=== PATIENT | male | born 1950 | race Caucasian/White ===

== ENCOUNTER → 2018-09-04 09:22 | Outpatient (CLI) | payer BC, SELFPAY ==
[2018-09-04 10:56] LABS: Cholesterol 207 mg/dL (200); High Density Lipoprotein 41 mg/dL; LDH 169 U/L (87-241); Triglycerides 214 mg/dL; Very Low Density Lipoprotein 43 mg/dL (5-40)
[2018-09-05 08:40] LABS: LDL, Direct 120295 119 mg/dL (0-99)
== END ==
PROVIDERS: Family Provider Family Medicine; PCP Family Medicine; Referring Provider Family Medicine; Visit Provider Family Medicine
DX: E78.2 Mixed hyperlipidemia (principal)
CPT/HCPCS: 36415; 80061; 83615; 83721

== ENCOUNTER → 2019-05-15 | Outpatient (CLI) | payer BC, SELFPAY ==
[2017-07-04 07:17] VITALS: BMI 28.6
--- NOTE | 2019-05-15 09:52 | RAD_ITS ---
STUDY: X-RAY - RIGHT KNEE REASON FOR EXAM: Male, 69 years old. Knee pain swelling TECHNIQUE: 4 view(s) of the knee. COMPARISON: None. FINDINGS: There is demineralization of the visualized distal femur. There is demineralization of the tibia and fibula. Normal proximal tibiofibular articulation. There is mild degenerative arthrosis of the medial femorotibial compartment. There is mild degenerative arthrosis of the lateral femorotibial compartment. Normal patellofemoral articulation. There is a moderate volume joint effusion. There is soft tissue edema overlying the knee. There is atherosclerotic disease. RAD/Knee 4 or More Views IMPRESSION: Moderate joint effusion. Arthrosis. No visualized acute fracture. Electronically Signed: Nereida Berger MD at 17:03 EDT Tel , Service support ,
== END | disposition home or self-care (01) ==
LOC: MTRAD 09:50
PROVIDERS: Family Provider Family Medicine; PCP Family Medicine; Referring Provider Family Medicine; Visit Provider Family Medicine
DX: M25.461 Effusion, right knee (principal)
CPT/HCPCS: 73564

== ENCOUNTER → 2019-08-01 09:50 | Outpatient (CLI) | payer MEDICARE, SELFPAY ==
[2017-07-04 07:17] VITALS: BMI 28.6
[2019-08-01 13:02] LABS: Hemoglobin A1c 5.1 % (4.2-6.3)
== END ==
PROVIDERS: Family Provider Family Medicine; PCP Family Medicine; Visit Provider Family Medicine
DX: E78.2 Mixed hyperlipidemia (principal); R73.01 Impaired fasting glucose
CPT/HCPCS: 36415; 83036; 84439; 84443

== ENCOUNTER → 2019-08-14 13:29 | Outpatient (CLI) | payer MEDICARE, OTHER, SELFPAY ==
[2019-08-14 13:07] VITALS: BMI 29.2
--- NOTE | 2019-08-14 13:30 | CT_ITS ---
STUDY: LOW DOSE CT LUNG CANCER SCREENING REASON FOR EXAM: Male, 69 years old. 40 pack-year history of smoking. RADIATION DOSAGE (If Supplied By Facility): CTDIvol = ( 4.02 ) mGy, DLP = ( 134.41 ) mGycm TECHNIQUE: No contrast was administered. Low dose technique was utilized (average mAS-38 and kVp 120). 1.25 mm axial source images with a slice interval of 1.25-mm were reconstructed in lung windows. 2.5 mm axial source images with a slice interval of 2.5-mm were reconstructed in lung windows. 5.0 mm axial source images with a slice interval of 5.0-mm were reconstructed in soft tissue windows. Nodule measured using lung windows on PACS and/or independent workstation with automated measurement of minimum and maximum diameter. Nodule measurement reported as average diameter rounded to the nearest whole number. Growth is defined as an increase ins size of greater than 1.5 mm. COMPARISON: None. NODULES: There is a 4.7 mm noncalcified nodule in the posterior apical segment of the right upper lobe as seen on axial image #41. A similar appearing nodule measuring 5 mm is seen in the posterior aspect of the left upper lobe abutting the major fissure. Emphysema: Mild degree of emphysematous changes. Findings suggestive of a mild degree of apical scarring and right basilar scarring. Aorta: Atherosclerotic calcification of the aortic arch. Coronary arteries: Coronary artery calcification. Mediastinal nodes: Benign-appearing mediastinal lymph nodes. Other chest and abdominal findings: Multilevel disc space narrowing and spondylosis of the thoracic spine. CT/Low Dose CT Lung Screening IMPRESSION: Lung-RADS category 2 - Continue annual screening with LDCT in 12 months. IMPORTANT NOTES FOR USE: ACR Lung-RADS Version 1.0 Assessment Categories Release Date: March 25, 2014 Category: Coded 0-4 bases on nodule(s) with highest degree of suspicion. Negative screen is defined as categories 1 and 2; a positive screen is defined as categories 3 and 4. Category 3 and 4A nodules that are unchanged on interval CT should be coded as category 2, and individuals returned to screening in 12 months. Category 4X: Category 3 or 4 nodules with additional imaging findings that increase the suspicion of lung cancer, such as spiculation, GGN that doubles in size in 1 year, enlarged lymph notes, etc. Category Modifiers: S (significant finding unrelated to lung cancer) and C (prior history of treated lung cancer) may be added to the 0-4 Lung-RADS Electronically Signed: William Washington, at 14:11 EDT , Service support ,
== END ==
PROVIDERS: Family Provider Family Medicine; PCP Family Medicine; Referring Provider Nurse Practitioner Family; Visit Provider Nurse Practitioner Family
DX: Z12.2 Encounter for screening for malignant neoplasm of respiratory organs (principal); Z87.891 Personal history of nicotine dependence
CPT/HCPCS: G0297

== ENCOUNTER → 2019-09-11 13:40 | Outpatient (CLI) | payer MEDICARE, OTHER, SELFPAY ==
[2019-08-14 13:07] VITALS: BMI 29.2
[2019-09-11 16:05] LABS: T4 Free Direct 0.87 ng/dL (0.76-1.46); Thyroid Stim Hormone (TSH) 6.28 uIU/mL (0.358-3.74)
== END ==
PROVIDERS: Family Provider Family Medicine; PCP Family Medicine; Visit Provider Family Medicine
DX: E03.9 Hypothyroidism, unspecified (principal)
CPT/HCPCS: 36415; 84439; 84443

== ENCOUNTER 2019-12-14 07:55 | Day surgery (SDC) | payer MEDICARE, OTHER, SELFPAY ==
[2019-08-14 13:07] VITALS: BMI 29.2
[2019-12-14] VITALS (7 sets, daily range): BP systolic 86–134; BP diastolic 59–80; PULSE 64–74; RESP 16; TEMP 36.4–36.6; O2SAT 95–97; BMI 29.3
[2019-12-14] MEDS: Lactated Ringers 1,000 ML 100 ML IV (08:41)
[2019-12-14] MEDS: Bupivacaine Mpf 0.5% 30 ML VIAL (10:12)
--- NOTE | 2019-12-14 11:13 | PCM.OPRPT ---
Report of Operation Date of Procedure: 12/14/19 Pre-Operative Diagnosis: bunionette right Post-Operative Diagnosis: same Surgery/Procedure Performed:: bunionectomy/ostectomy right Type of Anesthesia:: Local MAC Specimen's removed: none Drains: none Estimated Blood Loss (mL): 1ml Description of Procedure: pt brought to OR and placed in supine position. [address] injected under sedation. ankle tourniquet at 250mmHg. small dorsal linear incision made over 5th met. periosteum capsule divided to MPJ. prominent lateral and plantar condyle removed with saw and smoothed with Ronquer. flushed with saline. tejal ptissue repaired with vicryl and skin with nylon. DSD. tourniquet deflated. normal vascular flow. - Complications none
== END 2019-12-14 11:30 | disposition home or self-care (01) ==
LOC: SDC 07:56 → AC 07:58
PROVIDERS: Family Provider Family Medicine; PCP Family Medicine; Referring Provider Podiatrist Foot & Ankle Surgery; Visit Provider Podiatrist Foot & Ankle Surgery
PROC: (CPT 28292; principal; 2019-12-14 09:45)
DX: M21.621 Bunionette of right foot (principal); I49.9 Cardiac arrhythmia, unspecified; E03.9 Hypothyroidism, unspecified; K21.9 Gastro-esophageal reflux disease without esophagitis; F17.200 Nicotine dependence, unspecified, uncomplicated
CPT/HCPCS: 01480; 28292; J7120

== ENCOUNTER → 2020-01-30 09:11 | Outpatient (CLI) | payer MEDICARE, OTHER, SELFPAY ==
[2019-08-14 13:07] VITALS: BMI 29.2
[2019-12-14 08:27] VITALS: BMI 29.3
[2020-01-30 12:35] LABS: Anion Gap 7 (5-15); BUN 11 mg/dL (7-18); Calcium,Total 8.6 mg/dL (8.5-10.1); Chloride 107 mmol/L (98-107); EST Glomerular Filtration Rate 79 mL/min (>60); Est Glom Filt Rate - Afr Amer 96 mL/min (>60); Glucose 105 mg/dL (74-106); Magnesium 2.4 mg/dL (1.6-2.6); Sodium Level 138 mmol/L (136-145); T4 Free Direct 0.81 ng/dL (0.76-1.46)
== END ==
PROVIDERS: Family Provider Family Medicine; PCP Family Medicine; Visit Provider Family Medicine
DX: E03.9 Hypothyroidism, unspecified (principal); I49.9 Cardiac arrhythmia, unspecified
CPT/HCPCS: 36415; 80048; 83735; 84439; 84443

== ENCOUNTER → 2020-08-13 09:08 | Outpatient (CLI) | payer MEDICARE, OTHER, SELFPAY ==
[2019-12-14 08:27] VITALS: BMI 29.3
[2020-08-13 12:51] LABS: Anion Gap 4 (5-15); BUN 14 mg/dL (7-18); Calcium,Total 9.3 mg/dL (8.5-10.1); Chloride 104 mmol/L (98-107); EST Glomerular Filtration Rate 79 mL/min (>60); Est Glom Filt Rate - Afr Amer 95 mL/min (>60); Glucose 107 mg/dL (74-106); Potassium 3.9 mmol/L (3.5-5.1); Sodium Level 136 mmol/L (136-145); T4 Free Direct 0.85 ng/dL (0.76-1.46); Thyroid Stim Hormone (TSH) 8.71 uIU/mL (0.358-3.74)
== END ==
PROVIDERS: PCP Family Medicine; Visit Provider Family Medicine
DX: E03.9 Hypothyroidism, unspecified (principal); E78.2 Mixed hyperlipidemia; R73.01 Impaired fasting glucose
CPT/HCPCS: 36415; 80048; 84439; 84443

== ENCOUNTER → 2020-08-19 13:36 | Outpatient (CLI) | payer MEDICARE, OTHER, SELFPAY ==
[2019-12-14 08:27] VITALS: BMI 29.3
--- NOTE | 2020-08-19 13:55 | CT_ITS ---
STUDY: LOW DOSE CT LUNG CANCER SCREENING REASON FOR EXAM: Male, 70 years old. EX SMOKER 6 MONTHS. 1 PACK DAY X 45 YEARS RADIATION DOSAGE (If Supplied By Facility): CTDIvol = ( 4.02 ) mGy, DLP = ( 127.37 ) mGycm TECHNIQUE: No contrast was administered. Low dose technique was utilized (average mAS-38 and kVp 120). 1.25 mm axial source images with a slice interval of 1.25-mm were reconstructed in lung windows. 2.5 mm axial source images with a slice interval of 2.5-mm were reconstructed in lung windows. 5.0 mm axial source images with a slice interval of 5.0-mm were reconstructed in soft tissue windows. Nodule measured using lung windows on PACS and/or independent workstation with automated measurement of minimum and maximum diameter. Nodule measurement reported as average diameter rounded to the nearest whole number. Growth is defined as an increase ins size of greater than 1.5 mm. COMPARISON: Comparison is made with prior study dated 08/14/2019. NODULES: Stable 4.7 mm noncalcified nodule in the posterior aspect of the right upper lobe as seen on axial image #50. A similar-appearing nodular density measuring 5 mm is seen in the posterior aspect of the left upper lobe. This abuts the left major fissure. No new nodule is seen. Emphysema: Mild degree of emphysematous changes. Biapical scarring bilaterally slightly more prominent on the right side. Endobronchial lesion: None Aorta: Mild atherosclerotic changes of the aortic arch. Coronary arteries: Coronary artery calcifications. Heart: Not enlarged. Pulmonary artery: Unremarkable. Mediastinal nodes: Small benign appearing mediastinal lymph nodes. Other chest and abdominal findings: Degenerative changes of the visualized spine. CT/Low Dose CT Lung Screening IMPRESSION: Lung-RADS category 2 - Continue annual screening with LDCT in 12 months. IMPORTANT NOTES FOR USE: ACR Lung-RADS Version 1.0 Assessment Categories Release Date: March 25, 2014 Category: Coded 0-4 bases on nodule(s) with highest degree of suspicion. Negative screen is defined as categories 1 and 2; a positive screen is defined as categories 3 and 4. Category 3 and 4A nodules that are unchanged on interval CT should be coded as category 2, and individuals returned to screening in 12 months. Category 4X: Category 3 or 4 nodules with additional imaging findings that increase the suspicion of lung cancer, such as spiculation, GGN that doubles in size in 1 year, enlarged lymph notes, etc. Category Modifiers: S (significant finding unrelated to lung cancer) and C (prior history of treated lung cancer) may be added to the 0-4 Lung-RADS Electronically Signed: William Washington, at 14:20 EDT , Service support ,
== END ==
PROVIDERS: PCP Family Medicine; Referring Provider Nurse Practitioner Family; Visit Provider Nurse Practitioner Family
DX: Z12.2 Encounter for screening for malignant neoplasm of respiratory organs (principal); Z87.891 Personal history of nicotine dependence; D14.1 Benign neoplasm of larynx
CPT/HCPCS: G0297

== ENCOUNTER → 2020-08-28 08:35 | Outpatient (CLI) | payer MEDICARE, OTHER, SELFPAY ==
[2020-08-27 15:01] VITALS: BMI 29.4
--- NOTE | 2020-08-28 08:36 | ECHOCS_ITS ---
Reason For Study: PRE-OP CLEARANCE, CAD/ASHD Procedure This was a 2D Doppler, Color Flow transthoracic echocardiogram. Exam performed in department. Left Ventricle Normal LV size. Left ventricular systolic function is normal. The estimated ejection fraction is 55 %. Stage 1 diastolic dysfunction. No regional wall motion abnormalities noted. Right Ventricle Normal RV size. Normal systolic function. Atria Normal left atrium. Normal right atrium. Mitral Valve Normal mitral valve. Tricuspid Valve Normal tricuspid valve. Mild tricuspid valve insufficiency. Pulmonary artery systolic pressure is 30 mmHg. Aortic Valve The aortic valve is not well visualized. Mild focal aortic valve calcification. Trisinus/trileaflet aortic valve. Pulmonic Valve Normal pulmonic valve. Great Vessels Normal aortic root. The pulmonary artery is normal size. Normal inferior vena cava. Pericardium/Pleural No pericardial effusion. Medication 22 gauge I.V. with prn adaptor inserted into right arm. Diluted definity 3ml given slow IV push to enhance endocardial definition. MMode/2D Measurements & Calculations LVIDd: 4.7 cm IVSd: 0.92 cm Ao root diam: 3.5 cm LVIDs: 3.3 cm LVPWd: 1.00 cm RVDd: 3.2 cm FS: 28.8 % LAV(MOD-bp): 65.4 ml LVAd ap4: 35.3 cm2 SV(MOD-sp4): 58.0 ml LAV(MOD-bp) Indexed: 30.3 ml/m2 EDV(MOD-sp4): 115.2 ml LAV(MOD-sp2): 58.3 ml EDV(sp4-el): 120.5 ml LAV(MOD-sp4): 59.7 ml LVAs ap4: 22.1 cm2 ESV(MOD-sp4): 57.2 ml ESV(sp4-el): 58.3 ml EF(MOD-sp4): 50.3 % EF(sp4-el): 51.6 % SV(sp4-el): 62.2 ml LA A4 area: 20.8 cm2 LA dimension(2D): 3.7 cm RA A4 area: 16.7 cm2 Time Measurements MV dec time: 0.27 sec Doppler Measurements & Calculations MV E max javan: 102.7 cm/sec Lat Peak E' Javan: 11.2 cm/sec Med Peak E' Javan: 7.4 cm/sec MV A max javan: 120.2 cm/sec E/E' lat: 9.2 E/E' med: 13.8 MV E/A: 0.85 Ao V2 max: 133.9 cm/sec LV V1 max: 113.8 cm/sec PA V2 max: 108.9 cm/sec Ao max P.2 mmHg LV V1 max P.2 mmHg TR max javan: 259.1 cm/sec TR max P.9 mmHg Interpretation Summary Normal LV size. Left ventricular systolic function is normal. The estimated ejection fraction is 55 %. Stage 1 diastolic dysfunction. Contrast injection was performed. Ordering Physician: Marc Babin Referring Physician: KELLEY DINH Performed By: Melanie Ramírez RDCS
== END ==
PROVIDERS: PCP Family Medicine; Referring Provider Internal Medicine Cardiovascular Disease; Visit Provider Internal Medicine Cardiovascular Disease
DX: Z01.810 Encounter for preprocedural cardiovascular examination (principal)
CPT/HCPCS: 93306; Q9957; A4216; C8929

== ENCOUNTER 2020-08-29 08:39 | Day surgery (SDC) | payer MEDICARE, OTHER, SELFPAY ==
[2019-12-14 08:27] VITALS: BMI 29.3
--- NOTE | 2020-08-22 08:42 | EKG12_ITS ---
Test Reason : PRE OP Blood Pressure : / mmHG Vent. Rate : 068 BPM Atrial Rate : 068 BPM P-R Int : 136 ms QRS Dur : 078 ms QT Int : 382 ms P-R-T Axes : 047 051 -09 degrees QTc Int : 406 ms Normal sinus rhythm Nonspecific ST abnormality Abnormal ECG Confirmed by TITO TRAMMELL, HUNG ([id number]), image editor OLAYINKA BEGUM ([id number]) on 08/26/2020 11:28:18 AM Referred By: David Luis Confirmed By:HUNG FRANCIS MD
[2020-08-22 09:06] LABS: Hematocrit 42.3 % (40-54); Hemoglobin 14.2 g/dL (13.0-16.5); Mean Corp Hgb Conc 33.6 g/dL (32-36); Mean Corpuscular Hgb 31.7 pg (27.0-32.0); Mean Corpuscular Volume 94.4 fL (80-94); Mean Platelet Vol. 10.4 fl (6.2-12.0); Platelet Count 144 K/mm3 (150-450); RBC Distribution Width CV 12.3 % (11.6-14.6); RBC Distribution Width SD 43.1 fl (35.1-43.9); Red Blood Count 4.48 M/mm3 (4.6-6.2); White Blood Count 4.6 K/mm3 (4.4-11.0)
[2020-08-27 15:01] VITALS: BMI 29.4
--- NOTE | 2020-08-29 | LES_PTH ---
PATIENT: KE ARORA LOC: [facility] [place] U#:[id number] AGE/SX: 70/M ROOM: RE08/29/[address]: Dr. David Luis MD : 1950 BED: DIS: 08/29/2020 SPEC #: [id number] RECD: 08/29/20 10:25 STATUS: RAMON REFUGIO #: [id number] DOMINIQUE: 08/29/20 00:[address]: David Luis DEPT: SURGICAL PATHOLOGY RECD BY: Noemi Nicholson ENTERED: 08/29/20 10:57 SP TYPE: Lesion OTHR DR: Dr. Nik Anderson MD Tissues: A - Vocal cord, NOS B - Nasal septum, NOS Procedures: Decalcification bone/plaque Frozen Section (charge) Surgery Specimen Level III Surgery Specimen Level IV HEADER OPERATION: Septoplasty, direct microlaryngoscopy with biopsy PRE-OP DIAGNOSIS: Bilateral columellar deflection septal granuloma deviated to the left with severe obstruction, suspicious lesion of left focal cord and hoarseness TISSUE SUBMITTED: A - Lesion of left vocal cord, frozen section, B - Nasal septum contents FROZEN SECTION DIAGNOSIS A. 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 AM:daniella 08/29/20 Case has been reviewed in consultation with Dr. Gentile who concurs with the above diagnosis. IDC:SJ MICROSCOPIC DIAGNOSIS A. Left vocal cord lesion, biopsy: Fragments of squamous cell carcinoma. See comment. B. Nasal septum, septoplasty: Fragments of hyaline cartilage and bone with reparative and reactive change (clinically deviated septum). AM:daniella 09/03/20 COMMENT A. Focal invasive squamous cell carcinoma is suspected. MICROSCOPIC DESCRIPTION Slides are reviewed. GROSS DESCRIPTION A - Received fresh for frozen section consultation/diagnosis labeled with the patient's name is a specimen designated lesion of left vocal cord. The specimen consists of multiple (five pieces) irregular fragments of light rowley-pink soft tissue that in aggregate measure 0.6 x 0.5 x 0.1 cm. The entire specimen is submitted for frozen section diagnosis in one cassette. / AM:daniella 08/29/20 B - Received in fixative is one container labeled with the patient's name and designated nasal septum contents. The specimen consists of multiple fragments of cartilage and bone that in aggregate measure 5 x 3 x 0.3 cm. The specimen is totally submitted in two cassettes after decalcification. / SJ:daniella 08/29/20 TC:0 CPT: 45528, 22391, 98196, 42919
[2020-08-29 09:13] VITALS: BP 141/80; PULSE 66; RESP 16; TEMP 36.8; O2SAT 97; BMI 30.3
[2020-08-29] MEDS: Lactated Ringers 1,000 ML 100 ML IV (09:29)
[2020-08-29] MEDS: Oxymetazoline 0.05% 1 SPRAY SPRAY.BTL 15 SPRAY (10:40)
[2020-08-29] MEDS: Bacitracin 500 UNITS/GM PACKET (10:41)
[2020-08-29] MEDS: Lidocaine 4% 50 ML Bottle (10:41)
--- NOTE | 2020-08-29 11:12 | PCM.OPRPT ---
Problem List (1) Deviated nasal septum Status: Chronic (2) Vocal cord mass Status: Acute (3) Hoarseness of voice Status: Chronic Report of Operation Date of Procedure: 08/29/20 Pre-Operative Diagnosis: Left vocal fold lesion, hoarseness, deviated nasal septum Post-Operative Diagnosis: Same, squamous cell carcinoma of the larynx Surgery/Procedure Performed:: Direct microlaryngoscopy with biopsy of left vocal fold, septoplasty Description of Surgical Findings:: Shay is a 70-year-old male presented for evaluation of hoarseness was found to have a suspicious lesion of the left vocal cord. He is also to have market deviation nasal septum with chronic nasal obstruction and correction all this along with biopsy of the vocal cord lesion was offered. The risks of coronavirus exposure in this time with surgical procedures was discussed and he was agreeable accept this risk in exchange for treatment of his underlying conditions. The risks, alternatives, potential complications, and benefits were discussed at length and any questions answered to the patient and/or caregiver's satisfaction. Witnessed informed consent was obtained in the office, and the patient and/or caregiver was agreeable to proceed. Procedure went as follows: The patient was identified in the preoperative holding and brought to the operating room, placed under general anesthesia, and intubated. When appropriate anesthesia was obtained, the head of bed was rotated and the patient prepped and draped in usual sterile fashion. A dental guard or moistened gauze was then placed to protect the upper gums and the Dedo laryngoscope then introduced. Direct laryngoscopy was then carried out. The lateral posterior pharyngeal wall mucosa, tonsillar fossa, vallecula, piriforms, and epiglottis were noted to be normal in appearance. The true and false vocal folds were then brought into view. The patient was then placed in suspension and the operative microscope brought into the field. Using pledgets soaked in a 50-50 mixture of oxymetazoline and 4% topical lidocaine the true vocal folds were then topicalized. There is noted to be a friable exophytic lesion arising from the left vocal fold. This extended deeply into the muscular layer as well as extension anteriorly to the anterior commissure but did not appear to cross the midline. Several biopsies were then taken and sent for pathologic evaluation which revealed squamous cell carcinoma. This were then again placed for hemostasis which was then removed and appropriate stasis was achieved. Procedure went as follows: The patient was identified in the preoperative holding and brought to the operating room, was placed under general anesthesia and intubated. When appropriate anesthesia was obtained, pledgets soaked in a 50-50 mixture of oxymetazoline and 4% topical lidocaine were placed to decongest the nasal mucosa. The nasal septum was then injected beginning on the left side with 1% lidocaine with 100,000 epinephrine for a total of 6 mL. The pledgets were then removed and the left nasal cavity examined. There was noted to be significant nasal septal deviation to the left with widening of the anterior portion and a large bony spur extending the length of the floor. Using a 15 blade scalpel, a hemitransfixion incision was then made on the left side and using the Sha elevator a subperichondrial/periosteal flap was elevated. The septum was then transected at the bony cartilaginous junction and a similar flap raised on the contralateral side. Using a Senthil-Bhakta forceps, the septum was then sharply transected superiorly and the deviated portions removed with a Rc forceps. Any inferior bony spur was then removed with a chisel allowing for midline placement of the nasal septum. The hemitransfixion incision was then closed with interrupted 4-0 chromic gut suture followed by a 4-0 plain quilting suture to reapproximate the mucosal flaps. Bowles splints coated with Bacitracin ointment were then applied to each nasal cavity and secured at the columella with a single 3-0 Prolene suture. An NG tube was then placed to decompress the stomach and the patient returned to anesthesia, revived and extubated having tolerated the procedure well. Type of Anesthesia:: General Anesthesiologist: Soham Lund Special Medications: none Specimen's removed: left vocal fold lesion, nasal septal contents Drains: none Estimated Blood Loss (mL): 50 mL Fluids Replaced: 400 mL Grafts/Implants Used: Doyls splints - Complications none - Admit VTE Documentation VTE Present on Admission: No VTE Mechan Device Prophylaxis: SCD's VTE Pharm Prophylaxis ordered?: No
--- NOTE | 2020-08-29 11:18 | DCINST_ITS ---
- Discharge Diagnoses Current Active Problems: Current Active and Chronic Problems (Last Reviewed 08/27/20 @ 15:[address] Marc Babin MD) Deviated nasal septum (Chronic) You will use the following diet at home:: Regular Discharge Activity: Return to Normal Activity, May not drive while taking narcotic pain medications. Call your doctor if your incision/area has: Sudden Increased Bleeding Call your doctor if you observe: Fever of 101 or Higher, Uncontrolled pain Allergies/Adverse Reactions: Allergies No Known Allergies Allergy (Verified 08/27/20 15:10) Medications to take at Discharge levothyroxine 25 mcg tablet 125 mcg PO DAILY 08/14/19 Meloxicam [Mobic] 15 mg PO DAILY 08/21/20 Pantoprazole Sodium [Protonix] 40 mg PO DAILY 08/21/20 amlodipine 5 mg tablet 5 mg PO DAILY #60 tab 08/27/20 simvastatin 20 mg tablet 20 mg PO DAILY #90 tab 08/27/20 Primary Care Physician: Nik Anderson MD [Primary Care Provider] - Test Results: Test results from this visit will be discussed in further detail at your follow- up appointment, if applicable. Please Follow Up With: David Luis MD When: 5 days
[2020-08-29 11:19] VITALS: BP 141/80; BP 148/83; PULSE 62; RESP 16; TEMP 36.6; O2SAT 99
[2020-08-29 11:30] VITALS: BP 137/74; BP 141/80; PULSE 58; RESP 16; O2SAT 98
[2020-08-29 11:45] VITALS: BP 134/75; BP 141/80; PULSE 66; RESP 16; O2SAT 96
[2020-08-29 12:00] VITALS: BP 127/83; BP 141/80; PULSE 65; RESP 16; TEMP 36.6; O2SAT 95
[2020-08-29] MEDS: HYDROcodone Bitartrate/Apap 5/325 Tablet PO (12:54)
[2020-08-29 13:27] VITALS: BP 108/61; BP 141/80; PULSE 71; RESP 16; TEMP 36.7; O2SAT 96
== END 2020-08-29 13:30 | disposition home or self-care (01) ==
LOC: SDC 08:41 → AC 08:41
PROVIDERS: Anesthesiology; PCP Family Medicine; Referring Provider Otolaryngology; Visit Provider Otolaryngology
PROC: (CPT 30520; principal; 2020-08-29 10:10)
PROC: 0CJS8ZZ Inspection of Larynx, Via Natural or Artificial Opening Endoscopic (ICD-10-PCS; CPT 31575; 2020-08-29 10:10)
DX: D02.0 Carcinoma in situ of larynx (principal); J34.2 Deviated nasal septum; R49.0 Dysphonia; F17.201 Nicotine dependence, unspecified, in remission; Z79.899 Other long term (current) drug therapy; K21.9 Gastro-esophageal reflux disease without esophagitis; Z20.828 Contact with and (suspected) exposure to other viral communicable diseases; Z11.59 Encounter for screening for other viral diseases
CPT/HCPCS: 30520; 31536; 36415; 85027; 87635; 88304; 88305; 88311; 88331; 93005; C9803; J7120; J2405; U0003

== ENCOUNTER → 2020-09-12 16:39 | Outpatient (CLI) | payer MEDICARE, OTHER, SELFPAY ==
[2020-09-08 08:58] VITALS: BMI 30.9
[2020-09-08 09:00] VITALS: BMI 30.9
--- NOTE | 2020-09-12 16:45 | CT_ITS ---
STUDY: CT SOFT TISSUE NECK WITH CONTRAST REASON FOR EXAM: Male, 70 years old. TUMOR ON LARYNX. RADIATION DOSAGE (If Supplied By Facility): CTDIvol = ( 16.50 ) mGy, DLP = ( 502.92 ) mGycm TECHNIQUE: The patient was scanned in a multi-detector CT scanner. High resolution transaxial imaging was performed following intravenous administration of IV 75mL Isovue-300. Sagittal and coronal images were reconstructed. Individualized dose optimization techniques were used for this CT. COMPARISON: None. FINDINGS: Normal bilateral parotid glands. Normal bilateral supervisor capacitor processing spaces. Normal bilateral parapharyngeal spaces. Carotid calcifications. Normal bilateral sublingual and submandibular glands and spaces. Normal visualized nasopharynx. Normal retropharyngeal space. Normal perivertebral space. Normal visualized bilateral faucial tonsils. The visualized tongue, tongue base and oropharynx are normal. The visualized cervical lymph nodes (levels I-) are within normal size limits, and maintain normal morphology. There is no demonstrated solid or cystic mass lesion. There is no abnormal contrast enhancement. Normal epiglottis, bilateral vallecula and hypopharynx. The pre-epiglottic and paraglottic adipose spaces are normal. Normal visualized bilateral piriform sinuses, aryepiglottic folds, vocal cords, and arytenoid-cricoid articulations. Normal subglottic trachea. Normal bilateral lobes of the thyroid gland. Normal visualized pulmonary apices. Bilateral maxillary sinus cysts. Normal visualized cervical spine. CT/Soft Tissue Neck WITH Contrast IMPRESSION: No neck masses or adenopathy. No focal lesions are visible involving the pharynx or larynx. Electronically Signed: Ernesto Marino MD at 21:45 EDT Tel , Service support ,
== END ==
PROVIDERS: PCP Family Medicine; Referring Provider Student in an Organized Health Care Education/Training Program; Visit Provider Student in an Organized Health Care Education/Training Program
DX: C32.9 Malignant neoplasm of larynx, unspecified (principal)
CPT/HCPCS: 70491; Q9967

== ENCOUNTER → 2020-09-22 06:16 | Outpatient (CLI) | payer MEDICARE, OTHER, SELFPAY ==
[2020-08-29 09:13] VITALS: BMI 30.3
[2020-09-08 08:58] VITALS: BMI 30.9
[2020-09-08 09:00] VITALS: BMI 30.9
--- NOTE | 2020-09-22 16:37 | STRESSREP ---
Stress Test Report Exercise myocardial perfusion stress test. 70-year-old man with an abnormal EKG. For preoperative cardiac evaluation. Significant coronary artery calcification. Stress protocol: Resting EKG demonstrates normal sinus rhythm with a rate of 73 bpm T wave inversions noted in lead III with downsloping ST depression present. Resting blood pressure is 130/82 mmHg. The patient exercised according to regular Shahid protocol for a total duration of 3 minutes and 45 seconds. The maximum heart rate attained was 126 bpm which was 82% of maximum predicted heart rate the maximum workload was 5.5 metabolic equivalents. At peak exercise there was approximately 1.5 to [address] depression noted in leads II, III and aVF and 1.[address] depression noted in lead V5 and I 0.9 mm in V6. The above is suggestive of ischemia. No clinical angina was noted the test was terminated due to dyspnea. The resting blood pressure was 130/82 with a peak blood pressure 164/82 mmHg. Myocardial perfusion protocol. 15.0 mCi of technetium 99m sestamibi was injected at rest. Patient exercised according to regular Shahid protocol for 3 minutes and 45 seconds at peak exercise 45.0 mCi of technetium 99m sestamibi was injected stress images were obtained stress and rest images were reconstructed and compared in the short axis vertical long horizontal long axis. Gated images were also obtained Perfusion SPECT analysis: Review of the stress images demonstrate normal perfusion noted in the septum anterior wall and lateral wall. There is a large perfusion defect noted involving the inferior wall with near complete reversibility noted on the resting images suggestive of inferior ischemia. No previous infarct is noted. Gated SPECT analysis: The gated ejection fraction is noted to be 54%. Conclusion: Abnormal exercise myocardial perfusion stress test at a low to moderate workload with a large area of inferior ischemia. Preserved ejection fraction.
== END ==
PROVIDERS: PCP Family Medicine; Referring Provider Internal Medicine Cardiovascular Disease; Visit Provider Internal Medicine Cardiovascular Disease
DX: I25.10 Atherosclerotic heart disease of native coronary artery without angina pectoris (principal)
CPT/HCPCS: 78452; 93017; A9500; A4216

== ENCOUNTER 2020-09-29 06:39 | Day surgery (SDC) | payer MEDICARE, OTHER, SELFPAY ==
[2020-09-08 08:58] VITALS: BMI 30.9
[2020-09-08 09:00] VITALS: BMI 30.9
[2020-09-25 10:50] LABS: Basophil# 0.05 X10^3/uL; Eosinophil# 0.21 X10^3/uL; Eosinophils% 4.1 % (0-5); Hematocrit 45.5 % (40-54); Hemoglobin 15.1 g/dL (13.0-16.5); Lymphocyte % 25.5 % (19-41); Mean Corp Hgb Conc 33.2 g/dL (32-36); Mean Corpuscular Hgb 31.6 pg (27.0-32.0); Mean Corpuscular Volume 95.2 fL (80-94); Mean Platelet Vol. 10.2 fl (6.2-12.0); Monocyte# 0.56 X10^3/uL; NRBC Flagged by Analyzer 0 % (0-5); Neutrophil # 2.97 X10^3/uL (2.7-7.7); Neutrophil % 58.2 % (47-70); Platelet Count 165 K/mm3 (150-450); RBC Distribution Width CV 12.1 % (11.6-14.6); RBC Distribution Width SD 42.8 fl (35.1-43.9); Red Blood Count 4.78 M/mm3 (4.6-6.2); White Blood Count 5.1 K/mm3 (4.4-11.0)
[2020-09-25 11:19] LABS: Anion Gap 6 (5-15); BUN 12 mg/dL (7-18); BUN/Creat Ratio 10.8 RATIO (10-20); Calcium,Total 8.8 mg/dL (8.5-10.1); Chloride 103 mmol/L (98-107); Creatinine, Serum 1.11 mg/dL (0.70-1.30); EST Glomerular Filtration Rate 70 mL/min (>60); Est Glom Filt Rate - Afr Amer 85 mL/min (>60); Glucose 103 mg/dL (74-106); Potassium 3.9 mmol/L (3.5-5.1); Sodium Level 139 mmol/L (136-145)
[2020-09-26 08:55] VITALS: BMI 29.4
--- NOTE | 2020-09-29 08:00 | HP_ITS ---
HPI HPI History of Present Illness Details: Pleasant 70-year-old man with no previous cardiac history who is a recent tobacco user who reports hoarseness but no sore throat. He has been seen by the ENT physician and he is scheduled for biopsy of a possible neoplasm of the larynx. He has had no chest pain or shortness of breath no paroxysmal nocturnal dyspnea no pedal edema. An EKG was done and some abnormalities were noted and he was sent here for evaluation. His EKG was reviewed and is noted to be normal sinus rhythm with a rate of 68 bpm and no acute changes. His blood pressure was noted to be mildly elevated. Intake Vital Signs 08/27/20 Height 5 ft 11 in 08/27/20 Weight: 211 lb 08/27/20 BMI 29.4 08/27/20 BP 156/91 H 08/27/20 Respiration 18 08/27/20 Pulse 84 08/27/20 Pulse Oximetry (%) 95 Intake Visit Reasons: ENT ref'd for abn EKG (pre-op) Allergies No Known Allergies Allergy (Verified 08/27/20 15:10) Medications levothyroxine 25 mcg tablet 125 mcg PO DAILY 08/14/19 [History Confirmed 08/27/20] Meloxicam [Mobic] 15 mg PO DAILY 08/21/20 [History Confirmed 08/27/20] Pantoprazole Sodium [Protonix] 40 mg PO DAILY 08/21/20 [History Confirmed 08/27/20] amlodipine 5 mg tablet 5 mg PO DAILY #60 tab 08/27/20 [Rx Confirmed 08/27/20] simvastatin 20 mg tablet 20 mg PO DAILY #90 tab 08/27/20 [Rx Confirmed 08/27/20] [facility] Medical History Coronary artery calcification seen on computed tomography (Chronic) Hyperlipidemia (Chronic) Emphysema of lung (Chronic) Hypothyroidism (Chronic) Lung nodule (Chronic) Cervical disc disease (Chronic) GERD (gastroesophageal reflux disease) (Chronic) Osteoarthritis (Chronic) Tobacco abuse disorder (Resolved) Surgical History History of bunionectomy (Resolved) History of tonsillectomy (Resolved) Family History Father Stomach cancer Mother Breast cancer Sister Heart disease Social History (Updated 08/27/20 @ 15:[address] Marc Babin MD) Smoking Status: Former smoker quit date: 01/26/19 pack-years: 45 Tobacco: How many years used: 45 second hand exposure: No quit status: has quit before counseling given: provider counseling alcohol intake: current alcohol intake frequency: 0-2 drinks per day Alcohol type: beer ROS Const Const: Negative for fatigue, weakness, headache(s), frequent falls, difficulty sleeping or excessive sweating Eyes Eyes: Negative for loss of peripheral vision, transient loss of vision, blurry vision, double vision or tunnel vision ENT ENT: Negative for headache(s), dizziness, Nosebleed/epistaxis or balance problems Cardio Chest Pain: No Palpitations: No Edema: None Muscle aches with walking: None Resp Respiratory: Positive for SOB with activity; negative for SOB at rest, SOB orthopnea\SOB lying down, Cough or paroxysmal nocturnal dyspnea GI GI: Negative nausea, vomiting, heartburn or black,tarry stools : Negative for hematuria Musc Musc: Negative for muscle aches/ myalgia, muscle weakness, joint pain or balance problems Skin Skin: Negative non-healing lesions, rash or unusual bruising Neuro Neuro: Negative for dizziness, lightheadedness, near syncope, syncope, orthostatic symptoms, frequent falls, headache(s), weakness, blurry vision, double vision or lack of coordination Alon Hematologic/Lymphatic: Negative for easy bleeding or easy bruising Endo Endo: Negative for fatigue, excessive sweating or increased thirst/drinking Psych Psych: Negative for anxiety or depression Allergy Allergy/Immunology: Negative for hives, Negative for rash Cardiology Exam Const Appearance: cooperative, healthy appearing, no acute distress, well developed and well groomed Nutritional Appearance: average body habitus and well nourished Orientation: alert, awake and oriented x3 Head Head: normal to inspection, normocephalic and atraumatic Ears: hearing grossly normal bilaterally and external ears normal Nose: external nose normal, nares normal, nasal mucous membranes and turbinates normal, septum normal, no nasal discharge Face and Sinus: face symmetric Mouth: oral mucosae normal, tongue normal, oropharynx normal and moist mucous membranes Teeth and gingiva: dentition normal Throat: posterior oropharynx normal, tonsils normal and uvula midline Eyes General: appearance normal, both eyes and all related structures Eyelids: eyelids normal Conjunctivae: conjunctivae normal Pupils: PERRL, normal by confrontation and accommodation normal EOM: EOM intact bilaterally Neck Neck: normal visual inspection, trachea midline and no JVD JVD: +5 Carotids: normal carotid upstroke and bounding pulses Chest Chest inspection: normal inspection of the chest, symmetric chest movement and normal respiratory effort Auscultation: Bilateral: Clear to Auscultation Cardio Palpation: normal PMI Rate: regular rate Rhythm: regular rhythm Heart sounds: S1 normal, S2 normal and normal, physiologic split S2; negative rub, gallop or murmur GI GI: normal to inspection, soft, no hepatosplenomegaly and bowel sounds present Neuro General: alert, awake, oriented x3, gait normal, moves all extremities and no focal sensory deficit Skin Skin: no rashes or lesions noted Extremities Pulses: Normal: Right Femoral Pulse, Left Femoral Pulse, Right Dorsalis Pedis Pulse, Left Dorsalis Pedis Pulse, Right Posterior Tibial Pulse, Left Posterior Tibial Pulse, Right Radial Pulse, Left Radial Pulse Lower Extremity Edema: None: Bilateral Musculoskel Musculoskeletal: No joint tenderness Psych Psychological: normal affect Assessment & Plan 1. Preop cardiovascular exam Z01.810 Plan In terms of his preoperative cardiovascular exam he appears to be stable. His EKG was reviewed and it demonstrates normal sinus rhythm with a rate of [address] changes. He has not previously had a diagnosis of hypertension and I would recommend at this time that he be placed on a low-dose of amlodipine 5 mg a day. He should continue this up to and including the day of surgery. I would recommend that we obtain an echocardiogram to assess his left ventricular function. This should however not hold back on his surgery. Depending on the findings further recommendations will be made. Orders Orders: Echo Complete Today 2. Coronary artery calcification seen on computed tomography I25.10 Plan He does have evidence of coronary atherosclerosis noted on his CAT scan. I would recommend at some point that he undergo a stress test to exclude any occult significant coronary disease. With intended surgery I do not think this needs to be performed prior to this anyway. Orders Orders: Nuclear Stress Test - Treadmil Today 3. Hyperlipidemia E78.5 Plan He does have evidence of hyperlipidemia. His last lipid profile was in 2018. However with his coronary atherosclerosis I would recommend that we place him on a statin. He can follow-up with the above with his primary physician. Plan Detail Other Medications New: amlodipine 5 mg PO DAILY 60 tabs 3RF simvastatin 20 mg PO DAILY 90 tabs 3RF Follow Up 4 Months (jhr) Coding Level of Care Code Off vis,new,level 4 Diagnoses Preop cardiovascular exam Z01.810 Coronary artery calcification seen on computed tomography I25.10 Hyperlipidemia E78.5 Coding Level of Care Code Off vis,new,level 4 Diagnoses Preop cardiovascular exam Z01.810 Coronary artery calcification seen on computed tomography I25.10 Hyperlipidemia E78.5 Supplemental Info Supplemental Information Labs LDL Cholesterol 123 mg/dL (0-130) 09/04/18 HDL Cholesterol 41 mg/dL (40-) 09/04/18 Triglycerides 214 mg/dL (-199) H 09/04/18 VLDL Cholesterol 43 mg/dL (5-40) H 09/04/18 Diagnostics Electrocardiogram 08/22/20
--- NOTE | 2020-09-29 09:07 | CL.D_ITS ---
Patient Name: KE ARORA Study Date: 09/29/2020 Performing: Marc Babin MD Ht: 70.86 inches 180 cm : 1950 Wt: 211.64 lbs 96 kg Age: 70 Gender: male BSA: 2.16 PROCEDURE(S) PERFORMED [id number]/LV CLINICAL PROFILE AND INDICATIONS Indications: Suspected CAD Heart Failure: None Stress/Imaging Date: 09/22/2020Stress Test with SPECT MPI: Positive High Risk CAD Presentations: Symptom unlikely to be ischemic. CONCLUSIONS Significant two-vessel coronary artery disease involving the proximal, mid LAD with aneurysmal dilata tion as well as a totally occluded right coronary artery with [id number] collaterals and mildly de pressed left ventricular systolic function. RECOMMENDATIONS Surgery consult for coronary revascularization DESCRIPTION OF PROCEDURE The patient arrived to the procedure lab. The risks and benefits of the procedure as well as a full d escription of our services here and current unavailability of surgical backup were fully explained to the patient and/or their significant other prior to the catheterization. The Timeout was completed, verifying the correct patient and procedure. The patient's procedural site was prepped and draped in the usual fashion. Local anesthetic was given subcutaneously to right radial region with Lidocaine 2% . Using a modified Seldinger technique, arterial access was obtained via the right radial artery, a 6 Fr sheath was inserted. Left Coronary Artery selective angiography was performed in multiple views u sing a 5 Fr. 4.0 Alva catheter. Right Coronary Artery selective angiography was then performed in mu ltiple views using a 5 Fr. 4.0 Alva catheter. Left Ventriculography was performed in GABRIEL projection using a 5 Fr. Pigtail catheter. LV to AO pullback pressures were then recorded.The arterial sheath was pulled and a TR Band was applied for hemostasis CORONARY ANGIOGRAPHY DOMINANCE: Right Dominant LEFT HEART ASSESSMENT Left Ventricular Ejection Fraction: by LV Gram 50 % Inferior Mid Hypokinesis - Mild Normal Left Ventricular systolic function LEFT MAIN: Mild calcification, Mild luminal irregularities LEFT ANTERIOR DESCENDING ARTERY: Moderate calcification PROX LAD: 90 % Stenosis, mildly aneursymal dilatation MID LAD: 90 % Stenosis CIRCUMFLEX ARTERY: PROX CIRC: 50 % Stenosis RIGHT CORONARY ARTERY: PROX RCA: is occluded COLLATERAL FLOW: Collateral flow from Left to Right COMPLICATIONS No Complications PROCEDURE MEDICATIONS Versed 1 mg IV Fentanyl 50 mcg IV Versed 1 mg IV Oxygen: 2 L/min via nasal cannula Heparin diluted in 23cc Heparinized saline. Patient given 10cc IA of this solution. 09/29/2020 08:41: 22 Verapamil 2.5mg, Ntg 100mcgs, 2000 units of Heparin diluted in 23cc Heparinized saline. Patient give n 10cc IA of this solution. 09/29/2020 08:41:22 IV Bolus: .9 NaCl 200 ml total 09/29/2020 09:04:35 SUMMARY OF HEMODYNAMIC DATA Time AIR REST ECG 07:14:10 AO 80/54 (64) SA 08:44:25 AO 91/68 (79) 08:45:03 LV 117/-1, 0 08:51:15 LV 125/1, 3 08:51:22 LV 108/3, 5 08:52:06 LV 121/4, 8 08:52:12 LVp 122/4, 7 08:52:15 AOp 112/67 (86) 08:52:20 Signed By Marc Babin MD On 09/29/2020 09:06:24 Marc Babin MD
== END 2020-09-29 10:50 | disposition home or self-care (01) ==
LOC: CLSP 06:40
PROVIDERS: PCP Family Medicine; Referring Provider Internal Medicine Cardiovascular Disease; Visit Provider Internal Medicine Cardiovascular Disease
DX: Z01.810 Encounter for preprocedural cardiovascular examination (principal); I25.10 Atherosclerotic heart disease of native coronary artery without angina pectoris; I25.82 Chronic total occlusion of coronary artery; E78.5 Hyperlipidemia, unspecified; E03.9 Hypothyroidism, unspecified; J43.9 Emphysema, unspecified; M19.90 Unspecified osteoarthritis, unspecified site; K21.9 Gastro-esophageal reflux disease without esophagitis; Z79.82 Long term (current) use of aspirin; Z79.1 Long term (current) use of non-steroidal anti-inflammatories (NSAID); Z87.891 Personal history of nicotine dependence
CPT/HCPCS: 36415; 80048; 85025; 93458; 99152; 99153; J7040; C1769; C1894; Q9967

== ENCOUNTER 2020-11-26 07:53 | Day surgery (SDC) | payer MEDICARE, OTHER, SELFPAY ==
[2020-09-08 09:00] VITALS: BMI 30.9
[2020-10-31 11:15] VITALS: BMI 29.1
[2020-11-25 08:53] VITALS: BMI 29.1
[2020-11-26] VITALS (16 sets, daily range): BP systolic 117–167; BP diastolic 64–99; PULSE 60–71; RESP 12–19; TEMP 36.6; O2SAT 95–100
--- NOTE | 2020-11-26 06:11 | HP_ITS ---
HPI HPI History of Present Illness Details: Pleasant 70-year-old man with no previous cardiac history who is a recent tobacco user who reports hoarseness but no sore throat. 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 He is undergoing radiation treatments and is at this visit he has about 6 treatments left. You do remember that he underwent a pharmacologic stress test which demonstrated a large area of inferior ischemia he underwent cardiac catheterization which demonstrated significant two-vessel disease involving the mid LAD with aneurysmal dilatation as well as a totally occluded right coronary artery with [id number] collaterals. His ejection fraction was mildly depressed. He was initially considered for coronary bypass surgery. He has remained completely asymptomatic and has tolerated his radiation treatments quite well. He has been on his standard medications with his amlodipine and metoprolol and aspirin and statin. His physical exam today is unremarkable. Intake Vital Signs 10/31/20 Height 5 ft 11 in 10/31/20 Weight: 209 lb 10/31/20 BMI 29.1 10/31/20 BP 146/83 H 10/31/20 Respiration 18 10/31/20 Pulse 82 10/31/20 Pulse Oximetry (%) 96 Intake Visit Reasons: post cath 09/29 Allergies No Known Allergies Allergy (Verified 10/31/20 11:15) Medications Meloxicam [Mobic] 15 mg PO DAILY 08/21/20 [History Confirmed 10/31/20] Pantoprazole Sodium [Protonix] 40 mg PO DAILY 08/21/20 [History Confirmed 10/31/20] amlodipine 5 mg tablet 5 mg PO DAILY #60 tab 08/27/20 [Rx Confirmed 10/31/20] simvastatin 20 mg tablet 20 mg PO DAILY #90 tab 08/27/20 [Rx Confirmed 10/31/20] Ibuprofen [Motrin] 400 mg PO Q6H PRN PRN tab 08/29/20 [Rx Confirmed 10/31/20] Aspirin [Aspirin, Baby] 81 mg PO DAILY 09/29/20 [History Confirmed 10/31/20] metoprolol succinate 25 mg tablet,extended release 24 hr 25 mg PO DAILY #90 tab 09/29/20 [Rx Confirmed 10/31/20] Magic Mouth Wash 15 ml PO Q6H PRN PRN #300 ml 10/15/20 [Rx Confirmed 10/31/20] levothyroxine 125 mcg tablet 125 mcg PO DAILY tab 10/31/20 [History Confirmed 10/31/20] Ejection fraction %: 55 to 59 [facility] Medical History Atherosclerotic heart disease of [place] coronary artery without angina pectoris (Chronic) Hyperlipidemia (Chronic) Hoarseness of voice (Chronic) Vocal cord mass (Chronic) Squamous cell carcinoma of left vocal cord (Chronic 08/29/20) Odynophagia (Acute) Abnormal electrocardiogram (Chronic) Cervical disc disease (Chronic) Deviated nasal septum (Chronic) Emphysema of lung (Chronic) GERD (gastroesophageal reflux disease) (Chronic) Hypothyroidism (Chronic) Lung nodule (Chronic) Osteoarthritis (Chronic) Tobacco abuse disorder (Resolved) Coronary artery calcification seen on computed tomography (Inactive) Squamous cell carcinoma (Inactive) Surgical History History of bunionectomy (Resolved) History of left heart catheterization (Resolved 09/29/20) History of nasal septoplasty (Resolved 08/29/20) History of tonsillectomy (Resolved) vocal cord biopsy (Resolved 08/29/20) Family History Father Stomach cancer Mother Breast cancer Sister Heart disease Social History (Updated 10/31/20 @ 11:[address] Marc Babin MD) Smoking Status: Former smoker ROS Const Const: Negative for fatigue, weakness, headache(s), frequent falls, difficulty sleeping or excessive sweating Eyes Eyes: Negative for loss of peripheral vision, transient loss of vision, blurry vision, double vision or tunnel vision ENT ENT: Positive for other (difficulty swallowing); negative for headache(s), dizziness, Nosebleed/epistaxis or balance problems Cardio Chest Pain: No Palpitations: No Edema: None Muscle aches with walking: None Resp Respiratory: Negative for SOB with activity, SOB at rest, SOB orthopnea\SOB lying down, Cough or paroxysmal nocturnal dyspnea GI GI: Negative nausea, vomiting, heartburn or black,tarry stools : Negative for hematuria Musc Musc: Negative for muscle aches/ myalgia, muscle weakness, joint pain or balance problems Skin Skin: Negative non-healing lesions, rash or unusual bruising Neuro Neuro: Negative for dizziness, lightheadedness, near syncope, syncope, orthostatic symptoms, frequent falls, headache(s), weakness, blurry vision, double vision or lack of coordination Alon Hematologic/Lymphatic: Negative for easy bleeding or easy bruising Endo Endo: Negative for fatigue, excessive sweating or increased thirst/drinking Psych Psych: Negative for anxiety or depression Allergy Allergy/Immunology: Negative for hives, Negative for rash Cardiology Exam Const Appearance: cooperative, healthy appearing, no acute distress, well developed and well groomed Nutritional Appearance: average body habitus and well nourished Orientation: alert, awake and oriented x3 Head Head: normal to inspection, normocephalic and atraumatic Ears: hearing grossly normal bilaterally and external ears normal Nose: external nose normal, nares normal, nasal mucous membranes and turbinates normal, septum normal, no nasal discharge Face and Sinus: face symmetric Mouth: oral mucosae normal, tongue normal, oropharynx normal and moist mucous membranes Teeth and gingiva: dentition normal Throat: posterior oropharynx normal, tonsils normal and uvula midline Eyes General: appearance normal, both eyes and all related structures Eyelids: eyelids normal Conjunctivae: conjunctivae normal Pupils: PERRL, normal by confrontation and accommodation normal EOM: EOM intact bilaterally Neck Neck: normal visual inspection, trachea midline and no JVD JVD: +5 Carotids: normal carotid upstroke and bounding pulses Chest Chest inspection: normal inspection of the chest, symmetric chest movement and normal respiratory effort Auscultation: Bilateral: Clear to Auscultation Cardio Palpation: normal PMI Rate: regular rate Rhythm: regular rhythm Heart sounds: S1 normal, S2 normal and normal, physiologic split S2; negative rub, gallop or murmur GI GI: normal to inspection, soft, no hepatosplenomegaly and bowel sounds present Neuro General: alert, awake, oriented x3, gait normal, moves all extremities and no focal sensory deficit Skin Skin: no rashes or lesions noted Extremities Pulses: Normal: Right Femoral Pulse, Left Femoral Pulse, Right Dorsalis Pedis Pulse, Left Dorsalis Pedis Pulse, Right Posterior Tibial Pulse, Left Posterior Tibial Pulse, Right Radial Pulse, Left Radial Pulse Lower Extremity Edema: None: Bilateral Musculoskel Musculoskeletal: No joint tenderness Psych Psychological: normal affect Assessment & Plan 1. Atherosclerotic heart disease of [place] coronary artery without angina pectoris I25.10 Plan He does have recently diagnosed atherosclerotic cardiovascular disease with two- vessel disease more than the LAD and a totally occluded right coronary artery. We had initially scheduled him to undergo coronary artery bypass surgery but on relooking at the [facility] and with his recent laryngeal radiation we may want to reconsider and suggest PCI of the LAD. I will discuss this further with welfare eligibility worker and if feasible we would arrange for him to have this done locally and defer surgery. This is due to possible complication with intubation. He is agreeable to the above. 2. Hyperlipidemia E78.5 Plan He does have a history of hyperlipidemia and will remain on statin at this particular time with no changes. Plan Detail Follow Up 3 Months (rayon tester) Coding Level of Care Code Off vis,est,level 4 Diagnoses Atherosclerotic heart disease of [place] coronary artery without angina pectoris I25.10 Hyperlipidemia E78.5 Coding Level of Care Code Off vis,est,level 4 Diagnoses Atherosclerotic heart disease of [place] coronary artery without angina pectoris I25.10 Hyperlipidemia E78.5 Supplemental Info Supplemental Information Diagnostics Cardiac Catheterization 09/29/20
--- NOTE | 2020-11-26 12:12 | EKG12_ITS ---
Test Reason : POST PCI Blood Pressure : / mmHG Vent. Rate : 060 BPM Atrial Rate : 060 BPM P-R Int : 160 ms QRS Dur : 084 ms QT Int : 418 ms P-R-T Axes : 046 036 008 degrees QTc Int : 418 ms Normal sinus rhythm Normal ECG When compared with ECG of 26-NOV-2020 08:13, MANUAL COMPARISON REQUIRED, DATA IS UNCONFIRMED Confirmed by SUE TRAMMELL, THADDEUS ([id number]), book editor OLAYINKA BEGUM ([id number]) on 12/01/2020 9:44:20 AM Referred By: John Osorio Confirmed By:ELIZ OSORIO MD
[2020-11-26] MEDS: 0.9% Normal Saline 1,000 ML 100 ML IV (12:41)
--- NOTE | 2020-11-26 13:15 | CRPHASE1 ---
Patient Communication Former Patient:: Phase I PHII Cardiac Rehab Discussed with Patient:: Yes Guide to Cardiac Rehab Given to Patient:: Yes Cardiac Rehab Facility Choice List Given to Patient:: Yes Choice Program [facility] CR PHII:: Communication Given to CR Choice Program Other:: Communication Given to CR Community Music Therapist:: John Osorio Phase II Cardiac Rehab:: Yes Sessions:: 36 sessions - 3 days/wk, 12 weeks Risk Factors/Lifestyle Smoking Status: Former smoker Second-Hand Smoke:: No Hx Hypertension: Yes Hx Diabetes Mellitus Type 1: No Hx Diabetes Mellitus Type 2: No Hx Metabolic Disorders: No Hx Dyslipidemia: Yes Hx Obesity: No Post-Menopausal: No ETOH: No Caffeine: No Substance Abuse: No Risk Factor for Sedentary Lifestyle: Moderate Risk Family History: Family History (Last Reviewed 10/31/20 @ 11:[address] Marc Babin MD) Father Stomach cancer Mother Breast cancer Sister Heart disease Family History: Cancer, High Cholesterol, Heart Disease, Hypertension Past Cardiac Illness: Coronary Artery Disease Phase I Education Given On:: [place], Nutrition, Antiplatelet medication Issues Affecting Care:: None Knowledge of Condition:: Yes Learning Preferences: Verbal Cardiac Rehabilitation Info Cardiac Rehabilitation Program Information: Cardiac Rehabilitation is important for patients like you who are recovering from a heart problem. Cardiac rehabilitation programs are recognized as integral to the continued care of the patient with coronary heart disease. The cardiac rehabilitation program is designed to optimize a patient's physical, psychological, and social functioning. Health lpn care manager work in cardiac rehabilitation programs and assist you with getting the treatments you need to get stronger and healthier - like exercise, healthy eating habits, and medications. Cardiac rehabilitation has been show to help people with heart problems live longer and have better life enjoyment than people who do not go to cardiac rehabilitation. Please contact the Cardiac Rehabilitation Program at [facility] at in two weeks if you have not heard from them.
--- NOTE | 2020-11-26 13:16 | CRPH1.INSTRU ---
General Education CAD and cardiac anatomy and function:: Patient communicates acknowledgment, Needs reinforcement Explanation of diagnoses and procedures:: Patient communicates acknowledgment, Needs reinforcement Sign/Symptoms of WI:: Patient communicates acknowledgment, Needs reinforcement Antiplatelet therapy: Patient communicates acknowledgment, Needs reinforcement Proper use of NTG-SL: Patient communicates acknowledgment, Needs reinforcement Emergency procedures and activation of EMS: Patient communicates acknowledgment, Needs reinforcement Compliance of all prescribed medications: Patient communicates acknowledgment, Needs reinforcement Smoking Recommendations Include:: Previous smoker; encourage continued cessation Nicotine/Smoking Response Code:: Patient communicates acknowledgment Dyslipidemia Patient Dyslipidemia Risk Factors Are:: Total Cholesterol, Triglycerides Recommendations Include:: Lipid profile provided, Reviewed NCEP/ATP guidelines, Therapeutic Lifestyle Change dietary guidelines Dyslipidemia Response Code:: Patient communicates acknowledgment Overweight/Obesity Patient Overweight/Obesity Risk Factors Are:: BMI Normal [24-29 & > 65 years old] Recommendations Include:: Weight loss of 5-10%, Reduced calorie diet, Exercise 5-7 times/week Overweight/Obesity:: Patient communicates acknowledgment Hypertension Recommendations Include:: Maintain BP <130/85, DASH dietary guidelines, Decrease/maintain normal body weight, Moderation of ETOH Hypertension:: Patient communicates acknowledgment Diabetes Patient Diabetes Risk Factors Are:: No documented hx of diabetes Sedentary Patient Sedentary Risk Factors Are:: Lack of regular exercise Recommendations Include:: Aerobic exercise 5-7 times/week for 20-30 minutes continuously, Benefits of regular exercise, Discussed home walking program, Monitored Outpatient Cardiac Rehab Sedentary Response Code:: Patient communicates acknowledgment Stress Recommendations Include:: Identification of stressors, and assessment of coping skills, Stress management techniques Stress Response Code:: Patient communicates acknowledgment, Needs reinforcement
[2020-11-26 13:25] LABS: ACT Activated Clotting Time 241 sec (74-137)
[2020-11-26] MEDS: TICAGRELOR 90 MG TABLET PO (21:12)
[2020-11-26] MEDS: Atorvastatin Calcium 10 MG Tablet PO (21:20)
[2020-11-27] VITALS: PULSE 67
[2020-11-27 03:00] VITALS: BP 130/77; PULSE 74; RESP 18; TEMP 36.6; O2SAT 96
[2020-11-27 05:41] LABS: Hematocrit 40.6 % (40-54); Hemoglobin 13.8 g/dL (13.0-16.5); Mean Corpuscular Volume 91.2 fL (80-94); Mean Platelet Vol. 10.4 fl (6.2-12.0); Platelet Count 151 K/mm3 (150-450); RBC Distribution Width CV 12.1 % (11.6-14.6); RBC Distribution Width SD 40.2 fl (35.1-43.9); Red Blood Count 4.45 M/mm3 (4.6-6.2); White Blood Count 4.6 K/mm3 (4.4-11.0)
[2020-11-27] MEDS: Levothyroxine 125 MCG Tablet PO (05:45)
[2020-11-27 05:59] LABS: ALB/GLOB Ratio 1.2 RATIO (0.9-2.4); AST(SGOT) 37 U/L (15-37); Alanine Aminotransfer ALT/SGPT 69 U/L (16-61); Albumin, Serum 3.5 g/dL (3.2-5.0); Alkaline Phosphatase 58 U/L (45-117); Anion Gap 7 (5-15); BUN 12 mg/dL (7-18); BUN/Creat Ratio 16.5 RATIO (10-20); Calcium,Total 8.8 mg/dL (8.5-10.1); Chloride 109 mmol/L (98-107); Creatinine, Serum 0.73 mg/dL (0.70-1.30); EST Glomerular Filtration Rate 114 mL/min (>60); Est Glom Filt Rate - Afr Amer 138 mL/min (>60); Glucose 97 mg/dL (74-106); Potassium 3.5 mmol/L (3.5-5.1); Protein, Total 6.5 g/dL (6.4-8.2); Sodium Level 140 mmol/L (136-145)
[2020-11-27 06:00] VITALS: PULSE 75
[2020-11-27 07:00] VITALS: PULSE 81; O2SAT 97
[2020-11-27 09:00] VITALS: BP 116/73; PULSE 79; RESP 18; TEMP 36.3; O2SAT 95
[2020-11-27 09:05] VITALS: BP 116/73; PULSE 67
[2020-11-27] MEDS: Metoprolol(XL)Succ 25 MG Tablet PO (09:05)
[2020-11-27] MEDS: Pantoprazole Sodium 40 MG Tablet PO (09:05)
[2020-11-27] MEDS: Meloxicam 15 MG Tablet PO (09:05)
[2020-11-27] MEDS: Aspirin 81 MG TAB.CHEW PO (09:05)
[2020-11-27] MEDS: amLODIPine 5 MG Tablet PO (09:05)
[2020-11-27] MEDS: TICAGRELOR 90 MG TABLET PO (09:05)
--- NOTE | 2020-11-27 10:00 | EKG12_ITS ---
Test Reason : AM EKG Blood Pressure : / mmHG Vent. Rate : 066 BPM Atrial Rate : 066 BPM P-R Int : 150 ms QRS Dur : 084 ms QT Int : 412 ms P-R-T Axes : 063 048 016 degrees QTc Int : 431 ms Normal sinus rhythm with sinus arrhythmia Low voltage QRS Borderline ECG When compared with ECG of 26-NOV-2020 12:23, MANUAL COMPARISON REQUIRED, DATA IS UNCONFIRMED Confirmed by SUE TRAMMELL, THADDEUS ([id number]), graphics editor OLAYINKA BEGUM ([id number]) on 12/01/2020 9:35:50 AM Referred By: John Osorio Confirmed By:ELIZ OSORIO MD
--- NOTE | 2020-11-27 12:02 | PCM.DC.CCA ---
Discharge Diet: Low fat/ Low Cholesterol Discharge Activity: Return to Normal Activity May resume sexual activity in: No Restrictions Lifting Restrictions: 10 pounds and also avoid any pushing or pulling for 3 days after your test. Call your doctor if your incision/area has: Continuous Slow Oozing, Sudden Increased Bleeding, Increased Pain/ Swelling, Increased Redness, Foul Smelling Discharge, Swelling at the incision site Remove Dressing in (days):: 1 - after you shower next Allergies/Adverse Reactions: Allergies No Known Allergies Allergy (Verified 11/10/20 09:45) Medications to take at Discharge Pantoprazole Sodium [Protonix] 40 mg PO DAILY 08/21/20 amlodipine 5 mg tablet 5 mg PO DAILY #60 tab 08/27/20 simvastatin 20 mg tablet 20 mg PO DAILY #90 tab 08/27/20 Aspirin [Aspirin, Baby] 81 mg PO DAILY 09/29/20 metoprolol succinate 25 mg tablet,extended release 24 hr 25 mg PO DAILY #90 tab 09/29/20 levothyroxine 125 mcg tablet 125 mcg PO DAILY tab 10/31/20 Oxycodone HCl 5 mg PO Q4H PRN PRN #60 tab 11/10/20 Ibuprofen [Motrin] 400 mg PO Q6H PRN PRN #0 tab 11/27/20 Meloxicam [Mobic] 15 mg PO DAILY #0 11/27/20 Ticagrelor [Brilinta] 90 mg PO BID 30 Days tab 11/27/20 The following prescriptions were given: Ticagrelor [Brilinta] 90 mg PO BID 30 Days tab Prescription Printed Primary Care Physician: Nik Anderson MD [Primary Care Provider] - Test Results: Test results from this visit will be discussed in further detail at your follow-up appointment, if applicable. Please Follow Up With: Marc Babin MD - 2-3 weeks Proposed Discharge Date: 11/27/20 Cardiac Rehabilitation Info Cardiac Rehabilitation Program Information: Cardiac Rehabilitation is important for patients like you who are recovering from a heart problem. Cardiac rehabilitation programs are recognized as integral to the continued care of the patient with coronary heart disease. The cardiac rehabilitation program is designed to optimize a patient's physical, psychological, and social functioning. Health child care center assistant director work in cardiac rehabilitation programs and assist you with getting the treatments you need to get stronger and healthier - like exercise, healthy eating habits, and medications. Cardiac rehabilitation has been show to help people with heart problems live longer and have better life enjoyment than people who do not go to cardiac rehabilitation. Please contact the Cardiac Rehabilitation Program at [facility] at in two weeks if you have not heard from them.
--- NOTE | 2020-11-27 12:04 | PCM.PN.BLA ---
Progress Note Discharge summary Date of admission 11/26/2020 Date of discharge 11/27/2020 Reason for the hospital visit: For PCI of LAD Procedures performed: PCI of proximal LAD into diagonal 1, PTCA of mid LAD Hospital course: Procedure was uneventful. Patient tolerated the procedure well without any complications. He was monitored overnight without any incident. He is being discharged home in a stable condition. He will follow up with Dr. Babin as an outpatient. Patient was on Plavix and this was switched to Brilinta. STROKE Vital Signs/Narrative: Vital Signs Temp Pulse Resp BP Pulse Ox 11/27/20 09:05 67 116/73 11/27/20 09:00 97.4 F L 79 18 116/73 95
--- NOTE | 2020-11-27 12:37 | CASEMGMT ---
Pt discharged to home with Pedro Luis. Pt taking prescription to the [facility] retail pharmacy. This RN CM called [facility] and spoke with Claire regarding prescription. They have filled the script and are applying the one month free card. Zonia Donovan RN CM
--- NOTE | 2020-11-27 17:46 | CL.I_ITS ---
Patient Name: KE ARORA Study Date: 11/26/2020 Performing: Miguel Osorio MD Ht: 71 inches 180 cm : 1950 Wt: 209.7 lbs 95 kg Age: 70 Gender: male BSA: 2.15 PROCEDURE(S) PERFORMED [id number] W OR WO PTCA, SINGLE CORONARY ARTERY [id number], EACH ADD'L CORONARY ART, SAME MAJOR CLINICAL PROFILE AND CO-MORBIDITIES Indications: Unstable angina. Known CAD, felt not to be candidate for CABG due to ongoing/recent radiation therapy for laryngeal CA Heart Failure: None CONCLUSIONS Successful PCI of pLAD/D1 bifurcation with ESSIE from LAD into D1. Successful PTCA alone of mLAD RECOMMENDATIONS ASA Indefinitley Brilinta for at least 1 month and ideally for a longer duration. DESCRIPTION OF PROCEDURE The patient arrived to the procedure lab. The risks and benefits of the procedure as well as a full d escription of our services here and current unavailability of surgical backup were fully explained to the patient and/or their significant other prior to the catheterization. The Timeout was completed, verifying the correct patient and procedure. The patient's procedural site was prepped and draped in the usual fashion. Local anesthetic was given subcutaneously to right radial region with Lidocaine 2% . Using a modified Seldinger technique, arterial access was obtained via the right radial artery, a 6 Fr sheath was inserted.. XB 3 Guide catheter was inserted and engaged into the LCA. BMW Guide wire was advanced to the 1st Diagonal. Runthrough Guide wire was advanced to the LAD. 2x12 Emerge Balloon catheter was inserted. Balloon catheter was advanced across lesion in the 1st Diagonal, ostial. PTCA balloon inflated at 10 atms for 16 secs. PTCA balloon inflated at 12 atms for 8 secs. 1.5x12 Euphora Balloon catheter was in serted. Balloon catheter was advanced across lesion in the LAD, mid. PTCA balloon inflated at 12 atms for 25 secs. PTCA balloon inflated at 14 atms for 18 secs. Angiogram performed post balloon dilatati on. 2.5x12 Emerge Balloon catheter was inserted. Balloon catheter was advanced across lesion in the P roximal LAD. PTCA balloon inflated at 10 atms for 30 secs. 3.5x16 Rebel Bare Metal stent was inserted Bare Metal stent was advanced across the lesion in the LAD, proximal. Angiogram performed post stent deployment. 3.5x12 NC Emerge Balloon catheter was inserted. Balloon catheter was inserted post stent. Angiogram performed post stent deployment. The arterial sheath was pulled and a TR Band was applied for hemostasis. 17cc of air applied INTERVENTION INFORMATION LESION SITE: 1st Diagonal (Ostial) Lesion Complexity: High/C, chronic total occlusion: No, lesion at bifurcation: Yes, thrombus present: No, lesion length: 6 mm, culprit lesion: Yes, Previously treated lesion: No Pre Stenosis: 80 % Pre intervention GLORIA flow: 3 PROCEDURE: Drug Eluting Stent with pre and post dilatation Post Stenosis: 0 % Post intervention GLORIA flow: 3 Lesion Devices: Rollins .014 BMW [place] Straight 190cm Cardinal 6 Fr XB3.0 100cm Guide Catheter Franki Sci EMERGE MR 2.00x12 BALLOON Franki Sci EMERGE MR 2.50x12 BALLOON LESION SITE: LAD (Mid) Lesion Complexity: High/C, chronic total occlusion: No, lesion at bifurcation: No, thrombus present: No, lesion length: 6 mm, culprit lesion: Yes, Previously treated lesion: No Pre Stenosis: 80 % Pre intervention GLORIA flow: 3 PROCEDURE: Balloon Angioplasty Post Stenosis: 40 % Post intervention GLORIA flow: 3 Lesion Devices: Cardinal 6 Fr XB3.0 100cm Guide Catheter Terumo .014 Runthrough Extra Floppy 180cm straight Appetisetronic SC EUPHORA RX 1.5x12 BALLOON LESION SITE: LAD (Proximal) Lesion Complexity: High/C, chronic total occlusion: No, lesion at bifurcation: Yes, thrombus present: No, lesion length: 8 mm, culprit lesion: Yes, Previously treated lesion: No Pre Stenosis: 95 % Pre intervention GLORIA flow: 3 PROCEDURE: Drug Eluting Stent with pre and post dilatation After Angiography, CABG was considered. It was felt that the patietn was not a candidate for CABG at this time due to throat problems secondary to radiation from laryngeal Ca that would interfere with i ntubation for surgery. Pt. was not sure of he would need surgery for the Ca. For these reasons we dec ided to proceed with complex PCI with BMS. 0 % Post intervention GLORIA flow: 3 Lesion Devices: Franki Sci Rebel MR BMS 3.50x16 Franki Sci NC EMERGE MR 3.50x12 BALLOON COMPLICATIONS No Complications PROCEDURE MEDICATIONS Fentanyl 50 mcg IV Versed 1 mg IV Oxygen: 2 L/min via nasal cannula Brilinta 180 mg PO @ 11/26/2020 11:46:46 Heparin given IA 11/26/2020 10:35:08 Heparin 5000 unit(s) IV 11/26/2020 10:35:15 Heparin 1000 unit(s) IV 11/26/2020 11:19:18 Verapamil 2.5mg, Ntg 100mcgs, 3000 units of Heparin given IA 11/26/2020 10:35:08 SUMMARY OF HEMODYNAMIC DATA Time AIR REST ECG 08:17:57 AO 94/66 (77) SA 10:36:23 AO 111/62 (82) 10:47:08 Signed By Miguel Osorio MD On 11/27/2020 17:45:08 Miguel Osorio MD
== END 2020-11-27 12:03 | disposition home or self-care (01) ==
LOC: CLSP 07:54 → PCU 12-01 10:22
PROVIDERS: PCP Family Medicine; Referring Provider Specialist; Visit Provider Specialist
DX: I25.10 Atherosclerotic heart disease of native coronary artery without angina pectoris (principal); E78.5 Hyperlipidemia, unspecified; C32.0 Malignant neoplasm of glottis; J43.9 Emphysema, unspecified; K21.9 Gastro-esophageal reflux disease without esophagitis; E03.9 Hypothyroidism, unspecified; M19.90 Unspecified osteoarthritis, unspecified site; Z79.02 Long term (current) use of antithrombotics/antiplatelets; Z79.1 Long term (current) use of non-steroidal anti-inflammatories (NSAID); Z79.82 Long term (current) use of aspirin; Z79.899 Other long term (current) drug therapy; Z87.891 Personal history of nicotine dependence
CPT/HCPCS: 80053; 85027; 85347; 92921; 92928; 93005; 99152; 99153; J7030; J7040; Q9967; C1725; C1769; C1876; C1887; C1894

== ENCOUNTER → 2020-12-05 08:48 | Outpatient (CLI) | payer MEDICARE, OTHER, SELFPAY ==
[2020-09-08 09:00] VITALS: BMI 30.9
[2020-11-25 08:53] VITALS: BMI 29.1
--- NOTE | 2020-12-05 08:57 | CR.HP_ITS ---
CR - History & Physical - General Arrival date:: 12/05/20 Arrival time:: 09:00 Date of Referral:: 11/29/20 Date of CR Evaluation:: 12/05/20 Referring Physician: Dr. Osorio; patient is following up with his sample supervisor Dr. Babin. Primary Diagnosis: PCI w/coronary stenting - History of Present Cardiac Event Onset Date: Enter Onset Date of cardiac illnesses in Comment field below Current stable Angina Pectoris:: No Acute Myocardial Infarction within 12 months:: No Coronary Artery Bypass Graft:: No Heart valve replacement or repair:: No PTCA or coronary stenting:: Yes - 11/26/2020 Type of Symptoms:: Due to radiation treatments had pre-test done. Was experiencing no symtptoms Interventions with present event:: EKG, stress test, echocardiogram and heart cath. Were there any complications?: none - Medications Home Medications: Ambulatory Orders Medication Instructions Recorded Pantoprazole Sodium [Protonix] 40 mg PO DAILY 08/21/20 amlodipine 5 mg tablet 5 mg PO DAILY #60 tab 08/27/20 simvastatin 20 mg tablet 20 mg PO DAILY #90 tab 08/27/20 Aspirin [Aspirin, Baby] 81 mg PO DAILY 09/29/20 metoprolol succinate 25 mg 25 mg PO DAILY #90 tab 09/29/20 tablet,extended release 24 hr levothyroxine 125 mcg tablet 125 mcg PO DAILY tab 10/31/20 Oxycodone HCl 5 mg PO Q4H PRN PRN #60 tab 11/10/20 Ibuprofen [Motrin] 400 mg PO Q6H PRN PRN #0 tab 11/27/20 Meloxicam [Mobic] 15 mg PO DAILY #0 11/27/20 Ticagrelor [Brilinta] 90 mg PO BID 30 Days tab 11/27/20 - Allergies Allergies/Adverse Reactions: Allergies No Known Allergies Allergy (Verified 11/10/20 09:45) - Sleep Disorder Evaluation Hx of Sleep Apnea: No Do you snore loudly (louder than talking or can be heard through closed doors)?: Yes Do you often feel tired/ fatigued/ sleepy during daytime?: No Has anyone observed you stop breathing during sleep?: No History of Hypertension (for STOP score): Yes STOP Results: Positive Advanced Directives - Advanced Directives Power of Grain Blender: Yes - is POA for Healthcare Living Will: Yes Advance Directives Information Provided: No Advance Directives on File: Yes DNR Order?:: No - MOLST See MOLST form: No Past Medical History - Covid-19 Screening Fever: No Unexplained muscle aches: No Current respiratory symptoms: No Upper respiratory infections symptoms: No Gastro-intestinal symptoms: No Epj-Cyxc-Eyculp symptoms: No Has tested positive for COVID-19 in last 30 days: No Had contact w/person w/symptoms or Covid-19 (+) last 14 days: No Has High Risk Exposures ID'd by Health dept/Inf Control team: No 65 years or older:: No Lives in Assisted Living facility:: No Has a chronic lung disease or moderate to severe asthma:: No Has a serious heart condition:: Yes Immunocompromised:: Yes Severely obese (Body Mass Index of 40 or higher):: No Diabetic:: No Has chronic kidney disease undergoing dialysis:: No Has liver disease:: No - Past Medical Illness Medical History: Past Medical History (Last Updated 10/31/20 @ 17:54 by Alina Graf) Atherosclerotic heart disease of [place] coronary artery without angina pectoris (Chronic) I25.10 Essential (primary) hypertension (Chronic) I10 Hyperlipidemia (Chronic) E78.5 Hoarseness of voice (Chronic) R49.0 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 Marc Babin MD) History of bunionectomy Z98.890 History of left heart catheterization Onset Date: 09/29/20 Z98.890 Significant two-vessel coronary artery disease involving the proximal, mid LAD with aneurysmal dilatation as well as a totally occluded right coronary artery with [id number] collaterals and mildly depressed left ventricular systolic function. History of nasal septoplasty Onset Date: 08/29/20 Z98.890 History of tonsillectomy Z90.89 vocal cord biopsy Onset Date: 08/29/20 Direct microlaryngoscopy with biopsy of left vocal fold Surgical History: - - Tonsillectomy as a child - Family History Summary Family History: Family History (Last Reviewed 10/31/20 @ 11:[address] Marc Babin MD) Father Stomach cancer Mother Breast cancer Sister Heart disease Social History - Smoking History Smoking Status: Former smoker Hx Tobacco Use: No Hx Smoking Exposure: No - Alcohol Use Alcohol Usage: Yes - beer - Substance Abuse Hx Substance Use: No - Occupation Occupation (List type of work in comments):: Retired - Hobbies, Recreation, Social Activities Hobbies: Other - golfing, fishing Recreational Activities: I am able to engage in most, but not all activities Social Environment - Status Marital Status: - Current Living Arrangements Living Environment:: Spouse - Children How many children do you have?: 5 Do any of your children live nearby?: Yes - Safety Do you feel safe in your surroundings?: Yes Review of Systems - Review of Systems Hints: Right click = Denies ([place]). Left click = Reports ([place]) Review of Present Symptoms: Reports: Heart Arrhythmia/Irregularities - h/o sinus arrythmia, Appetite - Normal, Sleep - Normal. Denies: Shortness of Breath at Rest, Shortness of Breath with Exertion, Angina, Dizziness/Lightheadedness, Fatigue, Appetite - Special Diet, Sexual Changes - Pain Is Patient Pain Free?: Yes Pain Location: none Pain Level: 0/10 Risk Factor Assessment - Chief Complaint Chief Complaint: PCI w/coronary stenting - Vital Signs Temperature: 97.3 F Respiratory Rate: 18 Pulse Ox: 96 Blood Pressure: 116/72 - Pulse Pulse Rate: 82 - Hypertension How long have you been treated?: 6 months now On medication(s)?: yes Blood Pressure Sitting - Left Arm: 116/72 - Blood Cholesterol/Lipids Total Cholesterol (mg/dL) Goal = less than 200 mg/dL: 207 - 09/04/2018 HDL Cholesterol (mg/dL) Goal = less than 40 mg/dL: 41 LDL Cholesterol (mg/dL) Goal = less than 70 mg/dL: 123 Triglycerides (mg/dL) Goal = less than 150 mg/dL: 214 - Diabetes Nutrition Referral for Diabetes: No - Obesity Height: 5 ft 11 in Weight:: 209 lb Weight in Pounds: 209.0 lbs Weight Source: Standing Scale Body Mass Index (BMI): 29.1 Nutritional Referral for Obesity: Yes - Physical Inactivity Physical Inactivity: Recreational activity - Risk Stratification Risk Guidelines: Lowest Risk: Risk Factor for Smoking, Risk Factor for Diabetes, Risk Factor for Hypertension, Risk Factor for Sedentary Lifestyle, Risk Factor for Depression, Moderate Risk: Risk Factor for Dyslipidemia, Risk Factor for Obesity - For Smoking Smoking Risk Guidelines: Smoking Low Risk: None or quit greater than 6 months ago. Smoking Moderate Risk: Smoker or quit 6 months or less ago. Smoking High Risk: Smoker - For Dyslipidemia Dyslipidemia Risk Guidelines: Low Risk: Moderate Risk: High Risk: 15-25% fat 25.1-29% fat >/= 30% fat. <7% sat fat 7-9% sat fat >9% sat fat. <150 mg chol 150-299 mg chol >/= 300 mg chol. LDL <100 LDL 100-129 LDL >/= 130. Chol/HDL ratio <5.0 Chol/HDL ratio 5.0-6.0 Chol/HDL ratio >6.0. Triglycerides <100 Triglycerides 100- 149 Triglycerides >/= 150 - For Diabetes Mellitus Diabetes Risk Guidelines: Diabetes Low Risk: HgA1c <6.5% and/or FBG <120. Diabetes Moderate Risk: HgA1c 6.6-7.9% and/or FBG 120-180. Diabetes High Risk: HgA1c >/= 8% and/or FBG >180 - For Obesity/Overweight Obesity/Overweight Risk Guidelines: Obesity Low Risk: BMI <25.0. Obesity Moderate Risk: BMI 25-29.9. Obesity High Risk: BMI >/= 30.0 - For Hypertension Hypertension Risk Guidelines: Hypertension Low Risk: Systolic <120 and Diastolic <80. Hypertension Moderate Risk: Systolic 120-139 and Diastolic 80-89. Hypertension High Risk: Systolic >/= 140 and Diastolic >/= 90 - For Sedentary Lifestyle Sedentary Lifestyle Risk Guidelines: Sedentary Lifestyle Low Risk: >/= 1,500 kcal/week. Sedentary Lifestyle Moderate Risk: 700-1,499 kcal/week. Sedentary Lifestyle High Risk: < 700 kcal/week - For Depression Depression Risk Guidelines: Depression Low Risk: Not clinically depressed. Depression Moderate Risk: Mildly depressed. Depression High Risk: Clinically depressed - Family History Family History: Family History (Last Reviewed 10/31/20 @ 11:[address] Marc Babin MD) Father Stomach cancer Mother Breast cancer Sister Heart disease Motivation - Motivation to Participate On a scale of 1 to 10, how prepared are you to commit to attending program?: 10 What do you see as barriers to successfully being able to complete the program?: none What do you see as the benefits of succesfully completing the program? In other words, what do you hope to get out of participating in the program?: better health, better shape, strengthen my heart Are there issues you are dealing with that will interfere with completing the program?: just finished radiation therapy 3 weeks ago. Do you have a spouse or signficant other, family or friends who will help support you to complete the program?: Yes
--- NOTE | 2020-12-05 08:57 | PCM.CR.ITP ---
Diagnosis - General Information Admitting Diagnosis: PCI w/coronary stenting Secondary Diagnosis: ASHD without angina, hypertension, hyperlipidemia, malignant neoplasm of [place] Personal Learning Style:: Audio/Visual, Written Barriers to Learning: Cognitive/Learning Impairment, Cultural/Spiritual, Decreased Motivation, Emotional/Anxiety, Hearing Impairment, Language, Low Literacy, Mental Status, No Barriers, Physical Condition/Sensory Deficit, Vision Impairment Stage of change r/t lifestyle modifications:: Action Gave educational material for:: Treating Heart Disease, Emotions & Heart Disease, Stress Management & Relaxation, Sleep Disorders & Heart Disease, How The Heart Works, What it means to have Heart Disease, How Coronary Artery Disease is Diagnosed, Heart Procedures, What Heart Medications Do, Risk Factors & Modifications, Living an Active Life, Nutrition - Education/Goals Individual Counseling: Initial Assessment: Abnormal Cholesterol Levels, High Blood Pressure, Overweight/Obesity Cardiac Rehabilitation Goals: 1. Maintain the individual as the primary focus of care. 2. To improve the patient's quality of life. 3. Identification of cardiac risk factors and provide cardiac risk factor management. 4. Enhance the psychosocial status of the patient. 5. Reconditioning enough to allow the patient to resume customary activities. 6. Control symptoms of cardiac disease Personal Goals: Initial Assessment: Improve energy level, Participate in home exercise program, Improve knowledge of cardiac disease, Improve muscle strength and endurance, Control risk factors (learn risk factor modification) Scale for measuring improvement of personal goals: Enter appropriate number in Comments. 2 = Unchanged. 3 = Slightly Better. 4 = Moderate Improvement. 5 = Met my Goal - Diagnosis & Disease Process Outcomes/Goals: Pt IDs own risk factors & lifestyle modifications by Session 10, Verbalizes symptoms of angina & response by session 3., Pt independently manages Plan/Interventions: Assist Pt to ID & engage in lifestyle modification to reduce CVD risk, Instruct on individual risk factors, Review symptoms of angina & emergency actions, Review secondary diagnosis & identify educational needs. - Safety Referral to Physical Therapy: No Referral to [facility] Case Management: No Fall Risk Assessed:: Yes Assistive Devices:: None Exercise - Initial Assessment - Visit Date of Eval: 12/05/20 Session #:: 0 - pre-cardiac rehab evaluation Mets: Pre-: >7 METS for 30 minutes by discharge - Physician Prescribed Exercise Modalities: Treadmill, Rower, Airdyne, NuStep Frequency: 3x/week for 12 weeks [36 sessions] Intensity: 60-80% of age predicted maximum heart rate reserve Current METSs:: 3.5 Target Heart Rate:: 99-129 Resting Blood Pressure: 116/72 EKG Type: NSR with sinus arrythmia - Outcomes & Goals Goals:: Verbalizes understanding of THR, RPE & goal METS by session 6, Documents in home exercise log/reports 30 min aerobic 5 day/wk by DC, Demonstrates accurate pulse taking by DC - Intervention & Plan Exercise Program Goals: Instruct on personal THR & RPE, Instruct on MET level & personal MET goal, Show patient to take own pulse /validate performance until accurate, Instruct on home exercise - Physical Activity Home Exercise Physical Activity - Home Exercise: Safe Exercise, Warm-up, Self-monitoring, Cool-Down, Home Exercise > 30 min Daily, Sitting Time <3 hours/daily - Outcomes & Goals Outcomes/Goals: Demonstrates correct Warm-up/exercise Cool-Down (S3) if = 2.5 METs, Verbalizes symptoms of exercise intolerance by Session 3 (S3), Demonstrate safe equipment use (S3) & follows exercise prescrition (6) - Intervention & Plan Plan/Intervention: Instruct warm-up & cool-down if exercising at > 2 METs, Instruct on symptoms of exercise intolerance & actions to take, Instruct & monitor on saf, Assess intial functional capacity & safety risk Nutrition - Initial Assessment - Program Goals Nutrition Program Goals: LDL <100 optimal. 100 - 129 Near optimal. 130 - 159 Borderline High. 160 - 189 High. Total Cholesterol <200 desirable. 200 - 239 Borderline High. >/= 240 High. HDL < 40 Low >/=60 High. Triglycerides <150 desirable. <199 optimal. VlDL 5 - 40. HgbA1C <7%. BMI <25 Patient has diagnosis of Hyperlipidemia (ICD E78)?: Yes - Visit Date of Assessment:: 12/05/20 Session #:: 0 - pre-cardiac rehab - Cholesterol/Lipids Triglycerides (mg/dL): 214 - 09/04/2018 Total Cholesterol (mg/dL): 207 LDL Cholesterol (mg/dL): 123 HDL Cholesterol (mg/dL): 41 Determine presence & major risk factors that modify LDL goal: Hypertension or hypertensive medication, Age men > 45 years; women >/= 55 years Outcomes/Goals: Pt IDs own risk factors & lifestyle modifications by Session 10, Verbalizes symptoms of angina & response by session 3., Pt independently manages Intervention/Plan: Instruct on personal lipid levels & lipid goals/NCEP guidelines, Instruct on cholesterol Referral to dietitian:: Yes - Medical Nutrition Therapy - Diabetes (Other Core Measures) Diabetes Type: Not Applicable - Weight Mgt (Other Care) Not Applicable: Yes Height: 5 ft 11 in Weight:: 209 lb BMI: 29.1 Diagnosis Overweight/Obesity BMI> 30% ICD-10 E66: No Diagnosis High BMI/Morbid Obesity BMI> 35% ICD-10 Z68: No Outcomes/Goals: Pt sets, maintains & shows weight loss goal & trend during rehab Intervention/Plan: Instruct on ideal BMI & set weight loss goal w/patient, Assist pt to ID & incorporate diet changes for weight loss by S9, Refer to Structured Weight Loss program as appropriate, Encourage goal of using 250-300dcal per session for weight loss - Healthy Eating Habits Will attend diet classes:: Yes Outcomes/Goals:: Consume diet rich in vegs,fruits,whole grain/high fiber,fish,lean meat, Limit sat/trans fats,cholesterol & added salts & sugars Intervention/Plan:: Assess current eating habits Medical - Initial Assessment - Visit Date of Eval: 12/05/20 Session #:: 0 - pre-cardiac rehab - Medication Compliance Preventative Medication(s):: Aspirin, Ticagrelor/P2Y12 inhibitor, Statin/lipid, Beta susi H/O mental health issues: depression, anxiety, or addiction?: No Doesn?t believe in the benefits of treatment?: No Believes medications are unnecessary or harmful?: No Has a concern about medication side effects?: No Expresses concern over the cost of medications?: No Outcomes/Goals: Verbalizes medications,desired effect & common side effects @ DC, Pt self-reports following medication regimen, Keeps card in wallet w/medications listed by DC Interventions/plans: Instruct on medication effects & side effects, Review medication list w/patient every two weeks, Instruct importance of taking meds as ordered & assist problem solving - Tobacco Use Tobacco Use: Non-smoker How long ago did you quit using tobacco products?: Greater than or equal to 6 months ago Do you use smokeless tobacco?: No - Hypertension Hypertension Diagnosis:: Hypertension ICD-10 I10 Resting Blood Pressure:: 116/72 [place] [employer] Hypertension Guidelines: [place] [employer] Hypertension Guidelines. Normal BP Less than 120/80. Elevated BP 120/80. Hypertension Stage 1: BP 130-139/80-89. Hypertesnion Stage 2: BP 140 or higher/90 or higher. Hypertension Crisis: BP higher than 180/120 Outcomes/Goals: Able to verbalize/achieve optimal blood pressure <130/80, Incorporates diet changes & exercise for blood pressure control by DC Interventions/plan: Instruct on optimal blood pressure, hypertension & medications, Instruct on effects of sodium, alcohol, stress, exercise &hypertension - Tobacco Cessation Referral Smoking Cessation Referral:: No Individual Education/Counseling:: No Education Schedule Given:: Yes Psychosocial - Initial Assess - VIsit Date of Eval: 12/05/20 Session #:: 0 - pre-cardiac rehab evaluation Not Applicable: Yes History of previous Mental disease:: No - Target Goals Target Goals: Assess presence or absence of depression. Using a valid screening tool, maximizes coping skills. Positive support system - Psychosocial Test Tool Used:: Mk Rayo QOL Cardiac, PHQ-9 Questionnaire phq-9 Severity: Severity. 1-4 Minimal Depression. 5-9 Mild Depression. 10-14 Moderate Depression. 15-19 Moderately Sever Depression. 20-27 Severe Depression. Rule: - Referral to Behavioral Health PS - Interventions: Yes Attend Stress Management Classes, No Referral to Behavioral Health if PHQ-9 score >9:, No Referral to [facility], No Referral to Physician if PHQ-9 if score is 5-9: - Outcomes/Goals: See list Psychosocial Outcomes/Goals:: ID's personal stressors & 2 strategies to manage stress by discharge - Intervention/Plan: See List Interventions/Plan:: Assess stressors,coping strategies & signs of derpression on admission, Instruct/assist pt to develop coping & personal stress Mgt strategies, Instruct patient to recognize signs & symptoms of depression, Instruct patient to recog Patient Health Questionnaire Initial Assessment 1. Little interest or pleasure in doing things: Nearly every day 2. Feeling down, depressed, or hopeless: Nearly every day 3. Trouble falling or staying asleep, or sleeping too much: Nearly every day 4. Feeling tired or having little energy: Nearly every day 5. Poor appetite or overeating: Nearly every day 6. Feeling bad about yourself -- or that you are a failure or have let yourself or your family down: Not at all 7. Trouble concentrating on things, such as reading the newspaper or watching television: Not at all 8. Moving or speaking so slowly that other people could have noticed. Or the opposite - being so fidgety or restless that you have been moving around a lot more than usual: Not at all 9. Thoughts that you would be better off , or of hurting yourself in some way: Not at all How difficult have these problems made it for you to do your work, take care of things at home, or get along with other people?: Somewhat difficult - Just finished radiation therapy 3 weeks ago which has contributed to these scores. Total Score: 15 ASHWIN-Q SV Test - Statements CAD is a disease of the arteries in the heart: False Examples of risk factors for heart disease: True Angina is chest pain or discomfort: True The benefits of resistance training include: True Eating more meat and dairy products: False Anti-platelet medications such as aspirin are important: True The only effective way to manage stress: False An exercise warm-up slowly increases heart rate: True Prepared, processed foods usually have high sodium: True Depression is common after a heart attack: True The statin medications lower cholesterol: True To control blood pressure, lower the amount of sodium: True If someone gets chest discomfort during walking: False Transfats are partially hydrogenated vegetable oils: True Sleep apnea that is not treated increases the risk: I Don't Know To control cholesterol, one should become a vegetarian: False Someone knows if he/she is exercising at the right level: I Don't Know Diabetes cannot be prevented with exercise & health eating: True Stress is a large risk for heart attack: True A diet that can help lower blood pressure is rich in: True - Total Score Total Correct Responses: 17 Self-Efficacy Initial Assessment We would like to know how confident you are in doing certain activities. Please select your confidence level for:: Select your confidence level for the following using the scale 1-10 where 1 is not at all confident and 10 is totally confident. Your score is the average of all 6 responses. Fatigue: How confident are you that you can keep the fatigue caused by your disease from interfering with the things you want to do? Select Number: 7 Physical Discomfort or Pain: How confident are you that you can keep the physical discomfort or pain of your disease from interfering with the things you want to do? Select Number: 7 Emotional Distress: How confident are you that you can keep the emotional distress caused by your disease from interfering with the things you want to do? Select Number: 7 Other Symptoms or Health Problems: How confident are you that you can keep other symptoms or health problems from interfering with the things you want to do? Select Number: 7 Different Tasks and Activities: How confident are you that you can do the different tasks and activities needed to manage your health condition so as to reduce your need to see a doctor? Select Number: 7 Medication: How confident are you that you can do things other than just taking medication to reduce how much your illness affects your everyday life? Select Number: 7 Total Score:: 7 Nutrition Survey - Nutrition Survey Instructions Scoring Instructions: Scoring is as follows: Yes = 1 points. No = 0 point. Patient score that is >/=12 is considered to be at potential nutritional risk and could benefit from a referral to a registered dietitian. - Nutrition Survey Initial Have you lost >10 lbs over the past 2 months without trying?: Yes Are you following a special diet at home for diabetes, low fat, or low salt?: No Are you interested in meeting with a dietitian for help understanding your diet?: No Do you eat less than 3 meals a day?: No Do you eat fatty meats (barnes, sausage, ribs, etc), fried foods, desserts, large amounts of salad dressings, margarine, butter, or cheese most days?: No Do you have food allergies? [Enter types in comment field]: No Do you eat in restaurants more than 3 times a week?: No Do you season food with salt, seasoning salt, or garlic salt?: Yes Do you used canned, boxed, frozen meals, or soups, seasoning packets?: Yes Total Score:: 3
[2020-12-05 09:20] VITALS: BP 116/72; PULSE 82; RESP 18; TEMP 36.3; O2SAT 96; BMI 29.1
[2020-12-05 09:50] VITALS: BP 116/72; BMI 29.1
== END ==
PROVIDERS: PCP Family Medicine; Referring Provider Specialist; Visit Provider Specialist
DX: Z95.5 Presence of coronary angioplasty implant and graft (principal)

== ENCOUNTER 2020-12-26 10:15 | Outpatient (RCR) | payer MEDICARE, OTHER, SELFPAY ==
[2020-12-05 09:20] VITALS: BMI 29.1
[2020-12-05 09:50] VITALS: BMI 29.1
== END 2020-12-28 23:59 ==
LOC: CR 10:15
PROVIDERS: PCP Family Medicine; Referring Provider Internal Medicine Cardiovascular Disease; Visit Provider Internal Medicine Cardiovascular Disease
DX: I25.10 Atherosclerotic heart disease of native coronary artery without angina pectoris (principal); I10 Essential (primary) hypertension; E78.5 Hyperlipidemia, unspecified; C32.0 Malignant neoplasm of glottis; Z95.5 Presence of coronary angioplasty implant and graft
CPT/HCPCS: 93798

== ENCOUNTER 2020-12-31 11:00 | Outpatient (RCR) | payer MEDICARE, OTHER, SELFPAY ==
[2020-09-08 09:00] VITALS: BMI 30.9
[2020-09-26 08:55] VITALS: BMI 29.4
--- NOTE | 2020-10-15 09:55 | SOAP_ITS ---
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 He additionally reports mild xerostomia (dry mouth) that he is able to manage with oral rinse / biotin. Currently, he denies any overt signs and symptoms of aspiration, to include post prandial coughing and/or throat clearing, sensations of bolus stasis, or sensation of nasopharyngeal reflux. He denies any significant weight loss (stable - 218.6 on 10/15/2020; 216 on 09/08/2020) ? AAA lbs.), and denies any issues with his appetite, early satiety (feeling full after few bites), inanition, nausea, or emesis. He denies issues with hypogeusia (reduced taste), dysgeusia (abnormal / unpleasant taste), ageusia (absence of taste), or hyposmia (reduced smell). He denies issues with diurnal sialorrhea (drooling during the daytime). He denies any symptoms associate with trismus and denies odynophagia (pain during swallow). He denies issues with reflux / heartburn, globus sensation, post prandial substernal discomfort, or feelings of bolus stasis. He denies any suboptimal intake behaviors (tachyphagia, bolus bolting, or aerophagia). He denies any current or previous issues with aspiration related pulmonary complications, to include pneumonia, bronchitis, or unexplained asthma symptoms; He appears cognitively intact, and his affect appears appropriate; pleasant and conversant. He is fully ambulatory and has no difficulties with posture maintenance. He appears well nourished and well kept. 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 He is retired, though has considered returning to some form of vocational work. 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 currently undergoing definitive radiation (6300 cGy; 28 fractions to the larynx), status post direct microlaryngoscopy with biopsy (08/29/2020), emphysema of lung, lung nodule, tobacco abuse disorder (recently quit), cervical disc disease, gastroesophageal reflux disease, status post tonsillectomy, coronary artery calcification seen on computed tomography, hyperlipidemia, hypothyroidism, osteoarthritis, status post bunionectomy PREVIOUS MODIFIED BARIUM SWALLOW STUDY: None RESULTS OF THE EVALUATION: The patient presents with current mastication and deglutition abilities found to be grossly within functional limits (SPS:2), though is at an elevated risk for post irradiation dysphagia, and would benefit from additional sessions. FUNCTIONAL STATUS ASSESSMENT RESULTS: TURCIOS INDEX OF INDEPENDENCE IN ACTIVITIES OF DAILY LIVING: BATHIN DRESSIN TOILETIN TRANSFERRIN CONTINENCE: 1 FEEDIN TOTAL SCORE: 6/6 SCORE INTERPRETATION: higher scores indicates higher level of independence SHEMAR-YAEL INSTRUMENTAL ACTIVITIES OF DAILY LIVING SCALE (IADL): ABILITY TO USE THE TELEPHONE: 1 SHOPPIN FOOD PREPARATION: 1 HOUSEKEEPIN LAUNDRY: 1 MODE OF TRANSPORTATION: 1 RESPONSIBILITY FOR OWN MEDICATION: 1 ABILITY TO HANDLE FINANCES: 1 TOTAL SCORE: 8/8 SCORE INTERPRETATION: higher scores indicate higher level of independence KARNOFSKY PERFORMANCE SCALE INDEX: KARNOFSKY SCORE: 90 SCORE DESCRIPTION: able to carry on normal activity; minor signs or symptoms of disease; able to carry on normal activity and to work; no special care needed. ECOG PERFORMANCE STATUS SCORE: ECOG SCORE: 0 SCORE CRITERIA: asymptomatic SCORE DESCRIPTION: fully active, able to carry on all pre-disease activities without restriction. FUNCTIONAL AMBULATION CATEGORY (FAC): FAC SCORE: 5 (ambulator- independent) FAC DESCRIPTION: subject can ambulate independently on nonlevel and level surfaces, stairs, and inclines. SUPPLEMENTARY DYSPHAGIA ASSESSMENT RESULTS (SCALES / PROM): PERFORMANCE STATUS SCALE FOR HEAD & NECK CANCER PATIENTS (PSS-HN): NORMALCY OF DIET: 100 ? full diet (no restrictions) PUBLIC EATIN ? no restriction of place, food, or company UNDERSTANDABILITY OF SPEECH: 100 ? always understandable PSS-HN TOTAL SCORE: 300/300 TOTAL DYSPHAGIA RISK SCORE (TDRS): T-CLASSIFICATION: 0 (T1 or T2) WEIGHT LOSS BASELINE: 0 (no weight loss) CONCOMITANT CHEMORADIATION: 0 (no) ACCELERATED RADIOTHERAPY: 0 (no) BILATERAL NECK IRRADIATION: 9 (yes) PRIMARY TUMOR SITE: 7 (oropharynx) TDRS RISK SCORE: 16 TDRS RISK CATEGORY: intermediate risk (TDRS = 10 ? 18) MD SHELDON DYSPHAGIA INVENTORY (MDADI): GLOBAL: 4/5 PHYSICAL: 32/40 EMOTIONAL: 24/30 FUNCTIONAL: 18/25 MDADI COMPOSITE SCORE: 74 MDADI MEAN POINT SCORE: 3.89 MDADI FINAL SCORE: 77.89 (adequate) ORAL MOTOR / MODIFIED CRANIAL NERVE ASSESSMENT: TRIGEMINAL NERVE (CNV): no clinically significant abnormalities observed FACIAL NERVE (CNVII): no clinically significant abnormalities observed GLOSSOPHARYNGEAL NERVE (CNIX): no clinically significant abnormalities observed VAGUS NERVE (CNX): no clinically significant abnormalities observed HYPOGLOSSAL NERVE (CNXII): no clinically significant abnormalities observed ORAL SENSITIVITY AND PALATAL STRUCTURES:no clinically significant abnormalities observed MANDIBULAR FUNCTIONING: no clinically significant abnormalities observed DENTITION: upper / lower dentures in place, adequate fit ORAL MUCOSA / GINGIVA: no clinically significant abnormalities observed SALIVATION: mild xerostomia (dry mouth) COUGH SUFFICIENCY: appropriate volitional cough intensity VOCAL QUALITY: hoarse vocal quality with reported intermittent aphonic breaks WORLD HEALTH ORGANIZATION (WHO) ORAL MUCOSITIS SCALE: WHO ORAL MUCOSITIS SCALE GRADE: grade 0 WHO ORAL MUCOSITIS SCALE GRADE DESCRIPTION: no objective findings, function irrelevant RTOG RADIATION MORBIDITY SCORING CRITERIA FOR XEROSTOMIA: ACUTE REACTIONS: grade I GRADE DESCRIPTION: mild mouth dryness; slightly thickened saliva; changes are not reflected by alteration in baseline feeding SIALORRHEA SCORING SCALE (SSS): SSS SCORE: 1 (of 9) SSS DESCRIPTION: dry, never drools SCALE OF SUBJECTIVE TOTAL TASTE ACUITY (STTA): STTA GRADE: grade 0 STTA GRADE DESCRIPTION: same taste acuity as before treatment INTER-INCISOR DISTANCE (IID) AVERAGE IID: 4.0+ cm IID GRADE: grade 0 IID GRADE DESCRIPTION: unremarkable CLINICAL ASSESSMENT OF SWALLOW FUNCTION (QUANTITATIVE): REPETITIVE SALIVA SWALLOWING TEST (RSST): RSST RESULT: pass RSST DESCRIPTION: able to elicit 2 dry swallows within 30 seconds. 1OZ WATER SWALLOWING TEST (1OZ WST): 1OZ WST RESULTS: normal ? 1 (of 5) 1OZ WST DESCRIPTION: single swallow without coughing during ingestion DRINKING EPISODES: none 3OZ WATER SWALLOWING TEST (3OZ WST): 3OZ WST RESULTS: normal DRINKING EPISODES: none COLON ASSESSMENT OF SWALLOWING ABILITY ? CANCER (MASA-C): MASA ASPIRATION SEVERITY SCORE: 192 MASA SEVERITY SCORE DESCRIPTION: unremarkable MASA-C DYSPHAGIA RISK RATING: possible; lowered probability of disorder CLINICAL ASSESSMENT OF SWALLOW FUNCTION (QUALITATIVE): ORAL PREPARATORY PHASE: oral preparatory phase appears unremarkable; competent bolus manipulation without fragmented swallowing (piecemeal deglutition); sufficient anterior oral containment during manipulation; preserved management of breathing / bolus formation without disrupted E ? S ? E pattern ORAL TRANSITIONAL PHASE: oral transitional phase appears unremarkable; no signs of transitional incompetence; no signs of bolus consolidation impairments; no signs or symptoms of premature posterior bolus loss PHARYNGEAL PHASE: appropriate hyolaryngeal excursion upon digital palpation; intermittent audible swallow possibly suggestive of pharyngeal swallow delay / dyssynchrony, though this may lack clinical significance in isolation; no signs or symptoms of pharyngeal dysmotility; no subjective signs of velopharyngeal impairments; dry post prandial cough (x1) approximately 25-30 seconds following thin liquid intake, though he reports intermittent dry coughing throughout the past 2 days not associated with intake, unclear clinical significance ESOPHAGEAL PHASE: esophageal phase appears unremarkable CLINICAL ASSESSMENT OF SWALLOW FUNCTION (SEVERITY GRADING): SWALLOWING PERFORMANCE SCALE (SPS): SPS SCORE: 2 (of 7) SPS SEVERITY: within functional limits SPS SCORE DESCRIPTION: abnormal oral or pharyngeal stage; able to eat regular diet without modifications or swallowing precautions INTERVENTION CONSIDERATIONS AND RECOMMENDATIONS: I cannot definitively rule out silent aspiration at bedside; I would consider objective assessment of the oropharyngeal swallow function if silent aspiration is suspected (no current clinical suspicions). I would recommend follow up sessions focusing on re-assessment of functions and need for further intervention development within the initial 1-2 weeks post chemoradiation cycle to further assess his oropharyngeal swallow function and identify any post radiation changes in the oropharyngeal physiology, as the patient is at an elevated risk for continual changes and possible decline in swallow functioning / dysphagia severity throughout / following the chemoradiation intervention cycle, and would benefit from continued monitoring and treatment plan adjustments as necessary. RECOMMENDATIONS FOR INTERVENTION: The patient would benefit from 2-3 follow up skilled speech-language intervention sessions targeting diet texture management and training / implementation of recommended compensatory strategies; with advancement with the following as deemed medically necessary: training and implementation of a Trismus based exercise program to promote improved (jamari-irradiation) and sustained (post-irradiation) mandibular functioning; development, training and implementation of a home based prophylactic swallowing exercise program to promote the highest level of preserved post-irradiation swallow functioning; training and implementation of a home oral care protocol to reduce the effects of xerostomia and improve / maintain the integrity of the oral mucosa reducing the risk of aspiration related pulmonary complications; Patient / caregiver education regarding jamari and post-irradiation dysphagia and associated symptomology; with considerations for further diagnostic assessment of the swallow function under fluoroscopy via Modified Barium Swallow (MBS) study; with goal adjustment as clinically indicated. POST ASSESSMENT EDUCATION: The results and recommendations were discussed with the patient immediately following completion of the assessment, with the patient verbalizing understanding and agreement with all recommendations and education provided. We discussed the patients elevated risk for continual changes and possible decline in swallow functioning / dysphagia severity throughout the irradiation cycle; he would benefit from continued monitoring across all domains throughout irradiation therapy including post irradiation. We discussed the possibility of implementing prophylactic oropharyngeal strengthening / range of motion exercises and implementation of oral cryotherapy to reduce the effects of jamari and post radiation induced oropharyngeal dysphagia and oral mucositis associated with head and neck cancer; further / continual training would be highly indicated to ensure proper execution and maintenance to the program. I provided reinforcement of prior patient and family education regarding the importance of oral care throughout the irradiation process and post-irradiation, with recommendations for an aggressive oral care / denture care program that includes pre-rinse use prior to water intake; routine oral care in the a.m., after oral intake, and prior to bed. I provided brief overview of signs and symptoms of aspiration, with recommendations for the patient to further discuss symptoms with the patients care team. DIET TEXTURE RECOMMENDATIONS: Will recommend a regular textured (IDDSI: 7), thin liquid diet (IDDSI: 0) diet RECOMMENDED COMPENSATORY STRATEGIES: Seated upright at 90 degrees during PO intake, remain upright for 30-60 minutes post meal (GERD precaution) FUNCTIONAL OUTCOMES: OUTCOME 1: the patient will tolerate the least restrictive means of nutrition to facilitate adequate hydration / nutrition with optimum safety and efficiency of swallowing function during P.O. intake without overt signs and symptoms of aspiration. OUTCOME 2: goal adjustment as needed Jermain Lee M.A., [employer], CBIS MBSImP Certified, LSVT Certified [facility] Speech-Language Pathology Department Email: [email or web address]
--- NOTE | 2020-12-31 11:34 | HP.SP.DC_ITS ---
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 The patient participated in intervention sessions targeting diet texture management and training / implementation of recommended compensatory strategies, with additional training and implementation of a home based prophylactic swallowing exercise program to promote the highest level of preserved post-irradiation swallow functioning, with patient education provided regarding jamari and post-irradiation dysphagia and associated symptomology. All intervention goals have been met at this time, with the patient electing to hold further intervention regarding his vocal abnormalities given the gradual recovery he has been experiencing. We will proceed with discharge from the skilled speech-language pathology caseload at this time, though would gladly re-initiate intervention as needed moving forward. I would additionally consider the patient to be at an elevated risk for continual changes and possible decline in swallow functioning / dysphagia severity post irradiation (late effects of radiation fibrosis can occur upwards of 40 years post treatment); he would benefit from continual monitoring and yearly follow up regarding his swallowing function for at least 5 years post irradiation.
== END 2020-12-31 12:46 | disposition home or self-care (01) ==
LOC: SP 11:00
PROVIDERS: PCP Family Medicine; Referring Provider Student in an Organized Health Care Education/Training Program; Visit Provider Student in an Organized Health Care Education/Training Program
DX: C32.9 Malignant neoplasm of larynx, unspecified (principal)
CPT/HCPCS: 92526; 92610

== ENCOUNTER 2021-01-05 10:15 | Outpatient (RCR) | payer MEDICARE, OTHER, SELFPAY ==
[2020-12-05 09:50] VITALS: BMI 29.1
[2020-12-16 08:27] VITALS: BMI 28.3
--- NOTE | 2021-01-05 06:38 | CR.ITP_ITS ---
Exercise - 30-day Assessment - Visit Date of Eval: 01/05/21 Session #:: 12 - 100% compliance to date - Physician Prescribed Exercise Modalities: Treadmill, Airdyne, NuStep Frequency: 3x/week for 12 weeks [36 sessions] Intensity: 60-80% of age predicted maximum heart rate reserve Current METSs:: 4.5 increase from 3.0 Target Heart Rate:: 98-129 Current RPE:: 12-13 Maximum Excercise HR:: 133 Resting Blood Pressure: 130/70 - Patient continues to have elevated BPs on medication. 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 Maximum Exercise Blood Pressure: 152/82 EKG Type: NSR to sinus tach rare PVC, ST depression noted Physician aware and monitor - Outcomes & Goals Goals:: Verbalizes understanding of THR, RPE & goal METS by session 6, Documents in home exercise log/reports 30 min aerobic 5 day/wk by DC, Demonstrates accurate pulse taking by DC - Intervention & Plan Exercise Program Goals: Instruct on personal THR & RPE, Instruct on MET level & personal MET goal, Show patient to take own pulse /validate performance until accurate, Instruct on home exercise - 30-day Reassessments 30 day Reassessments:: Progressing - Physical Activity Home Exercise Physical Activity - Home Exercise: Safe Exercise, Warm-up, Self-monitoring, Cool-Down, Home Exercise > 30 min Daily, Sitting Time <3 hours/daily - Outcomes & Goals Outcomes/Goals: Demonstrates correct Warm-up/exercise Cool-Down (S3) if = 2.5 METs, Verbalizes symptoms of exercise intolerance by Session 3 (S3), Demonstrate safe equipment use (S3) & follows exercise prescrition (6) - Intervention & Plan Plan/Intervention: Instruct warm-up & cool-down if exercising at > 2 METs, Instruct on symptoms of exercise intolerance & actions to take, Instruct & monitor on saf, Assess intial functional capacity & safety risk - 30-day Reassessments 30 day Reassessments:: Progressing Nutrition - 30-Day Assessment - Program Goals Nutrition Program Goals: LDL <100 optimal. 100 - 129 Near optimal. 130 - 159 Borderline High. 160 - 189 High. Total Cholesterol <200 desirable. 200 - 239 Borderline High. >/= 240 High. HDL < 40 Low >/=60 High. Triglycerides <150 desirable. <199 optimal. VlDL 5 - 40. HgbA1C <7%. BMI <25 Patient has diagnosis of Hyperlipidemia (ICD E78)?: Yes - Visit Date of Assessment:: 01/05/21 Session #:: 12 - no recent labs - Cholesterol/Lipids Determine presence & major risk factors that modify LDL goal: Hypertension or hypertensive medication, Family history of premature CHD in Male < 55 years: female <65 yearsFa, Age men > 45 years; women >/= 55 years Outcomes/Goals: Pt IDs own risk factors & lifestyle modifications by Session 10, Verbalizes symptoms of angina & response by session 3., Pt independently manages Intervention/Plan: Instruct on personal lipid levels & lipid goals/NCEP guidelines, Instruct on cholesterol Referral to dietitian:: Yes - Medical Nutrition Therapy 30-day Reassessments:: Progressing - Diabetes (Other Core Measures) Diabetes Type: Not Applicable - Weight Mgt (Other Care) Height: 5 ft 11 in Weight:: 208 lb BMI: 29.0 Diagnosis Overweight/Obesity BMI> 30% ICD-10 E66: No Diagnosis High BMI/Morbid Obesity BMI> 35% ICD-10 Z68: No Outcomes/Goals: Pt sets, maintains & shows weight loss goal & trend during rehab Intervention/Plan: Instruct on ideal BMI & set weight loss goal w/patient, Assist pt to ID & incorporate diet changes for weight loss by S9, Refer to Structured Weight Loss program as appropriate, Encourage goal of using 250- 300dcal per session for weight loss 30 day Reassessments:: Not Met - no weight loss - Healthy Eating Habits Will attend diet classes:: Yes Outcomes/Goals:: Consume diet rich in vegs,fruits,whole grain/high fiber,fish,lean meat, Limit sat/trans fats,cholesterol & added salts & sugars Intervention/Plan:: Assess current eating habits 30-day Reassessments:: Progressing - Education Gave educational materials for:: Healthy eating Medical- 30-Day Assessment - Visit Date of Eval: 01/05/21 Session #:: 12 - Medication Compliance Preventative Medication(s):: Aspirin, Ticagrelor/P2Y12 inhibitor, Statin/lipid, Beta susi H/O mental health issues: depression, anxiety, or addiction?: No Doesn?t believe in the benefits of treatment?: No Believes medications are unnecessary or harmful?: No Has a concern about medication side effects?: No Expresses concern over the cost of medications?: No Outcomes/Goals: Verbalizes medications,desired effect & common side effects @ DC, Pt self-reports following medication regimen, Keeps card in wallet w/medications listed by DC Interventions/plans: Instruct on medication effects & side effects, Review medication list w/patient every two weeks, Instruct importance of taking meds as ordered & assist problem solving 30-day Reassessments:: Progressing - Tobacco Use Tobacco Use: Non-smoker - Hypertension Hypertension Diagnosis:: Hypertension ICD-10 I10 Resting Blood Pressure:: 130/70 - Stage 1 Hypertension on medication [employer] Hypertension Guidelines: [place] [employer] Hypertension Guidelines. Normal BP Less than 120/80. Elevated BP 120/80. Hypertension Stage 1: BP 130-139/80-89. Hypertesnion Stage 2: BP 140 or higher/90 or higher. Hypertension Crisis: BP higher than 180/120 Peak Exercise Blood Pressure:: 152/82 Outcomes/Goals: Able to verbalize/achieve optimal blood pressure <130/80, Incorporates diet changes & exercise for blood pressure control by DC Interventions/plan: Instruct on optimal blood pressure, hypertension & medications, Instruct on effects of sodium, alcohol, stress, exercise &hypertension 30 day Reassessments:: Not Met - Tobacco Cessation Referral Smoking Cessation Referral:: No Individual Education/Counseling:: No Education Schedule Given:: Yes Psychosocial - 30-Day Assess - VIsit Date of Eval: 01/05/21 Session #:: 12 Not Applicable: No History of previous Mental disease:: No History of Emotional Disorders: Depression Self-reported stressors: Medical/Health, Recent Illness Self-reported stressors Other/Comments:: Dealing with current medical diagnoses - Target Goals Target Goals: Assess presence or absence of depression. Using a valid screening tool, maximizes coping skills. Positive support system - Psychosocial Test Tool Used:: PHQ-9 Questionnaire phq-9 Severity: Severity. 1-4 Minimal Depression. 5-9 Mild Depression. 10-14 Moderate Depression. 15-19 Moderately Sever Depression. 20-27 Severe Depression. Rule: See PHQ-9 Score: 15 - Patient could beenfit from professional support. - Referral to Behavioral Health PS - Interventions: Yes Referral to Physician if PHQ-9 if score is 5-9: - Moderate to Severe Depression, Yes Attend Stress Management Classes, No Referral to Behavioral Health if PHQ-9 score >9:, No Referral to [facility] - Outcomes/Goals: See list Psychosocial Outcomes/Goals:: ID's personal stressors & 2 strategies to manage stress by discharge - Intervention/Plan: See List Interventions/Plan:: Assess stressors,coping strategies & signs of derpression on admission, Instruct/assist pt to develop coping & personal stress Mgt strategies, Refer to Physician if appropriate, Instruct patient to recognize signs & symptoms of depression, Instruct patient to recog - 30-day Reassessments: 30 day Reassessments:: Progressing Patient Health Questionnaire 30-Day Re-eval Assessment 1. Little interest or pleasure in doing things: Nearly every day 2. Feeling down, depressed, or hopeless: Nearly every day 3. Trouble falling or staying asleep, or sleeping too much: Nearly every day 4. Feeling tired or having little energy: Nearly every day 5. Poor appetite or overeating: Nearly every day 6. Feeling bad about yourself -- or that you are a failure or have let yourself or your family down: Not at all 7. Trouble concentrating on things, such as reading the newspaper or watching television: Not at all 8. Moving or speaking so slowly that other people could have noticed. Or the opposite - being so fidgety or restless that you have been moving around a lot more than usual: Not at all 9. Thoughts that you would be better off , or of hurting yourself in some way: Not at all How difficult have these problems made it for you to do your work, take care of things at home, or get along with other people?: Somewhat difficult - Dealing wi th finishing chemo and radiation and now heart disease. Total Score: 15 Self-Efficacy 30-Day Re-eval Assessment We would like to know how confident you are in doing certain activities. Please select your confidence level for:: Select your confidence level for the following using the scale 1-10 where 1 is not at all confident and 10 is totally confident. Your score is the average of all 6 responses. Fatigue: How confident are you that you can keep the fatigue caused by your disease from interfering with the things you want to do? Select Number: 7 Physical Discomfort or Pain: How confident are you that you can keep the physical discomfort or pain of your disease from interfering with the things you want to do? Select Number: 8 Emotional Distress: How confident are you that you can keep the emotional distress caused by your disease from interfering with the things you want to do? Select Number: 8 Other Symptoms or Health Problems: How confident are you that you can keep other symptoms or health problems from interfering with the things you want to do? Select Number: 8 Different Tasks and Activities: How confident are you that you can do the different tasks and activities needed to manage your health condition so as to reduce your need to see a doctor? Select Number: 7 Medication: How confident are you that you can do things other than just taking medication to reduce how much your illness affects your everyday life? Select Number: 8 Total Score:: 7
[2021-01-05 06:48] VITALS: BP 130/70; BP 152/82; BMI 29.0
== END 2021-01-25 23:59 ==
LOC: CR 10:15
PROVIDERS: PCP Family Medicine; Referring Provider Internal Medicine Cardiovascular Disease; Visit Provider Internal Medicine Cardiovascular Disease
DX: I25.10 Atherosclerotic heart disease of native coronary artery without angina pectoris (principal); I10 Essential (primary) hypertension; E78.5 Hyperlipidemia, unspecified; C32.0 Malignant neoplasm of glottis; Z95.5 Presence of coronary angioplasty implant and graft
CPT/HCPCS: 93798

== ENCOUNTER → 2021-01-06 | Outpatient (CLI) | payer MEDICARE, OTHER, SELFPAY ==
[2020-12-16 08:27] VITALS: BMI 28.3
[2021-01-05 06:48] VITALS: BMI 29.0
== END | disposition home or self-care (01) ==
LOC: LABSPEC 14:10
PROVIDERS: PCP Family Medicine; Referring Provider Family Medicine; Visit Provider Family Medicine
DX: U07.1 COVID-19 (principal); R50.9 Fever, unspecified; R52 Pain, unspecified
CPT/HCPCS: 87635; C9803; U0005; U0003

== ENCOUNTER 2021-01-13 09:45 | Emergency (ER) | payer MEDICARE, OTHER, SELFPAY ==
[2020-12-16 08:27] VITALS: BMI 28.3
[2021-01-13] VITALS (8 sets, daily range): BP systolic 112–158; BP diastolic 66–85; PULSE 77–94; RESP 16–30; TEMP 36.6–37.2; O2SAT 88–98; BMI 28.7
--- NOTE | 2021-01-13 10:33 | EKG12_ITS ---
Test Reason : SOB Blood Pressure : / mmHG Vent. Rate : 084 BPM Atrial Rate : 084 BPM P-R Int : 140 ms QRS Dur : 086 ms QT Int : 374 ms P-R-T Axes : 044 023 -18 degrees QTc Int : 441 ms Normal sinus rhythm Cannot rule out Inferior infarct , age undetermined Abnormal ECG Confirmed by TORY TRAMMELL, GIA ([id number]), newspaper photo editor SARA VELASCO ([id number]) on 01/15/2021 1:48:11 PM Referred By: GIOVANI Confirmed By:GIA SPEARS MD
--- NOTE | 2021-01-13 10:33 | RAD_ITS ---
STUDY: X-RAY CHEST REASON FOR EXAM: Male, 70 years old. PT HAVING COVID SYMPTOMS X1 WEEK. POSITIVE TEST ON TUESDAY TECHNIQUE: Single AP portable view of the chest. COMPARISON: Comparison is made with prior study dated 05/20/2014. FINDINGS: EKG electrodes are seen. Early infiltrates are seen in the peripheral aspect of the right upper and right lower lobes as well as in the left lower lobe. Follow-up is recommended. There is no demonstrated pleural abnormality. Normal size heart. Normal mediastinum and logan. Normal visualized pulmonary arteries. There is atherosclerotic calcification of the aortic arch with tortuosity. There are degenerative changes of the visualized thoracic spine. Normal visualized ribs, clavicles, and shoulders. There is no demonstrated abnormality of the visualized soft tissue structures of the upper abdomen. RAD/Chest 1 View (Portable) IMPRESSION: Bilateral pulmonary infiltrates worse on the right side. Electronically Signed: William Washington MD at 11:49 EST , Service support ,
--- NOTE | 2021-01-13 10:35 | ED.DCSUM_ITS ---
History of Present Illness Chief Complaint: General Illness Informant: Patient Onset: Weeks - 1 Activity at onset: Rest Timing: Intermittent Quality: - - dyspnea mostly w/ coughing spells Current Severity: Gone Maximum Severity: Moderate Worsened by: Coughing. 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 He denies any history of lung disease, he denies any dyspnea with exertion and is still able to walk around the house without any difficulty. Dyspnea is mostly with coughing fits. He recently was diagnosed with laryngeal cancer, it was excised and he had definitive radiation treatment, and now is awaiting follow-up evaluations. He is on no chemotherapy. In the process, he was worked up for cardiac disease and found to have triple-vessel disease. He did have 1 stent placed and is on aspirin/clopidogrel. He denies any chest pain recently, including pleuritic discomfort. He has had no focal leg swelling/pain, just diffuse myalgias, also loss of taste and smell. He does not know who he contracted Covid from, he denies any known contacts. He has not yet received any of the vaccine injections although he was scheduled for the first 1 this coming week. 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 Past Medical History - Allergies and Home Meds Allergies/Adverse Reactions: Allergies No Known Allergies Allergy (Verified 12/16/20 08:25) Primary Care Physician: Nik Anderson MD [Primary Care Provider] - Surgical History: tonsillectomy, - - coronary stent Lives: Spouse/ Significant Other Smoking Status: Former smoker - Family History Maternal Family History: Family History (Last Reviewed 12/16/20 @ 08:50 by Dalila GORMAN, PA) Father Stomach cancer Mother Breast cancer Sister Heart disease Family History: Reports: No pertinent history Review of Systems General: Reports: Chills, Fever, Malaise. Denies: Sweats Eyes: Denies: Visual changes - bilaterally, Diplopia ENT: Reports: Sore throat - x months due to laryngeal cancer/treatment; mildly worse x 1 wk, - - loss of taste and smell. Denies: Bilateral ear pain, Rhinorrhea Cardiovascular: Denies: Chest pain, Palpitations Respiratory: Reports: Dyspnea, Cough. Denies: Sputum, Dyspnea on exertion, Orthopnea Gastrointestinal: Reports: Nausea - and poor appetite/po intake. Denies: Abdominal pain, Vomiting, Diarrhea, Melena, Hematochezia Genitourinary: Denies: Dysuria, Hematuria, Frequency Musculoskeletal: Reports: Myalgias. Denies: Back pain, Swelling, Extremity Pain Skin: Denies: Rash, Wounds Neurological: Reports: Headache. Denies: Weakness, Numbness Physical Exam Vital Signs/Narrative: Vital Signs Temp Pulse Resp BP Pulse Ox 01/13/21 09:56 99.0 F 01/13/21 09:45 97.8 F 94 22 H 123/70 H 88 Inital Vital Signs reviewed: Yes General: Well nourished, Well developed, No Acute Distress - Conversive in full sentences Head: Normocephalic, Atraumatic Eyes: Perrl, EOMI ENT: Moist mucous membranes, No rhinorrhea, - - Posterior oropharynx clear, symmetric. No trismus. Neck: Supple, Nontender, No lymphadenopathy Cardiovascular: Regular rate, Regular rhythm, No murmurs. Negative for: Tachycardia Respiratory: No distress, CTA bilaterally, Chest nontender Abdomen: Soft, Nontender, Nondistended, Normal bowel sounds Back: Nontender, Normal Inspection Extremities: Nontender, No edema. Negative for: Calf Tenderness Skin: Normal color, No rash, No Trauma Neurological: Alert, Oriented x3, Cranial nerves II-XII grossly intact, Normal Strength, Normal Sensation, Normal Gait Psychological: Normal affect, Normal Mood Diagnostic/Tx/Re-eval Impressions Chest X-Ray 01/13/21 10:33 IMPRESSION: Bilateral pulmonary infiltrates worse on the right side. Electronically Signed: William Washington MD at 11:49 EST , Service support , Chest CTA 01/13/21 13:05 IMPRESSION: Bilateral preferentially peripheral based infiltrates in both lungs suggestive of possible Covid related pneumonitis. No evidence of pulmonary embolism. Electronically Signed: William Washington MD at 13:37 EST , Service support , 01/13/21 10:33 Chest 1 View (Portable) [RAD] Stat 01/13/21 13:05 CTA Chest W/WO Contrast [CT] Stat Laboratory Results 01/13/21 01/13/21 01/13/21 10:55 10:55 10:55 WBC 3.4 L RBC 4.48 L Hgb 13.9 Hct 41.7 MCV 93.1 MCH 31.0 MCHC 33.3 RDW Std Deviation 43.7 RDW Coeff of Angela 12.8 Plt Count 113 L MPV 10.7 Immature Gran % (Auto) 0.300 Neut % (Auto) 81.8 H Lymph % (Auto) 10.7 L [place] % (Auto) 6.6 Eos % (Auto) 0.3 Baso % (Auto) 0.3 Absolute Neuts (auto) 2.7 Absolute Lymphs (auto) 0.36 L Nucleated RBC % 0 D-Dimer Quant (PE/DVT) 0.88 H* Sodium 136 Potassium 4.0 Chloride 103 Carbon Dioxide 25.0 Anion Gap 8 BUN 18 Creatinine 0.93 Estim Creat Clear Calc 78.49 Est GFR (MDRD) Af Amer 104 Est GFR (MDRD) Non-Af 86 BUN/Creatinine Ratio 19.4 Glucose 95 Lactic Acid Calcium 8.4 L Total Bilirubin 0.70 AST 56 H ALT 42 Alkaline Phosphatase 66 Troponin I < 0.015 Total Protein 7.5 Albumin 3.5 Globulin 4.0 Albumin/Globulin Ratio 0.9 01/13/21 10:55 WBC RBC Hgb Hct MCV MCH MCHC RDW Std Deviation RDW Coeff of Angela Plt Count MPV Immature Gran % (Auto) Neut % (Auto) Lymph % (Auto) [place] % (Auto) Eos % (Auto) Baso % (Auto) Absolute Neuts (auto) Absolute Lymphs (auto) Nucleated RBC % D-Dimer Quant (PE/DVT) Sodium Potassium Chloride Carbon Dioxide Anion Gap BUN Creatinine Estim Creat Clear Calc Est GFR (MDRD) Af Amer Est GFR (MDRD) Non-Af BUN/Creatinine Ratio Glucose Lactic Acid 1.9 Calcium Total Bilirubin AST ALT Alkaline Phosphatase Troponin I Total Protein Albumin Globulin Albumin/Globulin Ratio - Rhythm Strip Rhythm Strip: Sinus Rhythm Rate: 84 Ectopy: None - EKG Initial EKG Interpretation: Sinus Rhythm, No Acute Injury Pattern - normal EKG Treatment - Dyspnea: Steroid - Medical Decision Making As above, patient had an abnormal D-dimer which is likely related to COVID-19, so CT angiography was performed and showed no pulmonary embolus. It was consistent with the findings on the chest x-ray which shows signs of bilateral Covid pneumonitis. Patient's vital signs have remained stable, he was just barely hypoxemic at 88% and has been doing well on a 2 L nasal cannula without issues exerting himself or ambulating at home. He is otherwise doing well. He prefers to go home. Given this he qualifies for getting set up for home oxygen which the local medical supply company is able to assist with given his positive Covid test, patient was given appropriate discharge instructions regarding attempting to watch his pulse ox at home if possible, otherwise returning to the ER if worse or following up with his doctor if he improves for a recheck of his oxygen levels and condition. In the meantime we will prescribe him azithromycin to cover empirically the possibility of bacterial superinfection as well as a 6-day additional course of Decadron 6 mg daily. All questions answered at the bedside from patient and his and they are comfortable with this overall plan. ED Disposition - Plan for ED Patient: Disposition: Home or Assisted Living Diagnosis: Pneumonia due to COVID-19 virus, Hypoxemia Instructions: Coronavirus Disease 2019 (COVID-19): Overview Prescriptions: Dexamethasone [Decadron] 6 mg PO DAILY 6 Days #6 tab Transmission Status: Pending to [facility]/pharmacy #[id number] Azithromycin [Zithromax Z-Mathew] 250 mg PO UD #1 box Transmission Status: Pending to [id number] Ondansetron [Zofran Odt] 8 mg PO Q8H PRN PRN #20 tab PRN Reason: Nausea Transmission Status: Pending to [id number] Referrals: Nik Anderson MD [Primary Care Provider] - As Needed (if recover; if worse, return to ER)
[2021-01-13 11:03] LABS: Absolute Lymphocyte Count 0.36 X10^3/uL (0.83-4.51); Absolute Neutrophil Count 2.7 X10^3/uL (2.0-7.7); Basophil# 0.01 X10^3/uL; Basophil% 0.3 % (0-1); Eosinophil# 0.01 X10^3/uL; Eosinophils% 0.3 % (0-5); Hematocrit 41.7 % (40-54); Hemoglobin 13.9 g/dL (13.0-16.5); Lymphocyte # 0.36 X10^3/ul (4.0); Lymphocyte % 10.7 % (19-41); Mean Corp Hgb Conc 33.3 g/dL (32-36); Mean Corpuscular Volume 93.1 fL (80-94); Mean Platelet Vol. 10.7 fl (6.2-12.0); Monocyte# 0.22 X10^3/uL; Monocyte% 6.6 % (0-10); NRBC Flagged by Analyzer 0 % (0-5); Neutrophil # 2.74 X10^3/uL (2.7-7.7); Neutrophil % 81.8 % (47-70); POSITIVE DIFFERENTIAL YES; Platelet Count 113 K/mm3 (150-450); RBC Distribution Width CV 12.8 % (11.6-14.6); RBC Distribution Width SD 43.7 fl (35.1-43.9); Red Blood Count 4.48 M/mm3 (4.6-6.2); White Blood Count 3.4 K/mm3 (4.4-11.0)
[2021-01-13 11:05] LABS: Differential Indicated SCAN CRITERIA MET
[2021-01-13] MEDS: 0.9% Normal Saline 1,000 ML 250 ML IV (11:11)
[2021-01-13 11:15] LABS: D-Dimer Quantitative (DVT/PE) 0.88 FEU/ug/m (0.27-0.49)
[2021-01-13 11:19] LABS: ALB/GLOB Ratio 0.9 RATIO (0.9-2.4); AST(SGOT) 56 U/L (15-37); Alanine Aminotransfer ALT/SGPT 42 U/L (16-61); Albumin, Serum 3.5 g/dL (3.2-5.0); Alkaline Phosphatase 66 U/L (45-117); Anion Gap 8 (5-15); BUN 18 mg/dL (7-18); BUN/Creat Ratio 19.4 RATIO (10-20); Calcium,Total 8.4 mg/dL (8.5-10.1); Chloride 103 mmol/L (98-107); Creatinine, Serum 0.93 mg/dL (0.70-1.30); EST Glomerular Filtration Rate 86 mL/min (>60); Est Glom Filt Rate - Afr Amer 104 mL/min (>60); Estimated Creatinine Clearance 78.49 ml/min; Glucose 95 mg/dL (74-106); Protein, Total 7.5 g/dL (6.4-8.2); Sodium Level 136 mmol/L (136-145)
[2021-01-13 11:22] LABS: Lactic Acid 1.9 mmol/L (0.4-1.9)
[2021-01-13] MEDS: dexAMETHasone 10 MG/ML Vial 6 MG IV (12:08)
--- NOTE | 2021-01-13 13:05 | CT_ITS ---
STUDY: CTA CHEST REASON FOR EXAM: Male, 70 years old. SOB, cough, elevated D-dimer, COVID + RADIATION DOSAGE (If Supplied By Facility): CTDIvol = ( 13.00 ) mGy, DLP = ( 485.09 ) mGycm TECHNIQUE: The examination was performed with the intravenous administration of IV 100mL Isovue-370. Post-processing of the angiographic images was performed, with multiplanar reformation and 3D reconstruction. Individualized dose optimization techniques were used for this CT. COMPARISON: Comparison is made with prior chest radiograph done earlier today. FINDINGS: Normal enhancement of the main pulmonary artery and right and left pulmonary arteries. Normal enhancement of the bilateral peripheral pulmonary arteries. There is no demonstrated pulmonary embolism. There is atherosclerotic calcification of the aortic arch with tortuosity. There is no demonstrated aortic dissection. There are calcifications of the coronary arteries. There are visualized mediastinal lymph nodes, which are within normal size limits, and with normal morphology. Normal hilar regions. Normal visualized trachea and bronchi. The lungs are well expanded. There is evidence of bilateral areas of infiltration in the differential peripheral distribution involving both upper and lower lobes. There is also evidence of underlying interstitial scarring with subpleural blebs. Emphysematous changes. Normal pleura. Normal chest wall structures. There are degenerative changes of thoracic spine. Normal visualized upper abdomen. CT/CTA Chest W/WO Contrast IMPRESSION: Bilateral preferentially peripheral based infiltrates in both lungs suggestive of possible Covid related pneumonitis. No evidence of pulmonary embolism. Electronically Signed: William Washington MD at 13:37 EST , Service support ,
[2021-01-13] MEDS: Ondansetron 4 MG/2 ML Vial IV (14:16)
--- NOTE | 2021-01-13 15:00 | CM.ED ---
SOCIAL WORK Informant: Dr. Bain Reason for Consult: COVID+ requiring home O2 Call to patient due to COVID-19 precautions. Discussed need for home O2 and reviewed providers. Patient in agreement with home O2 needs to be met through [employer]. Patient reports lives home with and does not smoke. Patient reports does not have pulse ox and informed a pulse ox will be provided along with portable tank. Patient informed he will need to call [employer] once discharged as a [employer] product sales representative will come to the home for set up. Informed number is located on tag on the portable tank. Patient verbalized understanding. Portable tank provided to nurse who will update R.T. Facesheet, COVID-19 positive test result, and ER report faxed and called to [employer]. Plan: Home with home O2 due to positive COVID-19 SIMON Love, WATCH CRYSTAL CUTTER
--- NOTE | 2021-01-14 14:42 | CASEMGMT ---
LISBET P[facility]REZ ER F/U call: COVID+ requiring home O2 Call placed to pt to inquire about how he has been doing since returning home from ER yesterday. Pt states, I'm okay..just tired all the time. He states his breathing is pretty good. He states the oxygen was delivered to his home yesterday and he has been wearing it continuously @ 3 L/M. He states he has been checking his pulse ox and it has been in the 80's mostly @ rest and that he has not checked it while ambulating. LISBET PÉREZ had pt check his pulse ox while on the phone with this LISBET PÉREZ. Per pt, his oxygen is in place @ 3 L/M. Initially the pulse ox was showing 87% and only came up to 89% after about a minute. Pt did check it on his left hand also and it ranged b/w 87%-89% and went up to 90% just momentarily and then back down to 88-89%. Pt also ambulated with O2 in place and reported to this LISBET PÉREZ that his pulse ox dropped down to 86%. LISBET PÉREZ explained importance of oxygen levels being higher and advised him to either return to the ER or to contact his PCP to inquire what they would like him to do, as his PCP may advise him to increase the oxygen rate while @ home. Pt voices understanding and appreciation for the call/instruction. 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 He denies having other questions/concerns/needs at this time. Larissa NASH RN, CM
[2021-01-15 13:19] LABS: Pathologist Review Reviewed
== END 2021-01-13 15:34 | disposition home or self-care (01) ==
PROVIDERS: Emergency Provider Emergency Medicine; PCP Family Medicine
DX: U07.1 COVID-19 (principal); J12.82 Pneumonia due to coronavirus disease 2019; R09.02 Hypoxemia; I25.10 Atherosclerotic heart disease of native coronary artery without angina pectoris; I10 Essential (primary) hypertension; E78.5 Hyperlipidemia, unspecified; Z79.82 Long term (current) use of aspirin; Z79.02 Long term (current) use of antithrombotics/antiplatelets; Z79.899 Other long term (current) drug therapy; Z85.21 Personal history of malignant neoplasm of larynx; Z87.891 Personal history of nicotine dependence
CPT/HCPCS: 71045; 71275; 80053; 83605; 84484; 85025; 85379; 87040; 93005; 96361; 96374; 96375; 99285; J7030; Q9967; A4216; J2405

== ENCOUNTER 2021-01-14 17:08 | Inpatient (IN) | payer MEDICARE, OTHER, SELFPAY ==
[2021-01-13 09:45] VITALS: BMI 28.7
[2021-01-14] VITALS (8 sets, daily range): BP systolic 113–140; BP diastolic 66–79; PULSE 58–91; RESP 16–20; TEMP 36.1–36.4; O2SAT 89–98; BMI 28.9; BMI 28.0; BMI 27.5
--- NOTE | 2021-01-14 17:59 | ED.VIS.GEN ---
History of Present Illness Chief Complaint: Cough Informant: Patient Narrative: 70-year-old male presenting with cough and decreasing O2 saturations at home. He was seen yesterday and had blood work and imaging to rule out PE. He was sent home on home oxygen. States he was supposed to be on 2 L of oxygen at home. He states he only feels short of breath sometimes. He denies chest pain or palpitations. He states he is able to eat and drink fairly well. Is on Decadron. Patient was diagnosed with Covid several days ago and appears to be at about day 10 of symptoms. - Past Medical History (1) Atherosclerotic heart disease of [place] coronary artery without angina pectoris Status: Chronic (2) Essential (primary) hypertension Status: Chronic (3) History of coronary artery stent placement Status: Chronic Comment: [id number] LAD w/ 3.50 x 16 mm Rebel MR Stent and POBA to the mid LAD and Ostial D1 11/26/2020 (4) Hyperlipidemia Status: Chronic Past Medical History - Allergies and Home Meds Allergies/Adverse Reactions: Allergies No Known Allergies Allergy (Verified 12/16/20 08:25) Prior records reviewed: Yes Past Medical History: - - Reviewed in problem list Surgical History: noncontributory, tonsillectomy, - - coronary stent Lives: Spouse/ Significant Other Smoking Status: Former smoker Alcohol: None Drugs: None - Family History Maternal Family History: Family History (Last Reviewed 12/16/20 @ 08:50 by Dalila GORMAN, PA) Father Stomach cancer Mother Breast cancer Sister Heart disease Family History: Reports: No pertinent history Review of Systems General: Reports: Fever, Malaise Eyes: Denies: Visual changes - bilaterally, Diplopia ENT: Denies: Rhinorrhea, Sore throat Cardiovascular: Denies: Chest pain, Palpitations Respiratory: Reports: Cough, - - Hypoxic at home. Gastrointestinal: Denies: Abdominal pain, Nausea, Vomiting, Diarrhea, Melena, Hematochezia Musculoskeletal: Denies: Back pain, Extremity Pain Skin: Denies: Rash, Wounds Neurological: Denies: Headache, Weakness, Numbness Psych: Denies: Depression, Anxiety Physical Exam Vital Signs/Narrative: Vital Signs Temp Pulse Resp BP Pulse Ox 01/14/21 17:13 97.3 F L 66 18 113/66 93 01/14/21 17:09 97.3 F L 67 18 113/66 89 Inital Vital Signs reviewed: Yes General: Well nourished, No Acute Distress Head: Normocephalic, Atraumatic Eyes: Perrl, EOMI ENT: Moist mucous membranes, No rhinorrhea Cardiovascular: Regular rate, Regular rhythm Respiratory: Decreased Air Movement - Bilateral bases Extremities: Nontender, No edema Skin: Normal color, No rash. Negative for: Cyanosis, Diaphoresis Neurological: Alert, Oriented x3, Cranial nerves II-XII grossly intact Psychological: Normal affect, Normal Mood Diagnostic/Tx/Re-eval Laboratory Data 01/14/21 01/14/21 19:05 19:05 WBC 7.8 RBC 4.19 L Hgb 13.0 Hct 38.2 L MCV 91.2 MCH 31.0 MCHC 34.0 RDW Std Deviation 41.7 RDW Coeff of Angela 12.5 Plt Count 136 L MPV 10.1 Immature Gran % (Auto) 0.800 Neut % (Auto) 89.2 H Lymph % (Auto) 6.0 L Harlan % (Auto) 3.9 Eos % (Auto) 0.0 Baso % (Auto) 0.1 Absolute Neuts (auto) 6.9 Absolute Lymphs (auto) 0.47 L Nucleated RBC % 0 Differential Comment SCANNED Sodium 135 L Potassium 3.9 Chloride 104 Carbon Dioxide 23.0 Anion Gap 8 BUN 17 Creatinine 0.75 Estim Creat Clear Calc 73.00 Est GFR (MDRD) Af Amer 132 Est GFR (MDRD) Non-Af 109 BUN/Creatinine Ratio 22.5 H Glucose 134 H Calcium 8.4 L Total Bilirubin 0.80 AST 61 H ALT 57 Alkaline Phosphatase 64 Total Protein 7.1 Albumin 3.2 Globulin 3.9 Albumin/Globulin Ratio 0.8 L - Medical Decision Making 70-year-old male diagnosed with Covid previously presenting with hypoxia on his baseline home O2 of 2 L. Reviewing the medical record shows that he was wearing 3 L in the ER is unclear why he was discharged on 2 L. He states that he had to turn up his oxygen to 3 overnight because his O2 sats were dropping. Patient was ambulated in the ER on baseline 3 L and desatted to 87% and did not feel comfortable going home. Patient CBC shows stable hemoglobin and lymphopenia. Electrolytes are normal. Patient has slight dehydration but given he has Covid?19 I would not give him IV fluids just yet since his vital signs are stable and he can drink fluids. Patient does not have a leukocytosis. Patient was discussed with hospitalist and admitted in stable condition. Impression: 1. Covid?19 pneumonitis 2. Hypoxic respiratory failure ED Disposition - Plan for ED Patient: Disposition: Acute Care Hospital [facility]
[2021-01-14 19:17] LABS: Absolute Lymphocyte Count 0.47 X10^3/uL (0.83-4.51); Absolute Neutrophil Count 6.9 X10^3/uL (2.0-7.7); Basophil# 0.01 X10^3/uL; Basophil% 0.1 % (0-1); Hematocrit 38.2 % (40-54); Lymphocyte # 0.47 X10^3/ul (4.0); Mean Corpuscular Volume 91.2 fL (80-94); Mean Platelet Vol. 10.1 fl (6.2-12.0); Monocyte% 3.9 % (0-10); NRBC Flagged by Analyzer 0 % (0-5); Neutrophil # 6.93 X10^3/uL (2.7-7.7); Neutrophil % 89.2 % (47-70); POSITIVE DIFFERENTIAL YES; Platelet Count 136 K/mm3 (150-450); RBC Distribution Width CV 12.5 % (11.6-14.6); RBC Distribution Width SD 41.7 fl (35.1-43.9); Red Blood Count 4.19 M/mm3 (4.6-6.2); White Blood Count 7.8 K/mm3 (4.4-11.0)
[2021-01-14 19:20] LABS: Differential Indicated SCAN CRITERIA MET
[2021-01-14 19:33] LABS: ALB/GLOB Ratio 0.8 RATIO (0.9-2.4); AST(SGOT) 61 U/L (15-37); Alanine Aminotransfer ALT/SGPT 57 U/L (16-61); Albumin, Serum 3.2 g/dL (3.2-5.0); Alkaline Phosphatase 64 U/L (45-117); Anion Gap 8 (5-15); BUN 17 mg/dL (7-18); BUN/Creat Ratio 22.5 RATIO (10-20); Calcium,Total 8.4 mg/dL (8.5-10.1); Chloride 104 mmol/L (98-107); Creatinine, Serum 0.75 mg/dL (0.70-1.30); EST Glomerular Filtration Rate 109 mL/min (>60); Est Glom Filt Rate - Afr Amer 132 mL/min (>60); Globulin 3.9 g/dL (2.2-4.2); Glucose 134 mg/dL (74-106); Potassium 3.9 mmol/L (3.5-5.1); Protein, Total 7.1 g/dL (6.4-8.2); Sodium Level 135 mmol/L (136-145)
[2021-01-14 19:47] LABS: Differential Comment SCANNED
--- NOTE | 2021-01-14 20:36 | PCM.HP.STD ---
History of Present Illness Date of Admission: 01/14/21 Chief Complaint: Covid pneumonia The patient is a 70 year old M with a PMH as below who presents to the hospital with hypoxia. He states that when he was at home on his 3 L of oxygen his oxygen saturations dropped below 90%. He was discharged yesterday from the ER on 3 L nasal cannula secondary to his Covid. He was also supposed to start on Decadron at that time. He states that symptoms started with high fevers on January 05 and then he had his test done on January 06 and it came back positive. He has been taking Tylenol since then has had been having intermittent fevers up to 104-105 degrees. He denies any loss of sense of smell or taste so he has had some myalgias he presented to the hospital today because he got nervous at home with being a little bit hypoxic on his 3 L nasal cannula. While in the ER he has maintained his oxygen saturations above 90% on his 3 L though when he did ambulate per report in the ER he did drop to 87% on the 3 L. He denies any chest pain, lightheadedness or dizziness. 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 Allergies No Known Allergies Allergy (Verified 12/16/20 08:25) Home Medications: Ambulatory Orders Medication Instructions Recorded Pantoprazole Sodium [Protonix] 40 mg PO DAILY 08/21/20 simvastatin 20 mg tablet 20 mg PO DAILY #90 tab 08/27/20 Aspirin [Aspirin, Baby] 81 mg PO DAILY 09/29/20 levothyroxine 125 mcg tablet 125 mcg PO DAILY tab 10/31/20 Ibuprofen [Motrin] 400 mg PO Q6H PRN PRN #0 tab 11/27/20 Meloxicam [Mobic] 15 mg PO DAILY #0 11/27/20 amlodipine 5 mg tablet 5 mg PO DAILY #90 tab 12/16/20 clopidogrel 75 mg tablet 75 mg PO DAILY #34 tab 12/26/20 Azithromycin [Zithromax Z-Mathew] 250 mg PO UD #1 box 01/13/21 Dexamethasone [Decadron] 6 mg PO DAILY 6 Days #6 tab 01/13/21 Ondansetron [Zofran Odt] 8 mg PO Q8H PRN PRN #20 tab 01/13/21 Acetaminophen [Tylenol Extra 1,000 mg PO DAILY PRN PRN 01/14/21 Strength] Metoprolol Succinate [Toprol Xl] 25 mg PO DAILY 01/14/21 Surgical History: Surgical History (Last Reviewed 12/16/20 @ 08:50 by Dalila Qiu PA, PA) History of bunionectomy Z98.890 History of left heart catheterization Onset Date: 09/29/20 Z98.890 Significant two-vessel coronary artery disease involving the proximal, mid LAD with aneurysmal dilatation as well as a totally occluded right coronary artery with [id number] collaterals and mildly depressed left ventricular systolic function. History of nasal septoplasty Onset Date: 08/29/20 Z98.890 History of tonsillectomy Z90.89 vocal cord biopsy Onset Date: 08/29/20 Direct microlaryngoscopy with biopsy of left vocal fold Surgical History: tonsillectomy, - - coronary stent Psychiatric History: No pertinent psych hx Smoking Status: Former smoker Tobacco Use: Cigarettes Alcohol: Rare Drugs: None - *Family History Maternal Family History: Family History (Last Reviewed 12/16/20 @ 08:50 by Dalila Qiu PA, PA) Father Stomach cancer Mother Breast cancer Sister Heart disease History Items: No pertinent history Review of Systems Constitutional: Reports: Chills, Fever, Malaise. Denies: Weight Change HEENT: Denies: Head Aches, Sinus Congestion, Sinus Drainage Cardiovascular: Denies: Chest Pain, Palpitations Respiratory: Reports: Shortness of Breath. Denies: Cough, Shortness of breath at rest, Sputum production Gastrointestinal: Denies: Abdominal Pain, Nausea, Vomiting Genitourinary: Denies: Dysuria Musculoskeletal: Reports: Muscle pain. Denies: Joint Pain, Joint Tenderness Skin: Denies: Rash, Wounds Neurological: Denies: Numbness, Tingling, Focal weakness Psychiatric: Denies: Anxiety, Depression Hematologic/ Lymphatic: Denies: Easy Bruising, Easy Bleeding VTE Information - Inpt Only VTE Present on Admission: No - Physical Exam Vitals/I&O's: Vital Signs Temp Pulse Resp BP Pulse Ox 97.3 F L 58 L 16 118/79 98 01/14/21 17:13 01/14/21 19:00 01/14/21 19:00 01/14/21 19:00 01/14/21 19:00 Oxygen Flow Rate (L/min) 2 Oxygen Delivery Method Nasal Cannula Weight: 201 lb 8.04 oz Body Mass Index (BMI) 28.9 General: Alert, Oriented x3, Cooperative, No apparent distress HEENT: Atraumatic, PERRLA, EOMI, Normocephalic Oral: Moist Mucosa Neck: Supple, No JVD Lungs: Normal air movement, No rhonchi, No wheeze, Diminished, Rales - Mild Cardiovascular: Regular rate, Regular Rhythm, Normal S1, Normal S2, No murmurs Abdomen: Soft, Non Tender, Non-Distended, No Hepato-splenomegaly Extremities: No edema, Capillary Refill Less than 3 Seconds Skin: No rashes, No breakdown Neurological: Neuro grossly intact, Sensory exam intact to light touch and pain Psych/Mental Status: Normal Affect, Appropriate Laboratory Results 01/14/21 19:05: WBC 7.8, RBC 4.19 L, Hgb 13.0, Hct 38.2 L, MCV 91.2, MCH 31.0, MCHC 34.0, RDW Std Deviation 41.7, RDW Coeff of Angela 12.5, Plt Count 136 L, MPV 10.1, Immature Gran % (Auto) 0.800, Neut % (Auto) 89.2 H, Lymph % (Auto) 6.0 L, [place] % (Auto) 3.9, Eos % (Auto) 0.0, Baso % (Auto) 0.1, Absolute Neuts (auto) 6.9, Absolute Lymphs (auto) 0.47 L, Nucleated RBC % 0, Differential Comment SCANNED 01/14/21 19:05: Sodium 135 L, Potassium 3.9, Chloride 104, Carbon Dioxide 23.0, Anion Gap 8, BUN 17, Creatinine 0.75, Estim Creat Clear Calc 73.00, Est GFR (MDRD) Af Amer 132, Est GFR (MDRD) Non-Af 109, BUN/Creatinine Ratio 22.5 H, Glucose 134 H, Calcium 8.4 L, Total Bilirubin 0.80, AST 61 H, ALT 57, Alkaline Phosphatase 64, Total Protein 7.1, Albumin 3.2, Globulin 3.9, Albumin/Globulin Ratio 0.8 L Assessment/Plan All Active Problems (Last Reviewed 12/16/20 @ 08:50 by Dalila GORMAN, PA) Odynophagia (Acute) Preop cardiovascular exam (Resolved) 1. Acute hypoxic respiratory failure secondary to COVID-19 pneumonia -He was hypoxic yesterday when he presented to the ER and had to be transition to 3 L nasal cannula on discharge. Today he was 89% on his those 3 L and when he ambulated he was 87% on those 3 L -Continue with Decadron and will start him on remdesivir as he is only had 9 days of symptoms so far -Monitor with CMP and BMP daily -Because of his rales will provide him a dose of Lasix x1 tonight 2. CAD status post stent/HLD/HTN -Blood pressures currently stable, will continue with his Norvasc and metoprolol -Continue with aspirin and Plavix, because of this I do not recommend transitioning to an anticoagulant on discharge despite his D-dimer being elevated to 0.88, CT of the chest was negative for PE on his initial ED presentation -Continue with statin 3. Hypothyroidism -Stable -Continue with Synthroid 4. GERD -Stable -Continue with PPI DVT: Lovenox Inpatient E&M: 22882 Init Hosp L3
[2021-01-14] MEDS: Enoxaparin 30 MG/0.3 ML Syringe SC (22:01)
[2021-01-14] MEDS: Atorvastatin Calcium 10 MG Tablet PO (22:01)
[2021-01-14] MEDS: Furosemide 20 MG/2 ML VIAL IV (22:02)
[2021-01-15] VITALS (15 sets, daily range): BP systolic 108–125; BP diastolic 57–65; PULSE 60–78; RESP 12–20; TEMP 35.7–36.6; O2SAT 88–96
[2021-01-15 03:42] LABS: Absolute Lymphocyte Count 0.47 X10^3/uL (0.83-4.51); Absolute Neutrophil Count 4.4 X10^3/uL (2.0-7.7); Basophil# 0.01 X10^3/uL; Basophil% 0.2 % (0-1); Hematocrit 38.6 % (40-54); Lymphocyte # 0.47 X10^3/ul (4.0); Lymphocyte % 9.2 % (19-41); Mean Corp Hgb Conc 33.7 g/dL (32-36); Mean Corpuscular Volume 91.9 fL (80-94); Mean Platelet Vol. 10.4 fl (6.2-12.0); Monocyte# 0.24 X10^3/uL; Monocyte% 4.7 % (0-10); NRBC Flagged by Analyzer 0 % (0-5); Neutrophil # 4.39 X10^3/uL (2.7-7.7); Neutrophil % 85.5 % (47-70); POSITIVE DIFFERENTIAL YES; Platelet Count 135 K/mm3 (150-450); RBC Distribution Width CV 12.5 % (11.6-14.6); RBC Distribution Width SD 41.9 fl (35.1-43.9); White Blood Count 5.1 K/mm3 (4.4-11.0)
[2021-01-15 03:43] LABS: Differential Indicated SCAN CRITERIA MET
[2021-01-15 03:58] LABS: ALB/GLOB Ratio 0.8 RATIO (0.9-2.4); AST(SGOT) 53 U/L (15-37); Alanine Aminotransfer ALT/SGPT 51 U/L (16-61); Albumin, Serum 3.1 g/dL (3.2-5.0); Alkaline Phosphatase 61 U/L (45-117); Anion Gap 6 (5-15); BUN 16 mg/dL (7-18); BUN/Creat Ratio 22.5 RATIO (10-20); Calcium,Total 8.2 mg/dL (8.5-10.1); Chloride 105 mmol/L (98-107); Creatinine, Serum 0.71 mg/dL (0.70-1.30); EST Glomerular Filtration Rate 117 mL/min (>60); Est Glom Filt Rate - Afr Amer 142 mL/min (>60); Globulin 3.8 g/dL (2.2-4.2); Glucose 112 mg/dL (74-106); Potassium 3.8 mmol/L (3.5-5.1); Protein, Total 6.9 g/dL (6.4-8.2); Sodium Level 137 mmol/L (136-145)
[2021-01-15 04:06] LABS: Atypical Lymphocyte 1+ %; Differential Comment SCANNED
[2021-01-15] MEDS: Meloxicam 15 MG Tablet PO (08:43)
[2021-01-15] MEDS: Metoprolol(XL)Succ 25 MG Tablet PO (08:43)
[2021-01-15] MEDS: dexAMETHasone 2 MG TABLET 6 MG PO (08:43)
[2021-01-15] MEDS: Enoxaparin 30 MG/0.3 ML Syringe SC ×2 (08:43→21:23)
[2021-01-15] MEDS: Aspirin 81 MG TAB.CHEW PO (08:43)
[2021-01-15] MEDS: Pantoprazole Sodium 40 MG Tablet PO (08:43)
[2021-01-15] MEDS: Clopidogrel Bisulfate 75 MG Tablet PO (08:44)
[2021-01-15] MEDS: amLODIPine 5 MG Tablet PO (08:44)
[2021-01-15] MEDS: Levothyroxine 125 MCG Tablet PO (08:44)
--- NOTE | 2021-01-15 09:20 | NURSING ---
CALLED [facility]PS TO EVALUATE PT. SPO2 ON 4L NC=85-89%, GRADUALLY INCREASED O2 TO 10L HIGH FLOW NC AND SPO2 STAYED BETWEEN 85-90%. CPS INCREASED O2 TO 12L HIGH FLOW NC- RECOMMENDING STARTING AIRVO. DR MEDINA NOTIFIED, STATES TO START AIRVO AND CONSULT DR HUERTAS. DR HUERTAS NOTIFIED.
--- NOTE | 2021-01-15 10:06 | PN_ITS ---
Subjective: Chief complaint: Follow-up after admission for acute bilateral COVID-19 pneumonia and acute hypoxic respiratory failure. Patient seen and examined. No acute events overnight. Nursing staff reported that patient requiring more oxygen, up to 12 L. Patient stated that his breathing is the same as yesterday, no improvement. Still complaining of cough. Denied fever or chills. CODE STATUS discussed with the patient and patient wants everything to be done including CPR, intubation mechanical ventilation. He is afebrile, blood pressure and catheter maintained, currently on Airvo. - Physical Exam Vitals/I&O's: Vital Signs Temp Pulse Resp BP Pulse Ox 97.6 F L 70 13 116/59 L 95 01/15/21 09:55 01/15/21 09:55 01/15/21 09:55 01/15/21 09:55 01/15/21 09:55 Oxygen Flow Rate (L/min) 60 Oxygen Delivery Method Airvo Weight: 197 lb 5.019 oz Body Mass Index (BMI) 27.5 Intake and Output for Last 24 Hours 01/13/21 01/14/21 01/15/21 23:59 23:59 23:59 Intake Total 730 / 730 Balance 730 / 730 General: Alert, Oriented x3, Cooperative, - - Mildly short of breath. HEENT: Atraumatic, PERRLA, EOMI, Normocephalic Oral: Moist Mucosa, No Gingival or Mucosal Lesions/ Ulcerations Neck: Supple, No JVD, Negative Carotid Bruits, Trachea Midline, Thyroid Normal Size and Texture Lungs: No rhonchi, No wheeze, No rales, Diminished, Short of Breath, - - Decreased breath sounds bilateral, otherwise clear. Cardiovascular: Regular rate, Regular Rhythm, Normal S1, Normal S2, PMI Normal Abdomen: Bowel Sounds Present, Soft, Non Tender, Non-Distended, No Hepato- splenomegaly Extremities: No clubbing, No cyanosis, No edema Skin: No rashes, No breakdown Lymphatic: No Cervical, Supraclavicular, or Inguinal Adenopathy Neurological: Cranial nerves II-XII grossly intact, Motor Exam 5/5 strength throughout Psych/Mental Status: Normal Affect, Appropriate, Alert and oriented to time, place, person, mood and affect Laboratory Results 01/14/21 19:05: WBC 7.8, RBC 4.19 L, Hgb 13.0, Hct 38.2 L, MCV 91.2, MCH 31.0, MCHC 34.0, RDW Std Deviation 41.7, RDW Coeff of Angela 12.5, Plt Count 136 L, MPV 10.1, Immature Gran % (Auto) 0.800, Neut % (Auto) 89.2 H, Lymph % (Auto) 6.0 L, [place] % (Auto) 3.9, Eos % (Auto) 0.0, Baso % (Auto) 0.1, Absolute Neuts (auto) 6.9, Absolute Lymphs (auto) 0.47 L, Nucleated RBC % 0, Differential Comment SCANNED 01/14/21 19:05: Sodium 135 L, Potassium 3.9, Chloride 104, Carbon Dioxide 23.0, Anion Gap 8, BUN 17, Creatinine 0.75, Estim Creat Clear Calc 73.00, Est GFR (MDRD) Af Amer 132, Est GFR (MDRD) Non-Af 109, BUN/Creatinine Ratio 22.5 H, Glucose 134 H, Calcium 8.4 L, Total Bilirubin 0.80, AST 61 H, ALT 57, Alkaline Phosphatase 64, Total Protein 7.1, Albumin 3.2, Globulin 3.9, Albumin/Globulin Ratio 0.8 L 01/15/21 03:30: WBC 5.1, RBC 4.20 L, Hgb 13.0, Hct 38.6 L, MCV 91.9, MCH 31.0, MCHC 33.7, RDW Std Deviation 41.9, RDW Coeff of Angela 12.5, Plt Count 135 L, MPV 10.4, Immature Gran % (Auto) 0.400, Neut % (Auto) 85.5 H, Lymph % (Auto) 9.2 L, [place] % (Auto) 4.7, Eos % (Auto) 0.0, Baso % (Auto) 0.2, Absolute Neuts (auto) 4.4, Absolute Lymphs (auto) 0.47 L, Nucleated RBC % 0, Differential Comment SCANNED, Atypical Lymphocytes 1+ 01/15/21 03:30: Sodium 137, Potassium 3.8, Chloride 105, Carbon Dioxide 26.0, Anion Gap 6, BUN 16, Creatinine 0.71, Estim Creat Clear Calc 75.30, Est GFR (MDRD) Af Amer 142, Est GFR (MDRD) Non-Af 117, BUN/Creatinine Ratio 22.5 H, Glucose 112 H, Calcium 8.2 L, Total Bilirubin 0.70, AST 53 H, ALT 51, Alkaline Phosphatase 61, Total Protein 6.9, Albumin 3.1 L, Globulin 3.8, Albumin/Globulin Ratio 0.8 L Current Medications Acetaminophen (Acetaminophen 325 Mg Tablet) 650 mg PO Q6H PRN PRN PRN Reason: Pain Score 1-10/Temp > 100.7 F Amlodipine Besylate (Amlodipine 5 Mg Tablet) 5 mg PO DAILY [facility] Last Admin: 01/15/21 08:44 Dose: 5 mg Documented by: Aspirin (Aspirin 81 Mg Tab.Chew) 81 mg PO DAILY [facility] Last Admin: 01/15/21 08:43 Dose: 81 mg Documented by: Atorvastatin Calcium (Atorvastatin Calcium 10 Mg Tablet) 10 mg PO DAILY@2199 [facility] Last Admin: 01/14/21 22:01 Dose: 10 mg Documented by: Clopidogrel Bisulfate (Clopidogrel Bisulfate 75 Mg Tablet) 75 mg PO DAILY [facility] Last Admin: 01/15/21 08:44 Dose: 75 mg Documented by: Dexamethasone (Dexamethasone 2 Mg Tablet) 6 mg PO DAILY [facility] Stop: 01/23/21 10:01 Last Admin: 01/15/21 08:43 Dose: 6 mg Documented by: Enoxaparin Sodium (Enoxaparin 30 Mg/0.3 Ml Syringe) 30 mg SC BID [facility] Last Admin: 01/15/21 08:43 Dose: 30 mg Documented by: Remdesivir 100 mg/ Sodium (Chloride) 250 mls @ 125 mls/hr IV DAILY@2199 [facility] Stop: 01/18/21 23:59 Sodium Chloride () 250 mls @ 15 mls/hr IV .[id number] PRN PRN Reason: Saline Flush Sodium Chloride () 250 mls @ 15 mls/hr IV .[id number] PRN PRN Reason: Additional IVPB Infusion Levothyroxine Sodium (Levothyroxine 125 Mcg Tablet) 125 mcg PO DAILY [facility] Last Admin: 01/15/21 08:44 Dose: 125 mcg Documented by: Melatonin (Melatonin 3 Mg Tablet) 3 mg PO QHS PRN PRN PRN Reason: INSOMNIA Meloxicam (Meloxicam 15 Mg Tablet) 15 mg PO DAILY [facility] Last Admin: 01/15/21 08:43 Dose: 15 mg Documented by: Metoprolol Succinate (Metoprolol(Xl)Succ 25 Mg Tablet) 25 mg PO DAILY [facility] Last Admin: 01/15/21 08:43 Dose: 25 mg Documented by: Ondansetron HCl (Ondansetron 4 Mg/2 Ml Vial) 4 mg IV Q8H PRN PRN PRN Reason: NAUSEA/VOMITING Pantoprazole Sodium (Pantoprazole Sodium 40 Mg Tablet) 40 mg PO DAILY [facility] Last Admin: 01/15/21 08:43 Dose: 40 mg Documented by: Sodium Chloride (0.9% Saline Lock 10 Ml Syringe) 10 - 40 ml IV UD PRN PRN Reason: SALINE FLUSH Medical Necessity - Tobacco Use Smoking Status: Former smoker Assessment/Plan All Active Problems (Last Reviewed 12/16/20 @ 08:50 by Dalila Qiu PA, PA) Acute respiratory failure with hypoxia (Acute) Acute bilateral COVID-19 pneumonia (Acute) This is a 70 years old male patient presented to the emergency room because of worsening shortness of breath and low pulse oximeter, found to have increasing bilateral lung infiltrate after he was diagnosed with COVID-19 on January 09, 2021, found to have acute hypoxic respiratory failure and he was admitted for treatment. #1 acute bilateral COVID-19 pneumonia: CTA chest and chest x-ray that was done on January 13, 2021 reviewed. No PE on CTA chest. Patient is currently on IV remdesivir and p.o. dexamethasone and subcu Lovenox twice daily. Routine blood work was remarkable for lymphopenia, otherwise normal. This morning, he is requiring more oxygen. Started on Airvo. Plan: Pulmonology consult, infectious disease consult, repeat CBC and CMP tomorrow morning. #2 acute hypoxic respiratory failure: Secondary to #1. Patient came to ED on 01/13 and he was discharged home on 3 L of oxygen but he came back in because of worsening shortness of breath. Currently, started on airvo this morning because of worsening hypoxia. Plan as above. #3 CAD status post stents: Stable, continue aspirin, Plavix, statins and metoprolol. #4 hypertension: Stable, continue Norvasc and metoprolol. #5 hypothyroidism: Continue levothyroxine. #6 hyperlipidemia: Continue statins. #7 CODE STATUS: Full code, discussed with the patient. #8 DVT prophylaxis: Subcu Lovenox twice daily. This note was generated with [employer] software. It may contain incorrect words, spelling, and punctuation that were not noted in checking the note before signing. Inpatient E&M: 15750 Subs Hosp L3
--- NOTE | 2021-01-15 10:20 | RAD_ITS ---
STUDY: X-RAY CHEST REASON FOR EXAM: Male, 70 years old. COVID-19, shortness of breath TECHNIQUE: Single AP portable view of the chest. COMPARISON: Comparison is made with prior study dated 01/13/2021. FINDINGS: EKG electrodes are seen. Mild residual bilateral pulmonary infiltrates although there has been a moderate degree of improvement as compared to prior study. There is no demonstrated pleural abnormality. Normal size heart. Normal mediastinum and logan. Normal visualized pulmonary arteries. There is atherosclerotic calcification of the aortic arch with tortuosity. There are diffuse degenerative changes of the visualized thoracic spine. Normal visualized ribs, clavicles, and shoulders. There is no demonstrated abnormality of the visualized soft tissue structures of the upper abdomen. RAD/Chest 1 View (Portable) IMPRESSION: Improved aeration of both lungs although residual changes persist. Electronically Signed: William Washington MD at 14:26 EST , Service support ,
--- NOTE | 2021-01-15 11:00 | CASEMGMT ---
RN ELISA RN INTENSIVE CARE UNIT ELISA placed call to pt's room for initial transition planning/care coordination assessment. LISBET PÉREZ introduced self and role at [facility]. Pt voices understanding and consents to assessment at this time. Pt is A/O at this time and answers all questions appropriately. Care providers, pharmacy, and demographics verified/updated at this time. PCP: Dr Nik Anderson Specialists: Dr Babin-Cardiology, Dr Álvarez--oncology, Dr Luis--ENT Preferred Pharmacy: [facility] Retail Insurance: MCR, MMO Prescription Benefit: Yes Living Will/HPOA: Pt states he has both LW and healthcare POA, who is his , Gogo LNOK: , Gogo Living Arrangements: Lives in a one-story home w/2 steps to enter. Independent with ADL's prior to admission. Pt/ share home mgmt tasks. Transportation: Pt states drives self and states no transportation concerns at this time. also drives. DME: States has the following DME: O2 through [employer] @ 2 l/m continuously (confirmed with Makayla @ [employer] at this time), shower chair, cane. Pt states no need for further DME at this time. HHC/SNF: No history of either. Pt denies need for HHC. Pt wishes to return home and states has no concerns with going home at time of discharge. CM to follow for increase in home oxygen needs and any further discharge planning/needs. Pt voices no further concerns/needs at this time. Advised pt to ask for CM if any further questions/concerns/needs arise. Voices understanding. PLAN: Home. Follow for any increase in O2 needs @ discharge. Will need updated O2 script if pt qualifies for more than 2 l/m O2 @ d/c. Larissa SAMN LISBET PÉREZ
--- NOTE | 2021-01-15 16:16 | CON.PCM_ITS ---
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 Reason for Consult Date of Consultation: 01/15/21 Reason for Consultation: Acute respiratory failure History of Present Illness: The patient is a 70 year old M, with past medical history listed below, who presented to [facility] on 01/14/2021 secondary to progressive shortness of breath, hypoxia and cough. Patient reportedly had had symptoms for about 7 days prior to presentation. Patient was seen in the ER and tested positive for Covid on the day prior to this presentation. Patient was sent home on 2 L nasal cannula, but stated his saturations continued to do worse. Patient was eating and drinking well and tolerating Decadron. On presentation to the ER, patient was noted to be 89% on his 2 L nasal cannula. Patient's laboratory work-up showed a hemoglobin of 13, white blood cell count of 7.8 and platelets of 136. Renal function was within normal limits, along with LFTs. Chest x-ray showed bilateral infiltrates and patient was desaturating despite 2 L nasal cannula. Patient was admitted to the floor for further evaluation. Initially on the floor, patient was requiring only 3 L nasal cannula. However, overnight the patient continued to decompensate and was as high as 12 L nasal cannula. Patient was transitioned to Airvo and a pulmonary consult was obtained. Since that time, patient has improved somewhat and is only requiring 40% FiO2 to maintain saturations. Patient states his headache is improved and he feels no shortness of breath at rest. Patient does have some cough and shortness of breath with exertion. Patient states his symptoms started off with fever and headache. Patient states his fever has improved. Patient does have a smoking history, but is never seen a net programmer analyst or had pulmonary function testing. Patient has not been hospitalized with breathing issues in the past. Patient does not use any inhalers. Patient is no longer smoking. Patient reportedly worked at [employer], but denies any exposure to asbestos or TB. Patient does drink approximately 12 pack/week of beer, but has not had issues with cessation. Review of systems otherwise negative from a constitutional, HEENT, respiratory, cardiovascular, GI, genitourinary, musculoskeletal, skin, neurologic, psychiatric and hematologic system unless stated above. Past Medical History Past Medical History (Chronic Problems): Chronic Problems (Last Updated 01/15/21 @ 10:[address] 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 Medical History: Medical History (Last Updated 01/15/21 @ 10:[address] 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 Allergies No Known Allergies Allergy (Verified 12/16/20 08:25) Home Medications: Ambulatory Orders Medication Instructions Recorded Pantoprazole Sodium [Protonix] 40 mg PO DAILY 08/21/20 simvastatin 20 mg tablet 20 mg PO DAILY #90 tab 08/27/20 Aspirin [Aspirin, Baby] 81 mg PO DAILY 09/29/20 levothyroxine 125 mcg tablet 125 mcg PO DAILY tab 10/31/20 Ibuprofen [Motrin] 400 mg PO Q6H PRN PRN #0 tab 11/27/20 Meloxicam [Mobic] 15 mg PO DAILY #0 11/27/20 amlodipine 5 mg tablet 5 mg PO DAILY #90 tab 12/16/20 clopidogrel 75 mg tablet 75 mg PO DAILY #34 tab 12/26/20 Azithromycin [Zithromax Z-Mathew] 250 mg PO UD #1 box 01/13/21 Dexamethasone [Decadron] 6 mg PO DAILY 6 Days #6 tab 01/13/21 Ondansetron [Zofran Odt] 8 mg PO Q8H PRN PRN #20 tab 01/13/21 Acetaminophen [Tylenol Extra 1,000 mg PO DAILY PRN PRN 01/14/21 Strength] Metoprolol Succinate [Toprol Xl] 25 mg PO DAILY 01/14/21 Surgical History: Surgical History (Last Reviewed 12/16/20 @ 08:50 by Dalila GORMAN, PA) History of bunionectomy Z98.0 History of left heart catheterization Onset Date: 09/29/20 Z98 Significant two-vessel coronary artery disease involving the proximal, mid LAD with aneurysmal dilatation as well as a totally occluded right coronary artery with [id number] collaterals and mildly depressed left ventricular systolic function. History of nasal septoplasty Onset Date: 08/29/20 Z98. History of tonsillectomy Z90.89 vocal cord biopsy Onset Date: 08/29/20 Direct microlaryngoscopy with biopsy of left vocal fold Surgical History: noncontributory, tonsillectomy, - - coronary stent Psychiatric History: No pertinent psych hx Lives: Spouse/ Significant Other Smoking Status: Former smoker Tobacco Use: Cigarettes Alcohol: None Drugs: None - *Family History Maternal Family History: Family History (Last Reviewed 12/16/20 @ 08:50 by Dalila Qiu PA, PA) Father Stomach cancer Mother Breast cancer Sister Heart disease History Items: No pertinent history Review of Systems Comment: See HPI Objective: All imaging was personally reviewed. CT scan of the chest does show significant emphysematous changes, along with groundglass and some bronchial thickening. Patient did have a cardiac catheterization in August 2020. Patient was noted to have an EF of 50% with significant intravascular abnormalities. - Physical Exam Vitals/I&O's: Vital Signs Temp Pulse Resp BP Pulse Ox 35.7 C L 78 18 110/61 95 01/15/21 12:00 01/15/21 12:43 01/15/21 12:43 01/15/21 12:00 01/15/21 12:43 Oxygen Flow Rate (L/min) 45 Oxygen Delivery Method Airvo Weight: 89.5 kg Body Mass Index (BMI) 27.5 Intake and Output for Last 24 Hours 01/13/21 01/14/21 01/15/21 23:59 23:59 23:59 Intake Total 730 / 730 Output Total 250 / 250 Balance 480 / 480 General: Alert, Oriented x3, Cooperative, No apparent distress, Well developed, Well nourished, - - Mild conversational dyspnea HEENT: Atraumatic, PERRLA, EOMI, Normocephalic, - - No scleral icterus or injection noted Oral: Moist Mucosa, No Gingival or Mucosal Lesions/ Ulcerations Neck: Supple, No JVD, No Nodes, Trachea Midline Lungs: No rhonchi, No wheeze, No rales, Diminished Cardiovascular: Regular rate, Regular Rhythm, Normal S1, Normal S2, No murmurs, No rub noted, No Gallop Abdomen: Bowel Sounds Present, Soft, Non Tender, Non-Distended Extremities: No clubbing, No cyanosis, No edema Skin: No rashes, No breakdown Musculoskeletal: No Tenderness to Palpation of Joints or Extremities Lymphatic: No Cervical, Supraclavicular, or Inguinal Adenopathy Neurological: Cranial nerves II-XII grossly intact, Neuro grossly intact, Motor Exam 5/5 strength throughout Psych/Mental Status: Alert and oriented to time, place, person, mood and affect Laboratory Results 01/14/21 19:05: WBC 7.8, RBC 4.19 L, Hgb 13.0, Hct 38.2 L, MCV 91.2, MCH 31.0, MCHC 34.0, RDW Std Deviation 41.7, RDW Coeff of Angela 12.5, Plt Count 136 L, MPV 10.1, Immature Gran % (Auto) 0.800, Neut % (Auto) 89.2 H, Lymph % (Auto) 6.0 L, [place] % (Auto) 3.9, Eos % (Auto) 0.0, Baso % (Auto) 0.1, Absolute Neuts (auto) 6.9, Absolute Lymphs (auto) 0.47 L, Nucleated RBC % 0, Differential Comment SCANNED 01/14/21 19:05: Sodium 135 L, Potassium 3.9, Chloride 104, Carbon Dioxide 23.0, Anion Gap 8, BUN 17, Creatinine 0.75, Estim Creat Clear Calc 73.00, Est GFR (MDRD) Af Amer 132, Est GFR (MDRD) Non-Af 109, BUN/Creatinine Ratio 22.5 H, Glucose 134 H, Calcium 8.4 L, Total Bilirubin 0.80, AST 61 H, ALT 57, Alkaline Phosphatase 64, Total Protein 7.1, Albumin 3.2, Globulin 3.9, Albumin/Globulin Ratio 0.8 L 01/15/21 03:30: WBC 5.1, RBC 4.20 L, Hgb 13.0, Hct 38.6 L, MCV 91.9, MCH 31.0, MCHC 33.7, RDW Std Deviation 41.9, RDW Coeff of Angela 12.5, Plt Count 135 L, MPV 10.4, Immature Gran % (Auto) 0.400, Neut % (Auto) 85.5 H, Lymph % (Auto) 9.2 L, [place] % (Auto) 4.7, Eos % (Auto) 0.0, Baso % (Auto) 0.2, Absolute Neuts (auto) 4.4, Absolute Lymphs (auto) 0.47 L, Nucleated RBC % 0, Differential Comment SCANNED, Atypical Lymphocytes 1+ 01/15/21 03:30: Sodium 137, Potassium 3.8, Chloride 105, Carbon Dioxide 26.0, Anion Gap 6, BUN 16, Creatinine 0.71, Estim Creat Clear Calc 75.30, Est GFR (MDRD) Af Amer 142, Est GFR (MDRD) Non-Af 117, BUN/Creatinine Ratio 22.5 H, Glucose 112 H, Calcium 8.2 L, Total Bilirubin 0.70, AST 53 H, ALT 51, Alkaline Phosphatase 61, Total Protein 6.9, Albumin 3.1 L, Globulin 3.8, Albumin/Globulin Ratio 0.8 L Current Medications Acetaminophen (Acetaminophen 325 Mg Tablet) 650 mg PO Q6H PRN PRN PRN Reason: Pain Score 1-10/Temp > 100.7 F Amlodipine Besylate (Amlodipine 5 Mg Tablet) 5 mg PO DAILY [facility] Last Admin: 01/15/21 08:44 Dose: 5 mg Documented by: Aspirin (Aspirin 81 Mg Tab.Chew) 81 mg PO DAILY [facility] Last Admin: 01/15/21 08:43 Dose: 81 mg Documented by: Atorvastatin Calcium (Atorvastatin Calcium 10 Mg Tablet) 10 mg PO DAILY@2199 [facility] Last Admin: 01/14/21 22:01 Dose: 10 mg Documented by: Clopidogrel Bisulfate (Clopidogrel Bisulfate 75 Mg Tablet) 75 mg PO DAILY [facility] Last Admin: 01/15/21 08:44 Dose: 75 mg Documented by: Dexamethasone (Dexamethasone 2 Mg Tablet) 6 mg PO DAILY [facility] Stop: 01/23/21 10:01 Last Admin: 01/15/21 08:43 Dose: 6 mg Documented by: Enoxaparin Sodium (Enoxaparin 30 Mg/0.3 Ml Syringe) 30 mg SC BID [facility] Last Admin: 01/15/21 08:43 Dose: 30 mg Documented by: Remdesivir 100 mg/ Sodium (Chloride) 250 mls @ 125 mls/hr IV DAILY@2200 [facility] Stop: 01/18/21 23:59 Sodium Chloride () 250 mls @ 15 mls/hr IV .[id number] PRN PRN Reason: Saline Flush Sodium Chloride () 250 mls @ 15 mls/hr IV .[id number] PRN PRN Reason: Additional IVPB Infusion Levothyroxine Sodium (Levothyroxine 125 Mcg Tablet) 125 mcg PO DAILY [facility] Last Admin: 01/15/21 08:44 Dose: 125 mcg Documented by: Melatonin (Melatonin 3 Mg Tablet) 3 mg PO QHS PRN PRN PRN Reason: INSOMNIA Meloxicam (Meloxicam 15 Mg Tablet) 15 mg PO DAILY [facility] Last Admin: 01/15/21 08:43 Dose: 15 mg Documented by: Metoprolol Succinate (Metoprolol(Xl)Succ 25 Mg Tablet) 25 mg PO DAILY [facility] Last Admin: 01/15/21 08:43 Dose: 25 mg Documented by: Ondansetron HCl (Ondansetron 4 Mg/2 Ml Vial) 4 mg IV Q8H PRN PRN PRN Reason: NAUSEA/VOMITING Pantoprazole Sodium (Pantoprazole Sodium 40 Mg Tablet) 40 mg PO DAILY [facility] Last Admin: 01/15/21 08:43 Dose: 40 mg Documented by: Sodium Chloride (0.9% Saline Lock 10 Ml Syringe) 10 - 40 ml IV UD PRN PRN Reason: SALINE FLUSH Clinical Impression(s) from Imaging Studies Chest X-Ray 01/15/21 10:20 IMPRESSION: Improved aeration of both lungs although residual changes persist. Electronically Signed: William Washington MD at 14:26 EST , Service support , Assessment/Plan All Active Problems (Last Updated 01/15/21 @ 10:[address] Alex Roach MD) Acute respiratory failure with hypoxia (Acute) Acute bilateral COVID-19 pneumonia (Acute) RECOMMENDATIONS: 1. Wean Airvo as tolerated, possible BiPAP with sleep 2. Continue remdesivir, Decadron and subcu Lovenox 3. Continue monitoring for hepatic function 4. Outpatient complete PFTs 5. Walking oximetry prior to discharge IMPRESSIONS: 1. Acute hypoxic respiratory failure secondary to bilateral COVID-19 pneumonia Patient has not been formally diagnosed with COPD, but does have significant emphysematous changes noted on his CAT scan of the chest. Patient does not have any pulmonary emboli noted. Okay to continue on lower dose Lovenox. Continue with remdesivir and dexamethasone. Patient likely will need a pulmonary function test as an outpatient for quantification and clarification of lung function. This may lead to slower recovery. Patient will need a walking oximetry prior to discharge. Cannot exclude the need for supplemental oxygen for the short-term on discharge. 2. CAD status post stents/hypertension/hypothyroidism/hyperlipidemia Complicates care, management, recovery and prognosis. Likely okay to continue with baseline medications. Continue to monitor renal function. Inpatient E&M: 66734 Init Hosp L3
[2021-01-15] MEDS: Atorvastatin Calcium 10 MG Tablet PO (21:23)
[2021-01-16] VITALS (17 sets, daily range): BP systolic 109–132; BP diastolic 55–80; PULSE 49–68; RESP 18–24; TEMP 36.2–36.4; O2SAT 90–95
[2021-01-16 06:39] LABS: Absolute Lymphocyte Count 0.49 X10^3/uL (0.83-4.51); Absolute Neutrophil Count 4.3 X10^3/uL (2.0-7.7); Basophil# 0.01 X10^3/uL; Basophil% 0.2 % (0-1); Eosinophil# 0.01 X10^3/uL; Eosinophils% 0.2 % (0-5); Hematocrit 36.9 % (40-54); Hemoglobin 12.5 g/dL (13.0-16.5); Lymphocyte # 0.49 X10^3/ul (4.0); Lymphocyte % 9.6 % (19-41); Mean Corp Hgb Conc 33.9 g/dL (32-36); Mean Corpuscular Hgb 30.8 pg (27.0-32.0); Mean Corpuscular Volume 90.9 fL (80-94); Mean Platelet Vol. 10.3 fl (6.2-12.0); Monocyte# 0.25 X10^3/uL; Monocyte% 4.9 % (0-10); NRBC Flagged by Analyzer 0 % (0-5); Neutrophil # 4.32 X10^3/uL (2.7-7.7); Neutrophil % 84.7 % (47-70); POSITIVE DIFFERENTIAL YES; Platelet Count 162 K/mm3 (150-450); RBC Distribution Width CV 12.4 % (11.6-14.6); RBC Distribution Width SD 41.5 fl (35.1-43.9); Red Blood Count 4.06 M/mm3 (4.6-6.2); White Blood Count 5.1 K/mm3 (4.4-11.0)
[2021-01-16 06:58] LABS: Differential Indicated SCAN CRITERIA MET
[2021-01-16 07:02] LABS: ALB/GLOB Ratio 0.8 RATIO (0.9-2.4); AST(SGOT) 40 U/L (15-37); Alanine Aminotransfer ALT/SGPT 45 U/L (16-61); Albumin, Serum 2.8 g/dL (3.2-5.0); Alkaline Phosphatase 57 U/L (45-117); Anion Gap 6 (5-15); BUN 19 mg/dL (7-18); BUN/Creat Ratio 30.7 RATIO (10-20); Calcium,Total 8.3 mg/dL (8.5-10.1); Chloride 109 mmol/L (98-107); Creatinine, Serum 0.62 mg/dL (0.70-1.30); EST Glomerular Filtration Rate 137 mL/min (>60); Est Glom Filt Rate - Afr Amer 166 mL/min (>60); Globulin 3.7 g/dL (2.2-4.2); Glucose 88 mg/dL (74-106); Potassium 3.7 mmol/L (3.5-5.1); Protein, Total 6.5 g/dL (6.4-8.2); Sodium Level 141 mmol/L (136-145)
[2021-01-16 07:05] LABS: Bedside Glucose 94 mg/dL (70-110)
[2021-01-16 07:11] LABS: Differential Comment SCANNED
--- NOTE | 2021-01-16 07:56 | PCM.PN.PUL ---
Patient Problems: Active and Suspected Problems (Last Updated 01/15/21 @ 10:[address] Alex Roach MD) Acute respiratory failure with hypoxia (Acute) Acute bilateral COVID-19 pneumonia (Acute) Subjective: Patient did okay overnight. Patient is not reporting any chest pain, abdominal pain, nausea or vomiting. Patient feels slightly improved compared to yesterday. Patient has a periodic nonproductive cough and does have dyspnea on exertion. - Physical Exam Vitals/I&O's: Vital Signs Temp Pulse Resp BP Pulse Ox 36.4 C L 56 L 18 131/61 H 95 01/16/21 02:00 01/16/21 07:00 01/16/21 05:07 01/16/21 02:00 01/16/21 05:07 Oxygen Flow Rate (L/min) 45 Oxygen Delivery Method Airvo Weight: 89.5 kg Body Mass Index (BMI) 27.5 Intake and Output for Last 24 Hours 01/14/21 01/15/21 01/16/21 23:59 23:59 23:59 Intake Total 980 / 980 400 / 400 Output Total 650 / 650 700 / 700 Balance 330 / 330 -300 / -300 General: Alert, Oriented x3, Cooperative, No apparent distress - On Airvo HEENT: Atraumatic, PERRLA, EOMI, Normocephalic, - - No scleral icterus or injection noted Oral: Moist Mucosa, No Gingival or Mucosal Lesions/ Ulcerations Neck: Supple, No JVD, No Nodes, Trachea Midline Lungs: No rhonchi, No rales, Diminished, Wheezes - Sporadic Cardiovascular: Regular rate, Regular Rhythm, Normal S1, Normal S2, No murmurs, No rub noted, No Gallop Abdomen: Bowel Sounds Present, Soft, Non Tender, Non-Distended Extremities: No clubbing, No cyanosis, No edema Skin: No rashes, No breakdown Musculoskeletal: No Tenderness to Palpation of Joints or Extremities Lymphatic: No Cervical, Supraclavicular, or Inguinal Adenopathy Neurological: Cranial nerves II-XII grossly intact, Neuro grossly intact, Motor Exam 5/5 strength throughout Psych/Mental Status: Alert and oriented to time, place, person, mood and affect Laboratory Results 01/16/21 06:16: POC Glucose 94 01/16/21 06:30: WBC 5.1, RBC 4.06 L, Hgb 12.5 L, Hct 36.9 L, MCV 90.9, MCH 30.8, MCHC 33.9, RDW Std Deviation 41.5, RDW Coeff of Angela 12.4, Plt Count 162, MPV 10.3, Immature Gran % (Auto) 0.400, Neut % (Auto) 84.7 H, Lymph % (Auto) 9.6 L, [place] % (Auto) 4.9, Eos % (Auto) 0.2, Baso % (Auto) 0.2, Absolute Neuts (auto) 4.3, Absolute Lymphs (auto) 0.49 L, Nucleated RBC % 0, Differential Comment SCANNED 01/16/21 06:30: Sodium 141, Potassium 3.7, Chloride 109 H, Carbon Dioxide 26.0, Anion Gap 6, BUN 19 H, Creatinine 0.62 L, Estim Creat Clear Calc 75.30, Est GFR (MDRD) Af Amer 166, Est GFR (MDRD) Non-Af 137, BUN/Creatinine Ratio 30.7 H, Glucose 88, Calcium 8.3 L, Total Bilirubin 0.70, AST 40 H, ALT 45, Alkaline Phosphatase 57, Total Protein 6.5, Albumin 2.8 L, Globulin 3.7, Albumin/Globulin Ratio 0.8 L Current Medications Acetaminophen (Acetaminophen 325 Mg Tablet) 650 mg PO Q6H PRN PRN PRN Reason: Pain Score 1-10/Temp > 100.7 F Amlodipine Besylate (Amlodipine 5 Mg Tablet) 5 mg PO DAILY [facility] Last Admin: 01/15/21 08:44 Dose: 5 mg Documented by: Aspirin (Aspirin 81 Mg Tab.Chew) 81 mg PO DAILY [facility] Last Admin: 01/15/21 08:43 Dose: 81 mg Documented by: Atorvastatin Calcium (Atorvastatin Calcium 10 Mg Tablet) 10 mg PO DAILY@2200 [facility] Last Admin: 01/15/21 21:23 Dose: 10 mg Documented by: Clopidogrel Bisulfate (Clopidogrel Bisulfate 75 Mg Tablet) 75 mg PO DAILY [facility] Last Admin: 01/15/21 08:44 Dose: 75 mg Documented by: Dexamethasone (Dexamethasone 2 Mg Tablet) 6 mg PO DAILY [facility] Stop: 01/23/21 10:01 Last Admin: 01/15/21 08:43 Dose: 6 mg Documented by: Enoxaparin Sodium (Enoxaparin 30 Mg/0.3 Ml Syringe) 30 mg SC BID [facility] Last Admin: 01/15/21 21:23 Dose: 30 mg Documented by: Remdesivir 100 mg/ Sodium (Chloride) 250 mls @ 125 mls/hr IV DAILY@2200 [facility] Stop: 01/18/21 23:59 Last Infusion: 01/15/21 23:31 Dose: Infused Documented by: Sodium Chloride () 250 mls @ 15 mls/hr IV .[id number] PRN PRN Reason: Saline Flush Sodium Chloride () 250 mls @ 15 mls/hr IV .[id number] PRN PRN Reason: Additional IVPB Infusion Levothyroxine Sodium (Levothyroxine 125 Mcg Tablet) 125 mcg PO DAILY [facility] Last Admin: 01/15/21 08:44 Dose: 125 mcg Documented by: Melatonin (Melatonin 3 Mg Tablet) 3 mg PO QHS PRN PRN PRN Reason: INSOMNIA Meloxicam (Meloxicam 15 Mg Tablet) 15 mg PO DAILY [facility] Last Admin: 01/15/21 08:43 Dose: 15 mg Documented by: Metoprolol Succinate (Metoprolol(Xl)Succ 25 Mg Tablet) 25 mg PO DAILY [facility] Last Admin: 01/15/21 08:43 Dose: 25 mg Documented by: Ondansetron HCl (Ondansetron 4 Mg/2 Ml Vial) 4 mg IV Q8H PRN PRN PRN Reason: NAUSEA/VOMITING Pantoprazole Sodium (Pantoprazole Sodium 40 Mg Tablet) 40 mg PO DAILY [facility] Last Admin: 01/15/21 08:43 Dose: 40 mg Documented by: Sodium Chloride (0.9% Saline Lock 10 Ml Syringe) 10 - 40 ml IV UD PRN PRN Reason: SALINE FLUSH Clinical Impression(s) from Imaging Studies Chest X-Ray 01/15/21 10:20 IMPRESSION: Improved aeration of both lungs although residual changes persist. Electronically Signed: William Washington MD at 14:26 EST , Service support , Medical Necessity - Tobacco Use Smoking Status: Former smoker Tobacco Use: Cigarettes Assessment/Plan All Active Problems (Last Updated 01/15/21 @ 10:[address] Alex Roach MD) Acute respiratory failure with hypoxia (Acute) Acute bilateral COVID-19 pneumonia (Acute) RECOMMENDATIONS: 1. Wean Airvo as tolerated, possible BiPAP with sleep 2. Continue remdesivir, Decadron and subcu Lovenox 3. Okay to continue with remdesivir given morning labs 4. Outpatient complete PFTs 5. Walking oximetry prior to discharge IMPRESSIONS: 1. Acute hypoxic respiratory failure secondary to bilateral COVID-19 pneumonia Patient has not been formally diagnosed with COPD, but does have significant emphysematous changes noted on his CAT scan of the chest. Patient does not have any pulmonary emboli noted. Okay to continue on lower dose Lovenox. Continue with remdesivir and dexamethasone. May attempt diuretic challenge in the next 24 hours if FiO2 fails to improve. Patient likely will need a pulmonary function test as an outpatient for quantification and clarification of lung function. This may lead to slower recovery. Patient will need a walking oximetry prior to discharge. Cannot exclude the need for supplemental oxygen for the short-term on discharge. 2. CAD status post stents/hypertension/hypothyroidism/hyperlipidemia Complicates care, management, recovery and prognosis. Likely okay to continue with baseline medications. Continue to monitor renal function. Inpatient E&M: 22415 [facility] Hosp L3
[2021-01-16] MEDS: Aspirin 81 MG TAB.CHEW PO (09:14)
[2021-01-16] MEDS: dexAMETHasone 2 MG TABLET 6 MG PO (09:14)
[2021-01-16] MEDS: Levothyroxine 125 MCG Tablet PO (09:15)
[2021-01-16] MEDS: Enoxaparin 30 MG/0.3 ML Syringe SC ×2 (09:15→19:48)
[2021-01-16] MEDS: Meloxicam 15 MG Tablet PO (09:15)
[2021-01-16] MEDS: Pantoprazole Sodium 40 MG Tablet PO (09:15)
[2021-01-16] MEDS: Clopidogrel Bisulfate 75 MG Tablet PO (09:15)
[2021-01-16] MEDS: amLODIPine 5 MG Tablet PO (09:15)
[2021-01-16] MEDS: Metoprolol(XL)Succ 25 MG Tablet PO (09:16)
--- NOTE | 2021-01-16 09:33 | PN_ITS ---
Patient Problems: Active and Suspected Problems (Last Updated 01/15/21 @ 10:[address] Alex Roach MD) Acute respiratory failure with hypoxia (Acute) Acute bilateral COVID-19 pneumonia (Acute) Subjective: Chief complaint: Follow-up after admission for acute bilateral COVID-19 pneumonia and acute hypoxic respiratory failure. Patient seen and examined. No acute events overnight. Today, patient feels that he is slightly better compared to yesterday, shortness of breath is minimally improved. Still having cough, no sputum production. No other complaints. Remained on Airvo, other vital signs are stable. - Physical Exam Vitals/I&O's: Vital Signs Temp Pulse Resp BP Pulse Ox 97.5 F L 62 18 123/59 H 95 01/16/21 02:00 01/16/21 09:16 01/16/21 05:07 01/16/21 09:16 01/16/21 05:07 Oxygen Flow Rate (L/min) 45 Oxygen Delivery Method Airvo Weight: 197 lb 5.019 oz Body Mass Index (BMI) 27.5 Intake and Output for Last 24 Hours 01/14/21 01/15/21 01/16/21 23:59 23:59 23:59 Intake Total 980 / 980 400 / 400 Output Total 650 / 650 700 / 700 Balance 330 / 330 -300 / -300 General: Alert, Oriented x3, Cooperative, No apparent distress HEENT: Atraumatic, PERRLA, EOMI, Normocephalic Oral: Moist Mucosa, No Gingival or Mucosal Lesions/ Ulcerations Neck: Supple, No JVD, Negative Carotid Bruits, Trachea Midline, Thyroid Normal Size and Texture Lungs: Clear to auscultation, No rhonchi, No wheeze, No rales, Diminished Cardiovascular: Regular rate, Regular Rhythm, Normal S1, Normal S2, PMI Normal Abdomen: Bowel Sounds Present, Soft, Non Tender, Non-Distended, No Hepato- splenomegaly Extremities: No clubbing, No cyanosis, No edema Skin: No rashes, No breakdown Lymphatic: No Cervical, Supraclavicular, or Inguinal Adenopathy Neurological: Cranial nerves II-XII grossly intact, Neuro grossly intact Psych/Mental Status: Normal Affect, Appropriate, Alert and oriented to time, place, person, mood and affect Laboratory Results 01/16/21 06:16: POC Glucose 94 01/16/21 06:30: WBC 5.1, RBC 4.06 L, Hgb 12.5 L, Hct 36.9 L, MCV 90.9, MCH 30.8, MCHC 33.9, RDW Std Deviation 41.5, RDW Coeff of Angela 12.4, Plt Count 162, MPV 10.3, Immature Gran % (Auto) 0.400, Neut % (Auto) 84.7 H, Lymph % (Auto) 9.6 L, [place] % (Auto) 4.9, Eos % (Auto) 0.2, Baso % (Auto) 0.2, Absolute Neuts (auto) 4.3, Absolute Lymphs (auto) 0.49 L, Nucleated RBC % 0, Differential Comment SCANNED 01/16/21 06:30: Sodium 141, Potassium 3.7, Chloride 109 H, Carbon Dioxide 26.0, Anion Gap 6, BUN 19 H, Creatinine 0.62 L, Estim Creat Clear Calc 75.30, Est GFR (MDRD) Af Amer 166, Est GFR (MDRD) Non-Af 137, BUN/Creatinine Ratio 30.7 H, Glucose 88, Calcium 8.3 L, Total Bilirubin 0.70, AST 40 H, ALT 45, Alkaline Phosphatase 57, Total Protein 6.5, Albumin 2.8 L, Globulin 3.7, Albumin/Globulin Ratio 0.8 L Current Medications Acetaminophen (Acetaminophen 325 Mg Tablet) 650 mg PO Q6H PRN PRN PRN Reason: Pain Score 1-10/Temp > 100.7 F Amlodipine Besylate (Amlodipine 5 Mg Tablet) 5 mg PO DAILY [facility] [place] Last Admin: 01/16/21 09:15 Dose: 5 mg Documented by: Aspirin (Aspirin 81 Mg Tab.Chew) 81 mg PO DAILY [facility] [place] Last Admin: 01/16/21 09:14 Dose: 81 mg Documented by: Atorvastatin Calcium (Atorvastatin Calcium 10 Mg Tablet) 10 mg PO DAILY@2200 [facility] [place] Last Admin: 01/15/21 21:23 Dose: 10 mg Documented by: Clopidogrel Bisulfate (Clopidogrel Bisulfate 75 Mg Tablet) 75 mg PO DAILY [facility] [place] Last Admin: 01/16/21 09:15 Dose: 75 mg Documented by: Dexamethasone (Dexamethasone 2 Mg Tablet) 6 mg PO DAILY [facility] [place] Stop: 01/23/21 10:01 Last Admin: 01/16/21 09:14 Dose: 6 mg Documented by: Enoxaparin Sodium (Enoxaparin 30 Mg/0.3 Ml Syringe) 30 mg SC BID [facility] [place] Last Admin: 01/16/21 09:15 Dose: 30 mg Documented by: Remdesivir 100 mg/ Sodium (Chloride) 250 mls @ 125 mls/hr IV DAILY@2200 [facility] Stop: 01/18/21 23:59 Last Infusion: 01/15/21 23:31 Dose: Infused Documented by: Sodium Chloride () 250 mls @ 15 mls/hr IV .[id number] PRN PRN Reason: Saline Flush Sodium Chloride () 250 mls @ 15 mls/hr IV .[id number] PRN PRN Reason: Additional IVPB Infusion Levothyroxine Sodium (Levothyroxine 125 Mcg Tablet) 125 mcg PO DAILY [facility] [place] Last Admin: 01/16/21 09:15 Dose: 125 mcg Documented by: Melatonin (Melatonin 3 Mg Tablet) 3 mg PO QHS PRN PRN PRN Reason: INSOMNIA Meloxicam (Meloxicam 15 Mg Tablet) 15 mg PO DAILY [facility] [place] Last Admin: 01/16/21 09:15 Dose: 15 mg Documented by: Metoprolol Succinate (Metoprolol(Xl)Succ 25 Mg Tablet) 25 mg PO DAILY [facility] [place] Last Admin: 01/16/21 09:16 Dose: 25 mg Documented by: Ondansetron HCl (Ondansetron 4 Mg/2 Ml Vial) 4 mg IV Q8H PRN PRN PRN Reason: NAUSEA/VOMITING Pantoprazole Sodium (Pantoprazole Sodium 40 Mg Tablet) 40 mg PO DAILY [facility] [place] Last Admin: 01/16/21 09:15 Dose: 40 mg Documented by: Sodium Chloride (0.9% Saline Lock 10 Ml Syringe) 10 - 40 ml IV UD PRN PRN Reason: SALINE FLUSH Medical Necessity - Tobacco Use Smoking Status: Former smoker Tobacco Use: Cigarettes Assessment/Plan All Active Problems (Last Updated 01/15/21 @ 10:[address] Alex Roach MD) Acute respiratory failure with hypoxia (Acute) Acute bilateral COVID-19 pneumonia (Acute) This is a 70 years old male patient presented to the emergency room because of worsening shortness of breath and low pulse oximeter, found to have increasing bilateral lung infiltrate after he was diagnosed with COVID-19 on January 09, 2021, found to have acute hypoxic respiratory failure and he was admitted for treatment. #1 acute bilateral COVID-19 pneumonia: He is on p.o. dexamethasone, IV remdesivir and subcu Lovenox twice daily. Remains on airvo, pulse ox has been around 90%. Other vital signs are stable. CTA chest and chest x-ray that was done on January 13, 2021 reviewed. No PE on CTA chest. CBC and CMP from today reviewed and was unremarkable. Infectious disease and pulmonology are on the case. Plan to continue same treatment. #2 acute hypoxic respiratory failure: Secondary to #1. Currently, he is on air Vo, pulse ox has been around 90s. Plan as above. #3 CAD status post stents: Stable, continue aspirin, Plavix, statins and metoprolol. #4 hypertension: Stable, continue Norvasc and metoprolol. #5 hypothyroidism: Continue levothyroxine. #6 hyperlipidemia: Continue statins. #7 CODE STATUS: Full code, discussed with the patient. #8 DVT prophylaxis: Subcu Lovenox twice daily. This note was generated with [email or web address] dictation software. It may contain incorrect words, spelling, and punctuation that were not noted in checking the note before signing. Inpatient E&M: 67006 Subs Hosp L2
--- NOTE | 2021-01-16 14:09 | CON.PCM_ITS ---
Problem List (1) Acute bilateral COVID-19 pneumonia Status: Acute Reason for Consult: covid Consulted by: Dr. Roach History of Present Illness: The patient is a 70 year old M with covid symptoms since 01/05. Had fever and chills, loss of taste/smell. Covid test (+). Had progressive cough and dyspnea, came to ED. No n/v/d, no aches/pains. is feeling fine, in quarantine. He was admitted on dex, remdesivir. Feeling a little better. Full ROS performed and neg except as noted above. - Medical History Past Medical History (Chronic Problems): Chronic Problems (Last Updated 01/15/21 @ 10:[address] 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 Allergies/Adverse Reactions: Allergies No Known Allergies Allergy (Verified 12/16/20 08:25) Home Medications: Ambulatory Orders Medication Instructions Recorded Pantoprazole Sodium [Protonix] 40 mg PO DAILY 08/21/20 simvastatin 20 mg tablet 20 mg PO DAILY #90 tab 08/27/20 Aspirin [Aspirin, Baby] 81 mg PO DAILY 09/29/20 levothyroxine 125 mcg tablet 125 mcg PO DAILY tab 10/31/20 Ibuprofen [Motrin] 400 mg PO Q6H PRN PRN #0 tab 11/27/20 Meloxicam [Mobic] 15 mg PO DAILY #0 11/27/20 amlodipine 5 mg tablet 5 mg PO DAILY #90 tab 12/16/20 clopidogrel 75 mg tablet 75 mg PO DAILY #34 tab 12/26/20 Azithromycin [Zithromax Z-Mathew] 250 mg PO UD #1 box 01/13/21 Dexamethasone [Decadron] 6 mg PO DAILY 6 Days #6 tab 01/13/21 Ondansetron [Zofran Odt] 8 mg PO Q8H PRN PRN #20 tab 01/13/21 Acetaminophen [Tylenol Extra 1,000 mg PO DAILY PRN PRN 01/14/21 Strength] Metoprolol Succinate [Toprol Xl] 25 mg PO DAILY 01/14/21 - Social History Tobacco Use: non-smoker Vital Signs Temp Pulse Resp BP Pulse Ox 97.3 F L 58 L 18 128/66 H 95 01/16/21 10:30 01/16/21 12:00 01/16/21 10:30 01/16/21 10:30 01/16/21 10:30 Oxygen Flow Rate (L/min) 45 Oxygen Delivery Method Airvo Weight: 89.5 kg Body Mass Index (BMI) 27.5 Laboratory Tests Past 24 Hrs 01/16/21 01/16/21 06:30 06:30 WBC 5.1 RBC 4.06 L Hgb 12.5 L Hct 36.9 L MCV 90.9 MCH 30.8 MCHC 33.9 RDW Std Deviation 41.5 RDW Coeff of Angela 12.4 Plt Count 162 MPV 10.3 Immature Gran % (Auto) 0.400 Neut % (Auto) 84.7 H Lymph % (Auto) 9.6 L [place] % (Auto) 4.9 Eos % (Auto) 0.2 Baso % (Auto) 0.2 Absolute Neuts (auto) 4.3 Absolute Lymphs (auto) 0.49 L Nucleated RBC % 0 Differential Comment SCANNED Sodium 141 Potassium 3.7 Chloride 109 H Carbon Dioxide 26.0 Anion Gap 6 BUN 19 H Creatinine 0.62 L Estim Creat Clear Calc 75.30 Est GFR (MDRD) Af Amer 166 Est GFR (MDRD) Non-Af 137 BUN/Creatinine Ratio 30.7 H Glucose 88 Calcium 8.3 L Total Bilirubin 0.70 AST 40 H ALT 45 Alkaline Phosphatase 57 Total Protein 6.5 Albumin 2.8 L Globulin 3.7 Albumin/Globulin Ratio 0.8 L - Other Studies Radiology: [] reviewed Other Studies: [] Route of nutrition/ use of supplements: [] Nutritional Intake: [] IV Site: [] Sandhu Catheter: [] - Physical Exam General: Alert, Oriented x3, Cooperative HEENT: Atraumatic, PERRLA, EOMI Neck: Supple, No Nodes Lungs: Diminished Cardiovascular: Regular rate, Regular Rhythm Abdomen: Soft, Non Tender, Non-Distended Extremities: No edema Skin: No rashes IV Site: Peripheral, without redness Musculoskeletal: No Tenderness to Palpation of Joints or Extremities Neurological: Cranial nerves II-XII grossly intact - Assessment/Plan Antibiotics: [] Assessment/Plan: [] Active and Suspected Problems (Last Updated 01/15/21 @ 10:[address] Alex Roach MD) Acute respiratory failure with hypoxia (Acute) Acute bilateral COVID-19 pneumonia (Acute) covid with hypoxia - on dex, remdesivir. Sx started 01/05. Plan on 20 days of quarantine from start of sx. Plan on 10 days of dex. On lovenox 30mg bid, will check d-dimer. Recommended get tested so she could be candidate for monoclonal Ab treatment if she met criteria. Will follow, thank you
[2021-01-16] MEDS: Atorvastatin Calcium 10 MG Tablet PO (19:48)
[2021-01-17] VITALS (16 sets, daily range): BP systolic 114–134; BP diastolic 51–62; PULSE 44–63; RESP 16–20; TEMP 36.1–36.6; O2SAT 87–96
[2021-01-17 05:35] LABS: Absolute Lymphocyte Count 0.78 X10^3/uL (0.83-4.51); Absolute Neutrophil Count 3.1 X10^3/uL (2.0-7.7); Basophil# 0.01 X10^3/uL; Basophil% 0.2 % (0-1); Eosinophil# 0.01 X10^3/uL; Eosinophils% 0.2 % (0-5); Hemoglobin 13.3 g/dL (13.0-16.5); Lymphocyte # 0.78 X10^3/ul (4.0); Mean Corp Hgb Conc 34.1 g/dL (32-36); Mean Corpuscular Hgb 31.1 pg (27.0-32.0); Mean Corpuscular Volume 91.3 fL (80-94); Mean Platelet Vol. 10.1 fl (6.2-12.0); Monocyte# 0.18 X10^3/uL; Monocyte% 4.4 % (0-10); NRBC Flagged by Analyzer 0 % (0-5); Neutrophil % 75.5 % (47-70); Platelet Count 195 K/mm3 (150-450); RBC Distribution Width CV 12.2 % (11.6-14.6); RBC Distribution Width SD 40.7 fl (35.1-43.9); Red Blood Count 4.27 M/mm3 (4.6-6.2); White Blood Count 4.1 K/mm3 (4.4-11.0)
[2021-01-17 05:51] LABS: ALB/GLOB Ratio 0.8 RATIO (0.9-2.4); AST(SGOT) 35 U/L (15-37); Alanine Aminotransfer ALT/SGPT 43 U/L (16-61); Albumin, Serum 2.9 g/dL (3.2-5.0); Alkaline Phosphatase 61 U/L (45-117); Anion Gap 6 (5-15); BUN 19 mg/dL (7-18); Calcium,Total 8.5 mg/dL (8.5-10.1); Chloride 109 mmol/L (98-107); Creatinine, Serum 0.63 mg/dL (0.70-1.30); EST Glomerular Filtration Rate 134 mL/min (>60); Est Glom Filt Rate - Afr Amer 162 mL/min (>60); Globulin 3.6 g/dL (2.2-4.2); Glucose 85 mg/dL (74-106); Potassium 3.9 mmol/L (3.5-5.1); Protein, Total 6.5 g/dL (6.4-8.2); Sodium Level 139 mmol/L (136-145)
[2021-01-17 05:59] LABS: D-Dimer Quantitative (DVT/PE) 0.63 FEU/ug/m (0.27-0.49)
--- NOTE | 2021-01-17 06:57 | PCM.PN.PUL ---
Patient Problems: Active and Suspected Problems (Last Updated 01/15/21 @ 10:[address] Alex Roach MD) Acute respiratory failure with hypoxia (Acute) Acute bilateral COVID-19 pneumonia (Acute) Subjective: Patient did well overnight. No acute issues were reported. Patient's oxygen status continues to improve. Patient is not reporting any chest pain or diarrhea. No bleeding has been reported. - Physical Exam Vitals/I&O's: Vital Signs Temp Pulse Resp BP Pulse Ox 36.5 C L 54 L 16 115/56 L 95 01/17/21 02:00 01/17/21 04:00 01/17/21 02:00 01/17/21 02:00 01/17/21 02:00 Oxygen Flow Rate (L/min) 2 Oxygen Delivery Method Nasal Cannula Weight: 89.5 kg Body Mass Index (BMI) 27.5 Intake and Output for Last 24 Hours 01/15/21 01/16/21 01/17/21 23:59 23:59 23:59 Intake Total 980 / 980 1610 / 1970 600 / 600 Output Total 650 / 650 1250 / 1800 825 / 825 Balance 330 / 330 360 / 170 -225 / -225 General: Alert, Oriented x3, Cooperative, No apparent distress, Well developed, Well nourished, - - Slight hoarseness, but at baseline HEENT: Atraumatic, PERRLA, EOMI, Normocephalic, - - No scleral icterus or injection noted Oral: Moist Mucosa, No Gingival or Mucosal Lesions/ Ulcerations Neck: Supple, No JVD, No Nodes, Trachea Midline Lungs: No rhonchi, No wheeze, No rales, Diminished, - - Symmetric expansion Cardiovascular: Normal S1, Normal S2, No murmurs, Bradycardic, No rub noted, No Gallop Abdomen: Bowel Sounds Present, Soft, Non Tender, Non-Distended Extremities: No clubbing, No cyanosis, No edema Skin: No rashes, No breakdown Musculoskeletal: No Tenderness to Palpation of Joints or Extremities Lymphatic: No Cervical, Supraclavicular, or Inguinal Adenopathy Neurological: Cranial nerves II-XII grossly intact, Neuro grossly intact, Motor Exam 5/5 strength throughout Psych/Mental Status: Alert and oriented to time, place, person, mood and affect Laboratory Results 01/16/21 06:16: POC Glucose 94 01/16/21 06:30: WBC 5.1, RBC 4.06 L, Hgb 12.5 L, Hct 36.9 L, MCV 90.9, MCH 30.8, MCHC 33.9, RDW Std Deviation 41.5, RDW Coeff of Angela 12.4, Plt Count 162, MPV 10.3, Immature Gran % (Auto) 0.400, Neut % (Auto) 84.7 H, Lymph % (Auto) 9.6 L, [place] % (Auto) 4.9, Eos % (Auto) 0.2, Baso % (Auto) 0.2, Absolute Neuts (auto) 4.3, Absolute Lymphs (auto) 0.49 L, Nucleated RBC % 0, Differential Comment SCANNED 01/16/21 06:30: Sodium 141, Potassium 3.7, Chloride 109 H, Carbon Dioxide 26.0, Anion Gap 6, BUN 19 H, Creatinine 0.62 L, Estim Creat Clear Calc 75.30, Est GFR (MDRD) Af Amer 166, Est GFR (MDRD) Non-Af 137, BUN/Creatinine Ratio 30.7 H, Glucose 88, Calcium 8.3 L, Total Bilirubin 0.70, AST 40 H, ALT 45, Alkaline Phosphatase 57, Total Protein 6.5, Albumin 2.8 L, Globulin 3.7, Albumin/Globulin Ratio 0.8 L 01/17/21 05:20: WBC 4.1 L, RBC 4.27 L, Hgb 13.3, Hct 39.0 L, MCV 91.3, MCH 31.1, MCHC 34.1, RDW Std Deviation 40.7, RDW Coeff of Angela 12.2, Plt Count 195, MPV 10.1, Immature Gran % (Auto) 0.700, Neut % (Auto) 75.5 H, Lymph % (Auto) 19.0, [place] % (Auto) 4.4, Eos % (Auto) 0.2, Baso % (Auto) 0.2, Absolute Neuts (auto) 3.1, Absolute Lymphs (auto) 0.78 L, Nucleated RBC % 0 01/17/21 05:20: Sodium 139, Potassium 3.9, Chloride 109 H, Carbon Dioxide 24.0, Anion Gap 6, BUN 19 H, Creatinine 0.63 L, Estim Creat Clear Calc 75.30, Est GFR (MDRD) Af Amer 162, Est GFR (MDRD) Non-Af 134, BUN/Creatinine Ratio 30.0 H, Glucose 85, Calcium 8.5, Total Bilirubin 0.80, AST 35, ALT 43, Alkaline Phosphatase 61, Total Protein 6.5, Albumin 2.9 L, Globulin 3.6, Albumin/Globulin Ratio 0.8 L 01/17/21 05:20: D-Dimer Quant (PE/DVT) 0.63 H* Current Medications Acetaminophen (Acetaminophen 325 Mg Tablet) 650 mg PO Q6H PRN PRN PRN Reason: Pain Score 1-10/Temp > 100.7 F Amlodipine Besylate (Amlodipine 5 Mg Tablet) 5 mg PO DAILY [facility] Last Admin: 01/16/21 09:15 Dose: 5 mg Documented by: Aspirin (Aspirin 81 Mg Tab.Chew) 81 mg PO DAILY [facility] Last Admin: 01/16/21 09:14 Dose: 81 mg Documented by: Atorvastatin Calcium (Atorvastatin Calcium 10 Mg Tablet) 10 mg PO DAILY@2199 [facility] Last Admin: 01/16/21 19:48 Dose: 10 mg Documented by: Clopidogrel Bisulfate (Clopidogrel Bisulfate 75 Mg Tablet) 75 mg PO DAILY [facility] Last Admin: 01/16/21 09:15 Dose: 75 mg Documented by: Dexamethasone (Dexamethasone 2 Mg Tablet) 6 mg PO DAILY [facility] Stop: 01/23/21 10:01 Last Admin: 01/16/21 09:14 Dose: 6 mg Documented by: Enoxaparin Sodium (Enoxaparin 30 Mg/0.3 Ml Syringe) 30 mg SC BID [facility] Last Admin: 01/16/21 19:48 Dose: 30 mg Documented by: Remdesivir 100 mg/ Sodium (Chloride) 250 mls @ 125 mls/hr IV DAILY@2200 [facility] Stop: 01/18/21 23:59 Last Infusion: 01/16/21 23:05 Dose: Infused Documented by: Sodium Chloride () 250 mls @ 15 mls/hr IV .[id number] PRN PRN Reason: Saline Flush Sodium Chloride () 250 mls @ 15 mls/hr IV .[id number] PRN PRN Reason: Additional IVPB Infusion Levothyroxine Sodium (Levothyroxine 125 Mcg Tablet) 125 mcg PO DAILY [facility] Last Admin: 01/16/21 09:15 Dose: 125 mcg Documented by: Melatonin (Melatonin 3 Mg Tablet) 3 mg PO QHS PRN PRN PRN Reason: INSOMNIA Meloxicam (Meloxicam 15 Mg Tablet) 15 mg PO DAILY [facility] Last Admin: 01/16/21 09:15 Dose: 15 mg Documented by: Metoprolol Succinate (Metoprolol(Xl)Succ 25 Mg Tablet) 25 mg PO DAILY [facility] Last Admin: 01/16/21 09:16 Dose: 25 mg Documented by: Ondansetron HCl (Ondansetron 4 Mg/2 Ml Vial) 4 mg IV Q8H PRN PRN PRN Reason: NAUSEA/VOMITING Pantoprazole Sodium (Pantoprazole Sodium 40 Mg Tablet) 40 mg PO DAILY [facility] Last Admin: 01/16/21 09:15 Dose: 40 mg Documented by: Sodium Chloride (0.9% Saline Lock 10 Ml Syringe) 10 - 40 ml IV UD PRN PRN Reason: SALINE FLUSH Medical Necessity - Tobacco Use Smoking Status: Former smoker Tobacco Use: Cigarettes Assessment/Plan All Active Problems (Last Updated 01/15/21 @ 10:[address] Alex Roach MD) Acute respiratory failure with hypoxia (Acute) Acute bilateral COVID-19 pneumonia (Acute) RECOMMENDATIONS: 1. Okay to discontinue BiPAP and Airvo 2. Continue remdesivir, Decadron and subcu Lovenox 3. Okay to continue with remdesivir given morning labs 4. Outpatient complete PFTs 5. Walking oximetry prior to discharge IMPRESSIONS: 1. Acute hypoxic respiratory failure secondary to bilateral COVID-19 pneumonia Patient has not been formally diagnosed with COPD, but does have significant emphysematous changes noted on his CAT scan of the chest. Patient does not have any pulmonary emboli noted. Okay to continue on lower dose Lovenox. Continue with remdesivir and dexamethasone. Oxygen continues to improve. No indication for diuretics at this time. Patient will need a walking oximetry prior to discharge. Given nasal cannula needs, likely okay to discontinue Airvo from my perspective. Cannot exclude the need for supplemental oxygen on discharge, but will continue to assess. 2. CAD status post stents/hypertension/hypothyroidism/hyperlipidemia Complicates care, management, recovery and prognosis. Likely okay to continue with baseline medications. Continue to monitor renal function. Inpatient E&M: 24950 Subs Hosp L2
[2021-01-17] MEDS: Metoprolol(XL)Succ 25 MG Tablet PO (08:20)
[2021-01-17] MEDS: Pantoprazole Sodium 40 MG Tablet PO (08:20)
[2021-01-17] MEDS: Clopidogrel Bisulfate 75 MG Tablet PO (08:20)
[2021-01-17] MEDS: Aspirin 81 MG TAB.CHEW PO (08:20)
[2021-01-17] MEDS: amLODIPine 5 MG Tablet PO (08:20)
[2021-01-17] MEDS: Meloxicam 15 MG Tablet PO (08:21)
[2021-01-17] MEDS: Levothyroxine 125 MCG Tablet PO (08:21)
[2021-01-17] MEDS: dexAMETHasone 2 MG TABLET 6 MG PO (08:21)
[2021-01-17] MEDS: Enoxaparin 30 MG/0.3 ML Syringe SC ×2 (08:22→20:42)
--- NOTE | 2021-01-17 10:07 | PN_ITS ---
Patient Problems: Active and Suspected Problems (Last Updated 01/15/21 @ 10:[address] Alex Roach MD) Acute respiratory failure with hypoxia (Acute) Acute bilateral COVID-19 pneumonia (Acute) Subjective: Chief complaint: Follow-up after admission for acute bilateral COVID-19 pneumonia and acute hypoxic respiratory failure. Patient seen and examined. No acute events overnight. Today, patient is feeling better, shortness of breath continue to improve slowly. He is down to 2 L of oxygen. No other complaints. Other vital signs are stable. - Physical Exam Vitals/I&O's: Vital Signs Temp Pulse Resp BP Pulse Ox 97.8 F 63 20 H 118/52 L 96 01/17/21 08:06 01/17/21 08:20 01/17/21 08:06 01/17/21 08:20 01/17/21 08:06 Oxygen Flow Rate (L/min) 2 Oxygen Delivery Method Nasal Cannula Weight: 197 lb 5.019 oz Body Mass Index (BMI) 27.5 Intake and Output for Last 24 Hours 01/15/21 01/16/21 01/17/21 23:59 23:59 23:59 Intake Total 980 / 980 1610 / 1970 600 / 600 Output Total 650 / 650 1250 / 1800 825 / 825 Balance 330 / 330 360 / 170 -225 / -225 General: Alert, Oriented x3, Cooperative, No apparent distress HEENT: Atraumatic, PERRLA, EOMI, Normocephalic Oral: Moist Mucosa, No Gingival or Mucosal Lesions/ Ulcerations Neck: Supple, No JVD, Negative Carotid Bruits, Trachea Midline, Thyroid Normal Size and Texture Lungs: Clear to auscultation, Normal air movement, No rhonchi, No wheeze, No rales, Diminished Cardiovascular: Regular rate, Regular Rhythm, Normal S1, Normal S2, PMI Normal Abdomen: Bowel Sounds Present, Soft, Non Tender, Non-Distended, No Hepato- splenomegaly Extremities: No clubbing, No cyanosis, No edema Skin: No rashes, No breakdown Lymphatic: No Cervical, Supraclavicular, or Inguinal Adenopathy Neurological: Cranial nerves II-XII grossly intact, Neuro grossly intact Psych/Mental Status: Normal Affect, Appropriate, Alert and oriented to time, place, person, mood and affect Laboratory Results 01/17/21 05:20: WBC 4.1 L, RBC 4.27 L, Hgb 13.3, Hct 39.0 L, MCV 91.3, MCH 31.1, MCHC 34.1, RDW Std Deviation 40.7, RDW Coeff of Angela 12.2, Plt Count 195, MPV 10.1, Immature Gran % (Auto) 0.700, Neut % (Auto) 75.5 H, Lymph % (Auto) 19.0, [place] % (Auto) 4.4, Eos % (Auto) 0.2, Baso % (Auto) 0.2, Absolute Neuts (auto) 3.1, Absolute Lymphs (auto) 0.78 L, Nucleated RBC % 0 01/17/21 05:20: Sodium 139, Potassium 3.9, Chloride 109 H, Carbon Dioxide 24.0, Anion Gap 6, BUN 19 H, Creatinine 0.63 L, Estim Creat Clear Calc 75.30, Est GFR (MDRD) Af Amer 162, Est GFR (MDRD) Non-Af 134, BUN/Creatinine Ratio 30.0 H, Glucose 85, Calcium 8.5, Total Bilirubin 0.80, AST 35, ALT 43, Alkaline Phosphatase 61, Total Protein 6.5, Albumin 2.9 L, Globulin 3.6, Albumin/Globulin Ratio 0.8 L 01/17/21 05:20: D-Dimer Quant (PE/DVT) 0.63 H* Current Medications Acetaminophen (Acetaminophen 325 Mg Tablet) 650 mg PO Q6H PRN PRN PRN Reason: Pain Score 1-10/Temp > 100.7 F Amlodipine Besylate (Amlodipine 5 Mg Tablet) 5 mg PO DAILY [facility] Last Admin: 01/17/21 08:20 Dose: 5 mg Documented by: Aspirin (Aspirin 81 Mg Tab.Chew) 81 mg PO DAILY [facility] Last Admin: 01/17/21 08:20 Dose: 81 mg Documented by: Atorvastatin Calcium (Atorvastatin Calcium 10 Mg Tablet) 10 mg PO DAILY@2200 [facility] Last Admin: 01/16/21 19:48 Dose: 10 mg Documented by: Clopidogrel Bisulfate (Clopidogrel Bisulfate 75 Mg Tablet) 75 mg PO DAILY [facility] Last Admin: 01/17/21 08:20 Dose: 75 mg Documented by: Dexamethasone (Dexamethasone 2 Mg Tablet) 6 mg PO DAILY [facility] Stop: 02/26/21 10:01 Last Admin: 01/17/21 08:21 Dose: 6 mg Documented by: Enoxaparin Sodium (Enoxaparin 30 Mg/0.3 Ml Syringe) 30 mg SC BID [facility] Last Admin: 01/17/21 08:22 Dose: 30 mg Documented by: Remdesivir 100 mg/ Sodium (Chloride) 250 mls @ 125 mls/hr IV DAILY@2200 [facility] Stop: 01/18/21 23:59 Last Infusion: 01/16/21 23:05 Dose: Infused Documented by: Sodium Chloride () 250 mls @ 15 mls/hr IV .[id number] PRN PRN Reason: Saline Flush Sodium Chloride () 250 mls @ 15 mls/hr IV .[id number] PRN PRN Reason: Additional IVPB Infusion Levothyroxine Sodium (Levothyroxine 125 Mcg Tablet) 125 mcg PO DAILY [facility] Last Admin: 01/17/21 08:21 Dose: 125 mcg Documented by: Melatonin (Melatonin 3 Mg Tablet) 3 mg PO QHS PRN PRN PRN Reason: INSOMNIA Meloxicam (Meloxicam 15 Mg Tablet) 15 mg PO DAILY [facility] Last Admin: 01/17/21 08:21 Dose: 15 mg Documented by: Metoprolol Succinate (Metoprolol(Xl)Succ 25 Mg Tablet) 25 mg PO DAILY [facility] Last Admin: 01/17/21 08:20 Dose: 25 mg Documented by: Ondansetron HCl (Ondansetron 4 Mg/2 Ml Vial) 4 mg IV Q8H PRN PRN PRN Reason: NAUSEA/VOMITING Pantoprazole Sodium (Pantoprazole Sodium 40 Mg Tablet) 40 mg PO DAILY [facility] Last Admin: 01/17/21 08:20 Dose: 40 mg Documented by: Sodium Chloride (0.9% Saline Lock 10 Ml Syringe) 10 - 40 ml IV UD PRN PRN Reason: SALINE FLUSH Medical Necessity - Tobacco Use Smoking Status: Former smoker Tobacco Use: Cigarettes Assessment/Plan All Active Problems (Last Updated 01/15/21 @ 10:[address] Alex Roach MD) Acute respiratory failure with hypoxia (Acute) Acute bilateral COVID-19 pneumonia (Acute) This is a 70 years old male patient presented to the emergency room because of worsening shortness of breath and low pulse oximeter, found to have increasing bilateral lung infiltrate after he was diagnosed with COVID-19 on January 09, 2021, found to have acute hypoxic respiratory failure and he was admitted for treatment. #1 acute bilateral COVID-19 pneumonia: Remained on p.o. dexamethasone, IV remdesivir and subcu Lovenox twice daily. Today, he is feeling better, he is down to nasal cannula of 2 L. Pulse ox is 96%, other vital signs are stable. CTA chest and chest x-ray that was done on January 13, 2021 reviewed. No PE on CTA chest. CBC and CMP from today reviewed and was unremarkable. Infectious disease and pulmonology are on the case. Plan to continue same treatment, anticipate discharge home tomorrow. #2 acute hypoxic respiratory failure: Secondary to #1. Currently, he is on 2 L of oxygen, feeling better, improving. Plan for ambulatory pulse oximetry tomorrow morning. #3 CAD status post stents: Stable, continue aspirin, Plavix, statins and metoprolol. #4 hypertension: Stable, continue Norvasc and metoprolol. #5 hypothyroidism: Continue levothyroxine. #6 hyperlipidemia: Continue statins. #7 CODE STATUS: Full code, discussed with the patient. #8 DVT prophylaxis: Subcu Lovenox twice daily. This note was generated with [employer] dictation software. It may contain incorrect words, spelling, and punctuation that were not noted in checking the note before signing. Inpatient E&M: 49700 Subs Hosp L2
--- NOTE | 2021-01-17 13:04 | CM.UR ---
LISBET Vital charge nurse alerted me that this patient may need oxygen at discharge. Alerted her that patient has o2 at home already and there are instructions on the chart should he need increased liter flow at discharge. She verb understanding. Malcolm Duncan RN, [facility].
[2021-01-17] MEDS: Magnesium Hydroxide 30 ML UDC PO (16:21)
[2021-01-17] MEDS: Atorvastatin Calcium 10 MG Tablet PO (20:43)
[2021-01-18] VITALS (18 sets, daily range): BP systolic 100–132; BP diastolic 46–68; PULSE 44–80; RESP 17–22; TEMP 36–36.3; O2SAT 86–95
[2021-01-18] MEDS: 0.9% Saline Lock 10 ML Syringe IV ×2 (02:23→11:54)
[2021-01-18 05:07] LABS: Absolute Lymphocyte Count 0.62 X10^3/uL (0.83-4.51); Absolute Neutrophil Count 4.2 X10^3/uL (2.0-7.7); Basophil# 0.01 X10^3/uL; Basophil% 0.2 % (0-1); Eosinophil# 0.03 X10^3/uL; Eosinophils% 0.6 % (0-5); Hematocrit 36.8 % (40-54); Hemoglobin 12.6 g/dL (13.0-16.5); Lymphocyte # 0.62 X10^3/ul (4.0); Lymphocyte % 12.1 % (19-41); Mean Corp Hgb Conc 34.2 g/dL (32-36); Mean Corpuscular Hgb 30.9 pg (27.0-32.0); Mean Corpuscular Volume 90.2 fL (80-94); Mean Platelet Vol. 9.7 fl (6.2-12.0); Monocyte# 0.24 X10^3/uL; Monocyte% 4.7 % (0-10); NRBC Flagged by Analyzer 0 % (0-5); Neutrophil # 4.19 X10^3/uL (2.7-7.7); Neutrophil % 81.4 % (47-70); Platelet Count 213 K/mm3 (150-450); RBC Distribution Width SD 39.6 fl (35.1-43.9); Red Blood Count 4.08 M/mm3 (4.6-6.2); White Blood Count 5.1 K/mm3 (4.4-11.0)
[2021-01-18 05:26] LABS: ALB/GLOB Ratio 0.8 RATIO (0.9-2.4); AST(SGOT) 39 U/L (15-37); Alanine Aminotransfer ALT/SGPT 45 U/L (16-61); Albumin, Serum 2.6 g/dL (3.2-5.0); Alkaline Phosphatase 61 U/L (45-117); Anion Gap 7 (5-15); BUN 17 mg/dL (7-18); BUN/Creat Ratio 30.9 RATIO (10-20); Calcium,Total 8.1 mg/dL (8.5-10.1); Chloride 107 mmol/L (98-107); Creatinine, Serum 0.55 mg/dL (0.70-1.30); EST Glomerular Filtration Rate 157 mL/min (>60); Est Glom Filt Rate - Afr Amer 190 mL/min (>60); Globulin 3.4 g/dL (2.2-4.2); Glucose 84 mg/dL (74-106); Potassium 3.8 mmol/L (3.5-5.1); Sodium Level 139 mmol/L (136-145)
--- NOTE | 2021-01-18 07:03 | PN_ITS ---
Patient Problems: Active and Suspected Problems (Last Updated 01/15/21 @ 10:[address] Alex Roach MD) Acute respiratory failure with hypoxia (Acute) Acute bilateral COVID-19 pneumonia (Acute) Subjective: Patient did well overnight. No acute issues were reported. Patient did have some slight desaturation when sleeping on his back, but has not required any advanced oxygen such as Airvo. Patient denies any nausea, vomiting or diarrhea. - Physical Exam Vitals/I&O's: Vital Signs Temp Pulse Resp BP Pulse Ox 36.3 C L 44 L 18 132/68 H 95 01/18/21 02:20 01/18/21 04:00 01/18/21 02:20 01/18/21 02:20 01/18/21 02:20 Oxygen Flow Rate (L/min) 2 Oxygen Delivery Method Nasal Cannula Weight: 89.5 kg Body Mass Index (BMI) 27.5 Intake and Output for Last 24 Hours 01/16/21 01/17/21 01/18/21 23:59 23:59 23:59 Intake Total 1610 / 1970 2170 / 2170 Output Total 1250 / 1800 825 / 1175 750 / 750 Balance 360 / 170 1345 / 995 -750 / -750 General: Alert, Oriented x3, Cooperative, No apparent distress, - - Baseline hoarseness HEENT: Atraumatic, PERRLA, EOMI, Normocephalic, - - No scleral icterus or injection noted Oral: Moist Mucosa, No Gingival or Mucosal Lesions/ Ulcerations Neck: Supple, No JVD, No Nodes, Trachea Midline Lungs: No rhonchi, No wheeze, No rales, Diminished Cardiovascular: Regular rate, Regular Rhythm, Normal S1, Normal S2, No murmurs, No rub noted, No Gallop Abdomen: Bowel Sounds Present, Soft, Non Tender, Non-Distended Extremities: No clubbing, No cyanosis, No edema Skin: No rashes, No breakdown Musculoskeletal: No Tenderness to Palpation of Joints or Extremities Lymphatic: No Cervical, Supraclavicular, or Inguinal Adenopathy Neurological: Cranial nerves II-XII grossly intact, Neuro grossly intact, Motor Exam 5/5 strength throughout Psych/Mental Status: Alert and oriented to time, place, person, mood and affect Laboratory Results 01/18/21 04:35: WBC 5.1, RBC 4.08 L, Hgb 12.6 L, Hct 36.8 L, MCV 90.2, MCH 30.9, MCHC 34.2, RDW Std Deviation 39.6, RDW Coeff of Angela 12.0, Plt Count 213, MPV 9.7, Immature Gran % (Auto) 1.000 H, Neut % (Auto) 81.4 H, Lymph % (Auto) 12.1 L , [place] % (Auto) 4.7, Eos % (Auto) 0.6, Baso % (Auto) 0.2, Absolute Neuts (auto) 4.2, Absolute Lymphs (auto) 0.62 L, Nucleated RBC % 0 01/18/21 04:35: Sodium 139, Potassium 3.8, Chloride 107, Carbon Dioxide 25.0, Anion Gap 7, BUN 17, Creatinine 0.55 L, Estim Creat Clear Calc 75.30, Est GFR (MDRD) Af Amer 190, Est GFR (MDRD) Non-Af 157, BUN/Creatinine Ratio 30.9 H, Glucose 84, Calcium 8.1 L, Total Bilirubin 0.80, AST 39 H, ALT 45, Alkaline Phosphatase 61, Total Protein 6.0 L, Albumin 2.6 L, Globulin 3.4, Albumin/Globulin Ratio 0.8 L Current Medications Acetaminophen (Acetaminophen 325 Mg Tablet) 650 mg PO Q6H PRN PRN PRN Reason: Pain Score 1-10/Temp > 100.7 F Amlodipine Besylate (Amlodipine 5 Mg Tablet) 5 mg PO DAILY [facility] 234 BEDS AT [facility] Last Admin: 01/17/21 08:20 Dose: 5 mg Documented by: Aspirin (Aspirin 81 Mg Tab.Chew) 81 mg PO DAILY [facility] 234 BEDS AT [facility] Last Admin: 01/17/21 08:20 Dose: 81 mg Documented by: Atorvastatin Calcium (Atorvastatin Calcium 10 Mg Tablet) 10 mg PO DAILY@2200 [facility] Last Admin: 01/17/21 20:43 Dose: 10 mg Documented by: Clopidogrel Bisulfate (Clopidogrel Bisulfate 75 Mg Tablet) 75 mg PO DAILY [facility] 234 BEDS AT [facility] Last Admin: 01/17/21 08:20 Dose: 75 mg Documented by: Dexamethasone (Dexamethasone 2 Mg Tablet) 6 mg PO DAILY [facility] 234 BEDS AT [facility] Stop: 01/23/21 10:01 Last Admin: 01/17/21 08:21 Dose: 6 mg Documented by: Enoxaparin Sodium (Enoxaparin 30 Mg/0.3 Ml Syringe) 30 mg SC BID [facility] 234 BEDS AT [facility] Last Admin: 01/17/21 20:42 Dose: 30 mg Documented by: Remdesivir 100 mg/ Sodium (Chloride) 250 mls @ 125 mls/hr IV DAILY@2200 [facility] 234 BEDS AT [facility] Stop: 01/18/21 23:59 Last Infusion: 01/17/21 22:50 Dose: Infused Documented by: Sodium Chloride () 250 mls @ 15 mls/hr IV .[id number] PRN PRN Reason: Saline Flush Sodium Chloride () 250 mls @ 15 mls/hr IV .[id number] PRN PRN Reason: Additional IVPB Infusion Levothyroxine Sodium (Levothyroxine 125 Mcg Tablet) 125 mcg PO DAILY [facility] 234 BEDS AT [facility] Last Admin: 01/17/21 08:21 Dose: 125 mcg Documented by: Magnesium Hydroxide (Magnesium Hydroxide 30 Ml Udc) 30 ml PO BID PRN PRN Reason: Laxative Effect Last Admin: 01/17/21 16:21 Dose: 30 ml Documented by: Melatonin (Melatonin 3 Mg Tablet) 3 mg PO QHS PRN PRN PRN Reason: INSOMNIA Meloxicam (Meloxicam 15 Mg Tablet) 15 mg PO DAILY [facility] 234 BEDS AT [facility] Last Admin: 01/17/21 08:21 Dose: 15 mg Documented by: Metoprolol Succinate (Metoprolol(Xl)Succ 25 Mg Tablet) 25 mg PO DAILY [facility] 234 BEDS AT [facility] Last Admin: 01/17/21 08:20 Dose: 25 mg Documented by: Ondansetron HCl (Ondansetron 4 Mg/2 Ml Vial) 4 mg IV Q8H PRN PRN PRN Reason: NAUSEA/VOMITING Pantoprazole Sodium (Pantoprazole Sodium 40 Mg Tablet) 40 mg PO DAILY [facility] 234 BEDS AT [facility] Last Admin: 01/17/21 08:20 Dose: 40 mg Documented by: Sodium Chloride (0.9% Saline Lock 10 Ml Syringe) 10 - 40 ml IV UD PRN PRN Reason: SALINE FLUSH Last Admin: 01/18/21 02:23 Dose: 20 ml Documented by: Medical Necessity - Tobacco Use Smoking Status: Former smoker Tobacco Use: Cigarettes Assessment/Plan All Active Problems (Last Updated 01/15/21 @ 10:[address] Alex Roach MD) Acute respiratory failure with hypoxia (Acute) Acute bilateral COVID-19 pneumonia (Acute) RECOMMENDATIONS: 1. Increase activity as tolerated 2. Continue remdesivir, Decadron and subcu Lovenox 3. Okay to continue with remdesivir given morning labs 4. Outpatient complete PFTs 5. Walking oximetry prior to discharge 6. Okay to discharge from pulmonary perspective on required oxygen to follow-up with nurse practitioner in 4 weeks IMPRESSIONS: 1. Acute hypoxic respiratory failure secondary to bilateral COVID-19 pneumonia Patient has not been formally diagnosed with COPD, but does have significant emphysematous changes noted on his CAT scan of the chest. Patient does not have any pulmonary emboli noted. Okay to continue on lower dose Lovenox. Continue with remdesivir and dexamethasone. Oxygen continues to improve. No indication for diuretics at this time. Patient will need a walking oximetry prior to discharge. Patient continues to improve. Likely okay to discharge from a pulmonary perspective with a 4-week follow-up with nurse practitioner. Patient will likely require supplemental oxygen on discharge and was instructed on the proper use of supplemental oxygen. 2. CAD status post stents/hypertension/hypothyroidism/hyperlipidemia Complicates care, management, recovery and prognosis. Likely okay to continue with baseline medications. Continue to monitor renal function. Inpatient E&M: 27708 Subs Hosp L2
[2021-01-18] MEDS: dexAMETHasone 2 MG TABLET 6 MG PO (10:18)
[2021-01-18] MEDS: Pantoprazole Sodium 40 MG Tablet PO (10:18)
[2021-01-18] MEDS: Meloxicam 15 MG Tablet PO (10:18)
[2021-01-18] MEDS: Clopidogrel Bisulfate 75 MG Tablet PO (10:18)
[2021-01-18] MEDS: Metoprolol(XL)Succ 25 MG Tablet PO (10:18)
[2021-01-18] MEDS: Levothyroxine 125 MCG Tablet PO (10:18)
[2021-01-18] MEDS: Aspirin 81 MG TAB.CHEW PO (10:18)
[2021-01-18] MEDS: amLODIPine 5 MG Tablet PO (10:19)
[2021-01-18] MEDS: Enoxaparin 30 MG/0.3 ML Syringe SC ×2 (10:19→21:02)
--- NOTE | 2021-01-18 10:51 | PCM.PROGNOTE ---
Patient Problems: Active and Suspected Problems (Last Updated 01/15/21 @ 10:[address] Alex Roach MD) Acute respiratory failure with hypoxia (Acute) Acute bilateral COVID-19 pneumonia (Acute) Subjective: Chief complaint: Follow-up after admission for acute bilateral COVID-19 pneumonia and acute hypoxic respiratory failure. Patient seen and examined. No acute events overnight. Today, he is requiring more oxygen although he denied any worsening shortness of breath. He is up to 5 L of oxygen. Other vital signs are stable. - Physical Exam Vitals/I&O's: Vital Signs Temp Pulse Resp BP Pulse Ox 97.0 F L 63 18 126/51 H 92 01/18/21 08:15 01/18/21 10:18 01/18/21 08:15 01/18/21 08:15 01/18/21 10:24 Oxygen Flow Rate (L/min) [ 5 AMBULATION with Oxygen] Oxygen Flow Rate (L/min) 4 Oxygen Delivery Method Nasal Cannula Weight: 197 lb 5.019 oz Body Mass Index (BMI) 27.5 Intake and Output for Last 24 Hours 01/16/21 01/17/21 01/18/21 23:59 23:59 23:59 Intake Total 1610 / 1970 2170 / 2170 Output Total 1250 / 1800 825 / 1175 750 / 750 Balance 360 / 170 1345 / 995 -750 / -750 General: Alert, Oriented x3, Cooperative, No apparent distress HEENT: Atraumatic, PERRLA, EOMI, Normocephalic Oral: Moist Mucosa, No Gingival or Mucosal Lesions/ Ulcerations Neck: Supple, No JVD, Negative Carotid Bruits, Trachea Midline, Thyroid Normal Size and Texture Lungs: Clear to auscultation, No rhonchi, No wheeze, No rales, Diminished Cardiovascular: Regular rate, Regular Rhythm, Normal S1, Normal S2, PMI Normal Abdomen: Bowel Sounds Present, Soft, Non Tender, Non-Distended, No Hepato-splenomegaly Extremities: No clubbing, No cyanosis, No edema Skin: No rashes, No breakdown Lymphatic: No Cervical, Supraclavicular, or Inguinal Adenopathy Neurological: Cranial nerves II-XII grossly intact, Neuro grossly intact Psych/Mental Status: Normal Affect, Appropriate, Alert and oriented to time, place, person, mood and affect Laboratory Results 01/18/21 04:35: WBC 5.1, RBC 4.08 L, Hgb 12.6 L, Hct 36.8 L, MCV 90.2, MCH 30.9, MCHC 34.2, RDW Std Deviation 39.6, RDW Coeff of Angela 12.0, Plt Count 213, MPV 9.7, Immature Gran % (Auto) 1.000 H, Neut % (Auto) 81.4 H, Lymph % (Auto) 12.1 L, [place] % (Auto) 4.7, Eos % (Auto) 0.6, Baso % (Auto) 0.2, Absolute Neuts (auto) 4.2, Absolute Lymphs (auto) 0.62 L, Nucleated RBC % 0 01/18/21 04:35: Sodium 139, Potassium 3.8, Chloride 107, Carbon Dioxide 25.0, Anion Gap 7, BUN 17, Creatinine 0.55 L, Estim Creat Clear Calc 75.30, Est GFR (MDRD) Af Amer 190, Est GFR (MDRD) Non-Af 157, BUN/Creatinine Ratio 30.9 H, Glucose 84, Calcium 8.1 L, Total Bilirubin 0.80, AST 39 H, ALT 45, Alkaline Phosphatase 61, Total Protein 6.0 L, Albumin 2.6 L, Globulin 3.4, Albumin/Globulin Ratio 0.8 L Current Medications Acetaminophen (Acetaminophen 325 Mg Tablet) 650 mg PO Q6H PRN PRN PRN Reason: Pain Score 1-10/Temp > 100.7 F Amlodipine Besylate (Amlodipine 5 Mg Tablet) 5 mg PO DAILY [facility] Last Admin: 01/18/21 10:19 Dose: 5 mg Documented by: Aspirin (Aspirin 81 Mg Tab.Chew) 81 mg PO DAILY [facility] Last Admin: 01/18/21 10:18 Dose: 81 mg Documented by: Atorvastatin Calcium (Atorvastatin Calcium 10 Mg Tablet) 10 mg PO DAILY@2200 [facility] Last Admin: 01/17/21 20:43 Dose: 10 mg Documented by: Clopidogrel Bisulfate (Clopidogrel Bisulfate 75 Mg Tablet) 75 mg PO DAILY [facility] Last Admin: 01/18/21 10:18 Dose: 75 mg Documented by: Dexamethasone (Dexamethasone 2 Mg Tablet) 6 mg PO DAILY [facility] Stop: 01/23/21 10:01 Last Admin: 02/21/21 10:18 Dose: 6 mg Documented by: Enoxaparin Sodium (Enoxaparin 30 Mg/0.3 Ml Syringe) 30 mg SC BID [facility] Last Admin: 01/18/21 10:19 Dose: 30 mg Documented by: Remdesivir 100 mg/ Sodium (Chloride) 250 mls @ 125 mls/hr IV DAILY@2200 [facility] Stop: 01/18/21 23:59 Last Infusion: 01/17/21 22:50 Dose: Infused Documented by: Sodium Chloride () 250 mls @ 15 mls/hr IV .[id number] PRN PRN Reason: Saline Flush Sodium Chloride () 250 mls @ 15 mls/hr IV .[id number] PRN PRN Reason: Additional IVPB Infusion Levothyroxine Sodium (Levothyroxine 125 Mcg Tablet) 125 mcg PO DAILY [facility] Last Admin: 01/18/21 10:18 Dose: 125 mcg Documented by: Magnesium Hydroxide (Magnesium Hydroxide 30 Ml Udc) 30 ml PO BID PRN PRN Reason: Laxative Effect Last Admin: 01/17/21 16:21 Dose: 30 ml Documented by: Melatonin (Melatonin 3 Mg Tablet) 3 mg PO QHS PRN PRN PRN Reason: INSOMNIA Meloxicam (Meloxicam 15 Mg Tablet) 15 mg PO DAILY [facility] Last Admin: 01/18/21 10:18 Dose: 15 mg Documented by: Metoprolol Succinate (Metoprolol(Xl)Succ 25 Mg Tablet) 25 mg PO DAILY [facility] Last Admin: 01/18/21 10:18 Dose: 25 mg Documented by: Ondansetron HCl (Ondansetron 4 Mg/2 Ml Vial) 4 mg IV Q8H PRN PRN PRN Reason: NAUSEA/VOMITING Pantoprazole Sodium (Pantoprazole Sodium 40 Mg Tablet) 40 mg PO DAILY [facility] Last Admin: 01/18/21 10:18 Dose: 40 mg Documented by: Sodium Chloride (0.9% Saline Lock 10 Ml Syringe) 10 - 40 ml IV UD PRN PRN Reason: SALINE FLUSH Last Admin: 01/18/21 02:23 Dose: 20 ml Documented by: Medical Necessity - Tobacco Use Smoking Status: Former smoker Tobacco Use: Cigarettes Assessment/Plan All Active Problems (Last Updated 01/15/21 @ 10:[address] Alex Roach MD) Acute respiratory failure with hypoxia (Acute) Acute bilateral COVID-19 pneumonia (Acute) This is a 70 years old male patient presented to the emergency room because of worsening shortness of breath and low pulse oximeter, found to have increasing bilateral lung infiltrate after he was diagnosed with COVID-19 on January 09, 2021, found to have acute hypoxic respiratory failure and he was admitted for treatment. #1 acute bilateral COVID-19 pneumonia: Remained on p.o. dexamethasone, IV remdesivir and subcu Lovenox twice daily. Today, he is requiring more oxygen of up to 5 L. Patient denied any worsening shortness of breath. Ambulatory pulse ox performed and his pulse ox was 92% on 5 L. Other vital signs are stable. CTA chest and chest x-ray that was done on January 13, 2021 reviewed. No PE on CTA chest. CBC and CMP from today reviewed and was unremarkable. Infectious disease and pulmonology are on the case. Plan to continue same treatment, will give 1 dose of IV Lasix. No discharge today. #2 acute hypoxic respiratory failure: Secondary to #1. Currently, he is on 5 L of oxygen, patient has been requiring more oxygen although he denies worsening shortness of breath. Plan as above. #3 CAD status post stents: Stable, continue aspirin, Plavix, statins and metoprolol. #4 hypertension: Stable, continue Norvasc and metoprolol. #5 hypothyroidism: Continue levothyroxine. #6 hyperlipidemia: Continue statins. #7 CODE STATUS: Full code, discussed with the patient. #8 DVT prophylaxis: Subcu Lovenox twice daily. This note was generated with [employer] dictation software. It may contain incorrect words, spelling, and punctuation that were not noted in checking the note before signing. Inpatient E&M: 79553 Subs Hosp L2
[2021-01-18] MEDS: Furosemide 40 MG/4 ML Vial IV (11:54)
[2021-01-18] MEDS: Atorvastatin Calcium 10 MG Tablet PO (21:02)
[2021-01-18] MEDS: MELATONIN 3 MG TABLET PO (21:02)
[2021-01-19] VITALS (17 sets, daily range): BP systolic 101–113; BP diastolic 53–97; PULSE 49–73; RESP 18–20; TEMP 36.2–36.6; O2SAT 87–96
[2021-01-19 05:10] LABS: Absolute Lymphocyte Count 0.64 X10^3/uL (0.83-4.51); Absolute Neutrophil Count 4.8 X10^3/uL (2.0-7.7); Basophil# 0.04 X10^3/uL; Basophil% 0.7 % (0-1); Eosinophil# 0.15 X10^3/uL; Eosinophils% 2.5 % (0-5); Hematocrit 39.3 % (40-54); Hemoglobin 13.5 g/dL (13.0-16.5); Lymphocyte # 0.64 X10^3/ul (4.0); Lymphocyte % 10.6 % (19-41); Mean Corp Hgb Conc 34.4 g/dL (32-36); Mean Corpuscular Volume 90.3 fL (80-94); Mean Platelet Vol. 9.9 fl (6.2-12.0); Monocyte# 0.36 X10^3/uL; NRBC Flagged by Analyzer 0 % (0-5); Neutrophil # 4.77 X10^3/uL (2.7-7.7); Platelet Count 240 K/mm3 (150-450); RBC Distribution Width CV 12.3 % (11.6-14.6); RBC Distribution Width SD 40.8 fl (35.1-43.9); Red Blood Count 4.35 M/mm3 (4.6-6.2)
[2021-01-19 05:42] LABS: ALB/GLOB Ratio 0.8 RATIO (0.9-2.4); AST(SGOT) 34 U/L (15-37); Alanine Aminotransfer ALT/SGPT 49 U/L (16-61); Albumin, Serum 2.7 g/dL (3.2-5.0); Alkaline Phosphatase 67 U/L (45-117); Anion Gap 6 (5-15); BUN 18 mg/dL (7-18); BUN/Creat Ratio 26.7 RATIO (10-20); Calcium,Total 8.3 mg/dL (8.5-10.1); Chloride 107 mmol/L (98-107); Creatinine, Serum 0.67 mg/dL (0.70-1.30); EST Glomerular Filtration Rate 124 mL/min (>60); Est Glom Filt Rate - Afr Amer 151 mL/min (>60); Globulin 3.4 g/dL (2.2-4.2); Glucose 84 mg/dL (74-106); Potassium 3.7 mmol/L (3.5-5.1); Protein, Total 6.1 g/dL (6.4-8.2); Sodium Level 138 mmol/L (136-145)
--- NOTE | 2021-01-19 05:44 | PCM.PN.PUL ---
Patient Problems: Active and Suspected Problems (Last Updated 01/15/21 @ 10:[address] Alex Roach MD) Acute respiratory failure with hypoxia (Acute) Acute bilateral COVID-19 pneumonia (Acute) Subjective: The patient was seen and examined at the bedside this morning. Events from the last 24 hours have been reviewed. The patient is currently afebrile, hemodynamically stable and maintaining appropriate oxygen saturations on 5 L/min via nasal cannula. The patient has completed a treatment course of remdesivir and remains on Decadron and prophylactic Lovenox. Objective: The patient's most recent lab work, culture data and imaging studies have all been personally reviewed. Coronavirus PCR was positive on January 06. Surface echocardiogram dated August 2020 revealed stage I diastolic dysfunction with an ejection fraction of 55%. - Physical Exam Vitals/I&O's: Vital Signs Temp Pulse Resp BP Pulse Ox 97.8 F 58 L 20 H 101/55 L 91 01/19/21 04:00 01/19/21 04:00 01/19/21 04:00 01/19/21 04:00 01/19/21 04:00 Oxygen Flow Rate (L/min) [ 5 AMBULATION with Oxygen] Oxygen Flow Rate (L/min) 5 Oxygen Delivery Method Nasal Cannula Weight: 197 lb 5.019 oz Body Mass Index (BMI) 27.5 Intake and Output for Last 24 Hours 01/17/21 01/18/21 01/19/21 23:59 23:59 23:59 Intake Total 2170 / 2170 250 / 610 360 / 360 Output Total 825 / 1175 1850 / 2400 550 / 550 Balance 1345 / 995 -1600 / -1790 -190 / -190 General: Alert, Cooperative, No apparent distress HEENT: Atraumatic, PERRLA, Normocephalic Oral: No Gingival or Mucosal Lesions/ Ulcerations Neck: Supple, No Nodes, Trachea Midline Lungs: No rhonchi, No wheeze, No rales, Diminished Cardiovascular: Regular rate, Regular Rhythm Abdomen: Bowel Sounds Present, Soft, Non Tender Extremities: No clubbing, No cyanosis, No edema Skin: No breakdown Musculoskeletal: No Tenderness to Palpation of Joints or Extremities Lymphatic: No Cervical, Supraclavicular, or Inguinal Adenopathy Neurological: Neuro grossly intact Psych/Mental Status: Normal Affect, Appropriate Labs (Last 48 Hours) 01/17/21 01/17/21 01/18/21 05:20 05:20 04:35 WBC 5.1 RBC 4.08 L Hgb 12.6 L Hct 36.8 L MCV 90.2 MCH 30.9 MCHC 34.2 RDW Std Deviation 39.6 RDW Coeff of Angela 12.0 Plt Count 213 MPV 9.7 Immature Gran % (Auto) 1.000 H Neut % (Auto) 81.4 H Lymph % (Auto) 12.1 L [place] % (Auto) 4.7 Eos % (Auto) 0.6 Baso % (Auto) 0.2 Absolute Neuts (auto) 4.2 Absolute Lymphs (auto) 0.62 L Nucleated RBC % 0 D-Dimer Quant (PE/DVT) 0.63 H* Sodium 139 Potassium 3.9 Chloride 109 H Carbon Dioxide 24.0 Anion Gap 6 BUN 19 H Creatinine 0.63 L Estim Creat Clear Calc 75.30 Est GFR (MDRD) Af Amer 162 Est GFR (MDRD) Non-Af 134 BUN/Creatinine Ratio 30.0 H Glucose 85 Calcium 8.5 Total Bilirubin 0.80 AST 35 ALT 43 Alkaline Phosphatase 61 Total Protein 6.5 Albumin 2.9 L Globulin 3.6 Albumin/Globulin Ratio 0.8 L 01/18/21 01/19/21 01/19/21 04:35 05:00 05:00 WBC 6.0 RBC 4.35 L Hgb 13.5 Hct 39.3 L MCV 90.3 MCH 31.0 MCHC 34.4 RDW Std Deviation 40.8 RDW Coeff of Angela 12.3 Plt Count 240 MPV 9.9 Immature Gran % (Auto) 1.200 H Neut % (Auto) 79.0 H Lymph % (Auto) 10.6 L [place] % (Auto) 6.0 Eos % (Auto) 2.5 Baso % (Auto) 0.7 Absolute Neuts (auto) 4.8 Absolute Lymphs (auto) 0.64 L Nucleated RBC % 0 D-Dimer Quant (PE/DVT) Sodium 139 138 Potassium 3.8 3.7 Chloride 107 107 Carbon Dioxide 25.0 25.0 Anion Gap 7 6 BUN 17 18 Creatinine 0.55 L 0.67 L Estim Creat Clear Calc 75.30 75.30 Est GFR (MDRD) Af Amer 190 151 Est GFR (MDRD) Non-Af 157 124 BUN/Creatinine Ratio 30.9 H 26.7 H Glucose 84 84 Calcium 8.1 L 8.3 L Total Bilirubin 0.80 0.90 AST 39 H 34 ALT 45 49 Alkaline Phosphatase 61 67 Total Protein 6.0 L 6.1 L Albumin 2.6 L 2.7 L Globulin 3.4 3.4 Albumin/Globulin Ratio 0.8 L 0.8 L Clinical Impression(s) from Imaging Studies Chest X-Ray 01/15/21 10:20 IMPRESSION: Improved aeration of both lungs although residual changes persist. Electronically Signed: William Washington MD at 14:26 EST , Service support , Current Medications Acetaminophen (Acetaminophen 325 Mg Tablet) 650 mg PO Q6H PRN PRN PRN Reason: Pain Score 1-10/Temp > 100.7 F Amlodipine Besylate (Amlodipine 5 Mg Tablet) 5 mg PO DAILY ON LICENSE OF [facility] Last Admin: 01/18/21 10:19 Dose: 5 mg Documented by: Aspirin (Aspirin 81 Mg Tab.Chew) 81 mg PO DAILY ON LICENSE OF [facility] Last Admin: 01/18/21 10:18 Dose: 81 mg Documented by: Atorvastatin Calcium (Atorvastatin Calcium 10 Mg Tablet) 10 mg PO DAILY@2200 ON LICENSE OF [facility] Last Admin: 01/18/21 21:02 Dose: 10 mg Documented by: Clopidogrel Bisulfate (Clopidogrel Bisulfate 75 Mg Tablet) 75 mg PO DAILY ON LICENSE OF [facility] Last Admin: 01/18/21 10:18 Dose: 75 mg Documented by: Dexamethasone (Dexamethasone 2 Mg Tablet) 6 mg PO DAILY ON LICENSE OF [facility] Stop: 01/23/21 10:01 Last Admin: 01/18/21 10:18 Dose: 6 mg Documented by: Enoxaparin Sodium (Enoxaparin 30 Mg/0.3 Ml Syringe) 30 mg SC BID ON LICENSE OF [facility] Last Admin: 01/18/21 21:02 Dose: 30 mg Documented by: Sodium Chloride () 250 mls @ 15 mls/hr IV .[id number] PRN PRN Reason: Saline Flush Sodium Chloride () 250 mls @ 15 mls/hr IV .[id number] PRN PRN Reason: Additional IVPB Infusion Levothyroxine Sodium (Levothyroxine 125 Mcg Tablet) 125 mcg PO DAILY ON LICENSE OF [facility] Last Admin: 01/18/21 10:18 Dose: 125 mcg Documented by: Magnesium Hydroxide (Magnesium Hydroxide 30 Ml Udc) 30 ml PO BID PRN PRN Reason: Laxative Effect Last Admin: 01/17/21 16:21 Dose: 30 ml Documented by: Melatonin (Melatonin 3 Mg Tablet) 3 mg PO QHS PRN PRN PRN Reason: INSOMNIA Last Admin: 01/18/21 21:02 Dose: 3 mg Documented by: Meloxicam (Meloxicam 15 Mg Tablet) 15 mg PO DAILY ON LICENSE OF [facility] Last Admin: 01/18/21 10:18 Dose: 15 mg Documented by: Metoprolol Succinate (Metoprolol(Xl)Succ 25 Mg Tablet) 25 mg PO DAILY ON LICENSE OF [facility] Last Admin: 01/18/21 10:18 Dose: 25 mg Documented by: Ondansetron HCl (Ondansetron 4 Mg/2 Ml Vial) 4 mg IV Q8H PRN PRN PRN Reason: NAUSEA/VOMITING Pantoprazole Sodium (Pantoprazole Sodium 40 Mg Tablet) 40 mg PO DAILY ON LICENSE OF [facility] Last Admin: 01/18/21 10:18 Dose: 40 mg Documented by: Sodium Chloride (0.9% Saline Lock 10 Ml Syringe) 10 - 40 ml IV UD PRN PRN Reason: SALINE FLUSH Last Admin: 01/18/21 11:54 Dose: 10 ml Documented by: Medical Necessity - Tobacco Use Smoking Status: Former smoker Tobacco Use: Cigarettes Assessment/Plan All Active Problems (Last Updated 01/15/21 @ 10:[address] Alex Roach MD) Acute respiratory failure with hypoxia (Acute) Acute bilateral COVID-19 pneumonia (Acute) RECOMMENDATIONS: 1. Continue to wean supplemental oxygen to maintain saturations at or above 90%. 2. Continue Decadron to complete 10 total days of treatment. 3. Encourage incentive spirometer use and mobilize patient as tolerated. 4. Consider additional diuresis as tolerated by hemodynamics and renal function. IMPRESSIONS: 1. Acute hypoxemic respiratory failure secondary to COVID-19 the pneumonia The patient has completed a treatment course of remdesivir and will remain on Decadron to complete 10 days of treatment. Plan to continue supportive measures and wean supplemental oxygen to maintain saturations at or above 90%. Gentle diuresis can be continued as tolerated by hemodynamics and renal function. Encourage incentive spirometer use and mobilize patient as tolerated. 2. History of coronary artery disease status post PCI/hypertension/hyperlipidemia/hypothyroidism Complicates care, management, recovery and prognosis. Continue home medications as tolerated. This note was generated with [employer] dictation software. It may contain incorrect words, spelling, and punctuation that were not noted in checking the note before signing. Inpatient E&M: 99766 Subs Hosp L2
[2021-01-19] MEDS: Enoxaparin 30 MG/0.3 ML Syringe SC (08:36)
[2021-01-19] MEDS: Clopidogrel Bisulfate 75 MG Tablet PO (08:36)
[2021-01-19] MEDS: Meloxicam 15 MG Tablet PO (08:36)
[2021-01-19] MEDS: amLODIPine 5 MG Tablet PO (08:36)
[2021-01-19] MEDS: Metoprolol(XL)Succ 25 MG Tablet PO (08:36)
[2021-01-19] MEDS: Aspirin 81 MG TAB.CHEW PO (08:36)
[2021-01-19] MEDS: Pantoprazole Sodium 40 MG Tablet PO (08:36)
[2021-01-19] MEDS: dexAMETHasone 2 MG TABLET 6 MG PO (10:48)
[2021-01-19] MEDS: Levothyroxine 125 MCG Tablet PO (10:48)
--- NOTE | 2021-01-19 11:57 | NURSING ---
home O2 testing completed. O2 @ 2L NC required at rest. O2 sat 94%.
--- NOTE | 2021-01-19 13:11 | CASEMGMT ---
LISBET PÉREZ NOTE: Pt being discharged home today. Ambulatory pulse ox done. Pt requires baseline O2 of 2 L/M @ rest, but does require O2 @ 3 L/M w/exertion. Script obtained from Dr Siddharth britton/updated O2 needs of 3 L/M w/exertion and faxed to [facility] at this time. Jewell FRAUSTO, aware pt's family to be notified of need for them to bring pt's portable O2 to go home on @ discharge. Larissa SAMN LISBET CM
--- NOTE | 2021-01-19 13:23 | PCM.DC ---
- Discharge Diagnoses Current Active Problems: Current Active and Chronic Problems (Last Updated 01/15/21 @ 10:[address] 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 You will use the following diet at home:: No restrictions Your food should be the consistency of: Regular Your liquids should be the consistency of: Regular/Thin Discharge Activity: Return to Normal Activity Weight Bearing Status: Full weight bearing Additional Instructions: YOU SHOULD NOT TAKE IBUPROFEN, ALLEVE, OR MELOXICAM WHILE TAKING ASPIRIN AND PLAVIX DUE TO INCREASED CHANCE OF BLEEDING-TALK WITH YOUR DOCTOR ABOUT THIS. TYLENOL IS SAFE USE OXYGEN AT TWO LITERS WHILE AT REST, 3 LITERS WHILE AMBULATING QUARANTINE UNTIL 01/25/21 Allergies/Adverse Reactions: Allergies No Known Allergies Allergy (Verified 12/16/20 08:25) Medications to take at Discharge Pantoprazole Sodium [Protonix] 40 mg PO DAILY 08/21/20 simvastatin 20 mg tablet 20 mg PO DAILY #90 tab 08/27/20 Aspirin [Aspirin, Baby] 81 mg PO DAILY 09/29/20 levothyroxine 125 mcg tablet 125 mcg PO DAILY tab 10/31/20 amlodipine 5 mg tablet 5 mg PO DAILY #90 tab 12/16/20 clopidogrel 75 mg tablet 75 mg PO DAILY #34 tab 12/26/20 Acetaminophen [Tylenol] 1,000 mg PO DAILY PRN PRN 01/14/21 Metoprolol Succinate [Toprol Xl] 25 mg PO DAILY 01/14/21 Primary Care Physician: Nik Anderson MD [Primary Care Provider] - Please follow up with your Primary Care Physician in: IN ONE WEEK-10 DAYS Test Results: Test results from this visit will be discussed in further detail at your follow-up appointment, if applicable.
--- NOTE | 2021-01-19 13:48 | PN.ID_ITS ---
Patient Problems: Active and Suspected Problems (Last Updated 01/15/21 @ 10:[address] Alex Roach MD) Acute respiratory failure with hypoxia (Acute) Acute bilateral COVID-19 pneumonia (Acute) Subjective: Feeling much better, plan on home today, no fever - Physical Exam Vitals/I&O's: Vital Signs Temp Pulse Resp BP Pulse Ox 97.9 F 63 18 113/97 H 90 01/19/21 08:45 01/19/21 12:00 01/19/21 08:45 01/19/21 08:45 01/19/21 11:10 Oxygen Flow Rate (L/min) [ 3 AMBULATION with Oxygen] Oxygen Flow Rate (L/min) 2 Oxygen Delivery Method Room Air Weight: 89.5 kg Body Mass Index (BMI) 27.5 Intake and Output for Last 24 Hours 01/17/21 01/18/21 01/19/21 23:59 23:59 23:59 Intake Total 2170 / 2170 250 / 610 540 / 540 Output Total 825 / 1175 1850 / 2400 1050 / 1050 Balance 1345 / 995 -1600 / -1790 -510 / -510 General: Alert, Cooperative, No apparent distress Lungs: Clear to auscultation, Diminished Cardiovascular: Regular rate, Regular Rhythm Abdomen: Soft, Non Tender, Non-Distended Skin: No rashes Laboratory Results 01/19/21 05:00: WBC 6.0, RBC 4.35 L, Hgb 13.5, Hct 39.3 L, MCV 90.3, MCH 31.0, MCHC 34.4, RDW Std Deviation 40.8, RDW Coeff of Angela 12.3, Plt Count 240, MPV 9.9, Immature Gran % (Auto) 1.200 H, Neut % (Auto) 79.0 H, Lymph % (Auto) 10.6 L , [place] % (Auto) 6.0, Eos % (Auto) 2.5, Baso % (Auto) 0.7, Absolute Neuts (auto) 4.8, Absolute Lymphs (auto) 0.64 L, Nucleated RBC % 0 01/19/21 05:00: Sodium 138, Potassium 3.7, Chloride 107, Carbon Dioxide 25.0, Anion Gap 6, BUN 18, Creatinine 0.67 L, Estim Creat Clear Calc 75.30, Est GFR (MDRD) Af Amer 151, Est GFR (MDRD) Non-Af 124, BUN/Creatinine Ratio 26.7 H, Glucose 84, Calcium 8.3 L, Total Bilirubin 0.90, AST 34, ALT 49, Alkaline Phosphatase 67, Total Protein 6.1 L, Albumin 2.7 L, Globulin 3.4, Albumin/Globulin Ratio 0.8 L Current Medications Acetaminophen (Acetaminophen 325 Mg Tablet) 650 mg PO Q6H PRN PRN PRN Reason: Pain Score 1-10/Temp > 100.7 F Amlodipine Besylate (Amlodipine 5 Mg Tablet) 5 mg PO DAILY [facility] Last Admin: 01/19/21 08:36 Dose: 5 mg Documented by: Aspirin (Aspirin 81 Mg Tab.Chew) 81 mg PO DAILY [facility] Last Admin: 01/19/21 08:36 Dose: 81 mg Documented by: Atorvastatin Calcium (Atorvastatin Calcium 10 Mg Tablet) 10 mg PO DAILY@2200 [facility] Last Admin: 01/18/21 21:02 Dose: 10 mg Documented by: Clopidogrel Bisulfate (Clopidogrel Bisulfate 75 Mg Tablet) 75 mg PO DAILY [facility] Last Admin: 01/19/21 08:36 Dose: 75 mg Documented by: Dexamethasone (Dexamethasone 2 Mg Tablet) 6 mg PO DAILY [facility] Stop: 01/23/21 10:01 Last Admin: 01/19/21 10:48 Dose: 6 mg Documented by: Enoxaparin Sodium (Enoxaparin 30 Mg/0.3 Ml Syringe) 30 mg SC BID [facility] Last Admin: 01/19/21 08:36 Dose: 30 mg Documented by: Sodium Chloride () 250 mls @ 15 mls/hr IV .[id number] PRN PRN Reason: Saline Flush Sodium Chloride () 250 mls @ 15 mls/hr IV .[id number] PRN PRN Reason: Additional IVPB Infusion Levothyroxine Sodium (Levothyroxine 125 Mcg Tablet) 125 mcg PO DAILY [facility] Last Admin: 01/19/21 10:48 Dose: 125 mcg Documented by: Magnesium Hydroxide (Magnesium Hydroxide 30 Ml Udc) 30 ml PO BID PRN PRN Reason: Laxative Effect Last Admin: 01/17/21 16:21 Dose: 30 ml Documented by: Melatonin (Melatonin 3 Mg Tablet) 3 mg PO QHS PRN PRN PRN Reason: INSOMNIA Last Admin: 01/18/21 21:02 Dose: 3 mg Documented by: Meloxicam (Meloxicam 15 Mg Tablet) 15 mg PO DAILY [facility] Last Admin: 01/19/21 08:36 Dose: 15 mg Documented by: Metoprolol Succinate (Metoprolol(Xl)Succ 25 Mg Tablet) 25 mg PO DAILY [facility] Last Admin: 01/19/21 08:36 Dose: 25 mg Documented by: Ondansetron HCl (Ondansetron 4 Mg/2 Ml Vial) 4 mg IV Q8H PRN PRN PRN Reason: NAUSEA/VOMITING Pantoprazole Sodium (Pantoprazole Sodium 40 Mg Tablet) 40 mg PO DAILY [facility] Last Admin: 01/19/21 08:36 Dose: 40 mg Documented by: Sodium Chloride (0.9% Saline Lock 10 Ml Syringe) 10 - 40 ml IV UD PRN PRN Reason: SALINE FLUSH Last Admin: 01/18/21 11:54 Dose: 10 ml Documented by: Medical Necessity - Tobacco Use Smoking Status: Former smoker Tobacco Use: Cigarettes Route of nutrition/ use of supplements: [] Nutritional Intake: [] IV Site: [] Sandhu Catheter: [] - Assessment/Plan Antibiotics: [] Assessment/Plan: [] Active and Suspected Problems (Last Updated 01/15/21 @ 10:[address] Alex Roach MD) Acute respiratory failure with hypoxia (Acute) Acute bilateral COVID-19 pneumonia (Acute) covid with hypoxia - on dex, remdesivir. Sx started 01/05. Plan on 20 days of quarantine from start of sx. Plan on 10 days of dex. On lovenox 30mg bid. Recommended get tested so she could be candidate for monoclonal Ab treatment if she met criteria. Will follow, d/w Dr. Gudino
--- NOTE | 2021-01-20 13:26 | CASEMGMT ---
LISBET CM DC PHONE CALL DC DATE: 01/19/21 DC DISPOSITION: Home DC DIAGNOSIS: COVID-19 LACE/STRATA: 13/3 F/U APPTS MADE PRIOR TO DC: no PRESCRIPTIONS ACQUIRED BY PT: no scripts ordered Intro role of CM to patient via phone. Pt states he is feeling well, no concerns and no questions re: f/u or instructions. Pt will be contacting his PCP for appointment this week. No care improvement suggestions given. Reanna SAMN RN ACM
--- NOTE | 2021-01-21 18:33 | DS.PCM_ITS ---
Discharge Date and Diagnosis - Problem List Patient Problems: Active and Suspected Problems (Last Updated 01/15/21 @ 10:[address] Alex Roach MD) Acute respiratory failure with hypoxia (Acute) Acute bilateral COVID-19 pneumonia (Acute) Date of Admission: 01/14/21 Date of Discharge: 01/19/21 - Primary Discharge Diagnosis Acute Problems: Active Problems (Last Updated 01/15/21 @ 10:[address] Alex Roach MD) #1 acute Covid-19 pneumonia #2 acute hypoxemic respiratory failure secondary to COVID-19 pneumonia #3 coronary artery disease #4 essential hypertension #5 hyperlipidemia - Secondary Discharge Diagnosis Chronic Problems: Chronic Problems (Last Updated 01/15/21 @ 10:[address] 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 Hospital Course and Treatment Operations: None Procedures: None Summary of Care Provided: The patient is a 70 year old M patient was seen in the emergency room at [facility] with a chief complaint of cough and low pulse ox at home, patient is on 2 L of oxygen continuously at home. Patient had been diagnosed with Covid several days prior-oxygen has been set up for him at home. Work-up in the emergency room revealed normal electrolytes, CBC showed a normal white blood cell count and hemoglobin. Patient was able to maintain his pulse ox on 3 L of nasal cannula, he did not feel comfortable going home however and he was admitted to [place] [address] and placed on remdesivir and Decadron. Patient was seen in consultation by infectious diseases and pulmonary medicine. Patient required Airvo and over the next several days during his hospitalization, his oxygen was able to be weaned down to 3 L nasal cannula. On 01/19/2021, patient was seen and examined: On examination he appeared in good health and spirits. Vital signs as documented. Skin warm and dry and without overt rashes. Neck without JVD, neck was supple, trachea midline, thyroid was normal. Lungs clear bilaterally, normal air movement was noted. Heart exam notable for regular rhythm, normal sounds and absence of murmurs, rubs or gallops. Abdomen unremarkable and without evidence of organomegaly, masses, or abdominal aortic enlargement. Bowel sounds are present, abdomen is not distended. Extremities nonedematous, no cyanosis was noted, no clubbing was noted. Neuro: Cranial nerves II through XII are grossly intact, no focal motor deficits were noted, sensation to light touch and pinprick intact, motor exam 5/5 throughout. Psych: Patient is alert and oriented x3, he does not appear anxious or depressed, he does not appear agitated. On 01/19/2021, patient appeared stable for discharge home, he required 3 L oxygen via nasal cannula at rest and while ambulating to maintain his pulse ox. Is expected to wear his oxygen in the home and outside the home as directed. Patient Problems: Active and Suspected Problems (Last Updated 01/15/21 @ 10:[address] Alex Roach MD) Acute respiratory failure with hypoxia (Acute) Acute bilateral COVID-19 pneumonia (Acute) - Physical Exam Vitals/I&O's: Vital Signs Temp Pulse Resp BP Pulse Ox 97.1 F L 62 18 112/58 L 96 01/19/21 13:50 01/19/21 13:50 01/19/21 13:50 01/19/21 13:50 01/19/21 13:50 Oxygen Flow Rate (L/min) [ 3 AMBULATION with Oxygen] Oxygen Flow Rate (L/min) 3 Oxygen Delivery Method Nasal Cannula Weight: 89.5 kg Body Mass Index (BMI) 27.5 Intake and Output for Last 24 Hours 01/19/21 01/20/21 01/21/21 23:59 23:59 23:59 Intake Total 940 / 940 Output Total 1050 / 1050 Balance -110 / -110 Discharge Activity: Return to Normal Activity Weight Bearing Status: Full weight bearing Home Medications: Medications to take at Discharge Pantoprazole Sodium [Protonix] 40 mg PO DAILY 09/24/20 simvastatin 20 mg tablet 20 mg PO DAILY #90 tab 08/27/20 Aspirin [Aspirin, Baby] 81 mg PO DAILY 09/29/20 levothyroxine 125 mcg tablet 125 mcg PO DAILY tab 10/31/20 amlodipine 5 mg tablet 5 mg PO DAILY #90 tab 12/16/20 clopidogrel 75 mg tablet 75 mg PO DAILY #34 tab 12/26/20 Acetaminophen [Tylenol] 1,000 mg PO DAILY PRN PRN 01/14/21 Metoprolol Succinate [Toprol Xl] 25 mg PO DAILY 01/14/21 Primary Care Physician: Nik Anderson MD [Primary Care Provider] - Please follow up with your Primary Care Physician in: IN ONE WEEK-10 DAYS Disposition: Home Minutes spent on discharge:: 32 Patient Condition:: Stable Medical Necessity - Tobacco Use Smoking Status: Former smoker Tobacco Use: Cigarettes Meaningful Use Info Meaningful Use Diagnoses (Choose all that apply): None applicable Inpatient E&M: 57177 [facility]
== END 2021-01-19 14:20 | disposition home or self-care (01) | DRG 177 ==
LOC: ED 20:34 → ICU 20:50
PROVIDERS: Hospitalist; Internal Medicine Infectious Disease; Admitting Provider Family Medicine; Emergency Provider Student in an Organized Health Care Education/Training Program; PCP Family Medicine; Visit Provider Internal Medicine
DX: U07.1 COVID-19 (principal); J12.82 Pneumonia due to coronavirus disease 2019; J96.01 Acute respiratory failure with hypoxia; I25.10 Atherosclerotic heart disease of native coronary artery without angina pectoris; I10 Essential (primary) hypertension; E78.5 Hyperlipidemia, unspecified; E03.9 Hypothyroidism, unspecified; Z95.5 Presence of coronary angioplasty implant and graft; Z85.21 Personal history of malignant neoplasm of larynx; Z79.02 Long term (current) use of antithrombotics/antiplatelets; Z79.890 Hormone replacement therapy; Z79.82 Long term (current) use of aspirin; Z79.1 Long term (current) use of non-steroidal anti-inflammatories (NSAID); Z99.81 Dependence on supplemental oxygen; Z79.899 Other long term (current) drug therapy; Z87.891 Personal history of nicotine dependence
CPT/HCPCS: 71045; 71275; 80053; 82962; 83605; 84484; 85025; 85379; 87040; 93005; 94660; 96361; 96374; 96375; 99283; 99285; J7030; J7050; Q9967; A4216; J1940; J2405

== ENCOUNTER 2021-02-13 10:15 | Outpatient (RCR) | payer MEDICARE, OTHER, SELFPAY ==
[2021-01-14 21:13] VITALS: BMI 27.5
[2021-01-26 00:31] VITALS: BP 130/70; BP 152/82
--- NOTE | 2021-02-02 08:42 | PCM.CR.ITP ---
Exercise - 60-day Assessment - Visit Date of Etienne: 02/02/21 - Pt is on medical hold due to covid Session #:: 13 - Physician Prescribed Exercise Modalities: Treadmill, Airdyne, NuStep Frequency: 3x/week for 12 weeks [36 sessions] Intensity: 60-80% of age predicted maximum heart rate reserve Current METSs:: 4.5 Target Heart Rate:: 98-129 Current RPE:: 12-13 Maximum Excercise HR:: 126 Resting Blood Pressure: 132/54 Maximum Exercise Blood Pressure: 154/74 EKG Type: NSR to sinus tachy - Outcomes & Goals Goals:: Verbalizes understanding of THR, RPE & goal METS by session 6, Documents in home exercise log/reports 30 min aerobic 5 day/wk by DC, Demonstrates accurate pulse taking by DC, Other additional outcome/goals: see below - Intervention & Plan Exercise Program Goals: Instruct on personal THR & RPE, Instruct on MET level & personal MET goal, Show patient to take own pulse /validate performance until accurate, Instruct on home exercise, Other additional plan/int - 30-day Reassessments 30 day Reassessments:: Progressing - Physical Activity Home Exercise Physical Activity - Home Exercise: Safe Exercise, Warm-up, Self-monitoring, Cool-Down, Home Exercise > 30 min Daily, Sitting Time <3 hours/daily - Outcomes & Goals Outcomes/Goals: Demonstrates correct Warm-up/exercise Cool-Down (S3) if = 2.5 METs, Verbalizes symptoms of exercise intolerance by Session 3 (S3), Demonstrate safe equipment use (S3) & follows exercise prescrition (6), Other: See below - Intervention & Plan Plan/Intervention: Instruct warm-up & cool-down if exercising at > 2 METs, Instruct on symptoms of exercise intolerance & actions to take, Instruct & monitor on saf, Assess intial functional capacity & safety risk, Other See below - 30-day Reassessments 30 day Reassessments:: Progressing Nutrition - 60-Day Assessment - Program Goals Nutrition Program Goals: LDL <100 optimal. 100 - 129 Near optimal. 130 - 159 Borderline High. 160 - 189 High. Total Cholesterol <200 desirable. 200 - 239 Borderline High. >/= 240 High. HDL < 40 Low >/=60 High. Triglycerides <150 desirable. <199 optimal. VlDL 5 - 40. HgbA1C <7%. BMI <25 Patient has diagnosis of Hyperlipidemia (ICD E78)?: Yes - Visit Date of Assessment:: 02/02/21 Session #:: 13 - Cholesterol/Lipids Determine presence & major risk factors that modify LDL goal: Cigarette smoking, Hypertension or hypertensive medication, Low HDL cholesterol <40 mg/dL*, Family history of premature CHD in Male < 55 years: female <65 yearsFa, Age men > 45 years; women >/= 55 years Outcomes/Goals: Pt IDs own risk factors & lifestyle modifications by Session 10, Verbalizes symptoms of angina & response by session 3., Pt independently manages, Other Additional Outcomes/Goals: Intervention/Plan: Advocate for lipid panel cholesterol medication if applicable, Instruct on personal lipid levels & lipid goals/NCEP guidelines, Instruct on cholesterol, Other additional plan/int Referral to dietitian:: Yes 30-day Reassessments:: Progressing - Diabetes (Other Core Measures) Diabetes Type: Not Applicable - Weight Mgt (Other Care) Height: 5 ft 11 in Weight:: 94.347 kg BMI: 29.0 Diagnosis Overweight/Obesity BMI> 30% ICD-10 E66: No Outcomes/Goals: Pt sets, maintains & shows weight loss goal & trend during rehab, Other additional outcomes/goals Intervention/Plan: Instruct on ideal BMI & set weight loss goal w/patient, Assist pt to ID & incorporate diet changes for weight loss by S9, Refer to Structured Weight Loss program as appropriate, Encourage goal of using 250-300dcal per session for weight loss, Other additional plan/interventions 30 day Reassessments:: Progressing - Healthy Eating Habits Will attend diet classes:: Yes Outcomes/Goals:: Consume diet rich in vegs,fruits,whole grain/high fiber,fish,lean meat, Limit sat/trans fats,cholesterol & added salts & sugars, Other additional outcome/goals: 30-day Reassessments:: Progressing - Education Gave educational materials for:: Signs & symptoms of hypoglycemia, Signs & symptoms of hyperglycemia, Relate diabetes to coronary artery disease, Healthy eating Medical- 30-Day Assessment - Medication Compliance H/O mental health issues: depression, anxiety, or addiction?: No Doesn?t believe in the benefits of treatment?: No Believes medications are unnecessary or harmful?: No Has a concern about medication side effects?: No Expresses concern over the cost of medications?: No Outcomes/Goals: Verbalizes medications,desired effect & common side effects @ DC, Pt self-reports following medication regimen, Keeps card in wallet w/medications listed by DC, Other additional outcome/goals: Interventions/plans: Instruct on medication effects & side effects, Review medication list w/patient every two weeks, Instruct importance of taking meds as ordered & assist problem solving, Other additional 30-day Reassessments:: Progressing - Tobacco Use Tobacco Use: Non-smoker Do you use smokeless tobacco?: No Outcomes/Goals: Smoking cessation achieved or maintained by discharge, Identify aids/strategies for achieving smoking cessation by session 6, Other additional outcome/goals Interventions/plan: Instruct on effects of smoking & provide smoking cessation resource, Assist pt to set quit date & provide encouragement, Assist pt to develop strategies to achieve/maintain quit date, Assist pt w/nicotine replacement & medication for cessation success, Other additional plan/interventions 30-day Reassessments:: Progressing - Hypertension Resting Blood Pressure:: 132/54 [place] [employer] Hypertension Guidelines: [place] [employer] Hypertension Guidelines. Normal BP Less than 120/80. Elevated BP 120/80. Hypertension Stage 1: BP 130-139/80-89. Hypertesnion Stage 2: BP 140 or higher/90 or higher. Hypertension Crisis: BP higher than 180/120 Peak Exercise Blood Pressure:: 154/74 Outcomes/Goals: Able to verbalize/achieve optimal blood pressure <130/80, Incorporates diet changes & exercise for blood pressure control by DC, Other additional outcomes/goals Interventions/plan: Instruct on optimal blood pressure, hypertension & medications, Instruct on effects of sodium, alcohol, stress, exercise &hypertension, Other additional plan/interventions 30 day Reassessments:: Progressing - Tobacco Cessation Referral Smoking Cessation Referral:: No Individual Education/Counseling:: No Education Schedule Given:: Yes Medical- 60-Day Assessment - Visit Date of Eval: 02/02/21 Session #:: 13 - Medication Compliance H/O mental health issues: depression, anxiety, or addiction?: No Doesn?t believe in the benefits of treatment?: No Believes medications are unnecessary or harmful?: No Has a concern about medication side effects?: No Expresses concern over the cost of medications?: No Outcomes/Goals: Verbalizes medications,desired effect & common side effects @ DC, Pt self-reports following medication regimen, Keeps card in wallet w/medications listed by DC, Other additional outcome/goals: Interventions/plans: Instruct on medication effects & side effects, Review medication list w/patient every two weeks, Instruct importance of taking meds as ordered & assist problem solving, Other additional 30-day Reassessments:: Progressing - Tobacco Use Tobacco Use: Non-smoker 30-day Reassessments:: Progressing - Hypertension [employer] [employer] Hypertension Guidelines: [place] [employer] Hypertension Guidelines. Normal BP Less than 120/80. Elevated BP 120/80. Hypertension Stage 1: BP 130-139/80-89. Hypertesnion Stage 2: BP 140 or higher/90 or higher. Hypertension Crisis: BP higher than 180/120 Outcomes/Goals: Able to verbalize/achieve optimal blood pressure <130/80, Incorporates diet changes & exercise for blood pressure control by DC, Other additional outcomes/goals Interventions/plan: Instruct on optimal blood pressure, hypertension & medications, Instruct on effects of sodium, alcohol, stress, exercise &hypertension, Other additional plan/interventions 30 day Reassessments:: Progressing - Tobacco Cessation Referral Smoking Cessation Referral:: No Individual Education/Counseling:: No Education Schedule Given:: Yes Psychosocial - 60-Day Assess - VIsit Date of Eval: 02/02/21 Session #:: 13 History of previous Mental disease:: No - Target Goals Target Goals: Assess presence or absence of depression. Using a valid screening tool, maximizes coping skills. Positive support system - Psychosocial Test phq-9 Severity: Severity. 1-4 Minimal Depression. 5-9 Mild Depression. 10-14 Moderate Depression. 15-19 Moderately Sever Depression. 20-27 Severe Depression. Rule: - Intervention/Plan: See List Interventions/Plan:: Assess stressors,coping strategies & signs of derpression on admission, Instruct/assist pt to develop coping & personal stress Mgt strategies, Refer to Behavioral Health if appropriate, Refer to Physician if appropriate, Instruct patient to recognize signs & symptoms of depression, Instruct patient to recog, Other additional plan/intervention - 30-day Reassessments: 30 day Reassessments:: Progressing Patient Health Questionnaire 60-Day Re-eval Assessment 1. Little interest or pleasure in doing things: Nearly every day 2. Feeling down, depressed, or hopeless: Nearly every day 3. Trouble falling or staying asleep, or sleeping too much: Nearly every day 4. Feeling tired or having little energy: Nearly every day 5. Poor appetite or overeating: Nearly every day 6. Feeling bad about yourself -- or that you are a failure or have let yourself or your family down: Not at all 7. Trouble concentrating on things, such as reading the newspaper or watching television: Not at all 8. Moving or speaking so slowly that other people could have noticed. Or the opposite - being so fidgety or restless that you have been moving around a lot more than usual: Not at all 9. Thoughts that you would be better off , or of hurting yourself in some way: Not at all How difficult have these problems made it for you to do your work, take care of things at home, or get along with other people?: Somewhat difficult Total Score: 15 Self-Efficacy 60-Day Re-eval Assessment We would like to know how confident you are in doing certain activities. Please select your confidence level for:: Select your confidence level for the following using the scale 1-10 where 1 is not at all confident and 10 is totally confident. Your score is the average of all 6 responses. Fatigue: How confident are you that you can keep the fatigue caused by your disease from interfering with the things you want to do? Select Number: 7 Physical Discomfort or Pain: How confident are you that you can keep the physical discomfort or pain of your disease from interfering with the things you want to do? Select Number: 8 Emotional Distress: How confident are you that you can keep the emotional distress caused by your disease from interfering with the things you want to do? Select Number: 8 Other Symptoms or Health Problems: How confident are you that you can keep other symptoms or health problems from interfering with the things you want to do? Select Number: 8 Different Tasks and Activities: How confident are you that you can do the different tasks and activities needed to manage your health condition so as to reduce your need to see a doctor? Select Number: 7 Medication: How confident are you that you can do things other than just taking medication to reduce how much your illness affects your everyday life? Select Number: 8 Total Score:: 7
[2021-02-02 08:54] VITALS: BP 132/54; BP 154/74; BMI 29.0
== END 2021-02-25 23:59 ==
LOC: CR 10:15
PROVIDERS: PCP Family Medicine; Referring Provider Internal Medicine Cardiovascular Disease; Visit Provider Internal Medicine Cardiovascular Disease
DX: I25.10 Atherosclerotic heart disease of native coronary artery without angina pectoris (principal); I10 Essential (primary) hypertension; E78.5 Hyperlipidemia, unspecified; C32.0 Malignant neoplasm of glottis; Z95.5 Presence of coronary angioplasty implant and graft
CPT/HCPCS: 93798

== ENCOUNTER → 2021-03-13 12:56 | Outpatient (CLI) | payer MEDICARE, OTHER, SELFPAY ==
[2021-02-02 08:54] VITALS: BMI 29.0
[2021-02-20 14:07] VITALS: BMI 29.2
--- NOTE | 2021-03-13 13:10 | CT_ITS ---
STUDY: CT SOFT TISSUE NECK WITH CONTRAST REASON FOR EXAM: Male, 71 years old. SQUAMOUS CELL CARCINOMA RADIATION DOSAGE (If Supplied By Facility): CTDIvol = ( 17.44 ) mGy, DLP = ( 1260.40 ) mGycm TECHNIQUE: The patient was scanned in a multi-detector CT scanner. High resolution transaxial imaging was performed following intravenous administration of IV 100mL Isovue-300. Sagittal and coronal images were reconstructed. Individualized dose optimization techniques were used for this CT. COMPARISON: 09/12/2020 FINDINGS: Normal bilateral parotid glands. Normal bilateral binder and wrapper packer spaces. Normal bilateral parapharyngeal spaces. Normal bilateral carotid spaces. Normal bilateral sublingual and submandibular glands and spaces. Normal visualized nasopharynx. Normal retropharyngeal space. Normal perivertebral space. Normal visualized bilateral faucial tonsils. The visualized tongue, tongue base and oropharynx are normal. The visualized cervical lymph nodes (levels I-) are within normal size limits, and maintain normal morphology. There is no demonstrated solid or cystic mass lesion. There is no abnormal contrast enhancement. Normal epiglottis, bilateral vallecula and hypopharynx. The pre-epiglottic and paraglottic adipose spaces are normal. Normal visualized bilateral piriform sinuses, aryepiglottic folds, vocal cords, and arytenoid-cricoid articulations. Normal subglottic trachea. Normal bilateral lobes of the thyroid gland. Normal visualized pulmonary apices. Normal visualized paranasal sinuses. Normal visualized cervical spine. CT/Soft Tissue Neck WITH Contrast IMPRESSION: Normal enhanced CT examination of the soft tissues of the neck. Electronically Signed: Tony Bunch MD at 15:18 EDT Tel , Service support ,
--- NOTE | 2021-03-13 13:10 | CT_ITS ---
STUDY: CT CHEST WITH CONTRAST REASON FOR EXAM: Male, 71 years old. SQUAMOUS CELL CARCINOMA RADIATION DOSAGE (If Supplied By Facility): CTDIvol = ( 17.44 ) mGy, DLP = ( 1260.40 ) mGycm TECHNIQUE: Transaxial imaging was performed following intravenous administration of IV 100mL Isovue-300. Individualized dose optimization techniques were used for this CT. COMPARISON: 01/13/2021 FINDINGS: Mild emphysematous changes. There is no change in a 4 mm noncalcified nodule along the anterior aspect of the major fissure of the left lung superiorly on image 25 consistent with a noncalcified granuloma or subpleural scar. This is been stable dating back to 2019. There is no demonstrated pleural abnormality. Normal heart and pericardium. Normal mediastinum. Normal hilar regions. Normal enhanced pulmonary arteries. Normal aorta arch and descending thoracic aorta. Normal osseous structures. There is no demonstrated abnormality of the visualized upper abdomen. CT/Chest WITH Contrast IMPRESSION: No CT evidence metastatic disease. Electronically Signed: Tony Bunch MD at 7:08 EDT Tel , Service support ,
[2021-03-13 13:26] LABS: CREATININE FINGERSTICK 1.3 mg/dL (0.70-1.30)
[2021-03-13 13:51] LABS: T4 Free Direct 0.82 ng/dL (0.76-1.46); Thyroid Stim Hormone (TSH) 1.02 uIU/mL (0.358-3.74)
== END ==
PROVIDERS: PCP Family Medicine; Referring Provider Otolaryngology; Visit Provider Otolaryngology
DX: E03.9 Hypothyroidism, unspecified (principal); C32.0 Malignant neoplasm of glottis
CPT/HCPCS: 36415; 70491; 71260; 84439; 84443; Q9967

== ENCOUNTER → 2021-05-28 10:21 | Outpatient (CLI) | payer MEDICARE, OTHER, SELFPAY ==
[2021-02-02 08:54] VITALS: BMI 29.0
[2021-02-20 14:07] VITALS: BMI 29.2
[2021-05-28 11:09] LABS: Absolute Lymphocyte Count 0.68 X10^3/uL (0.83-4.51); Absolute Neutrophil Count 3.3 X10^3/uL (2.0-7.7); Basophil# 0.07 X10^3/uL; Basophil% 1.5 % (0-1); Eosinophil# 0.32 X10^3/uL; Eosinophils% 6.8 % (0-5); Hemoglobin 14.4 g/dL (13.0-16.5); Lymphocyte # 0.68 X10^3/ul (0.83-4.51); Lymphocyte % 14.3 % (19-41); Mean Corp Hgb Conc 33.5 g/dL (32-36); Mean Corpuscular Volume 92.5 fL (80-94); Mean Platelet Vol. 9.9 fl (6.2-12.0); Monocyte# 0.32 X10^3/uL; Monocyte% 6.8 % (0-10); NRBC Flagged by Analyzer 0 % (0-5); Neutrophil # 3.34 X10^3/uL (2.7-7.7); Neutrophil % 70.4 % (47-70); Platelet Count 174 K/mm3 (150-450); RBC Distribution Width CV 13.2 % (11.6-14.6); RBC Distribution Width SD 44.7 fl (35.1-43.9); Red Blood Count 4.65 M/mm3 (4.6-6.2); White Blood Count 4.7 K/mm3 (4.4-11.0)
[2021-05-28 11:17] LABS: Color, Urine Yellow (Yellow); Glucose, Dipstick Normal (Normal); Ketone-Dipstick Negative (Negative); Leukocyte Esterase-Dipstick Negative /ul (Negative); Nitrite-Dipstick Negative (Negative); Occult Blood-Urine Negative /ul (Negative); Protein-Dipstick Negative (Negative); Urine Bilirubin Dipstick Negative (Negative); Urine Clarity Clear (Clear); Urine Urobilinogen Normal (Normal)
[2021-05-28 11:38] LABS: ALB/GLOB Ratio 1.1 RATIO (0.9-2.4); AST(SGOT) 27 U/L (15-37); Alanine Aminotransfer ALT/SGPT 38 U/L (16-61); Alkaline Phosphatase 63 U/L (45-117); Anion Gap 10 (5-15); BUN 12 mg/dL (7-18); BUN/Creat Ratio 9.8 RATIO (10-20); Calcium,Total 8.9 mg/dL (8.5-10.1); Chloride 101 mmol/L (98-107); Creatinine, Serum 1.23 mg/dL (0.70-1.30); EST Glomerular Filtration Rate 62 mL/min (>60); Est Glom Filt Rate - Afr Amer 75 mL/min (>60); Globulin 3.5 g/dL (2.2-4.2); Glucose 152 mg/dL (74-106); Potassium 3.7 mmol/L (3.5-5.1); Protein, Total 7.5 g/dL (6.4-8.2); Sodium Level 139 mmol/L (136-145)
[2021-05-29 16:08] LABS: Cytoplasmic Ab (C-ANCA) <1:20 titer (Neg:<1:20)
[2021-05-30 07:29] LABS: Perinuclear Ab (P-ANCA) <1:20 titer (Neg:<1:20)
[2021-06-01 08:34] LABS: Anti-Nuclear Antibody Test Negative (.)
== END ==
PROVIDERS: PCP Family Medicine; Referring Provider Family Medicine; Visit Provider Family Medicine
DX: N28.9 Disorder of kidney and ureter, unspecified (principal); I50.810 Right heart failure, unspecified
CPT/HCPCS: 36415; 80053; 81002; 85025; 86038; 86256

== ENCOUNTER 2021-05-30 06:33 | Emergency (ER) | payer MEDICARE, OTHER, SELFPAY ==
[2021-02-02 08:54] VITALS: BMI 29.0
[2021-02-20 14:07] VITALS: BMI 29.2
[2021-05-30 06:34] VITALS: BP 139/70; PULSE 85; RESP 18; TEMP 36.4; O2SAT 95; BMI 34.4
[2021-05-30 06:51] LABS: Absolute Lymphocyte Count 0.46 X10^3/uL (0.83-4.51); Absolute Neutrophil Count 6.9 X10^3/uL (2.0-7.7); Basophil# 0.06 X10^3/uL; Basophil% 0.7 % (0-1); Eosinophils% 1.2 % (0-5); Hematocrit 42.5 % (40-54); Hemoglobin 14.4 g/dL (13.0-16.5); Lymphocyte # 0.46 X10^3/ul (0.83-4.51); Lymphocyte % 5.7 % (19-41); Mean Corp Hgb Conc 33.9 g/dL (32-36); Mean Corpuscular Hgb 31.5 pg (27.0-32.0); Monocyte# 0.53 X10^3/uL; Monocyte% 6.6 % (0-10); NRBC Flagged by Analyzer 0 % (0-5); Neutrophil # 6.86 X10^3/uL (2.7-7.7); Neutrophil % 85.4 % (47-70); POSITIVE DIFFERENTIAL YES; Platelet Count 150 K/mm3 (150-450); RBC Distribution Width SD 44.1 fl (35.1-43.9); Red Blood Count 4.57 M/mm3 (4.6-6.2)
[2021-05-30 06:53] LABS: Differential Indicated SCAN CRITERIA MET
[2021-05-30 07:01] LABS: Anion Gap 8 (5-15); BUN 11 mg/dL (7-18); BUN/Creat Ratio 9.8 RATIO (10-20); Calcium,Total 9.1 mg/dL (8.5-10.1); Chloride 101 mmol/L (98-107); Creatinine, Serum 1.12 mg/dL (0.70-1.30); EST Glomerular Filtration Rate 69 mL/min (>60); Est Glom Filt Rate - Afr Amer 84 mL/min (>60); Estimated Creatinine Clearance 64.27 ml/min; Glucose 142 mg/dL (74-106); Potassium 4.2 mmol/L (3.5-5.1); Sodium Level 136 mmol/L (136-145)
--- NOTE | 2021-05-30 07:03 | CT_ITS ---
HISTORY: Eval for pancreatitis. TECHNIQUE: Helically acquired images were obtained of the abdomen and pelvis with IV contrast. A radiation dose optimization technique was used for this scan. IV Contrast dosage and agent: 100mL Isovue-370 IV. Oral contrast: None. # of images incl. paperwork: [id number]. COMPARISON: None. FINDINGS: LOWER CHEST: Lung bases clear. BOWEL: Duodenal diverticulum noted. Bowel including appendix nondilated. Mild colonic diverticulosis without focal pericolonic inflammation. LIVER: Fatty infiltration. GALLBLADDER/BILIARY TREE: Gallbladder present. 10 mm common duct. SPLEEN/PANCREAS: Homogeneous. KIDNEYS: Horseshoe kidney. No hydronephrosis. Normal enhancement. ADRENAL GLANDS: No nodules. PERITONEUM: No significant ascites. VESSELS: No abdominal aortic aneurysm. Moderate atherosclerosis. PELVIC ORGANS: Unremarkable. ABDOMINAL WALL: Fat-containing inguinal hernias. BONES: Mild degenerative change. CT/Abdomen/Pelvis W IV Cont ONLY IMPRESSION: Dilated common bile duct. Recommend correlation with laboratory values with consideration for ERCP or MRCP to assess for obstruction. Unremarkable pancreas. Hepatic steatosis. Horseshoe kidney. Colonic diverticulosis without acute diverticulitis. Individualized dose optimization techniques were used for this CT. at 0805 Reported and signed by: Petrona Gaitan MD Electronically Signed: Petrona Gaitan MD at 8:04 EDT Tel , Service support ,
--- NOTE | 2021-05-30 07:04 | EDS_ITS ---
HPI History of Present Illness Chief Complaint: Abd Pain Informant: patient Narrative Narrative: Patient is a 71-year-old male with a past medical history of CAD with stent, hypertension, hypothyroidism who presents to the emergency department for epigastric abdominal pain. He states that this started around 2 AM this morning. He does not take anything for it. He currently rates the pain as a 7 out of 10. He has a very distant history of pancreatitis which she relates this to. No radiation of the pain into his back. He vomited this morning. He denies any change in bowel movements. No urinary symptoms. No chest pain or shortness of breath. No cough or fever/chills. Patient states he does drink around a case of beer per week. He did drink last night. No previous abdominal surgeries. He does have a history of throat cancer. He denies smoking anymore. [facility] Medical History (Updated 05/30/21 @ 09:[address] 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) Tobacco abuse disorder Vocal cord mass Home Medications pantoprazole 40 mg PO DAILY 08/21/20 [History Last Taken 01/14/21] simvastatin 20 mg tablet 20 mg PO DAILY #90 tab 08/27/20 [Rx Last Taken 01/14/21] aspirin 81 mg PO DAILY 09/29/20 [History Last Taken 01/14/21] levothyroxine 125 mcg tablet 125 mcg PO DAILY tab 10/31/20 [History Last Taken 01/14/21] amlodipine 5 mg tablet 5 mg PO DAILY #90 tab 12/16/20 [Rx Last Taken 01/14/21] clopidogrel 75 mg tablet 75 mg PO DAILY #34 tab 12/26/20 [Rx Last Taken 01/14/21] metoprolol succinate 50 mg tablet,extended release 24 hr 50 mg PO DAILY #90 tablet 02/20/21 [Rx Last Taken Unknown] furosemide [Lasix] 20 mg PO DAILY 05/30/21 [History Last Taken Unknown] sucralfate [Carafate] 1 g PO TID 14 Days #42 tab 05/30/21 [Rx Last Taken Unknown] Allergy/AdvReac Type Severity Reaction Status Date / Time No Known Allergies Allergy Verified 05/30/21 06:37 Family History Father Stomach cancer Mother Breast cancer Sister Heart disease Surgical History History of bunionectomy History of coronary artery stent placement (11/26/20) History of left heart catheterization (09/29/20) History of nasal septoplasty (08/29/20) History of tonsillectomy vocal cord biopsy (08/29/20) Social History Smoking Status: Former smoker quit date: 01/26/19 pack-years: 45 alcohol intake: current alcohol intake frequency: 0-2 drinks per day Alcohol type: beer ROS ROS ED Constitutional Constitutional ED: Denies chills or fever(s) Eyes Eyes: Denies change in vision ENT ENT ED: Denies epistaxis or rhinorrhea Cardiovascular Cardiovascular: Denies chest pain or palpitations Respiratory/Chest Respiratory/Chest: Denies cough, dyspnea or dyspnea on exertion Gastrointestinal Gastrointestinal: Reports abdominal pain, nausea and vomiting; Denies constipation, diarrhea or melena Genitourinary Genitourinary ED: Denies dysuria, hematuria or urinary frequency Musculoskeletal Musculoskeletal: Denies back pain or neck pain Integumentary Denies rash Neurologic Neurologic: Denies dizziness, headache(s) or weakness EXAM Physical Exam Const Vital Signs: 05/30/21 06:34 05/30/21 07:19 05/30/21 08:57 Temperature 97.5 F L 97.8 F Temperature Source Temporal Temporal Pulse Rate 85 79 92 Respiratory Rate 18 17 15 Blood Pressure 139/70 H 132/85 H 133/79 H Blood Pressure Mean 93 100 97 Pulse Ox 95 98 Oxygen Delivery Method Room Air Room Air Positive well nourished and well developed General Appearance ED: well developed and NAD HEENT Reports normocephalic, head/scalp atraumatic and moist mucous membranes Eyes PERRL and EOMs intact bilaterally Neck supple Chest Wall inspection of chest normal Resp normal respiratory effort and clear to auscultation bilaterally Auscultation: Negative for rales, rhonchi or wheezes Cardio regular rate, regular rhythm and no murmurs GI normal to inspection, nondistended, normoactive bowel sounds GI Narrative: Negative Luong sign. No pain over McBurney's point. Palpation: soft and tender epigastric; Negative for guarding or rebound tenderness present Back/Spine no CVA tenderness Neuro CN's II-XII intact bilaterally Sensorium / Orientation: alert Motor Exam: strength 5/5 throughout Psych mental status grossly normal Skin no rashes or lesions noted MDM MDM MDM Narrative Medical decision making narrative: Patient presents to the emergency department for epigastric abdominal pain. On arrival to the emergency department vital signs within normal limits. Patient is very tender in the epigastric region on exam. No peritoneal signs. Will check basic lab work and CT imaging. On reevaluation patient is feeling much better. Lab work did not reveal any significant acute abnormality. Does not have a high white blood cell count. Is not anemic. Sodium is just mildly low at 135. Liver enzymes within normal limits. Total bilirubin is within normal limits. High-sensitivity troponin is normal. CT scan did not reveal any evidence of pancreatitis. No evidence of cholecystitis. His common bile duct is mildly dilated. Urine does not show any signs of infection. Patient's lab work-up did not reveal any significant acute abnormalities feeling much better I do not feel that MRCP/ERCP needs to be done on an emergent basis. He is given referral for general surgery. Patient is already on Protonix. We will write a prescription for Carafate. Return precautions are reviewed with him including any worsening pain, developing melanotic stools, fever/chills. He understands and is agreeable to plan. Discharged home in stable condition. All questions were answered. Lab Data Labs: Laboratory Results - last 24 hr 05/30/21 05/30/21 05/30/21 06:40 06:40 06:40 WBC 8.0 RBC 4.57 L Hgb 14.4 Hct 42.5 MCV 93.0 MCH 31.5 MCHC 33.9 RDW Std Deviation 44.1 H RDW Coeff of Angela 13.0 Plt Count 150 MPV 10.0 Immature Gran % (Auto) 0.400 Neut % (Auto) 85.4 H Lymph % (Auto) 5.7 L [place] % (Auto) 6.6 Eos % (Auto) 1.2 Baso % (Auto) 0.7 Absolute Neuts (auto) 6.9 Absolute Lymphs (auto) 0.46 L Nucleated RBC % 0 Sodium 136 135 L Potassium 4.2 4.2 Chloride 101 101 Carbon Dioxide 27.0 24.0 Anion Gap 8 10 BUN 11 11 Creatinine 1.12 1.11 Estim Creat Clear Calc 64.27 64.85 Est GFR (MDRD) Af Amer 84 84 Est GFR (MDRD) Non-Af 69 70 BUN/Creatinine Ratio 9.8 L 9.9 L Glucose 142 H 137 H Calcium 9.1 9.2 Total Bilirubin 0.90 AST 25 ALT 40 Alkaline Phosphatase 61 Troponin I High Sens 7.3 Total Protein 7.7 Albumin 4.1 Globulin 3.6 Albumin/Globulin Ratio 1.1 Lipase 97 Urine Color Urine Clarity Urine pH Ur Specific [place] U Specif Grav (Refrac) Urine Protein Urine Glucose (UA) Urine Ketones Urine Occult Blood Urine Nitrite Urine Bilirubin Urine Urobilinogen Ur Leukocyte Esterase Urine RBC Urine WBC Ur Squamous Epith Cells Ur Transition Epith Cell Ur Renal Epithelial Cell Calcium Oxalate Crystal Uric Acid Crystals Triple Phos Crystals Other Crystals Amorphous Sediment Urine Bacteria Hyaline Casts Fine Granular Casts Coarse Granular Casts Waxy Casts RBC Casts WBC Casts Urine Mucus Urine Trichomonas Urine Yeast 05/30/21 05/30/21 07:52 07:52 WBC RBC Hgb Hct MCV MCH MCHC RDW Std Deviation RDW Coeff of Angela Plt Count MPV Immature Gran % (Auto) Neut % (Auto) Lymph % (Auto) [place] % (Auto) Eos % (Auto) Baso % (Auto) Absolute Neuts (auto) Absolute Lymphs (auto) Nucleated RBC % Sodium Potassium Chloride Carbon Dioxide Anion Gap BUN Creatinine Estim Creat Clear Calc Est GFR (MDRD) Af Amer Est GFR (MDRD) Non-Af BUN/Creatinine Ratio Glucose Calcium Total Bilirubin AST ALT Alkaline Phosphatase Troponin I High Sens Total Protein Albumin Globulin Albumin/Globulin Ratio Lipase Urine Color Cancelled Yellow Urine Clarity Cancelled Clear Urine pH Cancelled 7.0 Ur Specific [place] Cancelled 1.005 U Specif Grav (Refrac) Cancelled Urine Protein Cancelled Negative Urine Glucose (UA) Cancelled Normal Urine Ketones Cancelled Negative Urine Occult Blood Cancelled Negative Urine Nitrite Cancelled Negative Urine Bilirubin Cancelled Negative Urine Urobilinogen Cancelled Normal Ur Leukocyte Esterase Cancelled Negative Urine RBC Cancelled 0 SEEN Urine WBC Cancelled 0 SEEN Ur Squamous Epith Cells Cancelled 0 SEEN Ur Transition Epith Cell Cancelled Ur Renal Epithelial Cell Cancelled Calcium Oxalate Crystal Cancelled Uric Acid Crystals Cancelled Triple Phos Crystals Cancelled Other Crystals Cancelled Amorphous Sediment Cancelled Urine Bacteria Cancelled 0 SEEN Hyaline Casts Cancelled Fine Granular Casts Cancelled Coarse Granular Casts Cancelled Waxy Casts Cancelled RBC Casts Cancelled WBC Casts Cancelled Urine Mucus Cancelled 0 SEEN Urine Trichomonas Cancelled Urine Yeast Cancelled Radiography Diagnostic Testing: Radiology Impression Abdomen/Pelvis CT 05/30/21 07:03 IMPRESSION: Dilated common bile duct. Recommend correlation with laboratory values with consideration for ERCP or MRCP to assess for obstruction. Unremarkable pancreas. Hepatic steatosis. Horseshoe kidney. Colonic diverticulosis without acute diverticulitis. Individualized dose optimization techniques were used for this CT. at 0805 Reported and signed by: Petrona Gaitan MD Electronically Signed: Petrona Gaitan MD at 8:04 EDT Tel , Service support , Discharge Plan Triage Chief Complaint: Abd Pain ED Provider: Unruly Dc Dx/Rx/DC Orders Clinical Impression: Abdominal pain Instructions: Abdominal Pain Prescriptions: New sucralfate [Carafate] 1 gram tablet 1 g PO TID 14 Days Qty: 42 RF: 0 No Action simvastatin 20 mg tablet 20 mg PO DAILY Qty: 90 RF: 3 levothyroxine 125 mcg tablet 125 mcg PO DAILY RF: 0 amlodipine 5 mg tablet 5 mg PO DAILY Qty: 90 RF: 3 metoprolol succinate 50 mg tablet extended release 24 hr 50 mg PO DAILY Qty: 90 RF: 3 pantoprazole 40 MG tablet 40 mg PO DAILY RF: 0 aspirin 81 MG tablet,chewable 81 mg PO DAILY RF: 0 furosemide [Lasix] 20 mg Tablet 20 mg PO DAILY RF: 0 clopidogrel 75 mg tablet 75 mg PO DAILY Qty: 34 RF: 10 Primary Care Provider: Nik Anderson Referrals: Evelyn Mccloud MD [STAFF PHYSICIAN] - 3-5 Days if not improving Nik Anderson MD [Primary Care Provider] - Activity Restrictions/Additional Instructions: CT scan showed a dilation of the common bile duct liver enzymes and bilirubin are within normal limits. If he develop persistent symptoms you may need MRCP. Please follow-up with general surgery. If you develop worsening symptoms please return to the emergency department. Disposition Disposition: Home, Self Care
[2021-05-30] MEDS: HYDROmorphone 1 MG/ML Syringe 0.5 MG IV (07:10)
[2021-05-30 07:19] VITALS: BP 132/85; PULSE 79; RESP 17
[2021-05-30 08:03] LABS: Bacteria 0 SEEN /hpf (None Seen); Mucous, Urine 0 SEEN /hpf (<or=2+); Red Blood Cells-Urine 0 SEEN /hpf (0-5); Squamous Epithelial Cells - UA 0 SEEN /hpf (0-5); White Blood Cells 0 SEEN /hpf (0-5)
[2021-05-30 08:11] LABS: Color, Urine Yellow (Yellow); Glucose, Dipstick Normal (Normal); Ketone-Dipstick Negative (Negative); Leukocyte Esterase-Dipstick Negative /ul (Negative); Nitrite-Dipstick Negative (Negative); Occult Blood-Urine Negative /ul (Negative); Protein-Dipstick Negative (Negative); Specific Gravity, Urine 1.005 (1.002-1.030); Urine Bilirubin Dipstick Negative (Negative); Urine Clarity Clear (Clear); Urine Urobilinogen Normal (Normal)
[2021-05-30 08:26] LABS: ALB/GLOB Ratio 1.1 RATIO (0.9-2.4); AST(SGOT) 25 U/L (15-37); Alanine Aminotransfer ALT/SGPT 40 U/L (16-61); Albumin, Serum 4.1 g/dL (3.2-5.0); Alkaline Phosphatase 61 U/L (45-117); Anion Gap 10 (5-15); BUN 11 mg/dL (7-18); BUN/Creat Ratio 9.9 RATIO (10-20); Calcium,Total 9.2 mg/dL (8.5-10.1); Chloride 101 mmol/L (98-107); Creatinine, Serum 1.11 mg/dL (0.70-1.30); EST Glomerular Filtration Rate 70 mL/min (>60); Est Glom Filt Rate - Afr Amer 84 mL/min (>60); Estimated Creatinine Clearance 64.85 ml/min; Globulin 3.6 g/dL (2.2-4.2); Glucose 137 mg/dL (74-106); Lipase 97 U/L (73-393); Potassium 4.2 mmol/L (3.5-5.1); Protein, Total 7.7 g/dL (6.4-8.2); Sodium Level 135 mmol/L (136-145); Troponin-I HS 7.3 pg/mL (3.0-78.5)
[2021-05-30 08:57] VITALS: BP 133/79; PULSE 92; RESP 15; TEMP 36.6; O2SAT 98
== END 2021-05-30 09:18 | disposition home or self-care (01) ==
PROVIDERS: Emergency Provider Emergency Medicine; PCP Family Medicine
DX: R10.13 Epigastric pain (principal); I25.10 Atherosclerotic heart disease of native coronary artery without angina pectoris; E03.9 Hypothyroidism, unspecified; E78.00 Pure hypercholesterolemia, unspecified; E78.5 Hyperlipidemia, unspecified; I10 Essential (primary) hypertension; K21.9 Gastro-esophageal reflux disease without esophagitis; Z79.82 Long term (current) use of aspirin; Z79.899 Other long term (current) drug therapy; Z85.21 Personal history of malignant neoplasm of larynx; Z87.19 Personal history of other diseases of the digestive system; Z87.891 Personal history of nicotine dependence; Z95.5 Presence of coronary angioplasty implant and graft; Z86.16 Personal history of COVID-19
CPT/HCPCS: 74177; 76770; 80048; 80053; 81001; 83690; 84484; 85025; 96374; 99282; Q9967; A4216

== ENCOUNTER → 2021-05-30 09:20 | Outpatient (CLI) | payer MEDICARE, OTHER, SELFPAY ==
[2021-02-02 08:54] VITALS: BMI 29.0
[2021-02-20 14:07] VITALS: BMI 29.2
[2021-05-30 06:34] VITALS: BMI 34.4
--- NOTE | 2021-05-30 09:23 | US_ITS ---
EXAM: US RETROPERITONEAL COMPLETE, RENAL CLINICAL INDICATION: Renal insufficiency TECHNIQUE: Grayscale and color Doppler sonographic evaluation of the retroperitoneum was performed. This report was created using [employer] report generation technology. COMPARISON: None. FINDINGS: LIMITATIONS: Limited by patient obesity and bowel gas. RIGHT KIDNEY: Horseshoe kidney. No hydronephrosis. No shadowing calculus. No perinephric collection is demonstrated. LEFT KIDNEY: Horseshoe kidney. No hydronephrosis. No shadowing calculus. No perinephric collection is demonstrated. BLADDER: No acute findings. US/Kidney and Bladder IMPRESSION: Horseshoe kidney. No hydronephrosis. Electronically Signed: Barrington Nascimento MD ([place]) at 15:16 EDT , Service support ,
== END ==
PROVIDERS: PCP Family Medicine; Referring Provider Family Medicine; Visit Provider Family Medicine
DX: N28.9 Disorder of kidney and ureter, unspecified (principal)
CPT/HCPCS: 76770

== ENCOUNTER → 2021-08-19 09:09 | Outpatient (CLI) | payer MEDICARE, OTHER, SELFPAY ==
[2021-02-02 08:54] VITALS: BMI 29.0
--- NOTE | 2021-08-19 09:15 | RAD_ITS ---
STUDY: X-RAY CHEST REASON FOR EXAM: Male, 71 years old. SHORTNESS OF BREATH, LUNG CRACKLES TECHNIQUE: PA and lateral views of the chest. COMPARISON: Comparison is made with prior study dated 01/15/2021. FINDINGS: Stable increased interstitial markings in both lungs suggestive of scarring. There is no demonstrated pleural abnormality. There is mild cardiac enlargement. Normal mediastinum and logan. Normal visualized pulmonary arteries. There is atherosclerotic calcification of the aortic arch with tortuosity. There are diffuse degenerative changes of the visualized thoracic spine. Normal visualized ribs, clavicles, and shoulders. There is no demonstrated abnormality of the visualized soft tissue structures of the upper abdomen. RAD/Chest PA and Lateral IMPRESSION: Stable mild degree of increased interstitial markings in both lungs suggestive of scarring. Electronically Signed: William Washington MD at 15:41 EDT , Service support ,
== END ==
PROVIDERS: PCP Family Medicine; Referring Provider Family Medicine; Visit Provider Family Medicine
DX: R91.8 Other nonspecific abnormal finding of lung field (principal); R06.00 Dyspnea, unspecified
CPT/HCPCS: 71046

== ENCOUNTER → 2021-08-20 10:03 | Outpatient (CLI) | payer MEDICARE, OTHER, SELFPAY ==
[2021-02-02 08:54] VITALS: BMI 29.0
[2021-08-20 11:35] LABS: Anion Gap 4 (5-15); BUN 11 mg/dL (7-18); BUN/Creat Ratio 10.8 RATIO (10-20); Chloride 105 mmol/L (98-107); Creatinine, Serum 1.02 mg/dL (0.70-1.30); EST Glomerular Filtration Rate 77 mL/min (>60); Est Glom Filt Rate - Afr Amer 93 mL/min (>60); Glucose 93 mg/dL (74-106); Sodium Level 137 mmol/L (136-145)
== END ==
PROVIDERS: PCP Family Medicine; Referring Provider Physician Assistant Medical; Visit Provider Physician Assistant Medical
DX: I25.10 Atherosclerotic heart disease of native coronary artery without angina pectoris (principal); I10 Essential (primary) hypertension; E78.5 Hyperlipidemia, unspecified; R06.00 Dyspnea, unspecified
CPT/HCPCS: 36415; 80048; 83880

== ENCOUNTER → 2021-08-26 13:53 | Outpatient (CLI) | payer MEDICARE, OTHER, SELFPAY ==
[2021-02-02 08:54] VITALS: BMI 29.0
--- NOTE | 2021-08-26 13:55 | ECHOCS_ITS ---
Reason For Study: Dyspnea/SOB Procedure This was a 2D Doppler, Color Flow transthoracic echocardiogram. Technically difficult study due to lung issues and body habitus. Contrast injection performed. Exam performed in department. Left Ventricle Normal LV size. Left ventricular systolic function is normal. The estimated ejection fraction is 60 %. Stage 1 diastolic dysfunction. No regional wall motion abnormalities noted. Right Ventricle Normal RV size. Normal systolic function. Atria Normal left atrium. Normal right atrium. Mitral Valve There is mild mitral annular calcification. Tricuspid Valve Normal tricuspid valve. Unable to estimate RV systolic pressure due to insufficient tricuspid regurgitant envelope. Aortic Valve Trisinus/trileaflet aortic valve. Mild focal aortic valve calcification. Pulmonic Valve The pulmonic valve is not well visualized. Great Vessels Normal aortic root. The pulmonary artery is normal size. Normal inferior vena cava. Pericardium/Pleural No pericardial effusion. Medication 22 gauge I.V. with prn adaptor inserted into right arm. Diluted definity 2ml given slow IV push to enhance endocardial definition. MMode/2D Measurements & Calculations LVIDd: 3.7 cm IVSd: 1.1 cm LA dimension: 3.4 cm LVIDs: 2.8 cm LVPWd: 1.6 cm FS: 26.1 % LAV(MOD-bp): 54.7 ml LA A4 area: 20.3 cm2 RA A4 area: 12.7 cm2 LAV(MOD-bp) Indexed: 24.3 ml/m2 LAV(MOD-sp2): 48.8 ml LAV(MOD-sp4): 59.3 ml Time Measurements MV dec time: 0.28 sec Doppler Measurements & Calculations MV E max javan: 62.1 cm/sec Lat Peak E' Javan: 7.5 cm/sec Med Peak E' Javan: 4.6 cm/sec MV A max javan: 106.4 cm/sec E/E' lat: 8.3 E/E' med: 13.4 MV E/A: 0.58 MV V2 max: 134.8 cm/sec MV P1/2t max javan: 91.5 cm/sec Ao V2 max: 136.6 cm/sec MV max P.3 mmHg MV P1/2t: 106.0 msec Ao max P.5 mmHg MV V2 mean: 72.1 cm/sec MV dec slope: 252.9 cm/sec2 MV mean P.4 mmHg MV V2 VTI: 30.8 cm MVA(P1/2t): 2.1 cm2 LV V1 max: 120.4 cm/sec PA V2 max: 99.2 cm/sec LV V1 max P.8 mmHg ECHO/Echo Complete W/ Contrast Interpretation Summary Normal LV size. Left ventricular systolic function is normal. The estimated ejection fraction is 60 %. Stage 1 diastolic dysfunction. There is mild mitral annular calcification. Contrast injection was performed. Ordering Physician: Dalila Qiu Referring Physician: Nik Anderson Performed By: Tevin Stallings RCS
== END ==
PROVIDERS: PCP Family Medicine; Visit Provider Physician Assistant Medical
DX: I25.10 Atherosclerotic heart disease of native coronary artery without angina pectoris (principal)
CPT/HCPCS: 93306; Q9957; A4216; C8929; J3490

== ENCOUNTER → 2021-09-25 07:43 | Outpatient (CLI) | payer MEDICARE, OTHER, SELFPAY ==
[2021-02-02 08:54] VITALS: BMI 29.0
--- NOTE | 2021-09-25 07:45 | CT_ITS ---
STUDY: CTA CHEST REASON FOR EXAM: Male, 71 years old. FOX RADIATION DOSAGE (If Supplied By Facility): CTDIvol = ( 13.39 ) mGy, DLP = ( 499.89 ) mGycm TECHNIQUE: The examination was performed with the intravenous administration of 100mL Isovue 370. Post-processing of the angiographic images was performed, with multiplanar reformation and 3D reconstruction. Individualized dose optimization techniques were used for this CT. COMPARISON: 03/13/2021 FINDINGS: Normal enhancement of the main pulmonary artery and right and left pulmonary arteries. Normal enhancement of the bilateral peripheral pulmonary arteries. There is no demonstrated pulmonary embolism. Normal thoracic aorta and visualized great vessels. There is no demonstrated aortic dissection. Normal heart and pericardium. There are calcifications of the coronary arteries. Normal mediastinum. Normal hilar regions. Normal visualized trachea and bronchi. The lungs are well expanded. Mild emphysema. No change in the 6 mm noncalcified nodule in the posterior left upper lobe the lungs adjacent to the major fissure consistent with a noncalcified granuloma or scar. Mild bilateral apical scarring. Normal pleura. Normal chest wall structures. Normal osseous structures. Diffusely decreased attenuation of the hepatic parenchyma consistent with fatty infiltration. CT/CTA Chest W/WO Contrast IMPRESSION: 1. Normal CTA chest examination, without a demonstrated pulmonary embolism or arterial dissection. 2. Mild emphysema without pneumonia or atelectasis. Electronically Signed: Tony Bunch MD at 9:24 EDT Tel , Service support ,
[2021-09-25 07:56] LABS: CREATININE FINGERSTICK 1.3 mg/dL (0.70-1.30)
== END ==
PROVIDERS: PCP Family Medicine; Referring Provider Physician Assistant Medical; Visit Provider Physician Assistant Medical
DX: R06.00 Dyspnea, unspecified (principal); I25.10 Atherosclerotic heart disease of native coronary artery without angina pectoris; I10 Essential (primary) hypertension; E78.5 Hyperlipidemia, unspecified; C32.0 Malignant neoplasm of glottis; R49.0 Dysphonia
CPT/HCPCS: 71275; Q9967

== ENCOUNTER → 2021-10-02 07:56 | Outpatient (CLI) | payer MEDICARE, OTHER, SELFPAY ==
[2021-02-02 08:54] VITALS: BMI 29.0
--- NOTE | 2021-10-02 12:50 | PFT ---
INTRODUCTION: The patient is a 71-year-old male that presents for pulmonary function studies secondary to a diagnosis of dyspnea. Respiratory therapy reported good patient effort. Bronchodilators were used during testing. INTERPRETATION: Forced expiration spirometry demonstrates no evidence of a large airways obstructive ventilatory defect. There was no significant response to aerosolized bronchodilators. Spirograms are of good quality and plateau normally. Body plethysmography was performed and reveals lung volumes to be within normal limits. Diffusing capacity by single breath CO is mildly reduced at 66% of predicted. IMPRESSION: Isolated mild reduction in diffusing capacity.
== END ==
PROVIDERS: PCP Family Medicine; Referring Provider Physician Assistant Medical; Visit Provider Physician Assistant Medical
DX: R06.00 Dyspnea, unspecified (principal); I25.10 Atherosclerotic heart disease of native coronary artery without angina pectoris; I10 Essential (primary) hypertension; E78.5 Hyperlipidemia, unspecified; C32.0 Malignant neoplasm of glottis; R49.0 Dysphonia
CPT/HCPCS: 94060; 94726; 94729

== ENCOUNTER → 2021-11-18 06:31 | Outpatient (CLI) | payer MEDICARE, OTHER, SELFPAY ==
[2021-02-02 08:54] VITALS: BMI 29.0
--- NOTE | 2021-11-18 17:29 | STRESSREP ---
Stress Test Report Exercise myocardial perfusion stress test. 71-year-old man with a history of coronary artery disease status post LAD stenting. Totally occluded right coronary artery with [id number] collaterals. Stress protocol: Resting EKG demonstrates normal sinus rhythm with a rate of 77 bpm normal intervals are noted resting blood pressure is 150/[address] depression is noted in leads III and aVF. The patient exercised according to the regular Shahid protocol for total duration of 4 minutes and 33 seconds. The maximum heart rate attained was 122 bpm which was 80% of max impact at heart rate the maximum workload was 7 metabolic equivalents. At rest mild downsloping ST depression was noted in leads III and aVF. At peak exercise there was approximately 2.[address] depression noted in lead II and I 0.[address] depression noted in lead III and aVF and [address] depression noted in lead V4, V5 and V6. The above is suggestive of ischemia. No chest pain was noted mild to moderate shortness of breath was present. The peak blood pressure was 168/78 mmHg. At rest there was return of the EKG changes back to the baseline. Myocardial perfusion protocol. 14.8 mCi of technetium 99m sestamibi was injected at rest. The patient exercised according to regular Shahid protocol for 4-1/2 minutes and at peak exercise 44.4 mCi of technetium 99m sestamibi was injected stress images were obtained stress and rest images were reconstructed and compared in the short axis vertical long and horizontal long axis. Gated images were also obtained. Perfusion SPECT analysis: Review of the stress images demonstrate a normal cardiac silhouette size. There is a large defect noted involving the entire inferior wall with normal perfusion noted in the septum anterior wall and lateral wall. The resting images demonstrate improvement in the perfusion on the resting images suggesting ischemia involving the inferior wall. The anterior wall and lateral wall and septum appear to be normally perfused. Gated SPECT analysis: The gated ejection fraction is 57%. Conclusion: Abnormal exercise myocardial perfusion stress test with evidence of extensive inferior ischemia noted at a moderate workload. Preserved ejection fraction.
== END ==
PROVIDERS: PCP Family Medicine; Referring Provider Physician Assistant Medical; Visit Provider Physician Assistant Medical
DX: R06.09 Other forms of dyspnea (principal)
CPT/HCPCS: 78452; 93017; A9500; A4216

== ENCOUNTER 2021-12-29 09:15 | Outpatient (CLI) | payer MEDICARE, OTHER, SELFPAY ==
[2021-02-02 08:54] VITALS: BMI 29.0
[2021-12-29 10:09] LABS: Absolute Lymphocyte Count 0.78 X10^3/uL (0.83-4.51); Absolute Neutrophil Count 2.7 X10^3/uL (2.0-7.7); Basophil# 0.07 X10^3/uL; Basophil% 1.6 % (0-1); Eosinophil# 0.23 X10^3/uL; Eosinophils% 5.2 % (0-5); Hematocrit 41.3 % (40-54); Hemoglobin 14.2 g/dL (13.0-16.5); Lymphocyte # 0.78 X10^3/ul (0.83-4.51); Lymphocyte % 17.5 % (19-41); Mean Corp Hgb Conc 34.4 g/dL (32-36); Mean Corpuscular Hgb 32.1 pg (27.0-32.0); Mean Corpuscular Volume 93.2 fL (80-94); Mean Platelet Vol. 10.4 fl (6.2-12.0); Monocyte# 0.63 X10^3/uL; Monocyte% 14.2 % (0-10); NRBC Flagged by Analyzer 0 % (0-5); Neutrophil # 2.71 X10^3/uL (2.7-7.7); Neutrophil % 60.8 % (47-70); Platelet Count 156 K/mm3 (150-450); RBC Distribution Width CV 12.9 % (11.6-14.6); RBC Distribution Width SD 44.1 fl (35.1-43.9); Red Blood Count 4.43 M/mm3 (4.6-6.2); White Blood Count 4.5 K/mm3 (4.4-11.0)
[2021-12-29 10:18] LABS: Partial Thromboplast Time 30.7 Seconds (24.1-36.2); Prothrombin Time (Protime)PT. 12.3 SECONDS (11.7-14.9)
[2021-12-29 10:43] LABS: Anion Gap 6 (5-15); BUN 11 mg/dL (7-18); BUN/Creat Ratio 9.5 RATIO (10-20); Calcium,Total 9.2 mg/dL (8.5-10.1); Chloride 106 mmol/L (98-107); Creatinine, Serum 1.16 mg/dL (0.70-1.30); EST Glomerular Filtration Rate 66 mL/min (>60); Est Glom Filt Rate - Afr Amer 80 mL/min (>60); Glucose 96 mg/dL (74-106); Potassium 3.9 mmol/L (3.5-5.1); Sodium Level 138 mmol/L (136-145)
== END 2021-12-29 23:59 | disposition short-term general hospital (02) ==
LOC: LAB 09:17
PROVIDERS: PCP Family Medicine; Referring Provider Physician Assistant Medical; Visit Provider Physician Assistant Medical
DX: R06.00 Dyspnea, unspecified (principal); R10.9 Unspecified abdominal pain; E78.5 Hyperlipidemia, unspecified; I25.10 Atherosclerotic heart disease of native coronary artery without angina pectoris; Z95.5 Presence of coronary angioplasty implant and graft
CPT/HCPCS: 36415; 80048; 85025; 85610; 85730

== ENCOUNTER 2022-01-04 08:20 | Day surgery (SDC) | payer MEDICARE, OTHER, SELFPAY ==
[2021-02-02 08:54] VITALS: BMI 29.0
[2022-01-01 08:10] VITALS: BMI 34.1
--- NOTE | 2022-01-04 09:45 | CL.D_ITS ---
Patient Name: KE ARORA Study Date: 01/04/2022 Performing: Marc Babin MD Ht: 70.07 inches 178 cm : 1950 Wt: 238.1 lbs 108 kg Age: 71 Gender: male BSA: 2.25 PROCEDURE(S) PERFORMED [id number])LHC/COR/LV CLINICAL PROFILE AND INDICATIONS Indications: Other Heart Failure: None Stress/Imaging Date: 11/18/21ress Test with SPECT MPI: Positive Intermediate Risk CAD Presentations: Other: sob CONCLUSIONS Previous angioplasty to the first diagonal vessel which appears to be patent with moderately severe d isease noted in the mid LAD which is a small vessel. In comparison to the immediate post angioplasty films the above appears to be actually improved. RECOMMENDATIONS Would recommend maximization of medical therapy with isosorbide, ranolazine, and beta-susi and ref erral to the environmental science technician. If all this fails and patient still short of breath then may consider a surgical referral again. DESCRIPTION OF PROCEDURE The patient arrived to the procedure lab. The risks and benefits of the procedure as well as a full d escription of our services here and current unavailability of surgical backup were fully explained to the patient and/or their significant other prior to the catheterization. The Timeout was completed, verifying the correct patient and procedure. The patient's procedural site was prepped and draped in the usual fashion. Local anesthetic was given subcutaneously to right radial region with Lidocaine 2% . Using a modified Seldinger technique, Left Coronary Artery selective angiography was performed in multiple views using a 5 Fr. 4.0 Mission catheter. Left Ventriculography was performed in GABRIEL projecti on using a 5 Fr. Pigtail catheter. LV to AO pullback pressures were then recorded.The arterial sheath was pulled and a TR Band was applied for hemostasis. Sheath flushed prior to removal. 10cc air inser yadira. CORONARY ANGIOGRAPHY DOMINANCE: Right Dominant LEFT HEART ASSESSMENT Left Ventricular Ejection Fraction: by LV Gram 55 % Inferior Basal Hypokinesis - Moderate Normal Left Ventricular systolic function LEFT MAIN: Mild calcification, No significant disease noted LEFT ANTERIOR DESCENDING ARTERY: Proximal LAD with mild disease, mid LAD with moderately severe disea se and a first large diagonal branch for which he had angioplasty with a patent stent. A branch of t his diagonal vessel has an ostial 70% stenosis. The distal LAD is a small vessel. CIRCUMFLEX ARTERY: Nondominant but medium size vessel with a first obtuse marginal branch which is to tally occluded and fills via left to left collaterals, moderate disease noted in the mid left circumf patricia artery and moderate distal disease noted RIGHT CORONARY ARTERY: is occluded A large part of the right coronary artery is filled via left to right collaterals COLLATERAL FLOW: Collateral flow from Left to Left Collateral flow from Left to Right COMPLICATIONS No Complications PROCEDURE MEDICATIONS Fentanyl 50 mcg IV Versed 1 mg IV Oxygen: 2 L/min via nasal cannula Heparin given IA 01/04/2022 09:17:39 Verapamil 2.5mg, Ntg 100mcgs, 3000 units of Heparin given IA 01/04/2022 09:17:39 SUMMARY OF HEMODYNAMIC DATA Time AIR REST ECG 08:37:50 AO 102/66 (82) SA 09:23:08 LV 118/12, 21 09:29:25 LV 115/11, 20 09:29:31 LV 114/17, 28 09:30:11 LV 113/18, 25 09:30:17 LVp 115/16, 24 09:30:22 AOp 122/71 (92) 09:30:27 ECG 09:41:19 Signed By Marc Babin MD On 01/04/2022 9:44:12 AM Marc Babin MD
== END 2022-01-04 23:59 | disposition home or self-care (01) ==
LOC: CLSP 08:21
PROVIDERS: PCP Family Medicine; Visit Provider Internal Medicine Cardiovascular Disease
DX: I25.10 Atherosclerotic heart disease of native coronary artery without angina pectoris (principal); J43.9 Emphysema, unspecified; I10 Essential (primary) hypertension; E78.5 Hyperlipidemia, unspecified; E03.9 Hypothyroidism, unspecified; R06.09 Other forms of dyspnea; Z95.5 Presence of coronary angioplasty implant and graft; Z79.02 Long term (current) use of antithrombotics/antiplatelets; Z79.82 Long term (current) use of aspirin; Z79.899 Other long term (current) drug therapy; Z86.16 Personal history of COVID-19; Z87.891 Personal history of nicotine dependence
CPT/HCPCS: 93458; 99152; 99153; J7040; C1769; C1894

== ENCOUNTER 2022-02-03 12:09 | Outpatient (CLI) | payer MEDICARE, OTHER, SELFPAY ==
[2021-02-02 08:54] VITALS: BMI 29.0
[2022-02-03 12:41] VITALS: PULSE 102; PULSE 104; PULSE 87; PULSE 88; PULSE 97; PULSE 99; O2SAT 92; O2SAT 93; O2SAT 94; O2SAT 95; O2SAT 98
--- NOTE | 2022-02-04 07:59 | PCM.PSN.6M ---
PSN 6 Minute Walk Test 6 Minute Walk Test 6 Minute Walk Test: 6 Minute Walk Test PSN:6-Minute Walk Test Start: 02/03/22 12:41 Freq: Status: Active Protocol: [id number] Document 02/03/22 12:41 CHRIS (Rec: 02/03/22 12:43 CHRIS [id number]) 6 Minute Walk Test Date Performed 02/03/22 Time Performed 12:30 Height 5 ft 10 in Weight: 108.862 kg Weight in Pounds 240.[address]: Robbin Messina Assistive device used: None Pre-test Oxygen Delivery Method Room Air Pulse Ox (%) 93 Pulse Rate (60-100 beats/min) 87 Dyspnea Paulie Scale (0-10) 0.5 Exertion Paulie Scale (6-20) 6 1st minute Oxygen Delivery Method Room Air Pulse Ox (%) 95 Pulse Rate (60-100 beats/min) 88 2nd minute Oxygen Delivery Method Room Air Pulse Ox (%) 94 Pulse Rate (60-100 beats/min) 102 H 3rd minute Oxygen Delivery Method Room Air Pulse Ox (%) 93 Pulse Rate (60-100 beats/min) 99 4th minute Oxygen Delivery Method Room Air Pulse Ox (%) 92 Pulse Rate (60-100 beats/min) 97 5th minute Oxygen Delivery Method Room Air Pulse Ox (%) 93 Pulse Rate (60-100 beats/min) 104 H 6th minute Oxygen Delivery Method Room Air Pulse Ox (%) 94 Pulse Rate (60-100 beats/min) 99 Dyspnea Paulie Scale (0-10) 4 Exertion Paulie Scale (6-20) 12 Post-test Oxygen Delivery Method Room Air Pulse Ox (%) 98 Pulse Rate (60-100 beats/min) 88 Full Laps Walked 18 Partial Lap, Number of Tiles Walked 20 Total Distance Walked (ft) 1082 Interpretation Interpretation: The patient ambulated 1082 feet over the course of 6 minutes beginning on room air without assistive devices. Pretesting oxygen saturation was noted to be 93% on room air. With ambulation, the buddy oxygen saturation was 92%. There was no significant exertional oxygen desaturation. Recommendations Recommendations: There is no indication for the use of supplemental oxygen at this time.
== END 2022-02-03 23:59 | disposition home or self-care (01) ==
LOC: PSN 12:11
PROVIDERS: PCP Family Medicine; Referring Provider Internal Medicine Critical Care Medicine; Visit Provider Internal Medicine Critical Care Medicine
DX: F17.211 Nicotine dependence, cigarettes, in remission (principal)
CPT/HCPCS: 94618

== ENCOUNTER 2022-02-06 09:45 | Outpatient (CLI) | payer MEDICARE, OTHER, SELFPAY ==
[2021-02-02 08:54] VITALS: BMI 29.0
--- NOTE | 2022-02-06 09:47 | CT_ITS ---
STUDY: LOW DOSE CT LUNG CANCER SCREENING REASON FOR EXAM: Male, 71 years old. 1 pack per day smoker x50 year RADIATION DOSAGE (If Supplied By Facility): CTDIvol = ( 4.02 ) mGy, DLP = ( 133.41 ) mGycm TECHNIQUE: No contrast was administered. Low dose technique was utilized (average mAS-38 and kVp 120). 1.25 mm axial source images with a slice interval of 1.25-mm were reconstructed in lung windows. 2.5 mm axial source images with a slice interval of 2.5-mm were reconstructed in lung windows. 5.0 mm axial source images with a slice interval of 5.0-mm were reconstructed in soft tissue windows. Nodule measured using lung windows on PACS and/or independent workstation with automated measurement of minimum and maximum diameter. Nodule measurement reported as average diameter rounded to the nearest whole number. Growth is defined as an increase ins size of greater than 1.5 mm. COMPARISON: 09/25/2021 FINDINGS: Lung henson show underlying emphysema. There are stable noncalcified nodules in both upper lobes on axial image 44. Right nodule measures 4.8 mm, left 5.9 mm. Both are unchanged from the previous study. There is no new suspicious noncalcified mass or nodule. No organized infiltrate. Soft tissue windows show a normal-appearing thyroid gland. Scattered subcentimeter axillary, mediastinal lymph nodes. Peripheral calcifications noted in the thoracic aorta and in multiple coronary vessels. No pleural or pericardial effusions. Bony structures show degenerative change. Limited cuts through the upper abdomen do not show suspicious abnormality CT/Low Dose CT Lung Screening IMPRESSION: Lung-RADS category 2 - Continue annual screening with LDCT in 12 months. IMPORTANT NOTES FOR USE: ACR Lung-RADS Version 1.1 Assessment Categories Release Date: 2018 Category: Coded 0-4 bases on nodule(s) with highest degree of suspicion. Negative screen is defined as categories 1 and 2; a positive screen is defined as categories 3 and 4. Category 3 and 4A nodules that are unchanged on interval CT should be coded as category 2, and individuals returned to screening in 12 months. Category 4X: Category 3 or 4 nodules with additional imaging findings that increase the suspicion of lung cancer, such as spiculation, GGN that doubles in size in 1 year, enlarged lymph notes, etc. Category Modifiers: S (significant finding unrelated to lung cancer) Electronically Signed: Cy Alicea MD at 10:34 EST ,
== END 2022-02-06 23:59 | disposition home or self-care (01) ==
LOC: CT 09:46
PROVIDERS: PCP Family Medicine; Referring Provider Internal Medicine Critical Care Medicine; Visit Provider Internal Medicine Critical Care Medicine
DX: Z12.2 Encounter for screening for malignant neoplasm of respiratory organs (principal); F17.211 Nicotine dependence, cigarettes, in remission
CPT/HCPCS: 71271

== ENCOUNTER 2022-03-15 21:12 | Outpatient (CLI) | payer MEDICARE, OTHER, SELFPAY ==
[2021-02-02 08:54] VITALS: BMI 29.0
== END 2022-03-15 23:59 | disposition home or self-care (01) ==
PROVIDERS: PCP Family Medicine; Referring Provider Nurse Practitioner Acute Care; Visit Provider Nurse Practitioner Acute Care
DX: G47.33 Obstructive sleep apnea (adult) (pediatric) (principal)
CPT/HCPCS: 95811

== ENCOUNTER 2022-03-26 08:00 | Outpatient (RCR) | payer MEDICARE, OTHER, SELFPAY ==
[2021-02-02 08:54] VITALS: BMI 29.0
--- NOTE | 2022-03-02 08:56 | HP.PTEVAL ---
Patient's Visit Information KE ARORA is a 72 year old M referred to Physical Therapy by Dr. Nik Anderson MD with a diagnosis of RIGHT SHLD PAIN. Date of Evaluation: 03/02/22 Physical Therapist: Radha Oliveira PT, Cert MDT - Visit Plan Frequency: 2-3x /Week Duration: 4-6 Weeks Plan: NO CARDIO. RIGHT SHLD MH OR CP NEEDED. RIGHT UE ROM, STRETCHING AND STRENGTHENING TO HELP MEET SET GOALS. - Subjective Work/Leisure: RETIRED. Disability: NO. Present symptoms: RIGHT SHOULD PAIN. Present since: ABOUT A YEAR OR MORE. Pain Scale: Worst - 7/10 Least - 0/10. Currently: 0/10. Commenced as a result of: NO APPARENT REASON - GRADUAL. Symptoms at onset: SAME. Worse: TRYING TO SHAVE WITH RIGHT ARM, COMB HAIR, SCRATCH BACK, REACHING UP. Better: REST. Disturbed sleep: NO. Previous history/Previous treatment: NO R SHLD SURGERY, NO INJECTIONS. TRIED A STEROID BUT IT DIDN'T HELP. NO SURGICAL CONSULTS. Unexplained weight loss: NO. Imaging: NONE. PMH/Recent major surgery: HTN, HEART STENT, THROAT CANCER 2019 - TREATED WITH RADIATION X 30, CURRENTLY HAVING SOB AND GOING TO FELLER MACHINE OPERATOR AND DESKTOP ANALYST TO TRY TO FIGURE OUT WHY. COVID DEC 2020 - HOSPITALIZED FOR 6-7 DAYS. COPD. THYROID DZ. - Objective THIS PATIENT AMBULATES INDEP'LY INTO PT WITHOUT ANY AD'S OR LOB. HE IS PLEASANT AND COOPERATIVE TO WORK WITH. POSTURE IS POOR WITH FH AND RS'S. LIZBETH UE LIGHT TOUCH SENSATION IS GROSSLY INTACT AND SYMMETRICAL. NO ACUTE TENDERNESS. CERVICAL MVMT LOSS: FLEX - NIL, PRO - NIL, EXT - MOD TO IVON, RET - IVON, LIZBETH ROT - MOD, RIGHT SB - MOD, LEFT SG - MIN. PATIENT DENIES PAIN WITH CERVICAL ROM TESTING. PATIENT IS RIGHT HAND DOMINANT WITH A RIGHT TUMBLERS SUPERVISOR STRENGTH OF 62 LBS AND LEFT 44 LBS. RIGHT UE STRENGTH: SHLD FLEX 4/5, ABD 4-/5, IR 4/5, ER 4-/5, ELBOW FLEX 5/5, EXT 5/5. ROM: AROM OF RIGHT SHLD IN SITTING: FLEX 131 DEG, ABD 114 DEG. AROM OF RIGHT SHLD IN SUPINE WITH 75 DEG ABD: IR 68 DEG AND ER 32 DEG. RIGHT ELBOW, FOREARM, WRIST AND HAND ROM WFL. TREATMENT: HEP INSTRUCTION FOR RIGHT UE SLEEPER STRETCHING 2X10, 2 TIMES A DAY AND OTB STANDING IR/ER WITH TOWEL ROLL AT SIDE 2X10, 2 TIMES A DAY. PATIENT DEMONSTRATED AND COMMUNICATED A GOOD UNDERSTANDING OF ALL INSTRUCTIONS AFTER GIVEN. - Balance/Special Test Scores Quick DASH Score: 29.5450 - Goals Goal 1:: DECREASE C/O RIGHT SHLD PAIN Goal Time Frame: 4-6 Weeks Goal 2:: IMPROVE FUNCTIONAL ROM OF RIGHT UE TO EASE ADL'S Goal Time Frame: 4-6 Weeks Goal 3:: IMPROVE FUNCTIONAL STRENGTH OF RIGHT UE TO EASE ADL'S. Goal Time Frame: 4-6 Weeks Goal 4:: PATIENT WILL BE INDEP WITH A HEP FOR CONTINUED IMPROVEMENT ONCE FORMAL PHYSICAL THERPAY CONCLUDES. Goal Time Frame: 4-6 Weeks - Anticipated Interventions Patient/Client Instruction: Educate patient on: Condition, Plan of Care, Risk Factors For the Purpose of:: To improve self management Therapeutic Exercise to Include: Strength training, Postural training, Flexibilty training, Neuromotor development, Scapular Strength/Stabilization For the Purpose of:: To decrease pain, To increase ROM, To improve muscle performance and motor function, To increase tolerance to activity/condition/position, To improve ability of physical actions for home/community/work/leisure Cryotherapy (ice pack, ice massage): Yes Thermo therapy (hot pack): Yes For the Purpose of:: To decrease pain, To decrease swelling/inflammation, To improve nutrient delivery to tissue Thank you for the opportunity to evaluate your patient. For Medicare and Medicare HMO plans, please review the plan of care and approve it. It will need to be FAXED BACK to us at [phone] for Medicare purposes. For Medicare only, by signing this I certify the plan of care. Please let me know if there are questions or concerns regarding this plan of care. Physician Signature: Date:
--- NOTE | 2022-03-26 08:29 | HP.PTDCSUM ---
It has been my pleasure to treat KE ARORA referred by Dr. Nik Anderson MD, with the diagnosis of RIGHT SHLD PAIN for a total of 10 visit(s). Discharge Date: 03/26/22 Please see the following information for a summary of their discharge status. Subjective: PATIENT REPORTS HE IS DOING HIS HEP BUT HE STILL CAN'T LIFT HIS R ARM WITH HIS ELBOW BENT. THIS MOTION PROVOKES 6-7/10. DENIES INCREASED PAIN WITH THE EX'S BUT THE PROBLEM HE CAME HERE FOR ISN'T BETTER. R SHLD Pain Intensity (Out of 10): 7 % Improvement: 0 Objective/Function: PATIENT WAS SEEN TODAY FOR RE-ASSESSMENT OF PROGRESS TOWARD THE SET PT GOALS AND THE NEED FOR FURTHER PHYSICAL THERAPY VS READINESS FOR DISCHARGE. UPON EXAM TODAY, THERE ARE NO SIGNIFICANT CHANGES SINCE INITIAL EVAL IN TERMS OR RIGHT UE PAIN, ROM, STRENGTH AND FUNCTION. HE IS NO WORSE. Goal 1:: DECREASE C/O RIGHT SHLD PAIN Goal Progress: Not Progressing Goal 2:: IMPROVE FUNCTIONAL ROM OF RIGHT UE TO EASE ADL'S Goal Progress: Not Progressing Goal 3:: IMPROVE FUNCTIONAL STRENGTH OF RIGHT UE TO EASE ADL'S. Goal Progress: Not Progressing Goal 4:: PATIENT WILL BE INDEP WITH A HEP FOR CONTINUED IMPROVEMENT ONCE FORMAL PHYSICAL THERPAY CONCLUDES. Goal Progress: Not Progressing Plan: D/C DUE TO LACK OF PROGRESS. RECOMMMEND PHYSICIAN RE-CHECK. PATIENT AGREEAGLE. If there are questions or concerns regarding this patient's physical therapy, please feel free to call me at [phone]. Thank you for the referral of this patient. Sincerely, Radha Oliveira, PT, Cert MDT Balance/Gait/Functional tests - Balance/Special Test Scores Quick DASH Score: 22.7276
== END 2022-03-26 08:38 | disposition home or self-care (01) ==
LOC: PT 08:00
PROVIDERS: PCP Family Medicine; Referring Provider Family Medicine; Visit Provider Family Medicine
DX: M25.511 Pain in right shoulder (principal)
CPT/HCPCS: 97110; 97140; 97162; 97164; 97530

== ENCOUNTER → 2022-05-07 | Outpatient (CLI) | payer MEDICARE, OTHER, SELFPAY ==
[2021-02-02 08:54] VITALS: BMI 29.0
--- NOTE | 2022-05-07 07:50 | CT_ITS ---
EXAM: CT RIGHT UPPER EXTREMITY WITHOUT INTRAVENOUS CONTRAST, SHOULDER CLINICAL INDICATION: PRE OP SHOULDER TECHNIQUE: Helically acquired images were obtained of the right shoulder without intravenous contrast. 2-D reformats were performed by the technologist. This CT exam was performed using one or more of the following dose reduction techniques: automated exposure control, adjustment of the mA and/or kV according to patient size, and/or use of iterative reconstruction technique. This report was created using [employer] technology report generation technology. RADIATION DOSE: CTDIvol = 40.43 mGy, DLP = 1126.28 mGy-cm COMPARISON: None. FINDINGS: BONES/JOINTS: Degenerative findings of the AC joint. No acute fracture. No subluxation. Normal alignment. SOFT TISSUES: There is periarticular soft tissue calcification consistent with a calcific tendinitis. No soft tissue swelling or gas. No radiopaque foreign body. CT/Extremity Upper without Contra IMPRESSION: 1. Degenerative findings of the AC joint. 2. There is periarticular soft tissue calcification consistent with a calcific tendinitis. Electronically Signed: Aneudy Johnston MD at 15:33 EDT ,
== END | disposition home or self-care (01) ==
LOC: CT 07:48
PROVIDERS: PCP Family Medicine; Referring Provider Physician Assistant; Visit Provider Physician Assistant
DX: M87.021 Idiopathic aseptic necrosis of right humerus (principal); M19.011 Primary osteoarthritis, right shoulder
CPT/HCPCS: 73200

== ENCOUNTER → 2022-06-15 | Outpatient (CLI) | payer MEDICARE, OTHER, SELFPAY ==
[2021-02-02 08:54] VITALS: BMI 29.0
--- NOTE | 2022-06-15 08:52 | RAD_ITS ---
INDICATION: LUMBAR PAIN EXAMINATION/TECHNIQUE: X-RAY - XR Spine Lumbar 2 or 3 Views COMPARISON: CT abdomen and pelvis 05/30/2021. FINDINGS: VERTEBRAE: Preserved vertebral body height. No fracture. No spondylolisthesis. Preservation of the normal lumbar lordosis. Mild facet arthropathy at L4-5. DISCS: Intervertebral disc height loss at L3-4, L4-5 and L5-S1 is associated with mild degenerative endplate sclerosis and mild morphologic changes, most notably at L4-5 and L5-S1. INCLUDED ABDOMEN: Significant abdominal aortic atherosclerosis. Sacroiliac joints and bony pelvis are within normal limits the exam. RAD/Lumbar Spine 2 or 3 Views IMPRESSION: Degenerative changes lower lumbar spine as above. Electronically Signed: Abelardo Maynard DO at 20:07 EDT ,
== END | disposition home or self-care (01) ==
PROVIDERS: PCP Family Medicine; Referring Provider Anesthesiology Pain Medicine; Visit Provider Anesthesiology Pain Medicine
DX: M51.36 Other intervertebral disc degeneration, lumbar region (principal); M46.96 Unspecified inflammatory spondylopathy, lumbar region
CPT/HCPCS: 72100; 72110

== ENCOUNTER → 2022-06-23 | Outpatient (CLI) | payer MEDICARE, OTHER, SELFPAY ==
[2021-02-02 08:54] VITALS: BMI 29.0
--- NOTE | 2022-06-23 07:59 | MRI_ITS ---
HISTORY: LUMBAR RADICULOPATHY TECHNIQUE: Multiplanar and multisequence MR images of the lumbar spine were obtained without intravenous contrast. 130 images. COMPARISON: XR 06/15/2022. FINDINGS: VERTEBRAE: Vertebral heights maintained. No significant bone marrow signal abnormality. ALIGNMENT: No anterior or posterior subluxation. CONUS: Normal morphology and position of the conus medullaris at the lower T12 level. INTERVERTEBRAL DISCS: T12-L1: Minimal disc bulge without significant central canal stenosis or foraminal narrowing. L1-2, L2-3: No significant posterior disc protrusion, central canal stenosis, or foraminal narrowing. Minimal narrowing of the thecal sac at L2-3 secondary to prominent dorsal epidural fat. L3-4: Mild disc bulge and facet arthropathy in combination with prominent dorsal epidural fat resulting in moderate narrowing of the thecal sac and very mild bilateral foraminal narrowing. L4-5: Mild left paracentral disc protrusion with annular fissure resulting in impingement of the left L5 nerve root with facet arthropathy resulting in minimal narrowing of the thecal sac and very mild bilateral foraminal narrowing L5-S1: Mild disc bulge with facet arthropathy resulting in mild bilateral foraminal narrowing. No significant central canal stenosis. SOFT TISSUES: Moderate posterior subcutaneous edema. Horseshoe kidney. MRI/Spine Lumbar (Routine) IMPRESSION: Mild left paracentral disc protrusion at L4-5 resulting in left L5 nerve root impingement and very mild bilateral foraminal narrowing. Mild disc bulge in combination with prominent dorsal epidural fat at L3-4 resulting in moderate narrowing of the thecal sac. Electronically Signed: Petrona Gaitan MD at 8:52 EDT ,
== END | disposition home or self-care (01) ==
LOC: MRI 07:55
PROVIDERS: PCP Family Medicine; Referring Provider Anesthesiology Pain Medicine; Visit Provider Anesthesiology Pain Medicine
DX: M51.16 Intervertebral disc disorders with radiculopathy, lumbar region (principal)
CPT/HCPCS: 72148

== ENCOUNTER 2022-07-29 09:00 | Outpatient (RCR) | payer MEDICARE, OTHER, SELFPAY ==
[2021-02-02 08:54] VITALS: BMI 29.0
--- NOTE | 2022-06-22 09:52 | HP.PTEVAL ---
Patient's Visit Information KE ARORA is a 72 year old M referred to Physical Therapy by Dr. Natali Burrell MD with a diagnosis of BACK PAIN. Date of Evaluation: 06/22/22 Physical Therapist: Radha Oliveira PT, Cert MDT - Visit Plan Frequency: 2-3x /Week Duration: 4-6 Weeks Plan: AQUATIC THERAPY FOR PAIN RELIEF, POSTURE CORRECTION/STRENGTHENING, INSTRUCTION IN APPROPRIATE BODY MECHANICS AND ACTIVITY MODIFICATIONS. DLS STARTING WITH A NEUTRAL SPINE PROGRESSING ROM TOLERATED. LIZBETH LE ROM, STRETCHING AND STRENGTHENING. HEP INSTRUCTION. *PATIENT WANTS TO WAIT TO START PT UNTIL NEXT WEEK AFTER HE GETS HIS MRI RESULTS* - Subjective Work/Leisure: RETIRED. Disability: NO. Present symptoms: LOW BACK PAIN L > R. INTERMITTENT L THIGH PAIN. RIGHT CALF SORENESS AND CRAMPING THAT STARTED ABOUT 3 DAYS AGO. Present since: ON AND OFF FOR YEARS BUT LATELY TRYING TO EX AND WALK REALLY AGGREVATES IT. Pain Scale: WORST 8/10, LEAST 0/10. Currently: 0/10. Commenced as a result of: NO APPARENT REASON. Symptoms at onset: LOW BACK. Worse: WALKING, BENDING AND LIFTING. Better: SITTING, LEANING FORWARD UP AGAINST SOMETHING, TAKING WEIGHT OFF L LEG. Disturbed sleep: NO. Previous history/Previous treatment: CHIROPRACTOR QUITE A FEW YEARS AGO - DID NOT HELP. NO BACK SURGERY. NO ANANT'S. Treatment this episode: FIRST ANANT WITH DR. BURRELL A FEW DAYS AGO AND PATIENT REPORTS HE THINKS IT IS HELPING. Coughing/sneezing/straining: NEGATIVE. Gait: TIME AND DISTANCE LIMITED. DECREASED PACE. EVEN TRIED A CANE TO SEE IF IT WOULD HELP BUT STILL VERY LIMITED IN DISTANCE (CAN GO ABOUT 1/2 MILE WITH BREAKS). BOWEL OR BLADDER DYSFUNCTION: NO. Accidents: NO. Unexplained weight loss: NO. PMH/Recent major surgery: HTN, HEART STENT, THROAT CANCER 2019 - TREATED WITH RADIATION X 30, CURRENTLY HAVING SOB AND GOING TO DRAWER IN HAND AND HEALTH ASSESSMENT AND TREATMENT TEACHER TO TRY TO FIGURE OUT WHY. COVID DEC 2020 - HOSPITALIZED FOR 6-7 DAYS. COPD. THYROID DZ. PATIENT REPORTS THAT AFTER LAST EPISODE OF CARE WITH PT HE HAD AN MRI ON HIS RIGHT SHLD AND SURGERY RECOMMENDED BUT HE IS REFUSING AT THIS TIME. Imaging: RECENT LUMBAR X-RAY AND MRI PENDING TOMORROW: INDICATION: LUMBAR PAIN. EXAMINATION/TECHNIQUE: X-RAY - XR Spine Lumbar 2 or 3 Views. COMPARISON: CT abdomen and pelvis 05/30/2021. FINDINGS: VERTEBRAE: Preserved vertebral body height. No fracture. No. spondylolisthesis. Preservation of the normal lumbar lordosis. Mild facet. arthropathy at L4-5. DISCS: Intervertebral disc height loss at L3-4, L4-5 and L5-S1 is. associated with mild degenerative endplate sclerosis and mild morphologic. changes, most notably at L4-5 and L5-S1. INCLUDED ABDOMEN: Significant abdominal aortic atherosclerosis. Sacroiliac joints and bony pelvis are within normal limits the exam. RAD/Lumbar Spine 2 or 3 Views. IMPRESSION: Degenerative changes lower lumbar spine as above. Electronically Signed: Abelardo Maynard DO. at 20:07 EDT - Objective Sitting/Standing Posture: POOR. DECREASED LORDOSIS BUT NO RELEVENT LATERAL SHIFT. Active Correction of posture: NE RIGHT NOW BUT BETTER IF FLARES UP. Other Observations: INDEP GAIT AND TRANSFERS. Sensory deficit: LIZBETH LE LIGHT TOUCH SENSATION IS GROSSLY INTACT AND SYMMETRICAL. ROM deficit: MILD LIZBETH LE HS AND GASTROC SOLEUS COMPLEX TIGHTNESS. Motor deficit: LIZBETH LE'S 5/5 WITH MMT'ING. HOMANS SIGN RIGHT CALF - NEGATIVE. EDUCATED PATIENT ON SIGNS AND SYMPTOMS OF BLOOD CLOT AND INSTRUCTED TO SEEK MEDICAL ATTENTION RIGHT AWAY IF CURRENT SX'S PERSIST OR NEW DEVELOP. Dural Signs: NEGATIVE LIZBETH LE'S. Lumbar mvmt loss: flex - MOD. ext - MOD. R SG - MIN TO MOD. L SG - MOD. PATIENT DENIES INCREASED PAIN WITH LUMBAR ROM TESTING ALL PLANES. Core strength: POOR. TREATMENT: NEUROMUSCULAR REEDUCATION - RETRAINING OF MVMT AND POSTURE FOR SITTING, LYING AND STANDING ACTIVITIES. - Balance/Special Test Scores Oswestry Low Back Score: 11 - Goals Goal 1:: DECREASE C/O LOW BACK AND LIZBETH LE SX'S. Goal Time Frame: 4-6 Weeks Goal 2:: IMPROVE LIFTING, WALKING, STANDING, SOCIAL LIFE, AND HOMEMAKING FUNCTION Goal Time Frame: 4-6 Weeks Goal 3:: INSTRUCT IN PROPHYLAXIS Goal Time Frame: 4-6 Weeks - Anticipated Interventions Patient/Client Instruction: Educate patient on: Condition, Plan of Care, Risk Factors For the Purpose of:: To improve self management Therapeutic Exercise to Include: Strength training, Body mechanics, Postural training, Flexibilty training, Gait and locomotor training, Neuromotor development, In an aquatic setting, Dynamic Lumbar Stabilization For the Purpose of:: To decrease pain, To increase ROM, To improve muscle performance and motor function, To increase tolerance to activity/condition/position, To improve ability of physical actions for home/community/work/leisure, To improve gait and locomotor functions Thank you for the opportunity to evaluate your patient. For Medicare and Medicare HMO plans, please review the plan of care and approve it. It will need to be FAXED BACK to us at [phone] for Medicare purposes. For Medicare only, by signing this I certify the plan of care. Please let me know if there are questions or concerns regarding this plan of care. Physician Signature: Date:
--- NOTE | 2022-07-29 09:38 | HP.PTREVAL ---
Dr. Natali Burrell MD, It has been my pleasure to treat KE ARORA over the last 9 visits for BACK PAIN. Please see the progress note below for an update on the physical therapy plan of care! Subjective: PATIENT REPORTS HIS PAIN HAS IMPROVED SINCE STARTING THERAPY AND GETTING 2ND INJECTION. TODAY I FEEL GOOD AND LIKE I CAN GET OUT AND WALK. REPORTS HE IS DOING HIS HEP AND THERE IS NO DOUBT ABOUT IT THAT THEY HELP LOOSEN ME UP. PLANS TO FOLLOW UP WITH DR. BURRELL APPROX 08/18/22. WANTS TO HOLD FURTHER PT UNTIL THEN. HE REPORTS HE PLANS TO CONTINUE HIS HEP AND DO A WALKING PROGRAM. Objective/Function: PATIENT WAS SEEN TODAY FOR RE-ASSESSMENT OF PROGRESS TOWARD THE SET PT GOALS AND THE NEED FOR FURTHER PHYSICAL THERAPY VS READINESS FOR DISCHARGE. PATIENT APPEARS TO BE A GOOD CANDIDATE TO CONTINUE AQUATIC THERAPY BASED ON PROGRESS MADE AND ROOM FOR FURHTER IMPROVEMENT. PATIENT WILL CONSIDER AFTER FOLLOW UP WITH DR. BURRELL. UPON EXAM TODAY: Lumbar mvmt loss: flex - MOD. ext - MOD. R SG - MIN TO MOD. L SG - MOD. PATIENT DENIES INCREASED PAIN WITH LUMBAR ROM TESTING ALL PLANES. PATIENT DEMO'S ABILITY TO WALK ON HIS TOES AND WALK ON HIS HEELS UNASSISTED TODAY. Plan Plan: HOLD PT UNTIL PATIENT CALLS AND IS WILLING TO RESUME PT. Balance/Gait/Functional tests - Balance/Special Test Scores Oswestry Low Back Score: 11 Goals Goal 1:: DECREASE C/O LOW BACK AND LIZBETH LE SX'S. Goal Time Frame: 4-6 Weeks Goal Progress: Progressing Goal 2:: IMPROVE LIFTING, WALKING, STANDING, SOCIAL LIFE, AND HOMEMAKING FUNCTION Goal Time Frame: 4-6 Weeks Goal Progress: Progressing Goal 3:: INSTRUCT IN PROPHYLAXIS Goal Time Frame: 4-6 Weeks Goal Progress: Progressing Anticipated Interventions Patient/Client Instruction: Educate patient on: Condition, Plan of Care, Risk Factors For the Purpose of:: To improve self management Therapeutic Exercise to Include: Strength training, Body mechanics, Postural training, Flexibilty training, Gait and locomotor training, Neuromotor development, In an aquatic setting, Dynamic Lumbar Stabilization For the Purpose of:: To decrease pain, To increase ROM, To improve muscle performance and motor function, To increase tolerance to activity/condition/position, To improve ability of physical actions for home/community/work/leisure, To improve gait and locomotor functions Please do not hesitate to contact me at [phone] by phone or if you have questions or concerns regarding this new plan of care! Sincerely, Radha Oliveira, PT, Cert MDT
--- NOTE | 2022-11-23 09:46 | HP.PT.NRP ---
KE BAINQuyen was seen in my office for initial evaluation on 06/22/22. The following Plan of Care was established for this patient: Initial Frequency: 2-3x /Week Initial Duration: 4-6 Weeks Patient/Client Instruction: Educate patient on: Condition, Plan of Care, Risk Factors For the Purpose of:: To improve self management Therapeutic Exercise to Include: Strength training, Body mechanics, Postural training, Flexibilty training, Gait and locomotor training, Neuromotor development, In an aquatic setting, Dynamic Lumbar Stabilization For the Purpose of:: To decrease pain, To increase ROM, To improve muscle performance and motor function, To increase tolerance to activity/condition/position, To improve ability of physical actions for home/community/work/leisure, To improve gait and locomotor functions This patient was last seen in our office 07/29/22. Pertinent comments regarding their Physical therapy will appear below: This patient has not returned to Physical Therapy and is appropriate to return to MD for further follow-up as needed. At this point I will be discontinuing this patient from physical therapy. I would be happy to see this patient again in the future if found appropriate by the physician. Thank you! Radha Oliveira, PT, Cert MDT Balance/Gait/Functional tests - Balance/Special Test Scores Oswestry Low Back Score: 11
== END 2022-07-29 19:00 | disposition home or self-care (01) ==
LOC: PT 09:00
PROVIDERS: PCP Family Medicine; Referring Provider Anesthesiology Pain Medicine; Visit Provider Anesthesiology Pain Medicine
DX: M54.9 Dorsalgia, unspecified (principal)
CPT/HCPCS: 97112; 97113; 97162; 97164

== ENCOUNTER 2022-12-31 08:30 | Outpatient (RCR) | payer MEDICARE, OTHER, SELFPAY ==
[2021-02-02 08:54] VITALS: BMI 29.0
--- NOTE | 2022-12-03 11:26 | HP.PTEVAL_ITS ---
Patient's Visit Information KE ARORA is a 72 year old M referred to Physical Therapy by Dr. Natali Stoner MD with a diagnosis of BACK PAIN. Date of Evaluation: 12/03/22 Physical Therapist: Sandro Mena, PT, Cert MDT, OCS - Visit Plan Frequency: 2x /Week Duration: 4 Weeks Plan: PT [employer]TE[employer] LUMBAR FLEXION ,DLS ,POSTURAL EX'S LE STRENGTHNEING AND FLEXABLITRY , - Subjective This 72 y/o male presents to physical therapy with back pain . Patient has had back pain ~ 7 years. Symptoms have progressively worse over years . Patient has been under pain management with injections , most recently ~6 weeks ago. Patient had 4 injections about 4weeks ago. Patient has tried PT for Aquatic therapy helped while I doing ex's in water but pain return one on land. Location pain left LS occasional left radicular symptoms extended walking and standing. Aggravating factors walking /standing . Alleviating factors rest. ,sitting. Patient had MRI showed stenosis and HNP/protruding discs. Most recently 4 months period had throat CA and Covid caused weakness. Coughing/sneezing-. Bowel/bladder -. Denies paresthesia/tingling-. Patient is able to sleep . Patient wanted to try strengthening. Patient condition affects QOL and function. SOCAIL: . VOACTION: retired - Pain Bilateral Back Pain Intensity (Out of 10): 8 Pain Intensity Range: 10 - Objective POSTURE: mild forward posture. GAIT : reciprocal pattern mild forward posture. SYMMTRIES: align. PALAPTION: unremarkable. MMT: quads/hams 4/5 ,hip flexion 4/5 ,ankle 5/5. LUMBAR ROM: flexion min loss ,extension mod loss loss ,mod loss. FLEXABLITY: hamstrings mod - Special Tests L/S Slump test left side: Negative L/S Slump test right side: Negative L/S Left Straight Leg Raise: Positive L/S Right Straight Leg Raise: Positive - Balance/Special Test Scores Oswestry Low Back Score: 28 - Goals Goal 1:: Patient to be I with HEP and posture . Goal Time Frame: 4-6 Weeks Goal 2:: Patient to demonstrate 50% improvement with improved function and less pain Goal Time Frame: 4-6 Weeks Goal 3:: Patient to improve lumbar ROM for function of recovery to tie shoes. Goal Time Frame: 4-6 Weeks Goal 4:: Patient to be able to walk and stand > 15 -20mins with less pain Goal Time Frame: 4-6 Weeks Goal 5:: Patient to improve back oswestry by 5 points or> to improve function Goal Time Frame: 4-6 Weeks - Rehabilitation Potential Physical Therapy Diagnosis: This patient has low back with symptom worse with standing/walking better with sitting due to stenosis /disc issues thus benefit from skilLED PT . Rehabilitation Potential: Good - Anticipated Interventions Patient/Client Instruction: Educate patient on: Condition, Plan of Care For the Purpose of:: To decrease pain, To increase ROM, To increase tolerance to activity/condition/position, To improve ability of physical actions for home/community/work/leisure, To improve gait and locomotor functions, To improve health of tissue, To decrease soft tissue restriction Therapeutic Exercise to Include: Strength training, Body mechanics, Postural training, Flexibilty training, Dynamic Lumbar Stabilization For the Purpose of:: To decrease pain, To increase ROM, To improve muscle performance and motor function, To improve ability to perform ADL's, To increase tolerance to activity/condition/position, To improve ability of physical actions for home/community/work/leisure, To improve health of tissue, To decrease soft tissue restriction, To increase flexibility/ROM, To improve endurance Thank you for the opportunity to evaluate your patient. For Medicare and Medicare HMO plans, please review the plan of care and approve it. It will need to be FAXED BACK to us at [phone] for Medicare purposes. For Medicare only, by signing this I certify the plan of care. Please let me know if there are questions or concerns regarding this plan of care. Physician Signature: Date:
== END 2022-12-31 19:00 | disposition home or self-care (01) ==
LOC: PT 08:30
PROVIDERS: PCP Family Medicine; Referring Provider Anesthesiology Pain Medicine; Visit Provider Anesthesiology Pain Medicine
DX: M54.9 Dorsalgia, unspecified (principal)
CPT/HCPCS: 97110; 97162

== ENCOUNTER → 2023-01-11 | Outpatient (CLI) | payer MEDICARE, OTHER, SELFPAY ==
[2021-02-02 08:54] VITALS: BMI 29.0
--- NOTE | 2023-01-11 07:49 | CT_ITS ---
STUDY: LOW DOSE CT LUNG CANCER SCREENING REASON FOR EXAM: Male, 72 years old. Smoking and greater than 40 pack years RADIATION DOSAGE (If Supplied By Facility): CTDIvol = ( 3.18 ) mGy, DLP = ( 100.46 ) mGycm TECHNIQUE: No contrast was administered. Low dose technique was utilized (average mAS-38 and kVp 120). 1.25 mm axial source images with a slice interval of 1.25-mm were reconstructed in lung windows. 2.5 mm axial source images with a slice interval of 2.5-mm were reconstructed in lung windows. 5.0 mm axial source images with a slice interval of 5.0-mm were reconstructed in soft tissue windows. COMPARISON: Comparison is made with prior study dated 02/06/2022. NODULES: Stable 4 mm noncalcified nodule in the posterior aspect of the right upper lobe. Stable 4 mm noncalcified nodule in the posterior aspect of the left upper lobe adjacent to the major fissure. Emphysema: Mild emphysematous changes. Endobronchial lesion: None Aorta: Atherosclerotic plaque formation of the aortic arch. CORONARY ARTERIES: Coronary artery calcification is seen. Heart: Unremarkable Pulmonary artery: Unremarkable Mediastinal nodes: Small benign-appearing mediastinal lymph nodes. Other chest and abdominal findings: CT/Low Dose CT Lung Screening IMPRESSION: Lung-RADS category 2 - Continue annual screening with LDCT in 12 months. IMPORTANT NOTES FOR USE: ACR Lung-RADS Version 1.1 Assessment Categories Release Date: 2018 Category: Coded 0-4 bases on nodule(s) with highest degree of suspicion. Negative screen is defined as categories 1 and 2; a positive screen is defined as categories 3 and 4. Category 3 and 4A nodules that are unchanged on interval CT should be coded as category 2, and individuals returned to screening in 12 months. Category 4X: Category 3 or 4 nodules with additional imaging findings that increase the suspicion of lung cancer, such as spiculation, GGN that doubles in size in 1 year, enlarged lymph notes, etc. Category Modifiers: S (significant finding unrelated to lung cancer) Electronically Signed: William Washington MD at 10:09 EST ,
--- NOTE | 2023-01-11 08:08 | AAAS_ITS ---
Reason For Study: Screening Aorta Measurements Aorta Doppler Measurements Proximal aorta measures1.72 x 1.78cm. in cross- Peak systolic flow velocities within the proximal sectional axis. aorta measure 66.3 cm/sec. Proximal aorta measures1.84cm. in longitudinal Peak systolic flow velocities within the mid aorta axis. measure 97.0 cm/sec. Mid aorta measures1.80 x 1.85cm. in cross- Peak systolic flow velocities within the distal sectional axis. aorta measure 84.9 cm/sec. Mid aorta measures1.80cm. in longitudinal axis. Distal aorta measures1.72 x 1.80cm. in cross- sectional axis. Distal aorta measures1.71cm. in longitudinal axis. Left Iliac Artery Left iliac artery measures 1.04 x 1.04 cm. in the cross-sectional axis. Left iliac artery measures 1.03 cm. in the longitudinal axis. Peak systolic velocity in the left iliac artery measures 92.4 cm/sec. Right Iliac Artery Right iliac artery measures 0.96 x 0.96 cm. in the cross-sectional axis. Right iliac artery measures 0.96 cm. in the longitudinal axis. Peak systolic velocity in the right iliac artery measures 77.8 cm/sec. Procedure Aorta IVC Iliac vasculature or bypass grafts [id number]. The exam was diagnostic. Exam performed in department. VL/AAA Screening Interpretation Summary Maximal aortic diameter in the mid abdominal aorta at 1.8 x 1.85 cm in diameter Left common iliac artery maximal 1.04 x 1.04 cm in diameter Right common iliac artery maximum at 0.96 x 0.96 cm in diameter Findings appear to be normal, imaging appears to be technically challenging. Ordering Physician: Aniket Moss Chi Referring Physician: Aniket Moss Chi Performed By: Franck Espitia, RVT
== END | disposition home or self-care (01) ==
LOC: CVS 07:46
PROVIDERS: PCP Family Medicine Geriatric Medicine; Referring Provider Family Medicine Geriatric Medicine; Visit Provider Family Medicine Geriatric Medicine
DX: F17.210 Nicotine dependence, cigarettes, uncomplicated (principal)
CPT/HCPCS: 71271; 76706

== ENCOUNTER → 2023-01-12 | Outpatient (CLI) | payer MEDICARE, OTHER, SELFPAY ==
[2021-02-02 08:54] VITALS: BMI 29.0
[2023-01-12 13:05] LABS: Absolute Lymphocyte Count 0.82 X10^3/uL (0.83-4.51); Absolute Neutrophil Count 2.3 X10^3/uL (2.0-7.7); Basophil# 0.06 X10^3/uL; Basophil% 1.6 % (0-1); Eosinophil# 0.13 X10^3/uL; Eosinophils% 3.4 % (0-5); Hematocrit 42.9 % (40-54); Hemoglobin 14.4 g/dL (13.0-16.5); Lymphocyte # 0.82 X10^3/ul (0.83-4.51); Lymphocyte % 21.6 % (19-41); Mean Corp Hgb Conc 33.6 g/dL (32-36); Mean Corpuscular Hgb 32.4 pg (27.0-32.0); Mean Corpuscular Volume 96.6 fL (80-94); Monocyte# 0.44 X10^3/uL; Monocyte% 11.6 % (0-10); NRBC Flagged by Analyzer 0 % (0-5); Neutrophil # 2.34 X10^3/uL (2.7-7.7); Neutrophil % 61.5 % (47-70); Platelet Count 116 K/mm3 (150-450); RBC Distribution Width CV 12.6 % (11.6-14.6); RBC Distribution Width SD 45.1 fl (35.1-43.9); Red Blood Count 4.44 M/mm3 (4.6-6.2); White Blood Count 3.8 K/mm3 (4.4-11.0)
[2023-01-12 13:36] LABS: AST(SGOT) 38 U/L (15-37); Alanine Aminotransfer ALT/SGPT 57 U/L (16-61); Albumin, Serum 3.6 g/dL (3.2-5.0); Alkaline Phosphatase 50 U/L (45-117); Anion Gap 9 (5-15); BUN 10 mg/dL (7-18); BUN/Creat Ratio 9.1 RATIO (10-20); Calcium,Total 9.2 mg/dL (8.5-10.1); Chloride 106 mmol/L (98-107); EST Glomerular Filtration Rate 70 mL/min (>60); Est Glom Filt Rate - Afr Amer 85 mL/min (>60); Globulin 3.6 g/dL (2.2-4.2); Glucose 103 mg/dL (74-106); PSA,Total - Annual Screen 0.52 ng/mL (0.00-4.00); Protein, Total 7.2 g/dL (6.4-8.2); Sodium Level 139 mmol/L (136-145); Thyroid Stim Hormone (TSH) 1.59 uIU/mL (0.358-3.74)
[2023-01-12 14:01] LABS: Hepatitis C Antibody Non-Reactive (Nonreactive)
== END | disposition home or self-care (01) ==
LOC: POLAB3 10:10
PROVIDERS: PCP Family Medicine Geriatric Medicine; Visit Provider Family Medicine Geriatric Medicine
DX: Z00.00 Encounter for general adult medical examination without abnormal findings (principal); I50.32 Chronic diastolic (congestive) heart failure; Z12.5 Encounter for screening for malignant neoplasm of prostate; Z13.89 Encounter for screening for other disorder; E03.9 Hypothyroidism, unspecified
CPT/HCPCS: 36415; 80053; 84153; 84443; 85025; 86803; G0103

== ENCOUNTER → 2023-02-09 | Outpatient (CLI) | payer MEDICARE, OTHER, SELFPAY ==
[2021-02-02 08:54] VITALS: BMI 29.0
[2023-02-09 13:11] LABS: Absolute Lymphocyte Count 0.89 X10^3/uL (0.83-4.51); Absolute Neutrophil Count 3.3 X10^3/uL (2.0-7.7); Basophil# 0.08 X10^3/uL; Basophil% 1.6 % (0-1); Eosinophil# 0.11 X10^3/uL; Eosinophils% 2.2 % (0-5); Hematocrit 45.6 % (40-54); Hemoglobin 15.1 g/dL (13.0-16.5); Lymphocyte # 0.89 X10^3/ul (0.83-4.51); Lymphocyte % 17.9 % (19-41); Mean Corp Hgb Conc 33.1 g/dL (32-36); Mean Corpuscular Hgb 33.1 pg (27.0-32.0); Mean Platelet Vol. 10.7 fl (6.2-12.0); Monocyte# 0.53 X10^3/uL; Monocyte% 10.7 % (0-10); NRBC Flagged by Analyzer 0 % (0-5); Neutrophil # 3.34 X10^3/uL (2.7-7.7); Neutrophil % 67.2 % (47-70); Platelet Count 136 K/mm3 (150-450); RBC Distribution Width CV 13.1 % (11.6-14.6); RBC Distribution Width SD 48.6 fl (35.1-43.9); Red Blood Count 4.56 M/mm3 (4.6-6.2)
[2023-02-09 13:22] LABS: Prothrombin Time (Protime)PT. 12.9 SECONDS (11.7-14.9)
[2023-02-09 13:24] LABS: Anion Gap 8 (5-15); BUN 9 mg/dL (7-18); BUN/Creat Ratio 8.1 RATIO (10-20); Chloride 103 mmol/L (98-107); Creatinine, Serum 1.11 mg/dL (0.70-1.30); EST Glomerular Filtration Rate 69 mL/min (>60); Est Glom Filt Rate - Afr Amer 84 mL/min (>60); Glucose 109 mg/dL (74-106); Sodium Level 137 mmol/L (136-145)
== END | disposition home or self-care (01) ==
LOC: POLAB3 10:07
PROVIDERS: PCP Family Medicine Geriatric Medicine; Visit Provider Family Medicine Geriatric Medicine
DX: I10 Essential (primary) hypertension (principal)
CPT/HCPCS: 36415; 80048; 85025; 85610

== ENCOUNTER 2023-04-29 08:00 | Outpatient (RCR) | payer MEDICARE, OTHER, SELFPAY ==
[2021-02-02 08:54] VITALS: BMI 29.0
--- NOTE | 2023-03-28 09:12 | HP.PTEVAL_ITS ---
Patient's Visit Information KE ARORA is a 73 year old M referred to Physical Therapy by SUSANNE DIEGO with a diagnosis of Lumbar stenosis, post laminectomy foramanotomy 02/18. Date of Evaluation: 03/28/23 Physical Therapist: David Choi, DPT, OCS, CSCS - Visit Plan Frequency: 2x /Week Duration: 4-6 Weeks Plan: 2x/week for 4-6 weeks for. 1. monitor Lumbar ROM for improvement. 2. Teach for HEP psoas and quad and HS stretches with pics. 3. teach strength core on mat for HEp and consider gym if patient desirable. Ensure Activitiy modification for management and walking program at home - Subjective Had back surgery 02/18 laminectomies, discectomies, foraminotmys BL3-L5. This was due to LBP and left leg pain. Helped alot. pain is different now with LBP at surgical site. LLeg pain is gone. Central pain on LB 2/10 and worse wtih walking 6/10 and back down with rest. No weakness or numbness or tingling. Sleeping is good, sleeps on back and sides. Retired. basic ADLS dressiing, bathroom shower all I, steps Ok. Hobbies include: none. Likes to walk for fitness but not able right now. Enjoys fishing when he can. walks now about 1/2 mile and gets tired and slightly irriitated. Does that every other day. No other exercises. Pulls on rubber straps sometimes. - Pain LBP Pain Intensity (Out of 10): 2 Pain Intensity Range: 2, 6 - Objective Stiff walk but I with gait and safe. Trasnfers bed and chair I, steps reciprocal with one rail. No obvious weakness in LE, core weak at 3+ abs and 3 extension. incision is healed and mild scar tissue palpable, no signs of [id number] redness, heat or swelling. Very stiff in LB ROM ext max limited to 3 degrees, flexion stiff and 35 degrees, SB are stiff but funcitonal. HS and psoas and quads max tight. - SLR, - Slump. AROM LE WFL, hip extension limited to 5 degrees AROM prone. reflexes 2/3 patella and achilles. Sensation LE WNL to gross light touch. Strength LE 4+ ankles and knees, 4- hip ext and abd 4 hip flexion. - Balance/Special Test Scores Oswestry Low Back Score: 10 - Goals Goal 1:: Pain 0-2/10 at all times Goal Time Frame: 4-6 Weeks Goal 2:: Walk 45 minutes without increased pain Goal Time Frame: 4-6 Weeks Goal 3:: I appropr HEP to minimize future problems Goal Time Frame: 4-6 Weeks Goal 4:: Oswestry score 4 or better Goal Time Frame: 4-6 Weeks - Rehabilitation Potential Physical Therapy Diagnosis: post lumbar surgery stiffness and weakness and diminished funciton Rehabilitation Potential: Good - Anticipated Interventions Patient/Client Instruction: Educate patient on: Condition, Plan of Care For the Purpose of:: To decrease pain, To increase ROM, To improve nutrient delivery to tissue, To improve muscle performance and motor function, To increa se tolerance to activity/condition/position Therapeutic Exercise to Include: Strength training, Balance training, Flexibilty training, Passive ROM, Active ROM, Dynamic Lumbar Stabilization For the Purpose of:: To decrease pain, To increase ROM, To improve nutrient delivery to tissue, To improve muscle performance and motor function, To increase tolerance to activity/condition/position, To improve ability of physical actions for home/community/work/leisure, To improve gait and locomotor functions Manual Therapy Techniques to Include: Mobilization, Passive ROM, Soft tissue mobilization For the Purpose of:: To decrease pain, To increase ROM, To improve nutrient delivery to tissue Cryotherapy (ice pack, ice massage): Yes For the Purpose of:: To decrease pain, To decrease swelling/inflammation Thank you for the opportunity to evaluate your patient. For Medicare and Medicare HMO plans, please review the plan of care and approve it. It will need to be FAXED BACK to us at [phone] for Medicare purposes. For Medicare only, by signing this I certify the plan of care. Please let me know if there are questions or concerns regarding this plan of care. Physician Signature: Date:
--- NOTE | 2023-04-29 08:37 | HP.PTDCSUM_ITS ---
It has been my pleasure to treat KE ARORA referred by SUSANNE DIEGO, with the diagnosis of Lumbar stenosis, post laminectomy foramanotomy 02/18 for a total of 9 visit(s). Discharge Date: 04/29/23 Please see the following information for a summary of their discharge status. Subjective: Going the nright way. Feel alot better. GOt more energy and wa lking further. Pain is mostly not an issue. Sometimes with reaching impulsively. Sleep is OK. HEP: daily. No f/u until May. 90% better, endurance is the other 10% and flexibility HS which he will continue. sick and cannot get to gym right now, will continue via HEP. LBP Pain Intensity (Out of 10): 0 % Improvement: 90 Objective/Function: Good AROM, funcitonal and no increased pain. Walking well adn I, steps reciprocal without rail, no c/o pain today. Overall doing well adn feels he can continue via HEP, no time to get to gym with 's condition right now but may be interested in future. Goal 1:: Pain 0-2/10 at all times Goal Progress: Goal Met Goal 2:: Walk 45 minutes without increased pain Goal Progress: Goal Met Goal 3:: I appropr HEP to minimize future problems Goal Progress: Goal Met Goal 4:: Oswestry score 4 or better Goal Progress: Goal Met Plan: d/c If there are questions or concerns regarding this patient's physical therapy, please feel free to call me at [phone]. Thank you for the referral of this patient. Sincerely, David Choi, DPT, OCS, CSCS Balance/Gait/Functional tests - Balance/Special Test Scores Oswestry Low Back Score: 2
== END 2023-04-29 19:00 | disposition home or self-care (01) ==
LOC: PT 08:00
PROVIDERS: PCP Family Medicine Geriatric Medicine
DX: M48.061 Spinal stenosis, lumbar region without neurogenic claudication (principal)
CPT/HCPCS: 97110; 97161; 97164

== ENCOUNTER → 2023-07-05 | Outpatient (CLI) | payer MEDICARE, OTHER, SELFPAY ==
[2021-02-02 08:54] VITALS: BMI 29.0
[2023-07-05 12:46] LABS: Absolute Lymphocyte Count 0.69 X10^3/uL (0.83-4.51); Absolute Neutrophil Count 2.5 X10^3/uL (2.0-7.7); Basophil# 0.04 X10^3/uL; Basophil% 1.1 % (0-1); Eosinophil# 0.11 X10^3/uL; Hematocrit 43.6 % (40-54); Hemoglobin 14.9 g/dL (13.0-16.5); Lymphocyte # 0.69 X10^3/ul (0.83-4.51); Lymphocyte % 19.1 % (19-41); Mean Corp Hgb Conc 34.2 g/dL (32-36); Mean Corpuscular Hgb 32.3 pg (27.0-32.0); Mean Corpuscular Volume 94.4 fL (80-94); Mean Platelet Vol. 10.8 fl (6.2-12.0); Monocyte% 8.3 % (0-10); NRBC Flagged by Analyzer 0 % (0-5); Neutrophil # 2.46 X10^3/uL (2.7-7.7); Neutrophil % 68.2 % (47-70); Platelet Count 124 K/mm3 (150-450); RBC Distribution Width CV 12.8 % (11.6-14.6); RBC Distribution Width SD 44.4 fl (35.1-43.9); Red Blood Count 4.62 M/mm3 (4.6-6.2); White Blood Count 3.6 K/mm3 (4.4-11.0)
[2023-07-05 13:01] LABS: Vitamin D,25 Hydroxy 23.6 ng/mL
[2023-07-05 13:07] LABS: AST(SGOT) 38 U/L (15-37); Alanine Aminotransfer ALT/SGPT 52 U/L (16-61); Albumin, Serum 3.7 g/dL (3.2-5.0); Alkaline Phosphatase 70 U/L (45-117); Anion Gap 8 (5-15); BUN 10 mg/dL (7-18); Chloride 105 mmol/L (98-107); Creatinine, Serum 1.11 mg/dL (0.70-1.30); EST Glomerular Filtration Rate 69 mL/min (>60); Est Glom Filt Rate - Afr Amer 84 mL/min (>60); Globulin 3.7 g/dL (2.2-4.2); Glucose 168 mg/dL (74-106); Potassium 3.9 mmol/L (3.5-5.1); Protein, Total 7.4 g/dL (6.4-8.2); Sodium Level 136 mmol/L (136-145); Thyroid Stim Hormone (TSH) 1.06 uIU/mL (0.358-3.74)
== END | disposition home or self-care (01) ==
PROVIDERS: PCP Family Medicine Geriatric Medicine; Visit Provider Family Medicine Geriatric Medicine
DX: I10 Essential (primary) hypertension (principal); E55.9 Vitamin D deficiency, unspecified
CPT/HCPCS: 36415; 80053; 82306; 84443; 85025

== ENCOUNTER → 2023-08-17 | Outpatient (CLI) | payer MEDICARE, OTHER, SELFPAY ==
[2021-02-02 08:54] VITALS: BMI 29.0
== END | disposition home or self-care (01) ==
LOC: PSN 11:41
PROVIDERS: PCP Family Medicine Geriatric Medicine; Referring Provider Family Medicine Geriatric Medicine; Visit Provider Family Medicine Geriatric Medicine
DX: R68.83 Chills (without fever) (principal)
CPT/HCPCS: 87635; 87804; 87807; C9803

== ENCOUNTER → 2023-08-30 | Outpatient (CLI) | payer MEDICARE, OTHER, SELFPAY ==
[2021-02-02 08:54] VITALS: BMI 29.0
--- NOTE | 2023-08-30 10:43 | ART_ITS ---
Reason For Study: Decreased Pedal Pulses Procedure A bilateral lower extremity continuous wave Doppler with analog waveform analysis,segmental pressures,and ankle brachial indexes without exercise. Left Segmental Pressures Left brachial= 117mmHg. Left thigh = 112mmHg. Left calf = 72mmHg. Left posterior tibial artery = 90mmHg. Left dorsalis pedis artery = 88mmHg. Left digit = 55 mmHg. The left posterior tibial artery waveforms are biphasic. The left dorsalis pedis waveforms are biphasic. Right Segmental Pressures Right brachial= 113mmHg. Right thigh = >254mmHg. Right calf = 83mmHg. Right posterior tibial artery = 106mmHg. Right dorsalis pedis artery = 97mmHg. Right digit = 74 mmHg. The right posterior tibial artery waveforms are biphasic. The right dorsalis pedis waveforms are biphasic. Indices The right ankle brachial index by the posterior tibial artery is 0.91. The right ankle brachial index by the dorsalis pedis is 0.83. The right digital-brachial index is 0.63. The left ankle brachial index by the posterior tibial artery is 0.77. The left ankle brachial index by the dorsalis pedis is 0.75. The left digital-brachial index is 0.47. VL/Lower Ext Art Exam w/o Exercis Interpretation Summary Right MERCEDES 0.91, mild arterial. Doppler/PVR waveforms of the right leg mildly di minished throughout Left MERCEDES 0.77, moderate arterial insufficiency. Doppler/PVR waveforms and segme ntal pressures reveal distal SFA/popliteal disease. Ordering Physician: Dalila Qiu Referring Physician: Aniket Moss Chi Performed By: Franck Espitia RVT
== END | disposition home or self-care (01) ==
PROVIDERS: PCP Family Medicine Geriatric Medicine; Referring Provider Physician Assistant Medical; Visit Provider Physician Assistant Medical
DX: I73.9 Peripheral vascular disease, unspecified (principal)
CPT/HCPCS: 93923

== ENCOUNTER → 2023-10-14 | Outpatient (CLI) | payer MEDICARE, OTHER, SELFPAY ==
[2021-02-02 08:54] VITALS: BMI 29.0
--- NOTE | 2023-10-14 12:30 | RAD_ITS ---
STUDY: X-RAY - LUMBAR SPINE REASON FOR EXAM: Male, 73 years old. LUMBAR DISC DISEASE TECHNIQUE: 5 view(s) of the lumbar spine were obtained. COMPARISON: 06/15/2022 FINDINGS: Normal lumbar lordosis. There is no substantial scoliosis. There is a normal alignment of the vertebrae. There is diffuse demineralization with multi-level endplate spondylosis. There is multi-level degenerative disc disease with multi-level disc space narrowing. There is no demonstrated fracture. There is no demonstrated spondylolysis of the pars interarticulares. There is atherosclerotic calcification of the abdominal aorta without a demonstrated aneurysm. RAD/L/S Spine Min 4 Views IMPRESSION: Degenerative disc disease and facet arthropathy, as above, similar since 2021. Electronically Signed: Barrington Nascimento MD ([place]) at 18:01 EST ,
== END | disposition home or self-care (01) ==
LOC: RAD 12:17
PROVIDERS: PCP Family Medicine Geriatric Medicine; Referring Provider Family Medicine Geriatric Medicine; Visit Provider Family Medicine Geriatric Medicine
DX: M51.9 Unspecified thoracic, thoracolumbar and lumbosacral intervertebral disc disorder (principal)
CPT/HCPCS: 72110

== ENCOUNTER → 2024-01-09 | Outpatient (CLI) | payer MEDICARE, OTHER, SELFPAY ==
[2021-02-02 08:54] VITALS: BMI 29.0
[2024-01-09 10:56] LABS: Absolute Lymphocyte Count 0.97 X10^3/uL (0.83-4.51); Absolute Neutrophil Count 2.6 X10^3/uL (2.0-7.7); Basophil# 0.06 X10^3/uL; Basophil% 1.5 % (0-1); Eosinophils% 2.4 % (0-5); Hematocrit 46.2 % (40-54); Hemoglobin 15.1 g/dL (13.0-16.5); Lymphocyte # 0.97 X10^3/ul (0.83-4.51); Lymphocyte % 23.7 % (19-41); Mean Corp Hgb Conc 32.7 g/dL (32-36); Mean Corpuscular Hgb 32.8 pg (27.0-32.0); Mean Corpuscular Volume 100.2 fL (80-94); Mean Platelet Vol. 10.6 fl (6.2-12.0); Monocyte# 0.35 X10^3/uL; Monocyte% 8.6 % (0-10); NRBC Flagged by Analyzer 0 % (0-5); Neutrophil % 63.6 % (47-70); Platelet Count 112 K/mm3 (150-450); RBC Distribution Width CV 13.2 % (11.6-14.6); RBC Distribution Width SD 48.7 fl (35.1-43.9); Red Blood Count 4.61 M/mm3 (4.6-6.2); White Blood Count 4.1 K/mm3 (4.4-11.0)
[2024-01-09 11:09] LABS: Vitamin D,25 Hydroxy 11.7 ng/mL
[2024-01-09 12:34] LABS: AST(SGOT) 34 U/L (15-37); Alanine Aminotransfer ALT/SGPT 56 U/L (16-61); Albumin, Serum 3.8 g/dL (3.2-5.0); Alkaline Phosphatase 68 U/L (45-117); Anion Gap 5 (5-15); BUN 11 mg/dL (7-18); BUN/Creat Ratio 10.3 RATIO (10-20); Calcium,Total 8.7 mg/dL (8.5-10.1); Chloride 105 mmol/L (98-107); Creatinine, Serum 1.07 mg/dL (0.70-1.30); EST Glomerular Filtration Rate 72 mL/min (>60); Est Glom Filt Rate - Afr Amer 87 mL/min (>60); Globulin 3.7 g/dL (2.2-4.2); Glucose 125 mg/dL (74-106); Potassium 3.9 mmol/L (3.5-5.1); Protein, Total 7.5 g/dL (6.4-8.2); Sodium Level 138 mmol/L (136-145); Thyroid Stim Hormone (TSH) 2.25 uIU/mL (0.358-3.74)
== END | disposition home or self-care (01) ==
LOC: POLAB3 08:53
PROVIDERS: PCP Family Medicine Geriatric Medicine; Visit Provider Family Medicine Geriatric Medicine
DX: I10 Essential (primary) hypertension (principal); E55.9 Vitamin D deficiency, unspecified
CPT/HCPCS: 36415; 80053; 82306; 84443; 85025

== ENCOUNTER → 2024-01-24 | Outpatient (CLI) | payer MEDICARE, OTHER, SELFPAY ==
[2021-02-02 08:54] VITALS: BMI 29.0
--- NOTE | 2024-01-24 12:27 | CT_ITS ---
STUDY: LOW DOSE CT LUNG CANCER SCREENING REASON FOR EXAM: Male, 73 years old. Lung cancer screening -- 40 pk yr; former smoker; asymptomatic RADIATION DOSAGE (If Supplied By Facility): CTDIvol = ( 4.02 ) mGy, DLP = ( 136.42 ) mGycm TECHNIQUE: No contrast was administered. Low dose technique was utilized (average mAS-38 and kVp 120). 1.25 mm axial source images with a slice interval of 1.25-mm were reconstructed in lung windows. 2.5 mm axial source images with a slice interval of 2.5-mm were reconstructed in lung windows. 5.0 mm axial source images with a slice interval of 5.0-mm were reconstructed in soft tissue windows. COMPARISON: Comparison is made with prior study dated January 11, 2023. NODULES: Stable 4 mm noncalcified nodule in the posterior aspect of the left upper lobe adjacent to the left major fissure as seen on axial image #52. Stable 3 mm noncalcified nodule in the posterolateral tibia in the right upper lobe as seen on axial image #51. Emphysema: Mild emphysematous changes. Endobronchial lesion: None Aorta: Atherosclerotic plaque formation of the aortic arch. CORONARY ARTERIES: Coronary artery calcification is seen. Heart: Unremarkable Pulmonary artery: Unremarkable Mediastinal nodes: Small stable benign-appearing mediastinal lymph nodes. Other chest and abdominal findings: CT/Low Dose CT Lung Screening IMPRESSION: Lung-RADS category 2 - Continue annual screening with LDCT in 12 months. IMPORTANT NOTES FOR USE: ACR Lung-RADS Version 1.1 Assessment Categories Release Date: 2018 Category: Coded 0-4 bases on nodule(s) with highest degree of suspicion. Negative screen is defined as categories 1 and 2; a positive screen is defined as categories 3 and 4. Category 3 and 4A nodules that are unchanged on interval CT should be coded as category 2, and individuals returned to screening in 12 months. Category 4X: Category 3 or 4 nodules with additional imaging findings that increase the suspicion of lung cancer, such as spiculation, GGN that doubles in size in 1 year, enlarged lymph notes, etc. Category Modifiers: S (significant finding unrelated to lung cancer) Electronically Signed: William Washington MD at 13:01 EST ,
== END | disposition home or self-care (01) ==
LOC: CT 12:27
PROVIDERS: PCP Family Medicine Geriatric Medicine; Referring Provider Nurse Practitioner Family; Visit Provider Nurse Practitioner Family
DX: Z12.2 Encounter for screening for malignant neoplasm of respiratory organs (principal); Z87.891 Personal history of nicotine dependence
CPT/HCPCS: 71271

== ENCOUNTER → 2024-02-13 | Outpatient (CLI) | payer MEDICARE, OTHER, SELFPAY ==
[2021-02-02 08:54] VITALS: BMI 29.0
[2024-02-13 13:01] LABS: Absolute Lymphocyte Count 0.93 X10^3/uL (0.83-4.51); Basophil# 0.05 X10^3/uL; Basophil% 1.1 % (0-1); Eosinophils% 2.2 % (0-5); Hematocrit 42.7 % (40-54); Hemoglobin 14.5 g/dL (13.0-16.5); Lymphocyte # 0.93 X10^3/ul (0.83-4.51); Lymphocyte % 20.8 % (19-41); Mean Platelet Vol. 10.7 fl (6.2-12.0); Monocyte# 0.41 X10^3/uL; Monocyte% 9.2 % (0-10); NRBC Flagged by Analyzer 0 % (0-5); Neutrophil # 2.98 X10^3/uL (2.7-7.7); Neutrophil % 66.5 % (47-70); Platelet Count 112 K/mm3 (150-450); RBC Distribution Width CV 12.7 % (11.6-14.6); RBC Distribution Width SD 44.8 fl (35.1-43.9); White Blood Count 4.5 K/mm3 (4.4-11.0)
[2024-02-13 13:25] LABS: International Normalized Ratio 1.1; Prothrombin Time (Protime)PT. 14.3 SECONDS (11.7-14.9)
[2024-02-13 13:35] LABS: Anion Gap 8 (5-15); BUN 10 mg/dL (7-18); BUN/Creat Ratio 8.3 RATIO (10-20); Calcium,Total 8.8 mg/dL (8.5-10.1); Chloride 106 mmol/L (98-107); EST Glomerular Filtration Rate 63 mL/min (>60); Est Glom Filt Rate - Afr Amer 77 mL/min (>60); Glucose 142 mg/dL (74-106); Sodium Level 137 mmol/L (136-145)
== END | disposition home or self-care (01) ==
LOC: POLAB3 12:10
PROVIDERS: PCP Family Medicine Geriatric Medicine; Visit Provider Family Medicine Geriatric Medicine
DX: I25.10 Atherosclerotic heart disease of native coronary artery without angina pectoris (principal); E78.5 Hyperlipidemia, unspecified
CPT/HCPCS: 36415; 80048; 85025; 85610

== ENCOUNTER → 2024-02-14 | Outpatient (CLI) | payer MEDICARE, OTHER, SELFPAY ==
[2021-02-02 08:54] VITALS: BMI 29.0
--- NOTE | 2024-02-14 13:22 | CT_ITS ---
STUDY: CT RIGHT SHOULDER REASON FOR EXAM: Male, 74 years old. IDIOPATHIC ASEPTIC NECROSIS OF RT SHOULDER RADIATION DOSAGE (If Supplied By Facility): CTDIvol = ( 30.08 ) mGy, DLP = ( 861.27 ) mGycm TECHNIQUE: The patient was scanned in a multi detector CT scanner. High resolution transaxial imaging was performed without the administration of intravenous contrast material. Sagittal and coronal images were reconstructed. Individualized dose optimization techniques were used for this CT. COMPARISON: Right shoulder CT dated 05/07/2022. FINDINGS: Normal glenohumeral articulation. Normal glenoid rim, neck and visualized scapula. Normal humeral head, neck and tuberosities. There is no evidence of avascular necrosis. Normal coracoid process. Normal visualized lateral clavicle. There is unchanged mild acromioclavicular arthrosis. There is a Type II morphology (curved), with a neutral orientation. Normal visualized muscles and soft tissue structures. CT/Extremity Upper without Contra IMPRESSION: Unchanged mild acromioclavicular arthrosis. No CT evidence of avascular necrosis. Electronically Signed: Dimas Epperson MD at 15:03 EDT ,
== END | disposition home or self-care (01) ==
PROVIDERS: PCP Family Medicine Geriatric Medicine; Referring Provider Specialist; Visit Provider Specialist
DX: M87.011 Idiopathic aseptic necrosis of right shoulder (principal)
CPT/HCPCS: 73200

== ENCOUNTER 2024-03-07 07:17 | Observation (INO) | payer MEDICARE, OTHER, SELFPAY ==
[2021-02-02 08:54] VITALS: BMI 29.0
[2024-02-27 10:54] LABS: Albumin, Serum 3.8 g/dL (3.2-5.0)
[2024-02-27 12:09] LABS: Hemoglobin A1c 5.5 % (3.8-5.6)
--- NOTE | 2024-02-27 15:37 | HP.PCM_ITS ---
History and Physical History and Physical? Patient Name: Simeon Shore : 1950 From:? TYLER SHULTZ PA-C? DATE OF PRE-OPERATIVE EXAM: 02/27/2024 DATE OF SURGERY:? 03/07/2024 SCHEDULED PROCEDURE:? Anatomic versus reverse/stemless right total shoulder arthroplasty HISTORY OF PRESENT ILLNESS: Preoperative history and physical exam was performed on February 27, 2024.? This is a 74-year-old male who is had ongoing pain with his right dominant shoulder.? Pain has been present for the past several years.? With activities and range of motion pain can reach 8-9/10.? On average has pain as 5/10.? He has difficulty with any overhead activity.? He has difficulty with activities of daily living including getting dressed and putting on his shirt or coat.? Pain does awaken him at nighttime.? Patient has had a previous MRI of the right shoulder which did reveal osteonecrosis of the humeral head with intact rotator cuff.? Patient has had previous physical therapy and tried oral medications without relief.? Patient has obtain surgical clearance from the primary care physician Dr. Moss and buttonhole machine operator Dr. Babin.? Patient has medical history pertinent for previous throat cancer, chronic obstructive pulmonary disease, stable lung nodule, coronary artery disease with previous heart stent, hypercholesterolemia, sleep apnea with use of CPAP, hypertension, thyroid disease, swelling in bilateral legs.? Preoperative lab work and EKG has been reviewed.? On review of his previous lab work he has had elevated blood glucose levels with no previous A1c.? He has no diagnosis of diabetes.? He has also had ongoing thrombocytopenia.? Patient currently denies any chest pain, shortness of breath, fevers chills or recent infections.? Denies past history of DVT or pulmonary embolism.? After failing conservative measures and discussing all treatment options with Dr. Donovan Higgins, the patient does wish to proceed with a anatomic versus reverse/stemless right total shoulder arthroplasty. REVIEW OF SYSTEMS: Review Of Systems: Constitutional: Reports weight change, but denies change in appetite and fever. Cardiovasular: Reports irregular heartbeat, but denies chest pain and heart murmur. Respiratory: Reports cough and shortness of breath, but denies pneumonia, tuberculosis and wheezing. Gastrointestinal: Reports heartburn, but denies constipation, diarrhea, nausea, rectal itching, bloody stools and vomiting. Genitourinary: Denies urinary symptoms. Musculoskeletal: Reports leg swelling and trouble walking, but denies pain and weakness. Skin: Denies Raynaud's, history of shingles and tattoo. Neurological: Denies ambulatory dysfunction, dizziness, numbness/tingling and tremor. Psychiatric: Denies anxiety, insomnia and stress. Hematologic/Lymphatic: Denies anemia, bleeding/bruising tendency and past transfusion. Reviewed, no changes. PAST MEDICAL HISTORY: Advance Care Plan: Other Directive, LIVING WILL Effective Date: 04/20/2022 Other Directive, POA Effective Date: 04/20/2022 Past Medical History: Medical Problems: Acid Reflux Cancer - THROAT? Chronic Obstructive Pulmonary Disease (COPD), Coronary Artery Disease (CAD), Hypercholesterolemia, Sleep Apnea, High Blood Pressure Covid- 19 - VACCINATED Thyroid Disease, stable lung nodule Leg Swelling - Bilateral legs? Accidents: None Surgical Hx: Heart Stent - (2019) [facility] Tonsillectomy - 1955 [facility]? Sinus - 2020 [facility]? Bunion RT - 2018 [facility] Cataracts - Left eye- 12/26/23 Right eye to be done- 01/12/24 Anesthesia Complications: None Assistive Devices: Glasses, Cpap, Dentures Reviewed and updated. SOCIAL HISTORY: Social History: Marital: .Occupation: Retired.Work Status: Retired.Hand Dominance: Right- handed. Personal Habits:? Cigarette Use: Former.Smokeless Tobacco: Never Used Smokeless Tobacco.E-Cigarette Use: Never used.Alcohol: Occasionally.Drug Use: Denies Use.Enjoy Exercising: Exercises 1-3 X/Week. Reviewed, no changes. VITALS: Ht: 70 Wt: 244lb Wt k.678 BMI: 35.0 BP: 130/72 Pulse: 80 Resp: 16 T: 97.4 T: 36.3C Pain Level: 0 O2SatR: 94 ALLERGIES: No Known Drug Allergy? MEDICATIONS: Levothyroxine Sodium 137 mcg take 1 tablet by mouth every day in the morning on an empty stomach, Losartan Potassium 25 mg take 1 tablet by mouth every day, Isosorbide Mononitrate ER 60 mg, Metoprolol Succinate ER 50 mg, Spironolactone 25 mg, Pantoprazole Sodium 40 mg take 1 tablet by mouth every day, Aspirin Adult Low Dose 81 mg by mouth 1 a day, Clopidogrel Bisulfate 75 mg 1 by mouth every day, Rosuvastatin Calcium 40 mg daily PRE-OP EXAM:? General appearance:NORMAL? ? ? Other: Eyes: Conjunctivae and lids: NORMAL? Pupils: ERR Ears, Nose, Mouth, and Throat: NORMAL? Other: Inspection of lips, teeth and gums: NORMAL? ?Other: Neck: Examination of neck: no masses noted. Respiratory: Assessment of respiratory effort: NORMAL? ?Other: ?Auscultation of lungs: clear to auscultation no wheezes, rhonchi or rales. Cardiovascular:? Auscultation of heart: regular rate and rhythm, no murmurs, gallops or rubs. PHYSICAL EXAMINATION: On exam of the right shoulder there is no erythema or signs of infection.? Patient has tenderness to palpation diffusely throughout the right shoulder.? Range of motion: Active forward flexion 110, external rotation 15, internal rotation belt line with crepitus.? Sensation intact to light touch axillary, radial, median, ulnar nerve distribution. IMAGING STUDIES: Previous x-rays and MRIs did reveal right shoulder consistent with avascular necrosis and intact rotator cuff IMPRESSION: 1.? Painful right shoulder with avascular necrosis 2.? Gastroesophageal reflux disease 3.? Chronic obstructive pulmonary disease 4.? Hypertension 5.? Coronary artery disease with previous heart stent 6.? Hypercholesterolemia 7.? Sleep apnea with use of CPAP 8.? Thyroid disease 9.? Previous throat cancer 10.? Stable lung nodule with recent CT scan 11.? Bilateral lower leg swelling 12.? Elevated blood glucose without diagnosis of diabetes:? A1c? 13.? Ongoing thrombocytopenia 14.? Obesity with BMI 35.0 PLAN: Dr. Donovan Higgins did discuss and review with the patient all treatment options including surgical versus nonsurgical options.? Patient does wish to proceed with the above-stated procedure.? Potential risks, benefits, and complications of the procedure were discussed in detail including but not limited to , infection, nerve and blood vessel damage, persistent pain, numbness, tingling, paresthesias, blood clot, pulmonary embolism, and requirement for possible further surgery.? The patient expressed full understanding and has no further questions for the doctor.? Patient does agree to proceed with the above-stated procedure and has signed the surgery consent form. POST-OP MEDICATION PLAN: Pain Medications:? Postoperative pain regimen will be initiated by Dr. Donovan Higgins in the hospital.? Due to his cardiac history I would avoid nonsteroidal anti-inflammatories.? He has been instructed to stop the Plavix 5 days before surgery and resumed postoperatively.? He is currently on aspirin 81 mg daily.? Patient has also been initiated on our nutrition protocol with protein drinks.? Repeat lab revealed A1c 5.5 and Albumin 3.8.?? DVT Prophylaxis:? Aspirin 81 mg twice daily for 2 weeks postoperatively.? Denies past history of DVT or pulmonary embolism This dictation was created using voice recognition software. Phonetic and/or grammatical errors may exist. ___? I have re-examined the patient.? There are no clinical changes since date of exam. ___? See progress notes for changes. ___? Dictated on admission Date: ? ? ?Time: Signature:
[2024-03-07] VITALS (15 sets, daily range): BP systolic 98–137; BP diastolic 57–92; PULSE 57–75; RESP 15–17; TEMP 36.1–36.6; O2SAT 90–98; BMI 34.1
[2024-03-07] MEDS: Vancomycin HCl 1,750 MG in 0.9% Normal Saline (500mL Bag) 500 ML 250 MG IV (06:50)
[2024-03-07 07:02] LABS: Magnesium 2.4 mg/dL (1.6-2.6)
[2024-03-07] MEDS: Lactated Ringers 1,000 ML 999 ML IV ×2 (07:06→11:05)
[2024-03-07] MEDS: Celecoxib 200 MG Capsule 400 MG PO (07:08)
[2024-03-07] MEDS: Gabapentin 600 MG Tablet PO (07:09)
[2024-03-07] MEDS: Acetaminophen 500 MG Tablet 1000 MG PO ×3 (07:09→21:39)
[2024-03-07] MEDS: Magnesium 1 GM over 15 mins IV (07:18)
[2024-03-07 07:33] LABS: Bedside Glucose 108 mg/dL (74-106)
[2024-03-07] MEDS: Cefazolin 2 GM in 0.9% Normal Saline (100mL Bag) 100 ML IV (08:45)
--- NOTE | 2024-03-07 08:45 | SHO_PTH ---
PATIENT: KE ARORA LOC: MS3 U#:[id number] AGE/SX: 74/M ROOM: [facility] – [place] RE03/07/[address]: Dr. Donovan Higgins MD : 1950 BED: 1 DIS: 03/08/2024 SPEC #: [id number] RECD: 03/07/24 11:24 STATUS: RAMON REQ #: [id number] DOMINIQUE: 03/07/24 08:[address]: Donovan Higgins DEPT: SURGICAL PATHOLOGY RECD BY: Rosemarie Marcano ENTERED: 03/07/24 12:48 SP TYPE: HUMERUS OTHR DR: MD Eric Gonzalez Chi, PA-C Tissues: Humerus, NOS Procedures: Decalcification bone/plaque Surgery Specimen Level IV HEADER OPERATION: ERAS, anatomic right total shoulder arthroplasty PRE-OP DIAGNOSIS: Painful right shoulder with avascular necrosis TISSUE SUBMITTED: Bone and soft tissue of right shoulder MICROSCOPIC DIAGNOSIS Bone and tissue right shoulder, total shoulder replacement/resection: Humeral head with focal area of osteonecrosis. Pieces of cartilaginous tissue with reactive changes. OKSANA/ 03/09/24 COMMENT Case has been reviewed in consultation with Dr. Roper who concurs with the above diagnosis. IDC:AM MICROSCOPIC DESCRIPTION Slides are reviewed. GROSS DESCRIPTION Received is one container labeled with the patient's name and designated bone and soft tissue right shoulder. The specimen consists of a humeral head measuring 5.0 x 4.5 x 2.5 cm. Focal yellowish area are noted on the surface. Also present in the container are two pieces of fibrocartilaginous tissue measuring in aggregate 5.5 x 3.0 x 0.5cm. The articular surface shows areas of erosion, eburnation and osteophyte formation. Gang Saw Operator sections are submitted in three cassettes as follows: 1 - soft tissue, 2&3 - humeral head after decalcification. / [place]SANA: 03/07/24 TC:5 [facility]: [id number], [id number]
[2024-03-07] MEDS: TRANEXAMIC ACID 2,000 MG, 0.9% Normal Saline (100mL Bag) 100 ML OPERA.SITE (09:59)
--- NOTE | 2024-03-07 11:37 | RAD_ITS ---
STUDY: X-RAY - RIGHT SHOULDER REASON FOR EXAM: Male, 74 years old. post op -- AP and Lateral X-Ray of operative shoulder in PACU TECHNIQUE: 2 view(s) of the shoulder. COMPARISON: CT of the right shoulder dated February 14, 2024 FINDINGS: The patient is status post partial resection of the medial and proximal aspect of the right humeral head with a newly placed articular prosthesis demonstrating good bony contact and alignment. Postoperative changes are also seen in the glenoid. Expected small amounts of postoperative air and swelling is seen at the periphery of the joint. No occult fractures are seen. Preserved glenohumeral articulation. Normal acromioclavicular joint. Normal acromion. The soft tissue structures are unremarkable. Normal visualized pulmonary apex. RAD/Shoulder min 2 Views IMPRESSION: 1. Status post right shoulder arthroplasty Electronically Signed: Aaron Richardson MD at 12:31 EDT ,
--- NOTE | 2024-03-07 12:38 | OP.PCM_ITS ---
Report of Operation Date of Procedure: 03/07/24 Pre-Operative Diagnosis: Right shoulder humeral head avascular necrosis Post-Operative Diagnosis: Right shoulder humeral head avascular necrosis Surgery/Procedure Performed:: Right anatomic total shoulder replacement Description of Surgical Findings:: Stable shoulder Surgeon: Donovan Higgins senior applications developer: Marcelo Butts Type of Anesthesia: General Anesthesiologist: Pavan Castellanos Special Medications: 2 g Ancef, 1 g TXA at incision, 1 g TXA closure, 10 mg Decadron Specimen's removed: Bony cuts Estimated Blood Loss (mL): 100 Fluids Replaced: 1000 mL crystalloid Description of Procedure: Components used 1. Tornier size small perform CortiLoc glenoid 2. Tornier simplicity nucleus size 1 humeral stem 3. Tornier simplicity 44 x 21 humeral head cobalt-chromium Brief history/Operative indications: 74 yo M with history of right shoulder pain and avascular necrosis. Patient failed conservative measures as mentioned in the H&P. After discussion of risk and benefits of anatomic total shoulder replacement including but not limited to blood loss, DVTs, PEs, nerve vessel damage, infection, general risk of anesthesia including loss of life, instability and stiffness patient demonstrating understanding wish to proceed was able to sign informed consent. Medical clearance was obtained. Procedure: On the date of the procedure, patient's right upper extremity was marked in the preoperative area. Patient was taken back to the operating room where they were placed on the table in the supine position. Anesthesia assumed control of the C-spine and airway, then administered anesthetic. All bony prominences were identified well-padded, the head was secured and the patient was placed in the beachchair position at about 35? inclination. Anesthesia remained in control of the C-spine airway throughout the remainder of the procedure. Patient was then appropriately fastened to the table and the right upper extremity was prepped in a sterile fashion. The surgeons then scrubbed. Upon reentering the room, the right upper extremity was draped in a sterile fashion and the incision was marked out. Timeout was called, everyone agreed upon the side, the site, the procedure to be performed, patient identity and antibiotics given. Incision was taken down through skin and subcutaneous tissue, fat down to fascia. The stripe of the deltopectoral interval and cephalic vein were identified and blunt dissection was used to retract the deltoid. The cephalic vein was retracted laterally. Clavipectoral fascia was then incised and a cobra retractor was placed in the wound. The proximal one third of the pectoralis major insertion was released. Pectoralis tendon insertion was used to tenodesed the biceps tendon which was identified in the b icipital groove with two #1 Vicryl sutures. Proximally we followed the biceps tendon after transecting it into the rotator interval. The rotator interval was split and the arm was externally rotated. We then performed a lesser tuberosity osteotomy and release the inferior humeral neck.. We released down the anterior portion of the humeral head and a holliday elevator was used to release the inferior portion of the humeral head. The arm was externally rotated and the shoulder was dislocated. The humeral head was then cut at its natural retroversion. Once his humeral head cut was made humerus was retracted out of the way and the glenoid was exposed. After exposing the glenoid, the labrum and the remaining proximal biceps were debrided. At this time we are able to view the entire outer edge of the glenoid. A central pin was placed we sequentially reamed over this central pin to size small glenoid. Once this was completed the central peg was then drilled. The glenoid peripheral pegs were then drilled. Wound was closely irrigated out with normal saline and chlorhexidine. At this time the bone was dried and cement was mixed on the back table. The glenoid was then cemented into place. Attention was then turned towards the humerus. The humerus was again externally rotated exposing the proximal portion of the humerus. We prepared the humerus using the nucleus preparation keel. Once this was done we then trialed a 44 x 21 mm head which gave us good soft tissue tensioning. We obtained an adequate reduction at this time with a nice stable shoulder. Good internal rotation to the gluteus, forward elevation to 140?, external rotation to 20?. Final components were then opened on the back table, trials were removed and the wound was copiously irrigated with normal saline after dislocating the shoulder. Once the final components were assembled they were impacted into place. Shoulder was then reduced and found to be stable with good range of motion. Subscapularis t endon and lesser tuberosity osteotomy were then repaired using #2 FiberWire suture. The wound was with chlorhexidine solution then copiously irrigated out with a 1 L normal saline lavage. The deltopectoral fascia was then closed using #1 Vicryl skin was closed using 2-0 Vicryl interrupted sutures and final skin closure was done with 3-0 Monocryl. Steri-Strips are placed for final skin closure. Sterile dressing was placed patient was then placed in a sling and awakened by anesthesia. Patient was then transferred to the PACU for recovery. Postoperative plan: Patient will be admitted to the hospital overnight. They will get physical therapy starting in 2 weeks with normal postoperative regimen. Patient will be placed on [] for DVT prophylaxis. The first postoperative appointment will be in 2 weeks for wound check and initiation of phase 1 physical therapy. During the course of the procedure the physician therapy administrative assistant played a vital role. His intimate knowledge of my steps in the procedure aided in safe and expedient completion of the procedure. The PA played a vital rolls in positioning particularly in obtaining the appropriate beach chair position and securing the patient's body and head to the table. The PA was also vital in the retraction of soft tissues during the exposure and especially the glenoid work as this is a vital part of the procedure to prevent neurovascular damage. the PA was also vital and protecting soft tissues during times of bony cuts and reaming. He also played a vital role in closure with my direct supervision. The PA was also important during reduction and dislocation of the joint and trials intraoperatively. Complications No intraoperative complications Admit VTE Documentation VTE Present on Admission: No VTE Mechan Device Prophylaxis: SCD's VTE Pharm Prophylaxis ordered?: Yes
[2024-03-07] MEDS: Lactated Ringers 1,000 ML 125 ML IV (13:21)
[2024-03-07] MEDS: Famotidine 20 MG Tablet PO (13:31)
[2024-03-07] MEDS: Spironolactone 25 MG Tablet PO (13:31)
--- NOTE | 2024-03-07 16:11 | PN.HOSP_ITS ---
Subjective Subjective 74-year-old male presents to the hospital for an elective right total shoulder replacement. No changes in his current medical status and no changes in his medications recently. Objective Data Objective Data Vital Signs: Vital Signs Temp Pulse Resp BP Pulse Ox O2 Del Method O2 Flow Rate 97.5 F L 58 L 17 120/73 96 Nasal Cannula 2 03/07/24 13:04 03/07/24 13:04 03/07/24 14:08 03/07/24 13:04 03/07/24 14:08 03/07/24 14:08 03/07/24 14:08 FiO2 30 03/07/24 12:31 Oxygen Flow Rate (L/min) 2 Oxygen Delivery Method Nasal Cannula Weight: 238 lb 1 oz Body Mass Index (BMI) 34.1 Intake & Output: Intake and Output for Last 24 Hours 03/06/24 03/07/24 03/08/24 03:59 03:59 03:59 Intake Total 3747 / 3747 Balance 3747 / 3747 Lab / Micro Data Labs: Laboratory Results - last 24 hr 03/07/24 06:40: Magnesium 2.4 03/07/24 06:46: POC Glucose 108 H Micro: Microbiology 02/21/24 13:52 Swab (Method) Nasal Screen MRSA/MSSA - Final Radiography Diagnostic Testing: Radiology Impression Shoulder X-Ray 03/07/24 11:37 IMPRESSION: 1. Status post right shoulder arthroplasty Electronically Signed: Aaron Richardson MD at 12:31 EDT Reading Location ID and State: [address] [place] [address] , Service support , Physical Exam Narrative General: Alert, Oriented x3, Cooperative, No apparent distress HEENT: Atraumatic, PERRLA, EOMI, Normocephalic Oral: Moist Mucosa Neck: Supple, No JVD Lungs: Diminished, Normal air movement, No rhonchi, No wheeze, No rales Cardiovascular: Regular rate, Regular Rhythm, Normal S1, Normal S2, No murmurs Abdomen: Soft, Non Tender, Non-Distended, No Hepato-splenomegaly Extremities: No edema, Capillary Refill Less than 3 Seconds Skin: No rashes, No breakdown Musculoskeletal: Right arm in a sling, dressing over shoulder CDI Neurological: No focal neurological deficits, Motor Exam 5/5 strength throughout, Sensory exam intact to light touch and pain Psych/Mental Status: Normal Affect, Appropriate Assessment & Plan Assessment/Plan (1) Status post total replacement of right shoulder: PLAN: Plan 1. Status post total replacement of right shoulder for avascular necrosis on 03/07/2024 ? Pain management per primary ? PT/OT ? Discharge planning per primary 2. Essential HTN/HLD/CAD status post stent ? Blood pressure currently stable ? Can resume his home blood pressure medications ? Continue with aspirin and Plavix ? Continue with Crestor ? Will monitor make adjustments as necessary 3. Hypothyroidism ? Stable ? Continue with Synthroid DVT: Per primary Charges/Coding Visit Charges Office Visits / Consults: 13904 OV L3 New 30min
[2024-03-07] MEDS: Aspirin 81 MG TAB.CHEW PO (17:12)
[2024-03-07] MEDS: Cefazolin 1 GM/50 ML BAG IV (17:12)
[2024-03-07] MEDS: Atorvastatin Calcium 80 MG Tablet PO (21:39)
[2024-03-08] MEDS: Cefazolin 1 GM/50 ML BAG IV (00:04)
[2024-03-08 01:29] VITALS: BP 141/86; PULSE 73; RESP 16; TEMP 36.6; O2SAT 95
[2024-03-08] MEDS: oxyCODONE 5 MG Tablet PO ×2 (04:35→09:26)
[2024-03-08] MEDS: Acetaminophen 500 MG Tablet 1000 MG PO (04:36)
[2024-03-08] MEDS: Levothyroxine 137 MCG Tablet PO (04:36)
[2024-03-08 04:43] VITALS: BP 151/92; PULSE 75; RESP 16; TEMP 36.3; O2SAT 94
[2024-03-08 06:38] LABS: Hematocrit 42.1 % (40-54); Hemoglobin 13.9 g/dL (13.0-16.5); Mean Corpuscular Hgb 32.3 pg (27.0-32.0); Mean Corpuscular Volume 97.7 fL (80-94); Mean Platelet Vol. 10.2 fl (6.2-12.0); POSITIVE COUNT YES; Platelet Count 95 K/mm3 (150-450); RBC Distribution Width CV 12.4 % (11.6-14.6); RBC Distribution Width SD 44.7 fl (35.1-43.9); Red Blood Count 4.31 M/mm3 (4.6-6.2); White Blood Count 6.4 K/mm3 (4.4-11.0)
[2024-03-08 07:27] LABS: Anion Gap 1 (5-15); BUN 10 mg/dL (7-18); BUN/Creat Ratio 11.7 RATIO (10-20); Calcium,Total 8.6 mg/dL (8.5-10.1); Chloride 108 mmol/L (98-107); Creatinine, Serum 0.85 mg/dL (0.70-1.30); EST Glomerular Filtration Rate 94 mL/min (>60); Est Glom Filt Rate - Afr Amer 114 mL/min (>60); Estimated Creatinine Clearance 96.66 ml/min; Glucose 108 mg/dL (74-106); Sodium Level 138 mmol/L (136-145)
[2024-03-08 09:16] VITALS: BP 128/73; PULSE 99; RESP 18; TEMP 37.3; O2SAT 93
[2024-03-08] MEDS: Aspirin 81 MG TAB.CHEW PO (09:21)
[2024-03-08] MEDS: Losartan Potassium 25 MG Tablet PO (09:21)
[2024-03-08] MEDS: Pantoprazole Sodium 40 MG Tablet PO (09:22)
[2024-03-08] MEDS: Isosorbide Mononitrate 60 MG Tablet PO (09:22)
[2024-03-08] MEDS: Clopidogrel Bisulfate 75 MG Tablet PO (09:22)
[2024-03-08] MEDS: Famotidine 20 MG Tablet PO (09:22)
[2024-03-08] MEDS: Spironolactone 25 MG Tablet PO (09:23)
[2024-03-08] MEDS: Senna/Docusate Sodium 1 Tablet 2 TABLET PO (09:24)
--- NOTE | 2024-03-08 10:35 | CASEMGMT ---
LISBET PÉREZ Assessment: Face to Face with pt for initial transition planning/care coordination assessment. LISBET PÉREZ introduced self and role at [facility], pt voices understanding and consents to assessment. Pt is A&O x4 and answers all questions appropriately at this time. Pt just back from bathroom indep and sitting in chair in no distress. Care providers, pharmacy, and demographics verified/updated. Admitting Dx: anatomic R total shoulder arthroplasty PCP:Ajay Specialists: Talya, cardio; Gisela, ortho; Siddharth D, pulm; Ronald, eyes; Ronald, derm; Jeramy, pod; Preeti, onc; Manda, vasc; Avis, ENT; Sean, eyes Preferred Pharmacy: [facility] Retail Insurance: [facility], MMO Prescription Benefit: yes LNOK: Gogo Obmalt, Living Arrangements: Pt lives in a ground level apt with 2 steps to enter. Pt reports he is I in ADL's and denies concerns at home. Transportation: Pt drives self and denies concerns with transportation. Pt will transport pt until he is able to again. DME:CPAP, shower chair, cane, walker- Does not use AD HHC/SNF: Denies hx of Pt states no concerns with going home at time of dc. Pt states no further concerns/needs. CM to follow. Advised pt to ask CM if any further question/concerns/needs arise, voices understanding. Pt Goal: Home Plan: Home Saurabh FRAUSTO CM
[2024-03-08 10:51] VITALS: PULSE 108
[2024-03-08] MEDS: Metoprolol(XL)Succ 50 MG Tablet PO (10:51)
--- NOTE | 2024-03-08 10:52 | CASEMGMT ---
LISBET CM in to discuss DURBIN form with patient. RN CM explained DURBIN form, patient voiced understanding. Pt signed form and filed in chart. Pt provided with a copy of signed DURBIN form. Patient had no further questions or concerns at this time.
--- NOTE | 2024-03-08 12:04 | PCM.PN.ORT ---
Subjective Subjective Patient is s/p right anatomic total shoulder arthroplasty with Dr. Higgins on 03/07/2024. Patient resting comfortably in bedside chair. Rates pain 1/ 10 at rest. With movement to/10. States taking Tylenol and oxycodone and ice help to relieve pain. Patient has been up with therapy. Patient is compliant with sling and currently in sling.. Afebrile, no chest pain, shortness of breath, negative calf pain/ erythema, and no other signs of DVT. Objective Data Objective Data Vital Signs: Vital Signs Temp Pulse Resp BP Pulse Ox O2 Del Method O2 Flow Rate 99.1 F 108 H 18 128/73 H 93 Room Air 4 03/08/24 09:16 03/08/24 10:51 03/08/24 09:16 03/08/24 09:16 03/08/24 09:16 03/08/24 09:16 03/07/24 15:04 FiO2 30 03/07/24 12:31 Oxygen Flow Rate (L/min) 4 Oxygen Delivery Method Room Air Weight: 107.983 kg Body Mass Index (BMI) 34.1 Intake & Output: Intake and Output for Last 24 Hours 03/06/24 03/07/24 03/08/24 23:59 23:59 23:59 Intake Total 4797 / 4797 50 / 50 Balance 4797 / 4797 50 / 50 Lab / Micro Data 03/08/24 06:18 03/08/24 06:18 Labs: Laboratory Results - last 24 hr 03/08/24 06:18: WBC 6.4, RBC 4.31 L, Hgb 13.9, Hct 42.1, MCV 97.7 H, MCH 32.3 H, MCHC 33.0, RDW Std Deviation 44.7 H, RDW Coeff of Angela 12.4, Plt Count 95 L, MPV 10.2, Sodium 138, Potassium 4.0, Chloride 108 H, Carbon Dioxide 29.0, Anion Gap 1 L, BUN 10, Creatinine 0.85, Estim Creat Clear Calc 96.66, Est GFR (MDRD) Af Amer 114, Est GFR (MDRD) Non-Af 94, BUN/Creatinine Ratio 11.7, Glucose 108 H, Calcium 8.6 Micro: Microbiology 02/21/24 13:52 Swab (Method) Nasal Screen MRSA/MSSA - Final Radiography Diagnostic Testing: Radiology Impression Shoulder X-Ray 03/07/24 11:37 IMPRESSION: 1. Status post right shoulder arthroplasty Electronically Signed: Aaron Richardson MD at 12:31 EDT Reading Location ID and State: [facility] / [place] , Service support , Physical Exam Narrative Patient resting comfortably in bedside chair No signs of acute distress Satting well on room air Presents in sling Limb is warm to touch, Sensation intact throughout entire right upper extremity, Radial pulses bounding. Motor intact to radial, median, ulnar nerve distribution Dressing clear dry intact Calf nontender to palpation, no erythema, no edema. Negative Homans Assessment & Plan Assessment/Plan (1) Status post total replacement of right shoulder: PLAN: Plan 1. Maintain sling at all times. Nonweightbearing to right upper extremity. 2. plan for discharge this afternoon 3. Patient will follow up for post op appointment in 2 weeks as previously scheduled 4. Patient has outpatient PT appointment in 2 weeks as previously scheduled 5. WBC 6.4 no acute reactive leukocytosis 6. H/H 13.9/42.1: No post operavtive anemia 7. DVT prophylaxis : Continue Plavix as previously taken. Aspirin 81 mg twice daily x 2 weeks 8. Pain control: patient instructed to take tylenol 500mg 2 tablets TID. and oxycodone 1-2 tablets every 4-6 hours only as needed for pain control. 9. ok to remove post op dressing. post op day 5
--- NOTE | 2024-03-08 12:10 | DCINST_ITS ---
Discharge Instructions Diet Discharge Diet: No restrictions Activity Discharge Activity: Return to Normal Activity, May Not Drive and - (Sling at all times nonweightbearing to right upper extremity.) Weight Bearing Status: No weight bearing (To right upper extremity) Dressing / Incision Call your doctor if your incision/area has: Continuous Slow Oozing, Sudden Increased Bleeding, Increased Pain/ Swelling, Increased Redness, Foul Smelling Discharge and Swelling at the incision site Call your doctor if you observe: Fever of 101 or Higher, Change in Color, Inability to have a bowel movement, Shortness of breath, Dizziness, Chest pain, Increased palpitations (irregular heartbeat) and Calf discomfort Suture Line Care: Avoid Pulling/Pushing and Avoid Pinching/Bending Remove Dressing in: 5 days Cleanse incision/area with: Soap & Water and Keep Dressing Clean & Dry Follow Up Care When: Follow-up in 2 weeks as previously scheduled post orthopedics. Test Results: Test results from this visit will be discussed in further detail at your follow- up appointment, if applicable. Discharge Plan Admission Admit Date/Time: 03/07/24 07:17 Attending Provider: Donovan Higgins Primary Care Provider: Aniket Moss Chi Consulting Providers: Marcelo Butts; Sunny Weeks; Nadine Epperson Discharge Orders/Prescriptions Prescriptions: No Action levothyroxine 137 mcg tablet 137 mcg PO DAILY Patient Comments: TAKE 1 TABLET BY MOUTH EVERY DAY IN THE MORNING ON AN EMPTY STOMACH clopidogrel 75 mg tablet 75 mg PO DAILY Qty: 90 3RF Patient Comments: HOLD 5 DAYS PRIOR TO SURGERY isosorbide mononitrate 60 mg tablet extended release 24 hr 60 mg PO DAILY Qty: 90 3RF losartan 25 mg tablet 25 mg PO DAILY Qty: 90 3RF metoprolol succinate 50 mg tablet extended release 24 hr 50 mg PO DAILY Qty: 90 3RF spironolactone 25 mg tablet 25 mg PO DAILY Qty: 90 3RF pantoprazole 40 MG tablet 40 mg PO DAILY Patient Comments: GERD rosuvastatin 40 mg tablet 40 mg PO QHS aspirin 81 mg capsule 81 mg PO DAILY Referrals / Follow Up: Aniket Moss Chi, MD [Primary Care Provider] -
== END 2024-03-08 13:35 | disposition home or self-care (01) ==
LOC: SDC 12:21 → MS3 12:21
PROVIDERS: Anesthesiology; Admitting Provider Specialist; PCP Family Medicine Geriatric Medicine; Referring Provider Specialist; Visit Provider Specialist
PROC: (CPT 23472; principal; 2024-03-07 08:15)
DX: M87.811 Other osteonecrosis, right shoulder (principal); J43.9 Emphysema, unspecified; I25.10 Atherosclerotic heart disease of native coronary artery without angina pectoris; E78.00 Pure hypercholesterolemia, unspecified; E66.9 Obesity, unspecified; I10 Essential (primary) hypertension; G47.33 Obstructive sleep apnea (adult) (pediatric); R73.9 Hyperglycemia, unspecified; Z68.35 Body mass index [BMI] 35.0-35.9, adult; Z87.891 Personal history of nicotine dependence; E03.9 Hypothyroidism, unspecified; K21.9 Gastro-esophageal reflux disease without esophagitis; Z79.02 Long term (current) use of antithrombotics/antiplatelets; Z79.899 Other long term (current) drug therapy; Z79.82 Long term (current) use of aspirin
CPT/HCPCS: 23472; 01638; 64415; 36415; 73030; 80048; 82040; 82962; 83036; 83735; 85027; 87081; 88305; 88311; 94668; 96361; 96365; 96366; 97166; 99221; 99252; C1776; J7040; J7120; G0378; G0463; J2405; J3475

== ENCOUNTER → 2024-04-03 | Outpatient (CLI) | payer MEDICARE, OTHER, SELFPAY ==
[2021-02-02 08:54] VITALS: BMI 29.0
== END | disposition home or self-care (01) ==
LOC: SL 09:41
PROVIDERS: PCP Family Medicine Geriatric Medicine; Referring Provider Nurse Practitioner Acute Care; Visit Provider Nurse Practitioner Acute Care
DX: G47.33 Obstructive sleep apnea (adult) (pediatric) (principal)
CPT/HCPCS: 98960; G0463

== ENCOUNTER → 2024-04-09 | Outpatient (CLI) | payer MEDICARE, OTHER, SELFPAY ==
[2021-02-02 08:54] VITALS: BMI 29.0
--- NOTE | 2024-04-09 07:50 | AAVD_ITS ---
Reason For Study: PVD Aorta Measurements Aorta Doppler Measurements Proximal aorta measures1.86 x 1.98cm. in cross- Peak systolic flow velocities within the proximal sectional axis. aorta measure 92.9 cm/sec. Proximal aorta measures1.88cm. in longitudinal Peak systolic flow velocities within the mid aorta axis. measure 75.7 cm/sec. Mid aorta measures1.66 x 1.66cm. in cross- Peak systolic flow velocities within the distal sectional axis. aorta measure 52.7 cm/sec. Mid aorta measures1.62cm. in longitudinal axis. Distal aorta measures1.60 x 1.60cm. in cross- sectional axis. Distal aorta measures1.54cm. in longitudinal axis. Left Iliac Artery Left iliac artery measures 1.01 x 1.03 cm. in the cross-sectional axis. Left iliac artery measures 1.06 cm. in the longitudinal axis. Peak systolic velocity in the left iliac artery measures 107.3 cm/sec. Right Iliac Artery Right iliac artery measures 1.06 x 1.03 cm. in the cross-sectional axis. Right iliac artery measures 1.07 cm. in the longitudinal axis. Peak systolic velocity in the right iliac artery measures 73.6 cm/sec. Procedure Aorta IVC Iliac vasculature or bypass grafts 15932. The exam was diagnostic. Exam performed in department. VL/Abd Aortic/IVC Duplex scan Interpretation Summary Aortoiliac no stenosis or aneurysm. Ordering Physician: Medardo Cano Referring Physician: Aniket Moss Chi Performed By: Franck Espitia, RVT
--- NOTE | 2024-04-09 07:50 | VDLE_ITS ---
Reason For Study: BLE Swelling RIGHT LEFT CFV is compressible, spontaneous, phasic, CFV is compressible, spontaneous, phasic, competent and demonstrates normal competent, and demonstrates normal augmentation. augmentation. FV is compressible, spontaneous, phasic, FV is compressible, spontaneous, phasic, competent and demonstrates normal competent and demonstrates normal augmentation. augmentation. POP V is compressible, spontaneous, phasic, POP V is compressible, spontaneous, phasic, competent and demonstrates normal competent and demonstrates normal augmentation. augmentation. T/P Trunk is compressible. T/P Trunk is compressible. PTV is compressible. PTV is compressible. RT PerV is compressible. LT PerV is compressible. SFJ is INCOMPETENT and measures 0.80 cm. SFJ is INCOMPETENT and measures 0.73 cm. GSV proximal thigh measures 0.61 x 0.68 cm. GSV proximal thigh measures 0.63 x 0.64 cm. GSV at knee measures 0.37 x 0.45 cm. GSV at knee measures 0.47 x 0.56 cm. GSV INCOMPETENT throughout for greater than GSV INCOMPETENT throughout for greater than 0.5 seconds. 0.5 seconds. SSV proximal calf is competent and measures SSV proximal calf is competent and measures 0.19 x 0.18 cm. 0.18x 0.19 cm. ASV mid thigh is INCOMPETENT for greater than ASV mid thigh is INCOMPETENT for greater than 0.5 seconds and measures 0.72 x 0.74 cm. 0.5 seconds and measures 0.37 x 0.41 cm. ASV Anterior Mid thigh branches off GSV and ASV Anterior Mid thigh branches off GSV and feeds Varicosities in thigh. feeds Varicosities in thigh. Procedure ASV mid calf is INCOMPETENT for greater than Exam performed in department. 0.5 seconds and measures 0.27 x 0.26 cm. This is a venous duplex using B-mode, color flow and spectral Doppler. The exam was diagnostic. Patient was scanned in reverse Trendelenburg position during reflux assessment. VL/Venous Duplex US - Siva Extrem Interpretation Summary Bilateral no DVT. Bilateral GSV and ASV with reflux. Ordering Physician: Medardo Cano Referring Physician: Aniket Moss Chi Performed By: Franck Espitia RVT
--- NOTE | 2024-04-09 07:50 | ART_ITS ---
Reason For Study: PVD Procedure A bilateral lower extremity continuous wave Doppler with analog waveform analysis and ankle brachial indexes. Left Segmental Pressures Left brachial= 125mmHg. Left posterior tibial artery = 93mmHg. Left dorsalis pedis artery = 92mmHg. Left digit = 73 mmHg. The left posterior tibial artery waveforms are biphasic. The left dorsalis pedis waveforms are biphasic. Right Segmental Pressures Right brachial= 111mmHg. Right posterior tibial artery = 109mmHg. Right dorsalis pedis artery = 97mmHg. Right digit = 87 mmHg. The right posterior tibial artery waveforms are biphasic. The right dorsalis pedis waveforms are biphasic. Indices The right ankle brachial index by the posterior tibial artery is 0.87. The right ankle brachial index by the dorsalis pedis is 0.78. The right digital-brachial index is 0.70. The left ankle brachial index by the posterior tibial artery is 0.74. The left ankle brachial index by the dorsalis pedis is 0.74. The left digital-brachial index is 0.58. VL/Ankle Brachial Index Interpretation Summary Bilateral mild with MERCEDES 0.87 and 0.74 and digit 0.7 and 0.58. Ordering Physician: Medardo Cano Referring Physician: Aniket Moss Chi Performed By: Franck Espitia RVT
== END | disposition home or self-care (01) ==
LOC: CVS 07:47
PROVIDERS: PCP Family Medicine Geriatric Medicine; Referring Provider Surgery Vascular Surgery; Visit Provider Surgery Vascular Surgery
DX: I87.2 Venous insufficiency (chronic) (peripheral) (principal); I70.213 Atherosclerosis of native arteries of extremities with intermittent claudication, bilateral legs; Z87.891 Personal history of nicotine dependence; E03.9 Hypothyroidism, unspecified; E78.5 Hyperlipidemia, unspecified; I10 Essential (primary) hypertension; R60.0 Localized edema
CPT/HCPCS: 93922; 93970; 93978

== ENCOUNTER → 2024-07-09 | Outpatient (CLI) | payer MEDICARE, OTHER, SELFPAY ==
[2021-02-02 08:54] VITALS: BMI 29.0
[2024-07-09 09:13] LABS: Absolute Lymphocyte Count 0.82 X10^3/uL (0.83-4.51); Absolute Neutrophil Count 3.1 X10^3/uL (2.0-7.7); Basophil# 0.06 X10^3/uL; Basophil% 1.3 % (0-1); Eosinophil# 0.11 X10^3/uL; Eosinophils% 2.4 % (0-5); Hematocrit 45.1 % (40-54); Lymphocyte # 0.82 X10^3/ul (0.83-4.51); Lymphocyte % 17.9 % (19-41); Mean Corp Hgb Conc 33.3 g/dL (32-36); Mean Corpuscular Hgb 31.6 pg (27.0-32.0); Mean Corpuscular Volume 95.1 fL (80-94); Mean Platelet Vol. 10.3 fl (6.2-12.0); Monocyte# 0.45 X10^3/uL; Monocyte% 9.8 % (0-10); NRBC Flagged by Analyzer 0 % (0-5); Neutrophil # 3.12 X10^3/uL (2.7-7.7); Neutrophil % 68.2 % (47-70); Platelet Count 115 K/mm3 (150-450); RBC Distribution Width SD 45.3 fl (35.1-43.9); Red Blood Count 4.74 M/mm3 (4.6-6.2); White Blood Count 4.6 K/mm3 (4.4-11.0)
[2024-07-09 09:45] LABS: Vitamin D,25 Hydroxy 28.3 ng/mL
[2024-07-09 11:22] LABS: AST(SGOT) 43 U/L (15-37); Alanine Aminotransfer ALT/SGPT 50 U/L (16-61); Albumin, Serum 3.7 g/dL (3.2-5.0); Alkaline Phosphatase 67 U/L (45-117); Anion Gap 7 (5-15); BUN 11 mg/dL (7-18); BUN/Creat Ratio 11.4 RATIO (10-20); Calcium,Total 9.3 mg/dL (8.5-10.1); Chloride 104 mmol/L (98-107); Creatinine, Serum 0.96 mg/dL (0.70-1.30); EST Glomerular Filtration Rate 82 mL/min (>60); Est Glom Filt Rate - Afr Amer 99 mL/min (>60); Globulin 3.6 g/dL (2.2-4.2); Glucose 134 mg/dL (74-106); Potassium 4.2 mmol/L (3.5-5.1); Protein, Total 7.3 g/dL (6.4-8.2); Sodium Level 135 mmol/L (136-145)
== END | disposition home or self-care (01) ==
LOC: POLAB3 08:52
PROVIDERS: PCP Family Medicine Geriatric Medicine; Visit Provider Family Medicine Geriatric Medicine
DX: I10 Essential (primary) hypertension (principal); E55.9 Vitamin D deficiency, unspecified
CPT/HCPCS: 36415; 80053; 82306; 84443; 85025

== ENCOUNTER → 2024-08-22 | Outpatient (CLI) | payer MEDICARE, OTHER, SELFPAY ==
[2021-02-02 08:54] VITALS: BMI 29.0
[2024-08-22 14:23] LABS: Absolute Lymphocyte Count 0.99 X10^3/uL (0.83-4.51); Absolute Neutrophil Count 4.7 X10^3/uL (2.0-7.7); Basophil# 0.08 X10^3/uL; Basophil% 1.2 % (0-1); Eosinophil# 0.12 X10^3/uL; Eosinophils% 1.8 % (0-5); Hematocrit 43.2 % (40-54); Hemoglobin 14.6 g/dL (13.0-16.5); Lymphocyte # 0.99 X10^3/ul (0.83-4.51); Mean Corp Hgb Conc 33.8 g/dL (32-36); Mean Corpuscular Hgb 31.4 pg (27.0-32.0); Mean Corpuscular Volume 92.9 fL (80-94); Mean Platelet Vol. 10.4 fl (6.2-12.0); Monocyte# 0.68 X10^3/uL; Monocyte% 10.3 % (0-10); NRBC Flagged by Analyzer 0 % (0-5); Neutrophil # 4.71 X10^3/uL (2.7-7.7); Neutrophil % 71.4 % (47-70); Platelet Count 125 K/mm3 (150-450); RBC Distribution Width SD 43.7 fl (35.1-43.9); Red Blood Count 4.65 M/mm3 (4.6-6.2); White Blood Count 6.6 K/mm3 (4.4-11.0)
[2024-08-22 15:06] LABS: ALB/GLOB Ratio 1.1 RATIO (0.9-2.4); AST(SGOT) 32 U/L (15-37); Alanine Aminotransfer ALT/SGPT 41 U/L (16-61); Alkaline Phosphatase 63 U/L (45-117); Anion Gap 6 (5-15); BUN 11 mg/dL (7-18); BUN/Creat Ratio 10.6 RATIO (10-20); Calcium,Total 9.4 mg/dL (8.5-10.1); Chloride 101 mmol/L (98-107); Creatinine, Serum 1.04 mg/dL (0.70-1.30); EST Glomerular Filtration Rate 75 mL/min (>60); Est Glom Filt Rate - Afr Amer 90 mL/min (>60); Globulin 3.5 g/dL (2.2-4.2); Glucose 99 mg/dL (74-106); Potassium 3.8 mmol/L (3.5-5.1); Protein, Total 7.5 g/dL (6.4-8.2); Sodium Level 136 mmol/L (136-145)
== END | disposition home or self-care (01) ==
LOC: POLAB3 14:04
PROVIDERS: PCP Family Medicine Geriatric Medicine; Visit Provider Family Medicine Geriatric Medicine
DX: I10 Essential (primary) hypertension (principal)
CPT/HCPCS: 36415; 80053; 85025

== ENCOUNTER → 2024-08-23 | Outpatient (CLI) | payer MEDICARE, OTHER, SELFPAY ==
[2021-02-02 08:54] VITALS: BMI 29.0
--- NOTE | 2024-08-23 14:46 | CT_ITS ---
STUDY: CT ABDOMEN AND PELVIS WITH CONTRAST REASON FOR EXAM: Male, 74 years old. Abdominal pain. RADIATION DOSAGE (If Supplied By Facility): CTDIvol = ( 13.81 ) mGy, DLP = ( 1151.13 ) mGycm TECHNIQUE: Transaxial images were obtained through the abdomen and pelvis with oral contrast. 100 ml of Isovue-370 contrast was administered. Sagittal and coronal images were reconstructed. CT scan performed according to ALARA principles. Automated exposure control used during exam. COMPARISON: No relevant prior comparison study available FINDINGS: LOWER THORAX: There is atelectasis at the lung bases. The visualized portions of the heart and pericardium are within normal limits. There are coronary artery calcifications. GALLBLADDER / BILE DUCTS: There are no calcified gallstones present. There is no intrahepatic biliary duct dilatation. The common bile duct is normal in caliber. There are no calcified ductal stones. LIVER: The liver is nodular in contour and low in density which is consistent with cirrhosis and fatty infiltration. There is a 2.4 x 2.3 cm indeterminate hypodensity inferiorly in the right lobe of the liver (image 43 series 2). SPLEEN: The spleen is normal in size. PANCREAS: The pancreas is within normal limits. ADRENAL GLANDS: The adrenal glands are within normal limits. 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 There are no renal or ureteral stones. There is no hydronephrosis. There are no focal renal lesions. The urinary bladder is partially distended and appears grossly unremarkable. STOMACH / BOWEL: Normal visualized stomach. There is no bowel obstruction or inflammation. The appendix is not visualized, but there are no findings to suggest acute appendicitis. PERITONEUM/RETROPERITONEUM: There is no abdominal or pelvic free air, free fluid or fluid collection. There is no abnormal soft tissue mass identified. There is no abdominal or pelvic lymphadenopathy. VESSELS: There are atherosclerotic calcifications noted in the aorta and its branches. The aorta is normal in caliber. The IVC is unremarkable. BONES: There are degenerative changes noted in the spine. There are no destructive osseous lesions. SOFT TISSUES: The visualized soft tissues are within normal limits. CT/Abdomen/Pelvis WITH Contrast IMPRESSION: Cirrhotic liver with fatty infiltration. 2.4 x 2.3 cm indeterminate hypodensity inferiorly in the right lobe of the liver. Further evaluation with MRI is recommended. Horseshoe kidney. No urinary calculi. No hydronephrosis. No bowel obstruction or inflammation. Atherosclerosis and coronary artery disease. Electronically Signed: Donovan Cordova MD at 15:46 EDT ,
[2024-08-25 08:12] LABS: AFP, Tumor Marker 3.2 ng/mL (0.0-8.4)
== END | disposition home or self-care (01) ==
PROVIDERS: PCP Family Medicine Geriatric Medicine; Referring Provider Family Medicine Geriatric Medicine; Visit Provider Family Medicine Geriatric Medicine
DX: K74.60 Unspecified cirrhosis of liver (principal); K57.32 Diverticulitis of large intestine without perforation or abscess without bleeding; N39.0 Urinary tract infection, site not specified
CPT/HCPCS: 74177; 82105; 87086; Q9967

== ENCOUNTER → 2024-08-31 | Outpatient (CLI) | payer MEDICARE, OTHER, SELFPAY ==
[2021-02-02 08:54] VITALS: BMI 29.0
--- NOTE | 2024-08-31 08:05 | MRI_ITS ---
MRI Abdomen w/ and w/out contrast 08/31/2024 8:45 AM COMPARISON: CT 08/23/2024 CLINICAL HISTORY: LIVER MASS CIRRHOSIS TECHNIQUE: Multiplanar T1 and T2 weighted, diffusion and dynamic post-gadolinium images were obtained through the abdomen before and after administration of 20 cc of IV Clariscan.. FINDINGS: Liver: Liver is cirrhotic with nodular contour. In the inferior liver tip there is a 2.9 x 2.2 cm heterogeneously T1 hypointense/heterogeneously T2 hyperintense mass along the periphery. It does not demonstrate arterial hyperenhancement, however there is delayed washout and an enhancing rim/capsule. Gallbladder: Not visualized. Pancreas: Unremarkable Spleen: Unremarkable Adrenal Glands: Unremarkable Kidneys: Horseshoe kidney. GI Tract: Small duodenal diverticulum. Lymphadenopathy: Absent Ascites: Absent Bones: No suspicious lesions MRI/MRI Abd WITH and W/O Contrast IMPRESSION: 2.9 cm LI-RADS 4 lesion in the inferior liver tip as described above. Consider IR consult for percuatenous biopsy, however, exercise caution as this lesion abuts the liver capsule. Cirrhotic liver with no evidence of portal hypertension. Horseshoe kidney. Small duodenal diverticulum. Electronically Signed: Nate Martin MD at 16:55 EDT ,
== END | disposition home or self-care (01) ==
LOC: MRI 07:44
PROVIDERS: PCP Family Medicine Geriatric Medicine; Referring Provider Family Medicine Geriatric Medicine; Visit Provider Family Medicine Geriatric Medicine
DX: R16.0 Hepatomegaly, not elsewhere classified (principal); K74.60 Unspecified cirrhosis of liver
CPT/HCPCS: 74183; A9575; A4216

== ENCOUNTER → 2024-09-06 | Outpatient (CLI) | payer MEDICARE, OTHER, SELFPAY ==
[2021-02-02 08:54] VITALS: BMI 29.0
--- NOTE | 2024-09-06 08:49 | US_ITS ---
STUDY: ABDOMINAL ULTRASOUND - RIGHT UPPER QUADRANT; ELASTOGRAPHY REASON FOR VISIT: Male, 74 years old. History of cirrhosis. TECHNIQUE: Ultrasound evaluation of the right upper quadrant was performed with real-time and static baxter-scale imaging. Point quantification shear wave elastography was performed (Absolute Antibody). TECHNICAL QUALITY: Limited. Examination limited due to a combination of factors including obesity and bowel gas. COMPARISON: Comparison is made with prior CT scan of the abdomen and pelvis dated August 23, 2024 and prior MRI of the abdomen dated August 31, 2024. FINDINGS: Liver: The liver is enlarged and measures 19.7 cm. There is increased echogenicity consistent with fatty infiltration. The bile ducts are within normal limits. There is hepatic color flow. The direction of portal flow is hepatopetal. There is a 3.6 cm x 3.1 cm x 2.2 cm hypoechoic predominantly solid nodule in the inferior aspect of the right lobe of the liver. Biopsy recommended. Median liver stiffness measured 10.9 kPa. Gallbladder: The gallbladder is not visualized most likely secondary to prior cholecystectomy. Common Bile Duct (C.B.D.): The common bile duct measures 4 mm. Pancreas: Limited visualization due to overlying bowel gas. Right Kidney: Normal size of the right kidney. Horseshoe kidney. The right kidney measures 14.2 cm x 5.3 cm x 4.9 cm. Normal renal cortex. The right cortex measures 1.2 cm. There is no demonstrated renal mass or cyst. There is no right hydronephrosis. US/ABD Limited w/ Elastography IMPRESSION: 1. Liver stiffness measures 10.9 kPa compatible with F2-F3 (Mild to moderate liver fibrosis) Metavir score. 2. 3.6 cm x 3.1 cm x 2.2 cm hypoechoic solid nodule in the inferior aspect of the right lobe of the liver as described. Biopsy recommended. Electronically Signed: William Washington MD at 9:31 EDT ,
== END | disposition home or self-care (01) ==
PROVIDERS: PCP Family Medicine Geriatric Medicine; Referring Provider Family Medicine Geriatric Medicine; Visit Provider Family Medicine Geriatric Medicine
DX: K74.60 Unspecified cirrhosis of liver (principal)
CPT/HCPCS: 76705; 76981

== ENCOUNTER → 2024-09-11 | Outpatient (CLI) | payer MEDICARE, OTHER, SELFPAY ==
[2021-02-02 08:54] VITALS: BMI 29.0
--- NOTE | 2024-09-11 07:00 | PET_ITS ---
EXAMINATION: FDG-PET/CT ? INDICATIONS: 74-year-old male with a history of hepatic parenchymal abnormality, presenting for initial examination. ? COMPARISON EXAMINATION: None available ? INDEX LESION SIZE SUV INTERPRETATION Right parotid space 10.3 mm 9.7 Fulfills quantitative criteria for viable neoplasm ? Right lobe hepatic parenchyma, Segment 43.3 mm 12.5, ratio >2.0 Fulfills quantitative criteria for viable neoplasm ? TECHNIQUE: Following the intravenous administration of 13.4 mCi of F-18 deoxyglucose via the right antecubital fossa, multiplanar image acquisitions of the head, neck, chest, abdomen and pelvis to the level of the midthigh, obtained at one-hour post radiopharmaceutical administration contemporaneously interpreted with the current CT of the chest, abdomen and pelvis dated 09/11/2024 via coregistration reveal: ? SERUM GLUCOSE LEVEL:? 118 mg/dL? HEIGHT:?? 70 inches WEIGHT:?? 242 pounds ? FINDINGS: ? HEAD/NECK:? Asymmetric increased tracer uptake is noted in the right parotid space.? The calculated standard uptake value 9.7.? The maximal axial diameter of the metabolic, morphologic abnormality is 10.3 mm.?? ? The visualized portion of the cerebral cortical-subcortical structures demonstrate symmetric and preserved glucose metabolism. ? CHEST:? There is no quantitative scintigraphic evidence of abnormal increased glucose metabolism within the context of the bilateral hemithorax pulmonary parenchyma, right and left hemithorax at the pleural interface, mediastinal structures, and left-right thoracic perihilum. The left ventricular myocardium visualization is consistent with the [place].? Prominent tracer uptake is noted in the descending thoracic aorta, commensurate with activated leukocytes associated with atherosclerotic plaque formation.? ? CT of the chest demonstrates the following anatomic characteristics: Atherosclerotic calcification is defined in the thoracic aorta without evidence of dilatation, aneurysm formation.? Coronary arterial calcification is observed.? There are no parenchymal densities-nodules defined in the right and left hemithorax with quantitatively significant glucose concentration. Subcentimeter noncalcified parenchymal density noted in the left upper lung field posteriorly is ametabolic.? Emphysematous changes are defined in the bilateral upper lung zones. ? ABDOMEN/PELVIS:? Facilitated FDG concentration is defined in the right lobe of the hepatic ( 3.3) parenchyma involving Segment .? The calculated standard uptake value 12.5.? The lesion:liver background ratio >2.0.? The maximal axial diameter of the metabolic abnormality is 43.3 mm.? Normal physiologic distribution of the radiopharmaceutical is identified in the splenic parenchyma, both renal units, urinary bladder, visualized intestinal tract. A horseshoe kidney is demonstrated. ? CT of the abdomen and pelvis is remarkable for the following: Atherosclerotic calcification is defined in the abdominal aorta without evidence of dilatation, aneurysm formation.? Abdominal-pelvic arterial calcification is observed.? Calcification is demonstrated in the base of the prostate gland.? Bilateral inguinal soft tissue densities are ametabolic. ? SKELETAL:? There is no evidence of quantitatively significant enhanced glucose metabolism on meticulous inspection of the appendicular and axial skeletal structures. ? Degenerative changes defined in the thoracic and lumbar spine demonstrate no evidence of increased glucose metabolism. There are no sclerotic, mixed sclerotic-lytic, or primarily lytic changes defined in the axial skeletal structures with evidence of increased FDG uptake. ? PET/PET/CT Tumor Base -Thigh Init IMPRESSION: 1. ABNORMAL EXAMINATION INDICATIVE MALIGNANT-VIABLE NEOPLASM. 2.? Increased tracer uptake noted in the right parotid space fulfills quantitative criteria for malignant transformation. Correlation with CT of the neck is recommended. 3.? The right lobe hepatic parenchymal hypermetabolic focus fulfills quantitative criteria for viable neoplasia. Electronic Signature Tony Hylton D.O. Accurate Quantification of SUVs for this report are calculated using the exclusive [employer]. (U.S. Patent No. [phone], [phone] B2 [phone] [place] patent [phone]). Standardization and correction of the FDG SUV metric via [employer] technology allow for vendor non-specific objective quantitative examination comparison and optimization of the sensitivity and specificity of the FDG PET-CT examination. [email or web address] Electronically Signed: Tony Hylton DO at 7:40 EDT ,
== END | disposition home or self-care (01) ==
LOC: ONC 06:43
PROVIDERS: PCP Family Medicine Geriatric Medicine; Referring Provider Family Medicine Geriatric Medicine; Visit Provider Family Medicine Geriatric Medicine
DX: R93.2 Abnormal findings on diagnostic imaging of liver and biliary tract (principal)
CPT/HCPCS: 78815; A9552

== ENCOUNTER → 2024-09-14 | Outpatient (CLI) | payer MEDICARE, OTHER, SELFPAY ==
[2021-02-02 08:54] VITALS: BMI 29.0
[2024-09-10 09:44] LABS: International Normalized Ratio 1.1; Prothrombin Time (Protime)PT. 14.3 SECONDS (11.7-14.9)
[2024-09-10 09:45] LABS: Partial Thromboplast Time 30.5 Seconds (24.1-36.2)
[2024-09-14] VITALS (12 sets, daily range): BP systolic 114–151; BP diastolic 61–89; PULSE 67–72; RESP 12–18; TEMP 36.5; O2SAT 92–98; BMI 33.0
--- NOTE | 2024-09-14 | ASPIGT_PTH ---
PATIENT: KE ARORA LOC: [place] U#:[id number] AGE/SX: 74/M ROOM: RE09/14/[address]: Dr. 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 The differential diagnosis includes Burkitt lymphoma. See comment. 09/21/2024 COMMENT The specimen is evaluated at the time of biopsy by Dr. Gentile. Immediate Evaluation = Malignant cells present. Immunohistochemistry ([id number]) supports the above diagnosis. Background liver parenchymal tissue also show cirrhosis. Trichrome stain with matched control is also used in the evaluation of the specimen. The specimen is sent to [facility] for expert opinion, reviewed by Dr. Jones and the above diagnosis is rendered. The complete report is viewable in the patient's EMR. Dr. Jones also commented that differential diagnosis includes Burkitt lymphoma (favored), high grade B-cell lymphoma, NOS, (HGBL, NOS) and double-hit B-cell lymphoma. The characterization may be aided by assessing for MYC and BLC2 gene rearrangements by the FISH method. If the FISH testing is required, please notify the laboratory. Flow cytometry study from [facility] shows no phenotypic evidence of lymphoma. The complete report is viewable in the patient's EMR. Case has been reviewed in consultation with Dr. Roper who concurs with the above diagnosis. IDC:AM MICROSCOPIC DESCRIPTION Slides are reviewed. GROSS DESCRIPTION Received in fixative is one container labeled with the patient's name and designated Liver biopsy. The specimen consists of multiple irregular fragments of rowley soft tissue that in aggregate measure 2.5 x 0.3 x 0.1 cm. The specimen is totally submitted in one cassette. Two touch imprints are prepared at the time of core biopsy. A core is also saved in [facility] for flow cytometry studies if needed. SJ 09/14/2024 TC:0 [facility]:[id number] ADDENDUM ADDENDUM ADDENDUM ADDENDUM ADDENDUM ADDENDUM ADDENDUM ADDENDUM ADDENDUM ADDENDUM ADDENDUM ADDENDUM ADDENDUM ADDENDUM ADDENDUM ADDENDUM 12/05/2024 08:25 ADDENDUM 12/05/2024 08:25 ADDENDUM 12/05/2024 08:25 ADDENDUM 12/05/2024 08:25 ADDENDUM 12/05/2024 08:25 This addendum is added to incorporate an outside pathology consultation report. The case was examined at [facility] (#[id number]) and the following diagnosis was rendered. Liver, CT guided core biopsy: Aggressive B cell lymphoma. See comment. COMMENT: The tissue block is requested for additional FISH studies for further characterization and to evaluate for the possibility of Burkitt lymphoma and high grade B-cell lymphoma with MYC and/or BCL2 gene rearrangements, otherwise known as the double hit or triple hit lymphomas. TdT and ELMA-ROLAND have also be performed. Results showing neoplastic cells are negative foe ELMA-ROLAND, TdT, and CD138. Please see complete above mentioned consultation report in EMR
--- NOTE | 2024-09-14 | IMM_PTH ---
PATIENT: KE ARORA LOC: CT U#:[id number] AGE/SX: 74/M ROOM: RE09/14/[address]: Dr. Aniket Moss MD : 1950 BED: DIS: 09/14/2024 SPEC #: [id number] RECD: 09/17/24 11:14 STATUS: RAMON REQ #: [id number] DOMINIQUE: 09/14/24 00:[address]: Aniket Moss Chi DEPT: IMMUNOHISTOCHEMISTRY RECD BY: Huber Aly Tissues: Liver, NOS Procedures: Synapto (add) BCL-2 (add) BCL-6 (add) CD10 (add) CD20 (add) CD23 (add) CD3 (add) CD30 (add) CD43 (add) CD45 (add) CD5 (add) CD56 (add) CD79A (add) CHROMO (add) CK8 (add) CYCLIN (add) KI-67 (add) TTF1 (add) MUM1 (add) C-MYC (add) Pankeratin (initial) PHYSICIAN & [address] [id number] SPECIMEN INFORMATION: Tissue Source: Liver mass Clinical Info: Liver mass Specimen Number: [id number] CPT code: 44573,66024m01 METHODOLOGY: Deparaffinized sections of prefer/formalin-fixed tissue or PAP/DQ stained slides are incubated with monoclonal/polyclonal antibodies/oligonucleotide probes. Localization is made via biotin free immunoperoxidase method. Appropriate controls are performed and reacted as expected. Results on target cell population are indicated in the following table: RESULTS: ANTIBODY / CLONE RESULT AE1-3 (AE1/AE3/PCK26) negative CK8 (09zrivR45) negative CD3 (PS1) negative CD5 (SP10) negative CD20 (L26) positive CD43 (L60) negative CD45 (RP2/18) positive CD79a (11E3) positive CD10 (56C6) positive CD23 (1B12) negative CD30 (Quang-H2) negative BCL-2 (bcl-2/100/D5) negative BCL-6 (VO678R/A8) positive Cyclin D1/BCL-1 (SP4) negative MUM1 (MRQ-43) positive (subset) C-MYC (Y69) positive, (~ 50%) CD56 (123C3.D5) negative Chromo (LK2H10) negative Synapto (polyclonal) negative TTF-1 (8G7G3/1) negative Ki-67 (30-9) positive, high >90% These tests were developed and their performance characteristics determined by [facility]. They may not have been cleared or approved by the U.S. Food and Drug Administration. The FDA has determined that such clearance or approval is not necessary. The above immunohistochemical/dualISH markers are ordered and reviewed by the Pathologist. 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 Differential diagnosis includes Burkitt lymphoma. See comment. COMMENT: This specimen was sent to [facility] for expert opinion and reviewed by Dr. Jones and above diagnosis is rendered. Case has been reviewed in consultation with Dr. Roper who concurs with the above diagnosis. IDC:ZAHRA Grace 09/21/2024
[2024-09-14] MEDS: Midazolam 2 MG/2 ML Syringe IV ×2 (09:08→09:17)
[2024-09-14] MEDS: fentaNYL 100 MCG/2 ML Ampul IV (09:09)
[2024-09-14] MEDS: Lidocaine 2% (20 ml mdv) 20 ML Vial INFILT (09:19)
--- NOTE | 2024-09-14 09:59 | PCM.OP.PRO ---
Procedure Report Date of Procedure: 09/14/24 Assessment & Plan Assessment/Plan (1) Liver mass: PLAN: PROCEDURE: CT DIRECTED CORE LIVER BIOPSY ORDERING PROVIDER: Dr. Moss INDICATION: Male, 74 years old. Liver mass. PROVIDER: DHEERAJ Aguilar CONSENT: Written informed consent was obtained having explained the risks, benefits and alternatives in detail with the patient who accepted the risks and agreed to proceed. Laboratory review and clinical assessment was performed. PRE-PROCEDURE SEDATION ASSESSMENT: Current history and physical dictated by referring provider and reviewed. No clinical changes since date of exam. Patient has a Mallampati Score of Class 3 and ASA Class of 3. PROCEDURAL SEDATION PROTOCOL: The Drugs used were: 2 mg Versed, IV, and 50 mcg Fentanyl, IV. The sedation time was: 20 minutes, starting at 9:08 AM and terminated at 9:28 AM. The procedural sedation protocol was independently monitored by the department nurse. RADIATION DOSAGE (If Supplied By Facility): CTDIvol = 24.07 mGy, DLP = 684.38 mGycm Individualized dose optimization techniques were used for this CT. TECHNIQUE The patient was placed in a supine position. Using CT image guidance with image documentation, the right inferior posterior lobe mass of the liver was identified. The skin surface was prepped with chlorhexidine and draped in a sterile fashion. 2% lidocaine was used for local anesthesia. Using a lateral approach, puncture of the liver was uneventful with an 18-gauge core needle system. 5, 18-gauge core samples were obtained, and submitted in formalin to the pathologist for further assessment. The needle was removed. An occlusive sterile dressing was applied. Patient tolerated the procedure well, and returned to the holding bay for nursing monitoring. IMPRESSION: CT directed core needle biopsy of the liver mass, using CT image guidance with image documentation as described. Procedural Sedation protocol utilized with independent monitoring. Procedures Radiology Radiology CT Procedures: [id number] Biopsy Liver Multi Select Codes Radiology Radiology CT Procedures: [id number] CT guidance parenchymal tissue
== END | disposition home or self-care (01) ==
PROVIDERS: PCP Family Medicine Geriatric Medicine; Referring Provider Family Medicine Geriatric Medicine; Visit Provider Family Medicine Geriatric Medicine
DX: C85.89 Other specified types of non-Hodgkin lymphoma, extranodal and solid organ sites (principal); K70.30 Alcoholic cirrhosis of liver without ascites; I11.0 Hypertensive heart disease with heart failure; I50.32 Chronic diastolic (congestive) heart failure; K76.0 Fatty (change of) liver, not elsewhere classified; I25.10 Atherosclerotic heart disease of native coronary artery without angina pectoris; E78.5 Hyperlipidemia, unspecified; Z95.5 Presence of coronary angioplasty implant and graft; Z79.02 Long term (current) use of antithrombotics/antiplatelets; Z79.899 Other long term (current) drug therapy; Z85.21 Personal history of malignant neoplasm of larynx; Z87.891 Personal history of nicotine dependence
CPT/HCPCS: 47000; 36415; 77012; 85610; 85730; 88172; 88305; 88307; 88313; 88341; 88342; 99156; A4216

== ENCOUNTER → 2024-09-17 | Outpatient (CLI) | payer MEDICARE, OTHER, SELFPAY ==
[2021-02-02 08:54] VITALS: BMI 29.0
--- NOTE | 2024-09-17 13:59 | CT_ITS ---
INDICATION: MASS OF RIGHT PAROTID GLAND EXAMINATION: CT NECK WITH CONTRAST - CT Soft Tissue Neck W/ Contrast Injection TECHNIQUE: Helically acquired images were obtained of the neck following IV contrast. The protocol utilizes one or more of the following dose reduction techniques: automated exposure control, adjustment of mA and/or kV according to patient size,and/or use of iterative reconstruction technique. IV Contrast dosage and agent: 100 cc of Isovue-300 RADIATION DOSAGE (If Supplied By Facility): CTDIvol = ( 17.92 ) mGy, DLP = ( 570.53 ) mGycm COMPARISON: No relevant prior comparison study available FINDINGS: NASOPHARYNX: Unremarkable. SUPRAHYOID NECK: Unremarkable oropharynx, oral cavity, parapharyngeal space, and retropharyngeal space. INFRAHYOID NECK: Unremarkable larynx, hypopharynx, and supraglottis. THYROID: No focal lesions. SALIVARY GLANDS: None millimeters enhancing nodule in the right parotid gland corresponding to the PET scan abnormality. The submandibular glands are unremarkable. LYMPH NODES: No cervical or supraclavicular lymphadenopathy. VASCULAR STRUCTURES: Atherosclerotic calcifications of the carotid arteries bilaterally including the cavernous internal carotid arteries. VISUALIZED PORTIONS OF THE ORBITS, PARANASAL SINUSES, MASTOID AIR CELLS AND SKULL BASE: Unremarkable. BONES: Unremarkable. THORACIC INLET: Clear lung apices. CT/Soft Tissue Neck WITH Contrast IMPRESSION: Enhancing nodule in the right parotid gland corresponding to the PET scan abnormality. No evidence for adenopathy. Electronically Signed: Bobby Haq MD at 15:27 EDT ,
== END | disposition home or self-care (01) ==
LOC: CT 13:54
PROVIDERS: PCP Family Medicine Geriatric Medicine; Referring Provider Family Medicine Geriatric Medicine; Visit Provider Family Medicine Geriatric Medicine
DX: K11.8 Other diseases of salivary glands (principal)
CPT/HCPCS: 70491; Q9967

== ENCOUNTER → 2024-09-19 | Outpatient (CLI) | payer MEDICARE, OTHER, SELFPAY ==
[2021-02-02 08:54] VITALS: BMI 29.0
[2024-09-19 18:07] LABS: Hematocrit 42.7 % (40-54); Hemoglobin 14.4 g/dL (13.0-16.5); Mean Corp Hgb Conc 33.7 g/dL (32-36); Mean Corpuscular Hgb 31.5 pg (27.0-32.0); Mean Corpuscular Volume 93.4 fL (80-94); Mean Platelet Vol. 10.7 fl (6.2-12.0); Platelet Count 132 K/mm3 (150-450); RBC Distribution Width SD 44.6 fl (35.1-43.9); Red Blood Count 4.57 M/mm3 (4.6-6.2); White Blood Count 4.6 K/mm3 (4.4-11.0)
[2024-09-19 18:14] LABS: Prothrombin Time (Protime)PT. 13.5 SECONDS (11.7-14.9)
[2024-09-19 18:16] LABS: Partial Thromboplast Time 29.7 Seconds (24.1-36.2)
[2024-09-20 02:24] LABS: Hepatitis B Surface Antigen Non-Reactive (Nonreactive); Hepatitis C Antibody Non-Reactive (Nonreactive)
[2024-09-21 10:58] LABS: AFP, Tumor Marker 3.4 ng/mL (0.0-8.4)
== END | disposition home or self-care (01) ==
LOC: MTLAB 15:59
PROVIDERS: PCP Family Medicine Geriatric Medicine; Referring Provider Internal Medicine Gastroenterology; Visit Provider Internal Medicine Gastroenterology
DX: K74.60 Unspecified cirrhosis of liver (principal)
CPT/HCPCS: 36415; 82105; 85027; 85610; 85730; 86803; 87340

== ENCOUNTER → 2024-10-03 | Outpatient (CLI) | payer MEDICARE, OTHER, SELFPAY ==
[2021-02-02 08:54] VITALS: BMI 29.0
== END | disposition home or self-care (01) ==
LOC: CVS 12:43
PROVIDERS: PCP Family Medicine Geriatric Medicine; Referring Provider Internal Medicine Medical Oncology; Visit Provider Internal Medicine Medical Oncology
DX: Z01.818 Encounter for other preprocedural examination (principal); I34.81 Nonrheumatic mitral (valve) annulus calcification; Z79.899 Other long term (current) drug therapy
CPT/HCPCS: 93306; Q9957; A4216; C8929

== ENCOUNTER → 2024-10-09 | Outpatient (CLI) | payer MEDICARE, OTHER, SELFPAY ==
[2021-02-02 08:54] VITALS: BMI 29.0
[2024-10-09 07:08] LABS: CREATININE FINGERSTICK < 1.0 mg/dL (0.70-1.30); EGFR FINGERSTICK > 60.0000 mL/min (>60)
== END | disposition home or self-care (01) ==
LOC: MRI 06:28
PROVIDERS: PCP Family Medicine Geriatric Medicine
DX: C83.79 Burkitt lymphoma, extranodal and solid organ sites (principal)
CPT/HCPCS: 70553; A9575

== ENCOUNTER 2024-10-22 08:37 | Outpatient (CLI) | payer MEDICARE, OTHER, SELFPAY ==
[2021-02-02 08:54] VITALS: BMI 29.0
[2024-10-22 09:09] LABS: Hematocrit 35.5 % (40-54); Hemoglobin 12.5 g/dL (13.0-16.5); Mean Corp Hgb Conc 35.2 g/dL (32-36); Mean Corpuscular Hgb 31.3 pg (27.0-32.0); Mean Platelet Vol. 10.4 fl (6.2-12.0); POSITIVE COUNT YES; POSITIVE DIFFERENTIAL YES; POSITIVE MORPHOLOGY YES; Platelet Count 83 K/mm3 (150-450); RBC Distribution Width CV 12.4 % (11.6-14.6); RBC Distribution Width SD 40.3 fl (35.1-43.9); Red Blood Count 3.99 M/mm3 (4.6-6.2); White Blood Count 14.4 K/mm3 (4.4-11.0)
[2024-10-22 09:14] LABS: Differential Indicated MANUAL DIFF
[2024-10-22 09:20] LABS: Anion Gap 7 (5-15); BUN 13 mg/dL (7-18); BUN/Creat Ratio 14.3 RATIO (10-20); Calcium,Total 8.3 mg/dL (8.5-10.1); Chloride 104 mmol/L (98-107); Creatinine, Serum 0.91 mg/dL (0.70-1.30); EST Glomerular Filtration Rate 87 mL/min (>60); Est Glom Filt Rate - Afr Amer 105 mL/min (>60); Glucose 113 mg/dL (74-106); Potassium 2.9 mmol/L (3.5-5.1); Sodium Level 136 mmol/L (136-145)
[2024-10-22 10:08] LABS: Eosinophil 2 % (0-5); Lymphocyte 6 % (19-41); Neutrophil-Band 3 % (0-5); Neutrophil-Segmented 89 % (47-70); Total Cells Counted 100 (MANUAL DIFF)
[2024-10-22 10:09] LABS: Platelet Estimate MOD DEC (ADEQ); Red Cell Morphology NORM C+C NORMAL (NORM C&C); Vacuolated Cells 1+
[2024-10-22 10:10] LABS: Absolute Lymphocyte Count 0.86 X10^3/uL (0.83-4.51); Absolute Neutrophil Count 13.2 X10^3/uL (2.0-7.7)
[2024-10-22 10:11] LABS: Dohle Bodies 1+
[2024-10-22 17:02] LABS: Xtra CC BBK (Onc ONLY) EXTRA TUBE
[2024-10-23 15:12] LABS: Pathologist Review Reviewed
== END 2024-10-22 23:59 | disposition home or self-care (01) ==
LOC: MEDOUTP 08:37
PROVIDERS: PCP Family Medicine Geriatric Medicine; Referring Provider Nurse Practitioner Family; Visit Provider Nurse Practitioner Family
DX: Z45.2 Encounter for adjustment and management of vascular access device (principal); C83.79 Burkitt lymphoma, extranodal and solid organ sites
CPT/HCPCS: 36591; 80048; 85025; A4216

== ENCOUNTER 2024-10-22 12:16 | Emergency (ER) | payer MEDICARE, OTHER, SELFPAY ==
[2021-02-02 08:54] VITALS: BMI 29.0
[2024-10-22 12:17] VITALS: BP 116/102; PULSE 98; RESP 16; TEMP 36.2; O2SAT 97; BMI 34.4
--- NOTE | 2024-10-22 12:47 | EDS_ITS ---
HPI History of Present Illness Chief Complaint: Abn Labs [facility] Medical History Unspecified cirrhosis of liver Parotid mass Wears dentures Wears glasses Cancer Alcohol use Thyroid disease Arthritis High cholesterol Gastric reflux Former smoker CPAP (continuous positive airway pressure) dependence Sleep apnea Shortness of breath on exertion History of stress test History of echocardiogram Cardiology follow-up encounter History of irregular heartbeat History of tobacco use Encounter for screening for malignant neoplasm of lung Pneumonia due to COVID-19 virus (01/15/21) Hypothyroidism Essential (primary) hypertension Odynophagia 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 Squamous cell carcinoma Deviated nasal septum Vocal cord mass Abnormal electrocardiogram Hoarseness of voice Emphysema of lung Lung nodule Hyperlipidemia Cervical disc disease GERD (gastroesophageal reflux disease) Osteoarthritis Tobacco abuse disorder Home Medications ?Medication ?Instructions ?Recorded ?Last Taken ?Type pantoprazole 40 mg tablet,delayed 40 mg PO DAILY reflux 08/21/20 03/07/24 History release levothyroxine 137 mcg tablet 137 mcg PO DAILY 08/19/22 03/06/24 History clopidogrel 75 mg tablet 75 mg PO DAILY #90 tabs 08/24/23 02/29/24 Rx metoprolol succinate 50 mg 50 mg PO DAILY BP #90 tabs 08/24/23 03/07/24 Rx tablet,extended release 24 hr spironolactone 25 mg tablet 25 mg PO DAILY #90 tabs 08/24/23 03/06/24 Rx rosuvastatin 40 mg tablet 40 mg PO QHS 02/21/24 03/06/24 History acetaminophen 500 mg tablet 1,000 mg (2 x 500 mg) PO Q8 #180 03/08/24 Unknown Rx tabs albuterol sulfate 90 mcg/actuation 2 puff inhalation Q6H PRN 03/21/24 Unknown History aerosol inhaler shortness of breath or wheezing aspirin 81 mg chewable tablet 81 mg PO QDAY 05/01/24 Unknown History isosorbide mononitrate 60 mg 60 mg PO DAILY #90 TABLETS 10/01/24 Unknown Rx tablet,extended release 24 hr losartan 25 mg tablet 25 mg PO DAILY #90 TABLETS 10/01/24 Unknown Rx Allergy/AdvReac Type Severity Reaction Status Date / Time No Known Allergies Allergy Verified 10/22/24 12:17 Family History Father Stomach cancer Dementia Mother Breast cancer Arthritis Sister Heart disease Surgical History Status post total replacement of right shoulder History of back surgery Cataract (lens) fragments in eye following cataract surgery, bilateral History of coronary artery stent placement (11/26/20) History of left heart catheterization (01/04/22) vocal cord biopsy (08/29/20) History of nasal septoplasty (08/29/20) History of bunionectomy History of tonsillectomy Social History household members: spouse Smoking Status: Former smoker quit date: 01/26/19 pack-years: 45 alcohol intake: current alcohol intake frequency: a few times a month Alcohol type: beer substance use type: does not use EXAM Physical Exam Const Vital Signs: 10/22/24 12:17 10/22/24 14:26 Temperature 97.2 F L Temperature Source Oral Pulse Rate 98 92 Respiratory Rate 16 20 H Blood Pressure 116/102 H Blood Pressure Mean 106 Pulse Ox 97 Oxygen Delivery Method Room Air MDM MDM MDM Narrative Medical decision making narrative: HISTORY OF PRESENT ILLNESS: 74-year-old male presents with concern for hypokalemia. Notes he is currently going chemotherapy for liver cancer. Notes he is getting this in [place]. States having severe muscle aches. Notes he lowers his 1 which showed a potassium level 2.9. He further states REVIEW OF SYSTEMS: Pertinent positives: Muscle aches Pertinent negatives: Palpitations, syncope PHYSICAL EXAM: Nursing triage notes reviewed, Vital signs reviewed Constitutional: please see mdm HENT: MMM Eyes: Pupils equal round and reactive to light, Extraocular muscles intact Neck: No stridor, no JVD, full neck ROM Lungs: Clear to auscultation, No wheezing or rales. No increased work of breathing, no conversational dyspnea, no accessory muscle use, no nasal flaring. No respiratory distress noted Heart: Regular rate and rhythm, No murmurs, No rubs and No gallops, 2+ distal pulses (radial, femoral, posterior tibial) in all extremities Abdomen: Soft, there is no tenderness, rigidity, rebound or guarding, no obvious peritoneal signs, no palpable pulsatile abdominal masses, no auscultated abdominal bruit : No CVAT Extremities: No edema arms are soft Neuro: No focal neurological deficits, cranial nerves II through XII intact, 5/5 strength in all extremities. Intact sensation to light touch in all extremities, 2+ reflexes bilateral patella tendons. Normal gait. No ataxia. Skin: No rash or lesions noted MEDICAL DECISION MAKING: Chief Complaint: Muscle aches External records reviewed: Past labs reviewed CBC from this morning showed a wh ite count of 14.4, slight anemia 12.5, thrombocytopenia BMP with hypokalemia 2.9 no prior for comparison, no other significant left- sided maladies or acute kidney injury noted Factors affecting care: none Social determinants of health: none History obtained from others: none Consults: none MDM Narrative: Patient was initially hemodynamically stable, afebrile and nontoxic appearing. Exam without focal abnormalities, I considered the following differential diagnosis: Electrolyte abnormality ALL IMAGES (IF OBTAINED) HAVE BEEN PERSONALLY REVIEWED AND INTERPRETED BY MYSELF. EKG is normal sinus rhythm, normal axis, prolonged QT interval, no STEMI CMP with hypokalemia that is stable, no evidence of kidney dysfunction or liver dysfunction Patient was treated with 60 mg of oral potassium. Encouraged to eat additional potassium containing foods and drinks including spinach, kale, gallop, banana, Body Armor. Return precautions were discussed. Follow-up instructions were given. The patient and/or family, caregivers express understanding. The patient and/or family, caregivers agrees with the plan. Shared decision making: I will have a discussion with the patient and or visitors regarding risk/benefits of further testing or admission. They will be made aware of of the risk/benefits inherent in this decision they will be given the opportunity to voice understanding. Total critical care time today provided was at least 0 minutes. This excludes separately billable procedures. Critical care time (if documented) is secondary to the patient having high probability of clinically significant/life threatening deterioration in the patient's condition which required my urgent intervention. Impression: 1. Hypokalemia 2. History of liver cancer 3. Currently undergoing chemotherapy Dispo: Discharge This note was generated with [employer] dictation software. It may contain incorrect words, spelling, and punctuation that were not noted in review of the chart p rior to signing. Lab Data Labs: Laboratory Results - last 24 hr 10/22/24 14:30 Sodium 136 Potassium 2.9 L Chloride 105 Carbon Dioxide 24.0 Anion Gap 7 BUN 14 Creatinine 0.90 Estim Creat Clear Calc 91.66 Est GFR (MDRD) Af Amer 107 Est GFR (MDRD) Non-Af 88 BUN/Creatinine Ratio 15.6 Glucose 135 H Calcium 8.2 L Total Bilirubin 0.80 AST 17 ALT 34 Alkaline Phosphatase 59 Total Protein 6.0 L Albumin 3.3 Globulin 2.7 Albumin/Globulin Ratio 1.2 Discharge Plan Triage Chief Complaint: Abn Labs ED Provider: Higinio Dominguez Dx/Rx/DC Orders Clinical Impression: Hypokalemia Instructions: ED Hyperkalemia, ED Potassium-Rich Foods Prescriptions: No Action levothyroxine 137 mcg tablet 137 mcg PO DAILY Patient Comments: TAKE 1 TABLET BY MOUTH EVERY DAY IN THE MORNING ON AN EMPTY STOMACH clopidogrel 75 mg tablet 75 mg PO DAILY Qty: 90 3RF Patient Comments: HOLD 5 DAYS PRIOR TO SURGERY metoprolol succinate 50 mg tablet extended release 24 hr 50 mg PO DAILY Qty: 90 3RF spironolactone 25 mg tablet 25 mg PO DAILY Qty: 90 3RF aspirin 81 mg tablet,chewable 81 mg PO QDAY albuterol sulfate 90 mcg/actuation HFA aerosol inhaler 2 puff inhalation Q6H PRN (Reason: shortness of breath or wheezing) pantoprazole 40 MG tablet 40 mg PO DAILY Patient Comments: GERD rosuvastatin 40 mg tablet 40 mg PO QHS acetaminophen 500 mg Tablet 1,000 mg PO Q8 Qty: 180 0RF isosorbide mononitrate 60 mg tablet extended release 24 hr 60 mg PO DAILY Qty: 90 3RF losartan 25 mg tablet 25 mg PO DAILY Qty: 90 3RF Primary Care Provider: Aniket Moss Chi Referrals: Aniket Moss Chi, MD [Primary Care Provider] - Activity Restrictions/Additional Instructions: Thank you for trusting us with your care today! Please take Tylenol (2 pills, 650 mg), ibuprofen (2 pills, 400 mg) every 6 hours as needed for pain and fever control. Please eat a potassium rich diet. Easy source of potassium at home include bananas, cantaloupe, spinach, kale, Body Armor, Pedialyte. Please return to the emergency department if your symptoms change or worsen. Please follow with your primary care physician for further outpatient evaluation and management. Print Language: Wolof Disposition Disposition: Home, Self Care
--- NOTE | 2024-10-22 13:17 | EKG12_ITS ---
Test Reason : [facility] LABS Blood Pressure : */* mmHG Vent. Rate : 86 BPM Atrial Rate : 86 BPM P-R Int : 152 ms QRS Dur : 84 ms QT Int : 408 ms P-R-T Axes : 30 21 -15 degrees QTcB Int : 488 ms Normal sinus rhythm Normal ECG Baseline artifact Confirmed by Abelardo Enriquez ([id number]), news video editor OLAYINKA BEGUM ([id number]) on 10/23/2024 10:38:58 AM Referred By: Confirmed By: Abelardo Enriquez
[2024-10-22] MEDS: Potassium Chloride Oral Tablet 20 MEQ 60 MEQ PO (13:24)
[2024-10-22 14:26] VITALS: PULSE 92; RESP 20
[2024-10-22 15:07] LABS: ALB/GLOB Ratio 1.2 RATIO (0.9-2.4); AST(SGOT) 17 U/L (15-37); Alanine Aminotransfer ALT/SGPT 34 U/L (16-61); Albumin, Serum 3.3 g/dL (3.2-5.0); Alkaline Phosphatase 59 U/L (45-117); Anion Gap 7 (5-15); BUN 14 mg/dL (7-18); BUN/Creat Ratio 15.6 RATIO (10-20); Calcium,Total 8.2 mg/dL (8.5-10.1); Chloride 105 mmol/L (98-107); EST Glomerular Filtration Rate 88 mL/min (>60); Est Glom Filt Rate - Afr Amer 107 mL/min (>60); Estimated Creatinine Clearance 91.66 ml/min; Globulin 2.7 g/dL (2.2-4.2); Glucose 135 mg/dL (74-106); Potassium 2.9 mmol/L (3.5-5.1); Sodium Level 136 mmol/L (136-145)
[2024-10-22 15:43] VITALS: BP 110/63; PULSE 85; RESP 16; TEMP 36.8; O2SAT 93
== END 2024-10-22 15:43 | disposition home or self-care (01) ==
PROVIDERS: Emergency Provider Emergency Medicine; PCP Family Medicine Geriatric Medicine; Visit Provider Emergency Medicine
DX: E87.6 Hypokalemia (principal); C83.79 Burkitt lymphoma, extranodal and solid organ sites; I25.10 Atherosclerotic heart disease of native coronary artery without angina pectoris; I10 Essential (primary) hypertension; E78.00 Pure hypercholesterolemia, unspecified; Z95.5 Presence of coronary angioplasty implant and graft; Z79.899 Other long term (current) drug therapy; Z86.16 Personal history of COVID-19; Z87.891 Personal history of nicotine dependence
CPT/HCPCS: 36591; 80048; 80053; 85025; 93005; 99282; A4216

== ENCOUNTER 2024-10-24 09:44 | Outpatient (CLI) | payer MEDICARE, OTHER, SELFPAY ==
[2021-02-02 08:54] VITALS: BMI 29.0
[2024-10-24 10:21] LABS: Hematocrit 36.4 % (40-54); Hemoglobin 12.6 g/dL (13.0-16.5); Mean Corp Hgb Conc 34.6 g/dL (32-36); Mean Corpuscular Volume 89.7 fL (80-94); Mean Platelet Vol. 10.5 fl (6.2-12.0); POSITIVE COUNT YES; POSITIVE DIFFERENTIAL YES; POSITIVE MORPHOLOGY YES; Platelet Count 55 K/mm3 (150-450); RBC Distribution Width CV 12.6 % (11.6-14.6); RBC Distribution Width SD 41.6 fl (35.1-43.9); Red Blood Count 4.06 M/mm3 (4.6-6.2); White Blood Count 1.7 K/mm3 (4.4-11.0)
[2024-10-24 10:28] LABS: Differential Indicated MANUAL DIFF
[2024-10-24 10:30] LABS: Anion Gap 6 (5-15); BUN 10 mg/dL (7-18); BUN/Creat Ratio 11.9 RATIO (10-20); Calcium,Total 8.2 mg/dL (8.5-10.1); Chloride 105 mmol/L (98-107); Creatinine, Serum 0.84 mg/dL (0.70-1.30); EST Glomerular Filtration Rate 96 mL/min (>60); Est Glom Filt Rate - Afr Amer 116 mL/min (>60); Glucose 117 mg/dL (74-106); Potassium 3.7 mmol/L (3.5-5.1); Sodium Level 135 mmol/L (136-145)
[2024-10-24 11:06] LABS: Eosinophil 5 % (0-5); Lymphocyte 16 % (19-41); Neutrophil-Segmented 79 % (47-70); Total Cells Counted 100 (MANUAL DIFF)
[2024-10-24 11:13] LABS: Absolute Lymphocyte Count 0.27 X10^3/uL (0.83-4.51); Absolute Neutrophil Count 1.3 X10^3/uL (2.0-7.7); Dohle Bodies 1+; Toxic Granulation 1+
[2024-10-24 11:14] LABS: Platelet Estimate MOD DEC (ADEQ); Red Cell Morphology NORM C+C NORMAL (NORM C&C)
[2024-10-24 14:33] LABS: Pathologist Review Reviewed
[2024-10-24 18:09] LABS: Xtra CC BBK (Onc ONLY) EXTRA TUBE
== END 2024-10-24 23:59 | disposition home or self-care (01) ==
LOC: MEDOUTP 09:44
PROVIDERS: PCP Family Medicine Geriatric Medicine; Referring Provider Nurse Practitioner Family; Visit Provider Nurse Practitioner Family
DX: Z45.2 Encounter for adjustment and management of vascular access device (principal); C83.79 Burkitt lymphoma, extranodal and solid organ sites
CPT/HCPCS: 36591; 80048; 85025; A4216

== ENCOUNTER 2024-10-28 11:36 | Inpatient (IN) | payer MEDICARE, OTHER, SELFPAY ==
[2021-02-02 08:54] VITALS: BMI 29.0
[2024-10-28] VITALS (14 sets, daily range): BP systolic 83–124; BP diastolic 61–80; PULSE 94–106; RESP 15–27; TEMP 35.7–37.1; O2SAT 88–96; BMI 33.5; BMI 32.8
[2024-10-28 12:17] LABS: Absolute Lymphocyte Count 0.29 X10^3/uL (0.83-4.51); Absolute Neutrophil Count 4.7 X10^3/uL (2.0-7.7); Basophil# 0.02 X10^3/uL; Basophil% 0.4 % (0-1); Eosinophil# 0.01 X10^3/uL; Eosinophils% 0.2 % (0-5); Hematocrit 35.4 % (40-54); Hemoglobin 12.3 g/dL (13.0-16.5); Lymphocyte # 0.29 X10^3/ul (0.83-4.51); Lymphocyte % 5.1 % (19-41); Mean Corp Hgb Conc 34.7 g/dL (32-36); Mean Corpuscular Volume 89.2 fL (80-94); Mean Platelet Vol. 10.3 fl (6.2-12.0); Monocyte# 0.55 X10^3/uL; Monocyte% 9.6 % (0-10); NRBC Flagged by Analyzer 0 % (0-5); Neutrophil # 4.71 X10^3/uL (2.7-7.7); Neutrophil % 82.4 % (47-70); POSITIVE COUNT YES; POSITIVE DIFFERENTIAL YES; POSITIVE MORPHOLOGY YES; Platelet Count 56 K/mm3 (150-450); RBC Distribution Width SD 42.6 fl (35.1-43.9); Red Blood Count 3.97 M/mm3 (4.6-6.2); White Blood Count 5.7 K/mm3 (4.4-11.0)
[2024-10-28 12:28] LABS: ALB/GLOB Ratio 0.8 RATIO (0.9-2.4); AST(SGOT) 54 U/L (15-37); Alanine Aminotransfer ALT/SGPT 60 U/L (16-61); Albumin, Serum 2.9 g/dL (3.2-5.0); Alkaline Phosphatase 69 U/L (45-117); Anion Gap 9 (5-15); BUN 16 mg/dL (7-18); BUN/Creat Ratio 11.9 RATIO (10-20); Calcium,Total 8.2 mg/dL (8.5-10.1); Chloride 96 mmol/L (98-107); Creatinine, Serum 1.35 mg/dL (0.70-1.30); EST Glomerular Filtration Rate 55 mL/min (>60); Est Glom Filt Rate - Afr Amer 67 mL/min (>60); Estimated Creatinine Clearance 60.32 ml/min; Globulin 3.7 g/dL (2.2-4.2); Glucose 127 mg/dL (74-106); Potassium 3.8 mmol/L (3.5-5.1); Protein, Total 6.6 g/dL (6.4-8.2); Sodium Level 128 mmol/L (136-145); Troponin-I HS 8 pg/mL (3.0-78.0)
[2024-10-28 12:35] LABS: International Normalized Ratio 1.2; Prothrombin Time (Protime)PT. 14.9 SECONDS (11.7-14.9)
[2024-10-28 13:09] LABS: Differential Comment SCANNED; Differential Indicated SCAN CRITERIA MET
[2024-10-28] MEDS: MethylPREDNISolone 125 MG/2 ML Vial IV (13:24)
[2024-10-28] MEDS: Albuterol 2.5 MG/3 ML VIAL.NEB. INHALATION (13:26)
[2024-10-28] MEDS: Ipratropium/Albuterol Sulfate 3 ML AMPUL.NEB INHALATION ×2 (13:26→19:24)
[2024-10-28] MEDS: 0.9% Normal Saline (500mL Bag) 500 ML 999 ML IV (14:04)
[2024-10-28 14:46] LABS: Bacteria 0 SEEN /hpf (None Seen); Mucous, Urine 0 SEEN /hpf (<or=2+); Red Blood Cells-Urine 0 SEEN /hpf (0-5)
[2024-10-28 14:50] LABS: Color, Urine Yellow (Yellow); Glucose, Dipstick Normal (Normal); Ketone-Dipstick Negative (Negative); Leukocyte Esterase-Dipstick 25 /ul (Negative); Nitrite-Dipstick Negative (Negative); Occult Blood-Urine 150 /ul (Negative); Protein-Dipstick 100 mg/dl (Negative); Urine Bilirubin Dipstick Negative (Negative); Urine Clarity Clear (Clear); Urine Urobilinogen 4 mg/dl (Normal); Urine pH 6.5 (5.0 - 8.0)
[2024-10-28 15:00] LABS: White Blood Cells 0-5 SEEN /hpf (0-5)
[2024-10-28 15:01] LABS: Squamous Epithelial Cells - UA 0-5 SEEN /hpf (0-5)
[2024-10-28 15:40] LABS: Magnesium 1.9 mg/dL (1.6-2.6); Phosphorus 1.7 mg/dL (2.5-4.9)
[2024-10-28 16:29] LABS: Procalcitonin 0.35 ng/mL (0.00-0.09)
[2024-10-28] MEDS: 0.9% Normal Saline (1000mL) 1,000 ML 100 ML IV (16:32)
[2024-10-28] MEDS: NYSTATIN 500,000 UNIT/5 ML UDC 500000 UNIT PO ×2 (18:48→20:27)
[2024-10-28] MEDS: Atorvastatin Calcium 80 MG Tablet PO (20:25)
[2024-10-28] MEDS: Acyclovir 200 MG Capsule 400 MG PO (20:25)
[2024-10-28] MEDS: Famotidine 20 MG Tablet PO (20:26)
[2024-10-29] MEDS: 0.9% Normal Saline (1000mL) 1,000 ML 100 ML IV (02:32)
[2024-10-29 05:29] VITALS: BP 123/72; PULSE 74; RESP 18; TEMP 36.6; O2SAT 97; BMI 32.8
[2024-10-29] MEDS: Levothyroxine 137 MCG Tablet PO (05:30)
[2024-10-29 06:47] LABS: Absolute Lymphocyte Count 0.33 X10^3/uL (0.83-4.51); Absolute Neutrophil Count 5.7 X10^3/uL (2.0-7.7); Basophil# 0.02 X10^3/uL; Basophil% 0.3 % (0-1); Hematocrit 34.3 % (40-54); Hemoglobin 11.9 g/dL (13.0-16.5); Lymphocyte # 0.33 X10^3/ul (0.83-4.51); Lymphocyte % 4.9 % (19-41); Mean Corp Hgb Conc 34.7 g/dL (32-36); Mean Corpuscular Hgb 30.9 pg (27.0-32.0); Mean Corpuscular Volume 89.1 fL (80-94); Mean Platelet Vol. 11.5 fl (6.2-12.0); Monocyte# 0.51 X10^3/uL; Monocyte% 7.5 % (0-10); NRBC Flagged by Analyzer 0 % (0-5); Neutrophil # 5.72 X10^3/uL (2.7-7.7); Neutrophil % 84.1 % (47-70); POSITIVE COUNT YES; POSITIVE DIFFERENTIAL YES; POSITIVE MORPHOLOGY YES; Platelet Count 67 K/mm3 (150-450); RBC Distribution Width CV 13.1 % (11.6-14.6); RBC Distribution Width SD 42.5 fl (35.1-43.9); Red Blood Count 3.85 M/mm3 (4.6-6.2); White Blood Count 6.8 K/mm3 (4.4-11.0)
[2024-10-29] MEDS: Ipratropium/Albuterol Sulfate 3 ML AMPUL.NEB INHALATION ×2 (06:58→10:26)
[2024-10-29 06:59] LABS: ALB/GLOB Ratio 0.7 RATIO (0.9-2.4); AST(SGOT) 35 U/L (15-37); Alanine Aminotransfer ALT/SGPT 52 U/L (16-61); Albumin, Serum 2.6 g/dL (3.2-5.0); Alkaline Phosphatase 68 U/L (45-117); Anion Gap 6 (5-15); BUN 12 mg/dL (7-18); BUN/Creat Ratio 14.5 RATIO (10-20); Calcium,Total 8.3 mg/dL (8.5-10.1); Chloride 103 mmol/L (98-107); Creatinine, Serum 0.83 mg/dL (0.70-1.30); EST Glomerular Filtration Rate 97 mL/min (>60); Est Glom Filt Rate - Afr Amer 117 mL/min (>60); Estimated Creatinine Clearance 97.13 ml/min; Globulin 3.6 g/dL (2.2-4.2); Glucose 171 mg/dL (74-106); Potassium 4.1 mmol/L (3.5-5.1); Protein, Total 6.2 g/dL (6.4-8.2); Sodium Level 133 mmol/L (136-145)
[2024-10-29 07:25] LABS: Differential Indicated SCAN CRITERIA MET
[2024-10-29 07:34] VITALS: PULSE 81; RESP 18
[2024-10-29 09:00] VITALS: BP 122/77; PULSE 107; RESP 18; TEMP 36.3; O2SAT 96
[2024-10-29 09:48] LABS: Platelet Estimate MOD DEC (ADEQ)
[2024-10-29] MEDS: Acyclovir 200 MG Capsule 400 MG PO (09:55)
[2024-10-29] MEDS: Pantoprazole Sodium 40 MG Tablet PO (09:55)
[2024-10-29] MEDS: Clopidogrel Bisulfate 75 MG Tablet PO (09:55)
[2024-10-29] MEDS: Loratadine 10 MG Tablet PO (09:55)
[2024-10-29] MEDS: Smz/Tmp Ds Tablet 1 TABLET PO (09:56)
[2024-10-29] MEDS: Famotidine 20 MG Tablet PO (09:56)
[2024-10-29] MEDS: NYSTATIN 500,000 UNIT/5 ML UDC 500000 UNIT PO (09:56)
[2024-10-29] MEDS: Aspirin 81 MG TAB.CHEW PO (09:59)
[2024-10-29 10:38] VITALS: PULSE 84; RESP 17
[2024-10-29] MEDS: 0.9 % NaCl (Sterile) Posiflush 10 mL IV (12:24)
[2024-10-29 12:38] VITALS: BP 142/82; PULSE 102; RESP 18; TEMP 36.8; O2SAT 94
== END 2024-10-29 12:47 | disposition home or self-care (01) | DRG 190 ==
LOC: ED 15:07 → MS3 15:13
PROVIDERS: Physician Assistant; Admitting Provider Family Medicine; Emergency Provider Emergency Medicine; PCP Family Medicine Geriatric Medicine; Referring Provider Emergency Medicine; Visit Provider Internal Medicine
DX: J44.1 Chronic obstructive pulmonary disease with (acute) exacerbation (principal); E43 Unspecified severe protein-calorie malnutrition; C85.19 Unspecified B-cell lymphoma, extranodal and solid organ sites; E87.1 Hypo-osmolality and hyponatremia; N17.9 Acute kidney failure, unspecified; E83.39 Other disorders of phosphorus metabolism; D69.59 Other secondary thrombocytopenia; R62.7 Adult failure to thrive; K74.60 Unspecified cirrhosis of liver; D63.0 Anemia in neoplastic disease; I12.9 Hypertensive chronic kidney disease with stage 1 through stage 4 chronic kidney disease, or unspecified chronic kidney disease; E03.9 Hypothyroidism, unspecified; Z68.33 Body mass index [BMI] 33.0-33.9, adult; N18.2 Chronic kidney disease, stage 2 (mild); G47.33 Obstructive sleep apnea (adult) (pediatric); E87.8 Other disorders of electrolyte and fluid balance, not elsewhere classified; E86.1 Hypovolemia; I25.10 Atherosclerotic heart disease of native coronary artery without angina pectoris; E78.00 Pure hypercholesterolemia, unspecified; K21.9 Gastro-esophageal reflux disease without esophagitis; R09.02 Hypoxemia; E66.811 Obesity, class 1; Z95.5 Presence of coronary angioplasty implant and graft; Z79.02 Long term (current) use of antithrombotics/antiplatelets; Z79.82 Long term (current) use of aspirin; Z79.890 Hormone replacement therapy; Z79.899 Other long term (current) drug therapy; Z85.21 Personal history of malignant neoplasm of larynx; Z86.16 Personal history of COVID-19; Z87.891 Personal history of nicotine dependence
CPT/HCPCS: 71275; 80053; 81001; 83735; 84100; 84145; 84484; 85025; 85610; 87631; 87633; 92610; 93005; 94640; 94668; 97802; 99285; J7030; Q9967; A4216

== ENCOUNTER 2024-11-01 08:41 | Outpatient (CLI) | payer MEDICARE, OTHER, SELFPAY ==
[2021-02-02 08:54] VITALS: BMI 29.0
[2024-11-01 09:02] LABS: Hematocrit 33.4 % (40-54); Hemoglobin 11.3 g/dL (13.0-16.5); Mean Corp Hgb Conc 33.8 g/dL (32-36); Mean Corpuscular Volume 91.5 fL (80-94); Mean Platelet Vol. 10.3 fl (6.2-12.0); POSITIVE COUNT YES; POSITIVE DIFFERENTIAL YES; POSITIVE MORPHOLOGY YES; Platelet Count 168 K/mm3 (150-450); RBC Distribution Width CV 13.2 % (11.6-14.6); RBC Distribution Width SD 43.7 fl (35.1-43.9); Red Blood Count 3.65 M/mm3 (4.6-6.2)
[2024-11-01 09:06] LABS: Differential Indicated MANUAL DIFF
[2024-11-01 09:21] LABS: Anion Gap 6 (5-15); BUN 11 mg/dL (7-18); BUN/Creat Ratio 9.9 RATIO (10-20); Calcium,Total 8.3 mg/dL (8.5-10.1); Chloride 102 mmol/L (98-107); Creatinine, Serum 1.11 mg/dL (0.70-1.30); EST Glomerular Filtration Rate 69 mL/min (>60); Est Glom Filt Rate - Afr Amer 84 mL/min (>60); Glucose 93 mg/dL (74-106); Potassium 3.9 mmol/L (3.5-5.1); Sodium Level 133 mmol/L (136-145)
[2024-11-01 09:38] LABS: Lymphocyte 7 % (19-41); Metamyelocyte 1 % (0-1); Monocyte 6 % (0-10); Neutrophil-Band 1 % (0-5); Neutrophil-Segmented 85 % (47-70); Platelet Estimate ADEQUATE (ADEQ); Red Cell Morphology NORM C+C NORMAL (NORM C&C); Total Cells Counted 100 (MANUAL DIFF)
[2024-11-01 11:29] LABS: Phosphorus 2.7 mg/dL (2.5-4.9)
[2024-11-01 16:58] LABS: Xtra CC BBK (Onc ONLY) EXTRA TUBE
[2024-11-02 14:17] LABS: Pathologist Review Reviewed
== END 2024-11-01 23:59 | disposition home or self-care (01) ==
LOC: MEDOUTP 08:42
PROVIDERS: PCP Family Medicine Geriatric Medicine; Referring Provider Nurse Practitioner Family; Visit Provider Nurse Practitioner Family
DX: Z45.2 Encounter for adjustment and management of vascular access device (principal); C83.79 Burkitt lymphoma, extranodal and solid organ sites; E83.39 Other disorders of phosphorus metabolism
CPT/HCPCS: 36415; 36591; 80048; 84100; 85025; A4216

== ENCOUNTER 2024-11-12 08:37 | Outpatient (CLI) | payer MEDICARE, OTHER, SELFPAY ==
[2021-02-02 08:54] VITALS: BMI 29.0
[2024-11-12 09:04] LABS: Absolute Lymphocyte Count 0.11 X10^3/uL (0.83-4.51); Absolute Neutrophil Count 4.3 X10^3/uL (2.0-7.7); Basophil# 0.02 X10^3/uL; Basophil% 0.4 % (0-1); Eosinophil# 0.09 X10^3/uL; Hematocrit 30.7 % (40-54); Hemoglobin 10.4 g/dL (13.0-16.5); Lymphocyte # 0.11 X10^3/ul (0.83-4.51); Lymphocyte % 2.4 % (19-41); Mean Corp Hgb Conc 33.9 g/dL (32-36); Mean Corpuscular Volume 91.4 fL (80-94); Mean Platelet Vol. 9.5 fl (6.2-12.0); Monocyte# 0.01 X10^3/uL; Monocyte% 0.2 % (0-10); NRBC Flagged by Analyzer 0 % (0-5); Neutrophil # 4.28 X10^3/uL (2.7-7.7); Neutrophil % 93.3 % (47-70); POSITIVE DIFFERENTIAL YES; POSITIVE MORPHOLOGY YES; Platelet Count 163 K/mm3 (150-450); RBC Distribution Width CV 13.4 % (11.6-14.6); RBC Distribution Width SD 43.3 fl (35.1-43.9); Red Blood Count 3.36 M/mm3 (4.6-6.2); White Blood Count 4.6 K/mm3 (4.4-11.0)
[2024-11-12 09:07] LABS: Differential Indicated SCAN CRITERIA MET
[2024-11-12 09:09] LABS: Anion Gap 5 (5-15); BUN 15 mg/dL (7-18); BUN/Creat Ratio 17.4 RATIO (10-20); Chloride 109 mmol/L (98-107); Creatinine, Serum 0.86 mg/dL (0.70-1.30); EST Glomerular Filtration Rate 92 mL/min (>60); Est Glom Filt Rate - Afr Amer 112 mL/min (>60); Glucose 125 mg/dL (74-106); Potassium 3.9 mmol/L (3.5-5.1); Sodium Level 138 mmol/L (136-145)
[2024-11-12 16:55] LABS: Xtra CC BBK (Onc ONLY) EXTRA TUBE
== END 2024-11-12 23:59 | disposition home or self-care (01) ==
LOC: MEDOUTP 08:37
PROVIDERS: PCP Family Medicine Geriatric Medicine; Referring Provider Nurse Practitioner Family; Visit Provider Nurse Practitioner Family
DX: C83.79 Burkitt lymphoma, extranodal and solid organ sites (principal)
CPT/HCPCS: 36591; 80048; 85025; A4216

== ENCOUNTER 2024-11-15 08:28 | Outpatient (CLI) | payer MEDICARE, OTHER, SELFPAY ==
[2021-02-02 08:54] VITALS: BMI 29.0
[2024-11-15 08:54] LABS: Hematocrit 28.5 % (40-54); Hemoglobin 9.5 g/dL (13.0-16.5); Mean Corp Hgb Conc 33.3 g/dL (32-36); Mean Corpuscular Hgb 30.4 pg (27.0-32.0); Mean Corpuscular Volume 91.3 fL (80-94); Mean Platelet Vol. 10.1 fl (6.2-12.0); POSITIVE COUNT YES; POSITIVE DIFFERENTIAL YES; POSITIVE MORPHOLOGY YES; Platelet Count 72 K/mm3 (150-450); RBC Distribution Width CV 13.8 % (11.6-14.6); RBC Distribution Width SD 45.7 fl (35.1-43.9); Red Blood Count 3.12 M/mm3 (4.6-6.2); White Blood Count 1.7 K/mm3 (4.4-11.0)
[2024-11-15 09:02] LABS: Differential Indicated MANUAL DIFF
[2024-11-15 09:04] LABS: Anion Gap 6 (5-15); BUN 10 mg/dL (7-18); BUN/Creat Ratio 11.4 RATIO (10-20); Calcium,Total 8.4 mg/dL (8.5-10.1); Chloride 102 mmol/L (98-107); Creatinine, Serum 0.87 mg/dL (0.70-1.30); EST Glomerular Filtration Rate 91 mL/min (>60); Est Glom Filt Rate - Afr Amer 110 mL/min (>60); Glucose 121 mg/dL (74-106); Potassium 4.1 mmol/L (3.5-5.1); Sodium Level 132 mmol/L (136-145)
[2024-11-15 10:40] LABS: Basophil 1 % (0-1); Eosinophil 7 % (0-5); Lymphocyte 3 % (19-41); Monocyte 1 % (0-10); Neutrophil-Band 2 % (0-5); Neutrophil-Segmented 86 % (47-70); Total Cells Counted 100 (MANUAL DIFF)
[2024-11-15 10:45] LABS: Absolute Lymphocyte Count 0.05 X10^3/uL (0.83-4.51); Absolute Neutrophil Count 1.5 X10^3/uL (2.0-7.7); Dohle Bodies 2+; Platelet Estimate MOD DEC (ADEQ); Vacuolated Cells 1+
[2024-11-15 10:46] LABS: Anisocytosis 1+; Ovalocyte 2+
[2024-11-15 16:46] LABS: Xtra CC BBK (Onc ONLY) EXTRA TUBE
== END 2024-11-15 23:59 | disposition home or self-care (01) ==
LOC: MEDOUTP 08:28
PROVIDERS: PCP Family Medicine Geriatric Medicine; Referring Provider Nurse Practitioner Family; Visit Provider Nurse Practitioner Family
DX: C83.79 Burkitt lymphoma, extranodal and solid organ sites (principal); Z45.2 Encounter for adjustment and management of vascular access device
CPT/HCPCS: 36591; 80048; 85025; A4216

== ENCOUNTER 2024-11-19 07:42 | Outpatient (CLI) | payer MEDICARE, OTHER, SELFPAY ==
[2021-02-02 08:54] VITALS: BMI 29.0
[2024-11-19 08:25] LABS: Hematocrit 25.8 % (40-54); Hemoglobin 8.7 g/dL (13.0-16.5); Mean Corp Hgb Conc 33.7 g/dL (32-36); Mean Corpuscular Hgb 30.5 pg (27.0-32.0); Mean Corpuscular Volume 90.5 fL (80-94); Mean Platelet Vol. 11.8 fl (6.2-12.0); POSITIVE COUNT YES; POSITIVE DIFFERENTIAL YES; POSITIVE MORPHOLOGY YES; RBC Distribution Width SD 45.9 fl (35.1-43.9); Red Blood Count 2.85 M/mm3 (4.6-6.2); White Blood Count 2.5 K/mm3 (4.4-11.0)
[2024-11-19 08:33] LABS: Platelet Count 38 K/mm3 (150-450)
[2024-11-19 08:49] LABS: Anion Gap 8 (5-15); BUN 19 mg/dL (7-18); BUN/Creat Ratio 14.2 RATIO (10-20); Calcium,Total 8.7 mg/dL (8.5-10.1); Chloride 100 mmol/L (98-107); Creatinine, Serum 1.34 mg/dL (0.70-1.30); EST Glomerular Filtration Rate 56 mL/min (>60); Est Glom Filt Rate - Afr Amer 67 mL/min (>60); Glucose 101 mg/dL (74-106); Potassium 3.9 mmol/L (3.5-5.1); Sodium Level 132 mmol/L (136-145)
[2024-11-19 09:02] LABS: Basophil 2 % (0-1); Eosinophil 1 % (0-5); Lymphocyte 9 % (19-41); Metamyelocyte 1 % (0-1); Monocyte 10 % (0-10); Neutrophil-Band 8 % (0-5); Neutrophil-Segmented 69 % (47-70); Red Cell Morphology NORM C+C NORMAL (NORM C&C); Total Cells Counted 100 (MANUAL DIFF)
[2024-11-19 09:03] LABS: Platelet Estimate MKD DEC (ADEQ)
[2024-11-19 09:04] LABS: Absolute Lymphocyte Count 0.23 X10^3/uL (0.83-4.51); Absolute Neutrophil Count 1.9 X10^3/uL (2.0-7.7); Differential Indicated MANUAL DIFF; Scan Smear per Review Criteria MANUAL DIFF
[2024-11-19 16:17] LABS: Xtra CC BBK (Onc ONLY) EXTRA TUBE
[2024-11-20 11:07] LABS: Pathologist Review Reviewed
== END 2024-11-19 23:59 | disposition home or self-care (01) ==
LOC: MEDOUTP 07:42
PROVIDERS: PCP Family Medicine Geriatric Medicine; Referring Provider Nurse Practitioner Family; Visit Provider Nurse Practitioner Family
DX: C83.79 Burkitt lymphoma, extranodal and solid organ sites (principal); Z45.2 Encounter for adjustment and management of vascular access device
CPT/HCPCS: 36591; 80048; 85025; A4216

== ENCOUNTER 2024-11-22 08:12 | Outpatient (CLI) | payer MEDICARE, OTHER, SELFPAY ==
[2021-02-02 08:54] VITALS: BMI 29.0
[2024-11-22 08:33] LABS: Hematocrit 27.2 % (40-54); Hemoglobin 8.8 g/dL (13.0-16.5); Mean Corp Hgb Conc 32.4 g/dL (32-36); Mean Corpuscular Hgb 30.4 pg (27.0-32.0); Mean Corpuscular Volume 94.1 fL (80-94); Mean Platelet Vol. 10.6 fl (6.2-12.0); POSITIVE COUNT YES; POSITIVE DIFFERENTIAL YES; POSITIVE MORPHOLOGY YES; Platelet Count 134 K/mm3 (150-450); RBC Distribution Width CV 14.8 % (11.6-14.6); RBC Distribution Width SD 49.5 fl (35.1-43.9); Red Blood Count 2.89 M/mm3 (4.6-6.2)
[2024-11-22 08:40] LABS: Differential Indicated MANUAL DIFF
[2024-11-22 08:45] LABS: Anion Gap 6 (5-15); BUN 12 mg/dL (7-18); BUN/Creat Ratio 9.4 RATIO (10-20); Calcium,Total 8.9 mg/dL (8.5-10.1); Chloride 106 mmol/L (98-107); Creatinine, Serum 1.27 mg/dL (0.70-1.30); EST Glomerular Filtration Rate 59 mL/min (>60); Est Glom Filt Rate - Afr Amer 72 mL/min (>60); Glucose 126 mg/dL (74-106); Potassium 4.3 mmol/L (3.5-5.1); Sodium Level 136 mmol/L (136-145)
[2024-11-22 09:11] LABS: Anisocytosis 1+; Metamyelocyte 5 % (0-1); Monocyte 5 % (0-10); Neutrophil-Band 4 % (0-5); Neutrophil-Segmented 86 % (47-70); Nucleated Red Bld Cells,Manual 1 % (0-5); Platelet Estimate SLT DEC (ADEQ); Polychromasia RARE; Total Cells Counted 100 (MANUAL DIFF)
[2024-11-22 09:12] LABS: Absolute Neutrophil Count 14.4 X10^3/uL (2.0-7.7)
[2024-11-22 16:29] LABS: Xtra CC BBK (Onc ONLY) EXTRA TUBE
[2024-11-23 08:47] LABS: Pathologist Review Reviewed
== END 2024-11-22 23:59 | disposition home or self-care (01) ==
LOC: MEDOUTP 08:12
PROVIDERS: PCP Family Medicine Geriatric Medicine; Referring Provider Nurse Practitioner Family; Visit Provider Nurse Practitioner Family
DX: C83.79 Burkitt lymphoma, extranodal and solid organ sites (principal)
CPT/HCPCS: 36592; 80048; 85025; A4216

== ENCOUNTER 2024-11-26 08:12 | Outpatient (CLI) | payer MEDICARE, OTHER, SELFPAY ==
[2021-02-02 08:54] VITALS: BMI 29.0
[2024-11-26 08:33] LABS: Absolute Lymphocyte Count 0.38 X10^3/uL (0.83-4.51); Absolute Neutrophil Count 9.1 X10^3/uL (2.0-7.7); Basophil# 0.04 X10^3/uL; Basophil% 0.4 % (0-1); Hematocrit 31.2 % (40-54); Hemoglobin 10.2 g/dL (13.0-16.5); Lymphocyte # 0.38 X10^3/ul (0.83-4.51); Lymphocyte % 3.5 % (19-41); Mean Corp Hgb Conc 32.7 g/dL (32-36); Mean Corpuscular Hgb 30.9 pg (27.0-32.0); Mean Corpuscular Volume 94.5 fL (80-94); Mean Platelet Vol. 9.8 fl (6.2-12.0); Monocyte# 0.97 X10^3/uL; Monocyte% 8.9 % (0-10); NRBC Flagged by Analyzer 0 % (0-5); Neutrophil # 9.09 X10^3/uL (2.7-7.7); Neutrophil % 83.4 % (47-70); POSITIVE DIFFERENTIAL YES; Platelet Count 211 K/mm3 (150-450); RBC Distribution Width SD 50.4 fl (35.1-43.9); White Blood Count 10.9 K/mm3 (4.4-11.0)
[2024-11-26 08:50] LABS: Anion Gap 9 (5-15); BUN 12 mg/dL (7-18); BUN/Creat Ratio 9.7 RATIO (10-20); Calcium,Total 9.1 mg/dL (8.5-10.1); Chloride 107 mmol/L (98-107); Creatinine, Serum 1.24 mg/dL (0.70-1.30); EST Glomerular Filtration Rate 61 mL/min (>60); Est Glom Filt Rate - Afr Amer 74 mL/min (>60); Glucose 96 mg/dL (74-106); Potassium 3.8 mmol/L (3.5-5.1); Sodium Level 136 mmol/L (136-145)
[2024-11-26 16:30] LABS: Xtra CC BBK (Onc ONLY) EXTRA TUBE
== END 2024-11-26 23:59 | disposition home or self-care (01) ==
LOC: MEDOUTP 08:12
PROVIDERS: PCP Family Medicine Geriatric Medicine; Referring Provider Nurse Practitioner Family; Visit Provider Nurse Practitioner Family
DX: C83.79 Burkitt lymphoma, extranodal and solid organ sites (principal)
CPT/HCPCS: 36592; 80048; 85025; A4216

== ENCOUNTER 2024-12-06 08:18 | Outpatient (CLI) | payer MEDICARE, OTHER, SELFPAY ==
[2021-02-02 08:54] VITALS: BMI 29.0
[2024-12-06 08:50] LABS: Hemoglobin 9.2 g/dL (13.0-16.5); Mean Corp Hgb Conc 34.1 g/dL (32-36); Mean Corpuscular Hgb 31.6 pg (27.0-32.0); Mean Corpuscular Volume 92.8 fL (80-94); Mean Platelet Vol. 10.2 fl (6.2-12.0); POSITIVE COUNT YES; POSITIVE DIFFERENTIAL YES; POSITIVE MORPHOLOGY YES; Platelet Count 62 K/mm3 (150-450); RBC Distribution Width CV 17.1 % (11.6-14.6); RBC Distribution Width SD 56.1 fl (35.1-43.9); Red Blood Count 2.91 M/mm3 (4.6-6.2); White Blood Count 10.1 K/mm3 (4.4-11.0)
[2024-12-06 08:51] LABS: Differential Indicated MANUAL DIFF
[2024-12-06 09:06] LABS: Anion Gap 9 (5-15); BUN 11 mg/dL (7-18); BUN/Creat Ratio 13.1 RATIO (10-20); Calcium,Total 8.7 mg/dL (8.5-10.1); Chloride 102 mmol/L (98-107); Creatinine, Serum 0.84 mg/dL (0.70-1.30); EST Glomerular Filtration Rate 95 mL/min (>60); Est Glom Filt Rate - Afr Amer 115 mL/min (>60); Estimated Creatinine Clearance 91.31 ml/min; Glucose 123 mg/dL (74-106); Potassium 3.4 mmol/L (3.5-5.1); Sodium Level 134 mmol/L (136-145)
[2024-12-06 09:21] LABS: Neutrophil-Band 4 % (0-5); Total Cells Counted 100 (MANUAL DIFF)
[2024-12-06 09:22] LABS: Anisocytosis 1+; Lymphocyte 1 % (19-41); Neutrophil-Segmented 95 % (47-70); Platelet Estimate MOD DEC (ADEQ); Red Cell Morphology N CHROM NORMAL (NORM C&C)
[2024-12-06 09:23] LABS: Absolute Neutrophil Count 9.9 X10^3/uL (2.0-7.7)
[2024-12-06 16:44] LABS: Xtra CC BBK (Onc ONLY) EXTRA TUBE; Xtra Tube EP Lab EXTRA TUBE
[2024-12-10 09:39] LABS: Pathologist Review Reviewed
== END 2024-12-06 23:59 | disposition home or self-care (01) ==
LOC: MEDOUTP 08:19
PROVIDERS: PCP Family Medicine Geriatric Medicine; Referring Provider Nurse Practitioner Family; Visit Provider Nurse Practitioner Family
DX: C83.79 Burkitt lymphoma, extranodal and solid organ sites (principal)
CPT/HCPCS: 36591; 80048; 85025; A4216

== ENCOUNTER 2024-12-08 12:00 | Inpatient (IN) | payer MEDICARE, OTHER, SELFPAY ==
[2021-02-02 08:54] VITALS: BMI 29.0
[2024-12-08] VITALS (8 sets, daily range): BP systolic 114–140; BP diastolic 56–71; PULSE 100–118; RESP 18–26; TEMP 36.7–37.6; O2SAT 93–100; BMI 29.7; BMI 29.0
--- NOTE | 2024-12-08 12:08 | EX.ED.GENINJ ---
HPI History of Present Illness Chief Complaint: Nausea/Vomiting [facility] Medical History Unspecified cirrhosis of liver Parotid mass Wears dentures Wears glasses Cancer Alcohol use Thyroid disease Arthritis High cholesterol Gastric reflux Former smoker CPAP (continuous positive airway pressure) dependence Sleep apnea Shortness of breath on exertion History of stress test History of echocardiogram Cardiology follow-up encounter History of irregular heartbeat History of tobacco use Encounter for screening for malignant neoplasm of lung Pneumonia due to COVID-19 virus (01/15/21) Hypothyroidism Essential (primary) hypertension Odynophagia 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 Squamous cell carcinoma Deviated nasal septum Vocal cord mass Abnormal electrocardiogram Hoarseness of voice Emphysema of lung Lung nodule Hyperlipidemia Cervical disc disease GERD (gastroesophageal reflux disease) Osteoarthritis Tobacco abuse disorder Home Medications ?Medication ?Instructions ?Recorded ?Last Taken ?Type pantoprazole 40 mg tablet,delayed 40 mg PO DAILY reflux 08/21/20 10/27/24 History release levothyroxine 137 mcg tablet 137 mcg PO DAILY 08/19/22 10/27/24 History clopidogrel 75 mg tablet 75 mg PO DAILY #90 tabs 08/24/23 10/27/24 Rx spironolactone 25 mg tablet 25 mg PO DAILY #90 tabs 08/24/23 10/27/24 Rx rosuvastatin 40 mg tablet 40 mg PO QHS 02/21/24 10/27/24 History albuterol sulfate 90 mcg/actuation 2 puff inhalation Q6H PRN 03/21/24 Unknown History aerosol inhaler shortness of breath or wheezing aspirin 81 mg chewable tablet 81 mg PO DAILY 05/01/24 10/27/24 History isosorbide mononitrate 60 mg 60 mg PO DAILY #90 TABLETS 10/01/24 10/27/24 Rx tablet,extended release 24 hr losartan 25 mg tablet 25 mg PO DAILY #90 TABLETS 10/01/24 10/27/24 Rx acetaminophen 500 mg tablet 1,000 mg PO Q8H 10/28/24 10/27/24 History baclofen 5 mg tablet 5 mg PO Q6H PRN hiccoughs 10/28/24 Unknown History cyclophosphamide IV TUTH 10/28/24 10/22/24 History famotidine 20 mg tablet 20 mg PO BID 10/28/24 10/27/24 History loratadine 10 mg tablet 10 mg PO DAILY 10/28/24 10/27/24 History ondansetron HCl 8 mg tablet 8 mg PO Q8H PRN nausea and vomiting 10/28/24 Unknown History prednisone 20 mg tablet See Rx Instructions PO .COMPLEX 10/28/24 10/20/24 History prochlorperazine maleate 10 mg 10 mg PO Q6H PRN nausea 10/28/24 Unknown History tablet sulfamethoxazole 800 1 tab PO DAILY 10/28/24 10/27/24 History mg-trimethoprim 160 mg tablet valacyclovir 500 mg tablet 500 mg PO DAILY 10/28/24 10/27/24 History sodium di- and 1 tab PO BID #60 tabs 10/29/24 Unknown Rx monophosphate-potassium phos monobasic 250 mg tablet (Phospha Neutral) metoprolol succinate 50 mg 50 mg PO DAILY BP #90 tabs 11/19/24 Unknown Rx tablet,extended release 24 hr Allergy/AdvReac Type Severity Reaction Status Date / Time No Known Allergies Allergy Verified 12/08/24 13:07 Family History Father Stomach cancer Dementia Mother Breast cancer Arthritis Sister Heart disease Surgical History Status post total replacement of right shoulder History of back surgery Cataract (lens) fragments in eye following cataract surgery, bilateral History of coronary artery stent placement (11/26/20) History of left heart catheterization (01/04/22) vocal cord biopsy (08/29/20) History of nasal septoplasty (08/29/20) History of bunionectomy History of tonsillectomy Social History household members: spouse Smoking Status: Former smoker quit date: 01/26/19 pack-years: 45 alcohol intake: current alcohol intake frequency: a few times a month Alcohol type: beer substance use type: does not use EXAM Physical Exam Const Vital Signs: 12/08/24 12:01 12/08/24 14:01 12/08/24 15:16 Temperature 98.1 F 98.1 F Temperature Source Oral Oral Pulse Rate 118 H 100 105 H Respiratory Rate 18 24 H 26 H Blood Pressure 133/70 H 132/65 H 116/56 L Blood Pressure Mean 91 87 76 Pulse Ox 100 95 93 Oxygen Delivery Method Room Air Room Air Room Air [facility] [place] Medical decision making narrative: HISTORY OF PRESENT ILLNESS: 74-year-old female presents with nausea and vomiting. States he is currently being treated for liver cancer. Last chemo treatment was 12/03/2024. Notes since Tuesday (12/05/2024). States diffuse abdominal pain. Denies headache. Denies chest pain. Denies cough. Denies urinary complaints. Denies bleeding diathesis. Denies change to bowel habits. Notes last bowel was yesterday. Denies history of abdominal surgery. REVIEW OF SYSTEMS: Pertinent positives: Abdominal pain, nausea vomiting Pertinent negatives: Diarrhea, melena, urinary complaints PHYSICAL EXAM: Nursing triage notes reviewed, Vital signs reviewed Constitutional: please see mdm HENT: MMM Eyes: Pupils equal round and reactive to light, Extraocular muscles intact Neck: No stridor, no JVD, full neck ROM Lungs: Clear to auscultation, No wheezing or rales. No increased work of breathing, no conversational dyspnea, no accessory muscle use, no nasal flaring. No respiratory distress noted Heart: Regular rate and rhythm, No murmurs, No rubs and No gallops, 2+ distal pulses (radial, femoral, posterior tibial) in all extremities Abdomen: Soft, t diffuse tenderness but no rigidity, rebound or guarding, no obvious peritoneal signs, no palpable pulsatile abdominal masses, no auscultated abdominal bruit : No CVAT Extremities: No edema Neuro: No new focal neurological deficits, cranial nerves II through XII intact, 5/5 strength in all present extremities. Intact sensation to light touch in all present extremities, 2+ reflexes bilateral patella tendons. Skin: No rash or lesions noted MEDICAL DECISION MAKING: Chief Complaint: Nausea and vomiting External records reviewed: Reviewed prior imaging. Reviewed CT scan of the abdomen pelvis was interpreted on which showed cirrhotic liver with fatty infiltration, liver hypodensity, no bowel obstruction noted Factors affecting care: Hyperlipidemia, hypertension, GERD Social determinants of health: alcohol use, tobacco abus History obtained from others: none Consults: Hospitalist (Dr. Bridges) [facility] Narrative: Patient was initially tachycardic, otherwise afebrile. Abdominal exam with diffuse tenderness but no obvious focal peritoneal signs I considered the following differential diagnosis: AAA, small bowel obstruction, abdominal perforation, appendicitis, pancreatitis, hepatobiliary pathology (acute cholecystitis), mesenteric ischemia, pathology (ie nephrolithiasis, pyelonephritis).] Given initial tachycardia, tachypnea I was concerned about sepsis. My concern was heightened by the patient being neutropenic in the setting of chemotherapy. Given this I obtained blood and urine cultures and a lactate. ALL IMAGES (IF OBTAINED) HAVE BEEN PERSONALLY REVIEWED AND INTERPRETED BY MYSELF. CBC with profound neutropenia, anemia and thrombocytopenia likely pancytopenia secondary to chemotherapy PT, INR, PTT within the limit suggesting intact liver synthetic function BMP with mild hyponatremia, no signs of metabolic acidosis or endorgan hypoperfusion with a normal bicarb and anion gap, no acute kidney injury noted Lipase is wnl indicating no pancreatic inflammation. Lactate is wnl indicating no end-organ hypoperfusion and/or hypoxia. Noted elevation in bilirubin level however liver enzymes otherwise within normal limits Urine with evidence of acute bacterial infection with nitrites, leuk esterase. CT scan abdomen pelvis shows evidence of enterocolitis Given multiple sources of infection and neutropenia we will start on broad-spectrum antibiotics admit to the hospital to await blood/urine cultures. And undergo further fluid resuscitation and nausea vomiting control. Discussed with hospitalist. The patient and/or family, caregivers express understanding. The patient and/or family, caregivers agrees with the plan. Shared decision making: I will have a discussion with the patient and or visitors regarding risk/benefits of further testing or admission. They will be made aware of of the risk/benefits inherent in this decision they will be given the opportunity to voice understanding. Total critical care time today provided was at least 0 minutes. This excludes separately billable procedures. Critical care time (if documented) is secondary to the patient having high probability of clinically significant/life threatening deterioration in the patient's condition which required my urgent intervention. Impression: 1. Nausea & vomiting 2. Sepsis 3. UTI 4. Enterocolitis Dispo: Admit to [facility] This note was generated with [employer] dictation software. It may contain incorrect words, spelling, and punctuation that were not noted in review of the chart prior to signing. Lab Data Labs: Laboratory Results - last 24 hr 12/08/24 12/08/24 12/08/24 12:52 14:15 14:30 WBC 0.1 L* RBC 2.71 L Hgb 8.5 L Hct 24.6 L MCV 90.8 MCH 31.4 MCHC 34.6 RDW Std Deviation 54.9 H RDW Coeff of Angela 16.7 H Plt Count 28 L* MPV 12.3 H Immature Gran % (Auto) TNP Neut % (Auto) TNP Lymph % (Auto) TNP Pett[place] % (Auto) TNP Eos % (Auto) TNP Baso % (Auto) TNP Absolute Neuts (auto) TNP Absolute Lymphs (auto) TNP Nucleated RBC % 0 Diff Path Review May foll Platelet Estimate MKD DEC Ovalocytes 1+ PT 14.9 INR 1.2 APTT 33.2 Sodium 130 L Potassium 3.5 Chloride 98 Carbon Dioxide 22.0 Anion Gap 10 BUN 11 Creatinine 0.80 Estim Creat Clear Calc 96.10 Est GFR (MDRD) Af Amer 123 Est GFR (MDRD) Non-Af 101 BUN/Creatinine Ratio 13.8 Glucose 158 H Lactic Acid 2.0 Calcium 8.4 L Total Bilirubin 1.20 H Direct Bilirubin 0.41 H AST 18 ALT 41 Alkaline Phosphatase 67 Total Protein 6.1 L Albumin 2.9 L Globulin 3.2 Lipase 17 Urine Color Anjana Urine Clarity Clear Urine pH 5.0 Ur Specific [place] 1.020 Urine Protein 100 H Urine Glucose (UA) Normal Urine Ketones Negative Urine Occult Blood 25 H Urine Nitrite Positive H Urine Bilirubin 1 H Urine Urobilinogen 1 H Ur Leukocyte Esterase 25 H Urine RBC 0 SEEN Urine WBC 0-5 SEEN Ur Squamous Epith Cells 0-5 SEEN Urine Bacteria RARE Urine Mucus 2+ Radiography Diagnostic Testing: Clinical Impression(s) from Imaging Studies Abdomen/Pelvis CT 12/08/24 12:17 IMPRESSION: 1. Nonspecific fluid-filled small bowel loops are mildly thickened colon could be due to underdistention. Enterocolitis is possible. 2. Otherwise no focal acute inflammatory process. 3. Liver lesion as described above corresponding to the PET CT abnormality consistent with malignancy. Electronically Signed: Bobby Haq MD at 15:00 EST , Discharge Plan Triage Chief Complaint: Nausea/Vomiting ED Provider: Angelica,Higinio Dx/Rx/DC Orders Prescriptions: No Action levothyroxine 137 mcg tablet 137 mcg PO DAILY clopidogrel 75 mg tablet 75 mg PO DAILY Qty: 90 3RF spironolactone 25 mg tablet 25 mg PO DAILY Qty: 90 3RF aspirin 81 mg tablet,chewable 81 mg PO DAILY albuterol sulfate 90 mcg/actuation HFA aerosol inhaler 2 puff inhalation Q6H PRN (Reason: shortness of breath or wheezing) pantoprazole 40 MG tablet 40 mg PO DAILY rosuvastatin 40 mg tablet 40 mg PO QHS baclofen 5 mg tablet 5 mg PO Q6H PRN (Reason: hiccoughs) Patient Comments: PT HASNT STARTED YET cyclophosphamide IV TUTH Patient Comments: CHEMO, UNKNOWN STRENGTH ondansetron HCl 8 mg tablet 8 mg PO Q8H PRN (Reason: nausea and vomiting) famotidine 20 mg tablet 20 mg PO BID loratadine 10 mg tablet 10 mg PO DAILY prednisone 20 mg tablet See Rx Instructions PO .COMPLEX Rx Instructions: TAKE 7 TABS ONCE DAILY ON DAYS 2-5 EACH CHEMO CYCLE orally; prochlorperazine maleate 10 mg tablet 10 mg PO Q6H PRN (Reason: nausea) valacyclovir 500 mg tablet 500 mg PO DAILY sulfamethoxazole-trimethoprim 800-160 mg tablet 1 tab PO DAILY acetaminophen 500 mg Tablet 1,000 mg PO Q8H Phospha 250 Neutral 250 mg tablet 1 tab PO BID Qty: 60 0RF isosorbide mononitrate 60 mg tablet extended release 24 hr 60 mg PO DAILY Qty: 90 3RF losartan 25 mg tablet 25 mg PO DAILY Qty: 90 3RF metoprolol succinate 50 mg tablet extended release 24 hr 50 mg PO DAILY Qty: 90 3RF Primary Care Provider: Aniket Moss Chi Referrals: Aniket Moss Chi, MD [Primary Care Provider] - Print Language: Ukrainian
--- NOTE | 2024-12-08 12:17 | EKG12_ITS ---
Test Reason : N/V Blood Pressure : */* mmHG Vent. Rate : 108 BPM Atrial Rate : 108 BPM P-R Int : 136 ms QRS Dur : 82 ms QT Int : 346 ms P-R-T Axes : 47 39 52 degrees QTcB Int : 463 ms Sinus tachycardia Nonspecific T wave abnormality Abnormal ECG Confirmed by TITO TRAMMELL, HUNG ([id number]), associate entertainment editor IRAM SANTO ([id number]) on 12/10/2024 1:57:43 PM Referred By: Confirmed By: HUNG FRANCIS MD
--- NOTE | 2024-12-08 12:17 | CT_ITS ---
STUDY: CT ABDOMEN AND PELVIS WITH CONTRAST REASON FOR EXAM: Male, 74 years old. Abdominal pain acute nonlocalized, lung cancer, low wbc count RADIATION DOSAGE (If Supplied By Facility): CTDIvol = ( 22.93 ) mGy, DLP = ( 1163 ) mGycm TECHNIQUE: IV 100mL [id number]-[id number] was administered. Transaxial images were obtained from the dome of the diaphragm to the symphysis pubis in the arterial, nephrographic and excretory phases. Multiplanar coronal and sagittal images were reformatted. The protocol utilizes one or more of the following dose reduction techniques: automated exposure control, adjustment of mA and/or kV according to patient size,and/or use of iterative reconstruction technique. COMPARISON: PET/CT scan of 09/11/2024 FINDINGS: The visualized lung bases are unremarkable. The visualized portions of the heart are within normal limits. Hepatic steatosis. Hypodense lesion in the inferior right lobe of the liver measuring about 3.7 cm corresponding to the PET CT abnormality. Contracted gallbladder without evidence of gallstones. Normal spleen. Normal pancreas. Normal bilateral adrenal glands. The stomach is not well distended. Specific fluid-filled small bowel loops without evidence of bowel obstruction thickening of the ascending colon probably due to underdistention. Colitis is less likely. The appendix is suboptimally visualized. There is diffuse atherosclerotic calcification of the abdominal aorta, without a demonstrated aneurysm. No retroperitoneal adenopathy. Horseshoe kidneys. No evidence of hydronephrosis. Normal urinary bladder. [Mass. Normal abdominal wall. No demonstrated acute osseous changes. CT/Abdomen/Pelvis W IV Cont ONLY IMPRESSION: 1. Nonspecific fluid-filled small bowel loops are mildly thickened colon could be due to underdistention. Enterocolitis is possible. 2. Otherwise no focal acute inflammatory process. 3. Liver lesion as described above corresponding to the PET CT abnormality consistent with malignancy. Electronically Signed: Bobby Haq MD at 15:00 EST ,
[2024-12-08] MEDS: Metoclopramide 10 MG/2 ML Vial 5 MG IV (12:47)
[2024-12-08] MEDS: Morphine 4 MG/ML Syringe IV (12:47)
[2024-12-08] MEDS: 0.9% Normal Saline (1000mL) 1,000 ML 999 ML IV ×2 (12:47→15:52)
[2024-12-08 13:02] LABS: Hematocrit 24.6 % (40-54); Hemoglobin 8.5 g/dL (13.0-16.5); Mean Corp Hgb Conc 34.6 g/dL (32-36); Mean Corpuscular Hgb 31.4 pg (27.0-32.0); Mean Corpuscular Volume 90.8 fL (80-94); Mean Platelet Vol. 12.3 fl (6.2-12.0); NRBC Flagged by Analyzer 0 % (0-5); POSITIVE COUNT YES; POSITIVE DIFFERENTIAL YES; POSITIVE MORPHOLOGY YES; RBC Distribution Width CV 16.7 % (11.6-14.6); RBC Distribution Width SD 54.9 fl (35.1-43.9); Red Blood Count 2.71 M/mm3 (4.6-6.2)
[2024-12-08 13:13] LABS: International Normalized Ratio 1.2; Prothrombin Time (Protime)PT. 14.9 SECONDS (11.7-14.9)
[2024-12-08 13:15] LABS: AST(SGOT) 18 U/L (15-37); Alanine Aminotransfer ALT/SGPT 41 U/L (16-61); Albumin, Serum 2.9 g/dL (3.2-5.0); Alkaline Phosphatase 67 U/L (45-117); Anion Gap 10 (5-15); BUN 11 mg/dL (7-18); BUN/Creat Ratio 13.8 RATIO (10-20); Bilirubin, Direct 0.41 mg/dL (0.00-0.30); Calcium,Total 8.4 mg/dL (8.5-10.1); Chloride 98 mmol/L (98-107); EST Glomerular Filtration Rate 101 mL/min (>60); Est Glom Filt Rate - Afr Amer 123 mL/min (>60); Globulin 3.2 g/dL (2.2-4.2); Glucose 158 mg/dL (74-106); Lipase 17 U/L (13-75); Partial Thromboplast Time 33.2 Seconds (24.1-36.2); Potassium 3.5 mmol/L (3.5-5.1); Protein, Total 6.1 g/dL (6.4-8.2); Sodium Level 130 mmol/L (136-145)
[2024-12-08 13:16] LABS: Platelet Count 28 K/mm3 (150-450); White Blood Count 0.1 K/mm3 (4.4-11.0)
[2024-12-08 13:23] LABS: Differential Indicated SCAN CRITERIA MET
[2024-12-08 13:40] LABS: Ovalocyte 1+; Platelet Estimate MKD DEC (ADEQ)
[2024-12-08 14:21] LABS: Red Blood Cells-Urine 0 SEEN /hpf (0-5)
[2024-12-08 14:33] LABS: Color, Urine Amber (Yellow); Glucose, Dipstick Normal (Normal); Ketone-Dipstick Negative (Negative); Leukocyte Esterase-Dipstick 25 /ul (Negative); Nitrite-Dipstick Positive (Negative); Occult Blood-Urine 25 /ul (Negative); Protein-Dipstick 100 mg/dl (Negative); Urine Bilirubin Dipstick 1 mg/dL (Negative); Urine Clarity Clear (Clear); Urine Urobilinogen 1 mg/dl (Normal)
[2024-12-08 14:36] LABS: Mucous, Urine 2+ /hpf (<or=2+); White Blood Cells 0-5 SEEN /hpf (0-5)
[2024-12-08 14:37] LABS: Bacteria RARE /hpf (None Seen); Squamous Epithelial Cells - UA 0-5 SEEN /hpf (0-5)
[2024-12-08] MEDS: Piperacil/Tazobactam 3.375 GM in 0.9% Normal Saline (50mL MB+) 50 ML IV (15:28)
--- NOTE | 2024-12-08 15:29 | PCM.HP.STD ---
HPI - General General Date of Admission: 12/08/24 Date of Service: 12/08/24 Chief Complaint: Abdominal pain, N/V HPI Narrative The patient is a 74 y/o M w/ PMHx: Obesity, Chronic anemia/Thrombocytopenia related with chemotherapy, Former tobacco use, COPD, CAROLINE on CPAP, Recent 08/2024 diagnosis Liver CA w/ high-grade B-cell lymphoma on infusion chemotherapy ~ 3 weeks at [facility], Hx prior laryngeal CA s/p radiation ~ 5 years prior, Hypothyroidism, HTN, HLD, CAD s/p PCI, recent discharge 10/29/2024 admitted with COPD exacerbation who now represents to the [facility] ED on 12/08/24 now with history unfortunately of onset nausea and emesis with his last chemotherapy on 12/03/2024 and since Tuesday he has had persistent intractable symptoms with poor intake and diffuse abdominal discomfort with his last bowel movement the day prior with no specific diarrhea associated but given not abating prompted eventual ED evaluation. Patient denies any urinary symptoms. He denies any recent fevers. Patient weight down again from recent discharge with 10/29/2024 weight 229 pounds 0.964 ounces now 207 pounds 3.752 ounces. Workup in the ED included T98.1, heart 118, BP 133/70, respiratory rate 18, 95% on room air, most recent repeat vitals heart rate 110, BP 132/65, respiratory rate 24, 95% on room air, CBC with WBC 0.1, Hgb 8.5, MCV 90.8, platelet 28 with differential not performed, unremarkable coag, CMP with sodium 130, glucose 158, lactic acid 2.0, calcium 8.4, T. bili 1.20, D bili 0.41, hepatic profile otherwise unremarkable, lipase 17, urinalysis with specific every 1.020, protein 100, occult blood 25, positive nitrite, leukocyte esterase 25 with no urine WBCs or RBCs and only rare bacteria noted, urine culture pending per ED, blood culture x 2 pending per ED, CT abdomen and pelvis with contrast with nonspecific fluid-filled small bowel loops mildly thickened colon possibly secondary to underdistention versus enterocolitis, no focal acute inflammatory process identified, liver lesion consistent with malignancy. In the ED patient administered IV vancomycin and IV Zosyn, morphine 4 mg IV x 1, Reglan 5 mg IV x 1 and 1 L normal saline. 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) Atherosclerotic heart disease of [place] coronary artery without angina pectoris Squamous cell carcinoma Deviated nasal septum Vocal cord mass Abnormal electrocardiogram Hoarseness of voice Emphysema of lung Lung nodule Hyperlipidemia Cervical disc disease GERD (gastroesophageal reflux disease) Osteoarthritis Tobacco abuse disorder Home Medications ?Medication ?Instructions ?Recorded ?Last Taken ?Type pantoprazole 40 mg tablet,delayed 40 mg PO DAILY reflux 08/21/20 10/27/24 History release levothyroxine 137 mcg tablet 137 mcg PO DAILY 08/19/22 10/27/24 History clopidogrel 75 mg tablet 75 mg PO DAILY #90 tabs 08/24/23 10/27/24 Rx spironolactone 25 mg tablet 25 mg PO DAILY #90 tabs 08/24/23 10/27/24 Rx rosuvastatin 40 mg tablet 40 mg PO QHS 02/21/24 10/27/24 History albuterol sulfate 90 mcg/actuation 2 puff inhalation Q6H PRN 03/21/24 Unknown History aerosol inhaler shortness of breath or wheezing aspirin 81 mg chewable tablet 81 mg PO DAILY 05/01/24 10/27/24 History isosorbide mononitrate 60 mg 60 mg PO DAILY #90 TABLETS 10/01/24 10/27/24 Rx tablet,extended release 24 hr losartan 25 mg tablet 25 mg PO DAILY #90 TABLETS 10/01/24 10/27/24 Rx acetaminophen 500 mg tablet 1,000 mg PO Q8H 10/28/24 10/27/24 History baclofen 5 mg tablet 5 mg PO Q6H PRN hiccoughs 10/28/24 Unknown History cyclophosphamide IV TUTH 10/28/24 10/22/24 History famotidine 20 mg tablet 20 mg PO BID 10/28/24 10/27/24 History loratadine 10 mg tablet 10 mg PO DAILY 10/28/24 10/27/24 History ondansetron HCl 8 mg tablet 8 mg PO Q8H PRN nausea and vomiting 10/28/24 Unknown History prednisone 20 mg tablet See Rx Instructions PO .COMPLEX 10/28/24 10/20/24 History prochlorperazine maleate 10 mg 10 mg PO Q6H PRN nausea 10/28/24 Unknown History tablet sulfamethoxazole 800 1 tab PO DAILY 10/28/24 10/27/24 History mg-trimethoprim 160 mg tablet valacyclovir 500 mg tablet 500 mg PO DAILY 10/28/24 10/27/24 History sodium di- and 1 tab PO BID #60 tabs 10/29/24 Unknown Rx monophosphate-potassium phos monobasic 250 mg tablet (Phospha Neutral) metoprolol succinate 50 mg 50 mg PO DAILY BP #90 tabs 11/19/24 Unknown Rx tablet,extended release 24 hr Allergy/AdvReac Type Severity Reaction Status Date / Time No Known Allergies Allergy Verified 12/08/24 13:07 Family History Father Stomach cancer Dementia Mother Breast cancer Arthritis Sister Heart disease Surgical History Status post total replacement of right shoulder History of back surgery Cataract (lens) fragments in eye following cataract surgery, bilateral History of coronary artery stent placement (11/26/20) History of left heart catheterization (01/04/22) vocal cord biopsy (08/29/20) History of nasal septoplasty (08/29/20) History of bunionectomy History of tonsillectomy Social History household members: spouse Smoking Status: Former smoker quit date: 01/26/19 pack-years: 45 alcohol intake: current alcohol intake frequency: a few times a month Alcohol type: beer substance use type: does not use ROS ROS Narrative Admission Review of Systems: CONSTITUTIONAL: No fever, chills, weakness or fatigue, poor intake, weight down again from recent discharge with 10/29/2024 weight 229 pounds 0.964 ounces now 207 pounds 3.752 ounces. HEENT: + Chronic odynophagia, sore throat, hoarse voice. Eyes: No visual loss, blurred vision, double vision or yellow sclerae. Ears, Nose, Throat: No hearing loss, sneezing, congestion, runny nose. SKIN: No rash or itching, lesions, wounds except+ significant bilateral lower extremity venous stasis skin changes. CARDIOVASCULAR: No chest pain, chest pressure or chest discomfort, palpitations, edema, orthopnea, syncopal events. RESPIRATORY: No marked dyspnea, cough, wheezing, hemoptysis. GASTROINTESTINAL: + Anorexia, generalized abdominal discomfort including right upper quadrant which has been chronic, nausea and emesis. No diarrhea, melena, BRBPR. GENITOURINARY: No dysuria, frequency, urgency or retention. NEUROLOGICAL: No headache, dizziness, syncope, paralysis, ataxia, numbness or tingling in the extremities, focal weakness, change in bowel or bladder control, seizure. MUSCULOSKELETAL: + muscle, back pain, joint pain or stiffness. HEMATOLOGIC: + Anemia, easy bleeding/bruising. LYMPHATICS: No enlarged nodes. No history of splenectomy. PSYCHIATRIC: No history of depression or anxiety. ENDOCRINOLOGIC: No reports of sweating, cold or heat intolerance. No polyuria or polydipsia. ALLERGIES: + History of allergic rhinitis. Vital Signs Vital Signs Vital Signs: 12/08/24 12:01 12/08/24 14:01 12/08/24 15:16 Temperature 98.1 F 98.1 F Temperature Source Oral Oral Pulse Rate 118 H 100 105 H Respiratory Rate 18 24 H 26 H Blood Pressure 133/70 H 132/65 H 116/56 L Blood Pressure Mean 91 87 76 Pulse Ox 100 95 93 Oxygen Delivery Method Room Air Room Air Room Air Weight Weight: 207 lb 3.752 oz Body Mass Index (BMI) 29.7 Physical Exam Narrative Physical Examination: General: Awake, alert, oriented x 3 and cooperative, seated upright in the ED bed, fatigued, flat affect, no evidence of any distress. Skin: Pale color, poor turgor, no icterus, no cyanosis except for occasional stage ecchymoses, abrasion, significant bilateral lower extremity venous stasis skin changes. HEENT: AT/NC, EOMI, PERRLA, dry MM, no carotid bruits or JVD noted. Lungs: Diminished, greater bases, moderate effort, no evidence of any distress, no wheezing, rales or rhonchi. Heart: Mildly tachycardic with regular rhythm; no gallop, rub audible. Abdomen: Soft, obese, no marked discomfort to palpation of the abdomen aside from mild right upper quadrant discomfort which has been stable from previous, mildly tympanitic and distended but not severe, mildly hyperactive BS, difficult to discern HSM. Extremities: No cyanosis, no clubbing, mild ankle edema, compounded by chronic venous stasis disease is noted. Neurological: Patient awake, alert, oriented as noted, cognitive function intact; pupils equally reactive to light and accommodation, cranial nerves grossly normal, moving all 4 extremities, no focal deficits, strength severely globally decreased. Psychiatric: Affect appears fatigued, flat, no acute evidence of depressive or anxiety feelings but as noted previously patient is significantly high risk given his history. Results Lab / Micro Data 12/08/24 12:52 12/08/24 12:52 Labs: Laboratory Results - last 24 hr 12/08/24 12:52: WBC 0.1 L*, RBC 2.71 L, Hgb 8.5 L, Hct 24.6 L, MCV 90.8, MCH 31.4, MCHC 34.6, RDW Std Deviation 54.9 H, RDW Coeff of Angela 16.7 H, Plt Count 28 L*, MPV 12.3 H, Immature Gran % (Auto) TNP, Neut % (Auto) TNP, Lymph % (Auto) TNP, Nolan % (Auto) TNP, Eos % (Auto) TNP, Baso % (Auto) TNP, Absolute Neuts (auto) TNP, Absolute Lymphs (auto) TNP, Nucleated RBC % 0, Diff Path Review May genny Platelet Estimate MKD DEC, Ovalocytes 1+, PT 14.9, INR 1.2, APTT 33.2, Sodium 130 L, Potassium 3.5, Chloride 98, Carbon Dioxide 22.0, Anion Gap 10, BUN 11, Creatinine 0.80, Estim Creat Clear Calc 96.10, Est GFR (MDRD) Af Amer 123, Est GFR (MDRD) Non-Af 101, BUN/Creatinine Ratio 13.8, Glucose 158 H, Calcium 8.4 L, Total Bilirubin 1.20 H, Direct Bilirubin 0.41 H, AST 18, ALT 41, Alkaline Phosphatase 67, Total Protein 6.1 L, Albumin 2.9 L, Globulin 3.2, Lipase 17 12/08/24 14:15: Urine Color Anjana, Urine Clarity Clear, Urine pH 5.0, Ur Specific [place] 1.020, Urine Protein 100 H, Urine Glucose (UA) Normal, Urine Ketones Negative, Urine Occult Blood 25 H, Urine Nitrite Positive H, Urine Bilirubin 1 H, Urine Urobilinogen 1 H, Ur Leukocyte Esterase 25 H, Urine RBC 0 SEEN, Urine WBC 0-5 SEEN, Ur Squamous Epith Cells 0-5 SEEN, Urine Bacteria RARE, Urine Mucus 2+ 12/08/24 14:30: Lactic Acid 2.0 Imaging Radiology Impression Abdomen/Pelvis CT 12/08/24 12:17 IMPRESSION: 1. Nonspecific fluid-filled small bowel loops are mildly thickened colon could be due to underdistention. Enterocolitis is possible. 2. Otherwise no focal acute inflammatory process. 3. Liver lesion as described above corresponding to the PET CT abnormality consistent with malignancy. Electronically Signed: Bobby Haq MD at 15:00 EST , Assessment & Plan Assessment/Plan (1) Intractable nausea and vomiting: PLAN: Plan The patient is a 74 y/o M w/ PMHx: Obesity, Chronic anemia/Thrombocytopenia related with chemotherapy, Former tobacco use, COPD, CAROLINE on CPAP, Recent 08/2024 diagnosis Liver CA w/ high-grade B-cell lymphoma on infusion chemotherapy ~ 3 weeks at [facility], Hx prior laryngeal CA s/p radiation ~ 5 years prior, Hypothyroidism, HTN, HLD, CAD s/p PCI, recent discharge 10/29/2024 admitted with COPD exacerbation who now represents to the [facility] ED on 12/08/24 now with history unfortunately of onset nausea and emesis with his last chemotherapy on 12/03/2024 and since Tuesday he has had persistent intractable symptoms with poor intake and diffuse abdominal discomfort with his last bowel movement the day prior with no specific diarrhea associated but given not abating prompted eventual ED evaluation. Patient denies any urinary symptoms. #1. Intractable nausea and emesis, concerning for possible gastroenteritis with generalized abdominal pain with no acute focal finding on CT scan complicated by pancytopenia/neutropenia versus related with Chemotherapy: Will admit to medical surgical floor, maintain on hydration, administered significantly broad-spectrum antibiotic therapy in the ED however unless patient is febrile with neutropenia would plan to defer continued aggressive antibiotic therapies unless clinically indicated, will obtain procalcitonin, will have as needed anti-emetics, pain regimen PRN. If procalcitonin is elevated or notable onset fevers will add BSA until further work-up obtained to be cautious. Will trial clears and may advance as improving, will maintain on IV PPI in the interim. PT/OT/case management consult for discharge planning. #2. Hyperglycemia, likely stress response: Admission glucose 158, suspect likely stress response, he 1 A1c requested to be cautious. #3. CKD stage II per prior GFR trending: Admission BUN/creatinine 11/0.80, GFR currently 101, previous GFR trending primarily consistent with stage II, continue to trend CMP. #4. Hyponatremia, chronic component but suspect concurrent hypovolemic etiology secondary to GI losses with intractable nausea and emesis as noted, complicated by underlying liver cancer/cirrhotic disease: Admission CMP with sodium 130, baseline has vacillated in with acute presentations specially dehydration component patient has been in the low 130s, will continue to judiciously hydrate, repeat CMP in AM. #5. High-grade B-cell lymphoma liver with chart reported associated cirrhotic liver disease: Recent 08/2024 diagnosis Liver CA w/ high-grade B-cell lymphoma on infusion chemotherapy ~ 3 weeks at [facility], will continue prophylactic valacyclovir, magnesium and phosphorus levels requested, recent chemotherapy last 12/03/2024 the symptoms certainly could be related with this however uncertain. #6. Acute on chronic normocytic anemia, likely secondary to underlying cancer and recent chemotherapy start: Admission hemoglobin 8.5, MCV 90.8, significantly decreased from previous presentation of 12 which has been the baseline, likely related with unfortunately his acute presentation with recent chemotherapy, will continue to trend CBC. #7. Acute on chronic thrombocytopenia: Secondary to underlying significant liver cancer, treatments, admission platelets 28, certainly vacillated, most recently prior to this 12/06/2024 platelets 62 but previously in 2023 had dropped to 38, likely related with his recent chemotherapy treatment on 12/03/2024, continue to trend CBC. As noted will very cautiously hold antiplatelet therapy today but resumed 12/09/2024 with platelets improving. #8. CAD: Status post PCI, given worsened thrombocytopenia will temporally hold dual antiplatelet therapy but as long as 12/09/2024 platelet count improving add back given history, continue statin therapy, attempted continue beta-susi therapy hold parameters, temporally holding ARB given low BP. #9. History of prior laryngeal cancer with chronic odynophagia, dysphagia: Status post previous radiation approximately 5 years prior, chronic issues with odynophagia, vocal cord dysfunction/hoarse voice, considered in remission, encourage continued outpatient follow-up as previously arranged. Will continue mechanical soft, speech therapy consulted to be cautious, Bumex as needed, nutrition consulted. #10. Chronic COPD: Will maintain on ATC budesonide therapy, PRN albuterol, HOB, IS parameters. #11. Hypothyroidism: We will continue patient on home levothyroxine regimen. #12. Hypertension: BP low normal and, will attempt to at least maintain on beta-susi therapy but will have hold parameters, temporally hold losartan and spironolactone, add back once appropriate. #13. Hyperlipidemia: We will continue patient on statin therapy. #14. Obesity: Especially given recent cancer diagnosis encourage healthy eating habits and appropriate protein intake. #15. Former tobacco use: Encourage continued tobacco cessation. #16. GERD: Will maintain on IV PPI until #1 improving. #17. CAROLINE: CPAP nightly however given recent history of intractable nausea and emesis will hold PAP therapy until clinically improving to avoid risk of aspiration. #18. Severe Protein calorie malnutrition: Patient with persistent issues with oral intake difficulties especially with identified as well as chemotherapy, nutrition consulted for recommendations, weight down again from recent discharge with 10/29/2024 weight 229 pounds 0.964 ounces now 207 pounds 3.752 ounces upon current presentation. #19. DVT prophylaxis: Given worsening thrombocytopenia will place SCDs only at this time, especially given worsened over amount of days following recent chemotherapy. #20. CODE status: Patient HCPOA and LW are not in place but he notes his who is present would be his medical decision maker if necessary. Remains a full code which was reconfirmed given recent presentation . Charges/Coding Visit Charges Inpatient E&M: 09887 Init Hosp L3
--- NOTE | 2024-12-08 15:59 | ED.RN ---
PT AND UNCERTAIN IF RIGHT UPPER CHEST DOUBLE LUMEN PORT IS A POWER PORT. PT DID NOT HAVE HIS WALLET ON HIM WITH ANY INFO. CT WITH CONTRAST IS ORDERED. THIS NURSE CALLED CT TO ASK IF THEY HAVE ANY INFO IF THE PORT IS A POWER PORT. UNABLE TO PALPATE [address] THE PORT. DR HERNANDEZ WANTED THE CONTRAST LONG PTS GFR LAB WAS GOOD. IT WAS 101 SO WE PLACED A 20 IN THE RAC TO PERFORM THE CT WITH CONTRAST. PT BEING ADMITTED SO LEAVING THE PERIPHERAL ACCESS IN PLACE AT THIS TIME.
[2024-12-08 16:11] LABS: Magnesium 2.1 mg/dL (1.6-2.6); Phosphorus 1.5 mg/dL (2.5-4.9)
[2024-12-08] MEDS: Vancomycin HCl 1,500 MG in 0.9% Normal Saline (500mL Bag) 500 ML 250 MG IV (16:41)
[2024-12-08] MEDS: 0.9% Normal Saline (1000mL) 1,000 ML 100 ML IV (17:29)
[2024-12-08] MEDS: Pantoprazole Sodium 40 MG in 0.9% Normal Saline (100mL MB+) 100 ML 330 MG IV (17:44)
[2024-12-08] MEDS: Acetaminophen 325 MG Tablet 650 MG PO (17:44)
[2024-12-08 18:35] LABS: Reflex Lactate? Y
[2024-12-08] MEDS: Budesonide Respules 0.5 MG/2 ML AMPUL.NEB. INHALATION (19:53)
[2024-12-08 19:59] LABS: Lactic Acid 2.9 mmol/L (0.4-1.9)
[2024-12-08 20:05] LABS: Procalcitonin 0.43 ng/mL (0.00-0.09)
[2024-12-08 22:59] LABS: Lactic Acid 2.6 mmol/L (0.4-1.9)
[2024-12-08] MEDS: 0.9% Normal Saline (1000mL) 1,000 ML 250 ML IV (23:47)
[2024-12-09] VITALS (12 sets, daily range): BP systolic 108–123; BP diastolic 58–70; PULSE 101–136; RESP 18–38; TEMP 36.9–38.3; O2SAT 89–100; BMI 29.5
[2024-12-09 02:27] LABS: Reflex Lactate? Y
[2024-12-09] MEDS: Acetaminophen 325 MG Tablet 650 MG PO (03:11)
[2024-12-09] MEDS: Ondansetron 4 MG/2 ML Vial IV ×2 (03:11→21:40)
[2024-12-09] MEDS: Levothyroxine 137 MCG Tablet PO (06:13)
--- NOTE | 2024-12-09 07:06 | PCM.PN.HOSP ---
Reason for Visit Reason for Visit: Diagnoses Nausea with vomiting, unspecified (12/08/24) Subjective Subjective Patient is a 74-year-old lady currently being treated for high-grade B-cell lymphoma involving the liver with last chemo on 12/03/2024 at the [facility] in [facility] who presented to the emergency department with intractable nausea and vomiting. Patient was also found to have pancytopenia. Admitted to regular nursing floor for further management Objective Data Objective Data Vital Signs: Vital Signs Temp Pulse Resp BP Pulse Ox O2 Del Method 100.9 F H 114 H 18 123/65 H 96 Room Air 12/09/24 03:22 12/09/24 03:22 12/09/24 03:22 12/09/24 03:22 12/09/24 03:22 12/09/24 03:28 Oxygen Delivery Method Room Air Weight: 93.7 kg Body Mass Index (BMI) 29.5 Intake & Output: Intake and Output for Last 24 Hours 12/07/24 12/08/24 12/09/24 23:59 23:59 23:59 Intake Total 3790.00 / 3790.00 1000 / 1000 Output Total 300 / 300 Balance 3790.00 / 3790.00 700 / 700 Lab / Micro Data 12/09/24 07:05 12/09/24 07:05 Labs: Laboratory Results - last 24 hr 12/08/24 12:52: WBC 0.1 L*, RBC 2.71 L, Hgb 8.5 L, Hct 24.6 L, MCV 90.8, MCH 31.4, MCHC 34.6, RDW Std Deviation 54.9 H, RDW Coeff of Angela 16.7 H, Plt Count 28 L*, MPV 12.3 H, Immature Gran % (Auto) TNP, Neut % (Auto) TNP, Lymph % (Auto) TNP, [place] % (Auto) TNP, Eos % (Auto) TNP, Baso % (Auto) TNP, Absolute Neuts (auto) TNP, Absolute Lymphs (auto) TNP, Nucleated RBC % 0, Diff Path Review March, Platelet Estimate MKD DEC, Ovalocytes 1+, PT 14.9, INR 1.2, APTT 33.2, Sodium 130 L, Potassium 3.5, Chloride 98, Carbon Dioxide 22.0, Anion Gap 10, BUN 11, Creatinine 0.80, Estim Creat Clear Calc 96.10, Est GFR (MDRD) Af Amer 123, Est GFR (MDRD) Non-Af 101, BUN/Creatinine Ratio 13.8, Glucose 158 H, Calcium 8.4 L, Phosphorus 1.5 L, Magnesium 2.1, Total Bilirubin 1.20 H, Direct Bilirubin 0.41 H, AST 18, ALT 41, Alkaline Phosphatase 67, Total Protein 6.1 L, Albumin 2.9 L, Globulin 3.2, Lipase 17 12/08/24 14:15: Urine Color Anjana, Urine Clarity Clear, Urine pH 5.0, Ur Specific Funk 1.020, Urine Protein 100 H, Urine Glucose (UA) Normal, Urine Ketones Negative, Urine Occult Blood 25 H, Urine Nitrite Positive H, Urine Bilirubin 1 H, Urine Urobilinogen 1 H, Ur Leukocyte Esterase 25 H, Urine RBC 0 SEEN, Urine WBC 0-5 SEEN, Ur Squamous Epith Cells 0-5 SEEN, Urine Bacteria RARE, Urine Mucus 2+ 12/08/24 14:30: Lactic Acid 2.0 12/08/24 19:05: Procalcitonin 0.43 H 12/08/24 19:09: Lactic Acid 2.9 H* 12/08/24 22:21: Lactic Acid 2.6 H* 12/09/24 02:53: Lactic Acid 2.0 Radiography Diagnostic Testing: Radiology Impression Abdomen/Pelvis CT 12/08/24 12:17 IMPRESSION: 1. Nonspecific fluid-filled small bowel loops are mildly thickened colon could be due to underdistention. Enterocolitis is possible. 2. Otherwise no focal acute inflammatory process. 3. Liver lesion as described above corresponding to the PET CT abnormality consistent with malignancy. Electronically Signed: Bobby Haq MD at 15:00 EST , Physical Exam Narrative GENERAL: Patient appears ill looking HEENT: Atraumatic; normocephalic EYES; Anicteric, Normal Conjunctiva NECK; supple, normal thyroid, RESPIRATORY: Diminished to auscultation CARDIOVASCULAR: Regular S1 S2, GI: soft, normoactive bowel sounds, : No Renal angle tenderness; EXTREMITIES: No edema, no clubbing, MUSCULOSKELETAL: no muscle wasting NEURO: Awake; no lateralizing signs. SKIN: No Rash PSYCH; Flat affect Assessment & Plan Assessment/Plan (1) Intractable nausea and vomiting: PLAN: Plan Patient is a 74-year-old lady currently being treated for high-grade B-cell lymphoma involving the liver with last chemo on 12/03/2024 at the [facility] in [facility] who presented to the emergency department with intractable nausea and vomiting. Patient was also found to have pancytopenia. Admitted to regular nursing floor for further management 1. Intractable nausea vomiting ? CT of the abdomen and pelvis unremarkable. Patient admitted to regular nursing floor for symptom management 2. Chemo induced pancytopenia ? Patient placed on neutropenic precautions with daily CBC with differential ordered. Patient has significant leukopenia subsequently ordered Granix for 80 mcg x 1 3. Anemia Secondary to chemo induced anemia monitoring CBC with plans to transfuse if hemoglobin falls below 7 4. Thrombocytopenia ? Patient has chronic thrombocytopenia secondary to his chemo plan is to transfuse if platelet count falls below 10K 5. Hyponatremia ? Secondary to hypovolemic hyponatremia on IV fluid with subsequent monitoring of electrolyte 6. COPD ? Not in exacerbation bronchodilator treatment as needed 7. Hypertension ? Blood pressure controlled, home medications continued with dose adjustment as needed 8. Hypothyroidism ? Patient is on levothyroxine home dose continued 9. Dyslipidemia ?Patient is on statin therapy, continued at home dose 10. Coronary artery disease ? With previous PCI patient is on guideline directed medical therapy 11. Class I obesity with BMI of 33 ? Complicating care weight loss advised 12. GERD ? On PPI 13. DVT prophylaxis ? Chemoprophylaxis contraindicated in view of patient thrombocytopenia Time spent in the patient's overall evaluation,decision-making process, review of diagnostic data, adjustment of management, discussion with other providers, nursing nursing and ancillary staff involved in patient's care documentation, 52 Minutes Charges/Coding Visit Charges Inpatient E&M: 10746 [facility] L3
[2024-12-09] MEDS: Budesonide Respules 0.5 MG/2 ML AMPUL.NEB. INHALATION ×2 (07:12→20:14)
[2024-12-09 07:29] LABS: Hematocrit 20.6 % (40-54); Hemoglobin 7.1 g/dL (13.0-16.5); Mean Corp Hgb Conc 34.5 g/dL (32-36); Mean Corpuscular Hgb 31.1 pg (27.0-32.0); Mean Corpuscular Volume 90.4 fL (80-94); Mean Platelet Vol. 12.5 fl (6.2-12.0); POSITIVE COUNT YES; POSITIVE DIFFERENTIAL YES; POSITIVE MORPHOLOGY YES; RBC Distribution Width CV 17.1 % (11.6-14.6); RBC Distribution Width SD 55.2 fl (35.1-43.9); Red Blood Count 2.28 M/mm3 (4.6-6.2)
[2024-12-09 07:35] LABS: Platelet Count 17 K/mm3 (150-450); White Blood Count 0.1 K/mm3 (4.4-11.0)
[2024-12-09 07:45] LABS: ALB/GLOB Ratio 0.8 RATIO (0.9-2.4); AST(SGOT) 19 U/L (15-37); Alanine Aminotransfer ALT/SGPT 33 U/L (16-61); Albumin, Serum 2.5 g/dL (3.2-5.0); Alkaline Phosphatase 52 U/L (45-117); Anion Gap 9 (5-15); BUN 10 mg/dL (7-18); BUN/Creat Ratio 12.3 RATIO (10-20); Calcium,Total 7.9 mg/dL (8.5-10.1); Chloride 103 mmol/L (98-107); Creatinine, Serum 0.81 mg/dL (0.70-1.30); EST Glomerular Filtration Rate 99 mL/min (>60); Est Glom Filt Rate - Afr Amer 120 mL/min (>60); Estimated Creatinine Clearance 94.77 ml/min; Globulin 3.1 g/dL (2.2-4.2); Glucose 141 mg/dL (74-106); Potassium 3.2 mmol/L (3.5-5.1); Protein, Total 5.6 g/dL (6.4-8.2); Sodium Level 132 mmol/L (136-145)
[2024-12-09 08:12] LABS: Ovalocyte 1+; Platelet Estimate MKD DEC (ADEQ); Tear Drop Cell 1+
[2024-12-09] MEDS: 0.9% Normal Saline (100mL Bag) 100 ML 15 ML IV (08:23)
[2024-12-09] MEDS: Pantoprazole Sodium 40 MG in 0.9% Normal Saline (100mL MB+) 100 ML 330 MG IV ×2 (08:23→20:44)
[2024-12-09] MEDS: Acyclovir 200 MG Capsule 400 MG PO ×2 (08:24→20:44)
[2024-12-09] MEDS: Smz/Tmp Ds Tablet 1 TABLET PO (08:24)
[2024-12-09] MEDS: Loratadine 10 MG Tablet PO (08:32)
[2024-12-09 09:01] LABS: Hemoglobin A1c 6.4 % (3.8-5.6)
[2024-12-09] MEDS: TBO-FILGRASTIM 480 MCG/0.8 ML ML SC (11:24)
[2024-12-09] MEDS: Acetaminophen 500 MG Tablet 1000 MG PO ×2 (14:08→20:45)
[2024-12-09] MEDS: oxyCODONE 5 MG Tablet 10 MG PO (14:08)
[2024-12-09] MEDS: Atorvastatin Calcium 80 MG Tablet PO (20:43)
[2024-12-09] MEDS: HYDROmorphone 0.5 MG/0.5 ML SYRINGE IV (21:31)
[2024-12-09] MEDS: Metoprolol(XL)Succ 50 MG Tablet PO (21:36)
[2024-12-09 22:38] LABS: Base Excess -6 mmol/L (-2 to +2); Bicarbonate 17.7 mmol/L (22-26); Blood Gas Specimen Type ART; Mode Not entered; O2 Delivery Device Cannula; PO2 40 mmHG (75-100); SITE L Brach; SO2 80 % (95-99); Total Carbon Dioxide 18 mmol/L; pCO2 24.7 mmHg (35-45); pH 7.46 (7.35-7.45)
[2024-12-09 22:38] LABS: Absolute Lymphocyte Count 0.02 X10^3/uL (0.83-4.51); Hematocrit 21.8 % (40-54); Hemoglobin 7.5 g/dL (13.0-16.5); Lymphocyte # 0.02 X10^3/ul (0.83-4.51); Lymphocyte % 33.3 % (19-41); Mean Corp Hgb Conc 34.4 g/dL (32-36); Mean Corpuscular Hgb 31.4 pg (27.0-32.0); Mean Corpuscular Volume 91.2 fL (80-94); Monocyte# 0.02 X10^3/uL; Monocyte% 33.3 % (0-10); NRBC Flagged by Analyzer 0 % (0-5); Neutrophil # 0.02 X10^3/uL (2.7-7.7); Neutrophil % 33.4 % (47-70); POSITIVE COUNT YES; POSITIVE DIFFERENTIAL YES; POSITIVE MORPHOLOGY YES; Platelet Count 9 K/mm3 (150-450); RBC Distribution Width CV 17.1 % (11.6-14.6); RBC Distribution Width SD 56.4 fl (35.1-43.9); Red Blood Count 2.39 M/mm3 (4.6-6.2); White Blood Count 0.1 K/mm3 (4.4-11.0)
[2024-12-09 22:44] LABS: Differential Indicated SCAN CRITERIA MET
--- NOTE | 2024-12-09 22:47 | RAD_ITS ---
INDICATION: hypoxia EXAMINATION/TECHNIQUE: X-RAY - XR Chest 1 View COMPARISON: 08/19/2021. FINDINGS: LINES/DEVICES: Right chest port with catheter tip at the superior vena cava/right atrial junction. LUNGS: No consolidation or evidence of an effusion. No evidence of edema or a pneumothorax. MEDIASTINUM AND CARDIOVASCULAR STRUCTURES: Cardiac silhouette is normal in size and contour. Mediastinum is unremarkable. BONES AND SOFT TISSUES: No acute abnormality. RAD/Chest 1 View (Portable) IMPRESSION: No evidence of acute cardiopulmonary disease. Electronically Signed: Gucci Abdalla DO at 0:11 EST ,
[2024-12-09 23:08] LABS: Albumin, Serum 2.5 g/dL (3.2-5.0); BUN 12 mg/dL (7-18); BUN/Creat Ratio 10.9 RATIO (10-20); Calcium,Total 7.9 mg/dL (8.5-10.1); Chloride 102 mmol/L (98-107); EST Glomerular Filtration Rate 70 mL/min (>60); Est Glom Filt Rate - Afr Amer 84 mL/min (>60); Estimated Creatinine Clearance 69.79 ml/min; Glucose 146 mg/dL (74-106); Sodium Level 133 mmol/L (136-145)
[2024-12-09 23:24] LABS: Differential Comment SCANNED
[2024-12-09] MEDS: 0.9% Normal Saline (1000mL) 1,000 ML 500 ML IV (23:34)
[2024-12-09] MEDS: Potassium Phosphate 40 MM in 0.9% Normal Saline (500mL Bag) 500 ML 62.5 MM IV (23:43)
[2024-12-10] VITALS (19 sets, daily range): BP systolic 69–104; BP diastolic 46–74; PULSE 104–135; RESP 14–39; TEMP 35.8–37.8; O2SAT 93–99; BMI 30.4
--- NOTE | 2024-12-10 00:29 | PCM.HOSP.N ---
Hospitalist Note Notified by nursing staff earlier this evening that patient appeared more fatigued and respiration rate increased to about 40/min. Saw patient at bedside. Patient opened eyes on command but was very fatigued and was not answering questions for me. Stat chest x-ray, ABG and labs were ordered. Chest x-ray was unremarkable. ABG showed pH 7.46, pCO2 24, pO2 40 on 4 L nasal cannula. CBC showed stable hemoglobin at 7.5, platelets slightly decreased from 17 to 9. Renal profile showed potassium 3.0, bicarb 20, phosphorus 1.0. IV potassium phosphate 40 ordered. Otherwise no other changes to management for now, will continue to monitor closely.
[2024-12-10 00:45] LABS: Base Excess -5 mmol/L (-2 to +2); Bicarbonate 18.7 mmol/L (22-26); Blood Gas Specimen Type ART; Mode Not entered; O2 Delivery Device Venti Mask; PO2 81 mmHG (75-100); SITE L Brach; SO2 97 % (95-99); Total Carbon Dioxide 20 mmol/L; pCO2 26.2 mmHg (35-45); pH 7.46 (7.35-7.45)
[2024-12-10] MEDS: Cefepime HCl 2 GM in 0.9% Normal Saline (100mL MB+) 100 ML IV ×2 (02:10→06:32)
[2024-12-10] MEDS: 0.9% Saline Lock 10 ML Syringe IV ×3 (02:10→06:00)
[2024-12-10] MEDS: 0.9% Normal Saline (1000mL) 1,000 ML 999 ML IV ×2 (02:10→03:05)
--- NOTE | 2024-12-10 03:10 | NURSING ---
nursing supv aware pt needs bed in unit for low bp, pt responsive and talking to staff, denies any symptoms
--- NOTE | 2024-12-10 03:37 | NURSING ---
Patient Gogo called- updated on patient condition and that patient will be transferred to ICU, no questions voiced at this time
[2024-12-10] MEDS: Norepinephrine 8 MG in 0.9% Normal Saline (250mL Bag) 242 ML 9.4 MG CONT INF (03:50)
[2024-12-10] MEDS: Vancomycin HCl 2,000 MG in 0.9% Normal Saline (500mL Bag) 500 ML 250 MG IV (03:54)
--- NOTE | 2024-12-10 04:05 | NURSING ---
dr hartley and resp called about increase work of breathing and rhonchi- orders obtained
--- NOTE | 2024-12-10 04:17 | PCM.RX.CS ---
Consult Antibiotic Management Pharmacy has been consulted to manage selected antibiotic: Vancomycin Type of Intervention Type of Consult: New start Labs Labs: Sodium 133 mmol/L (136-145) L 12/09/24 22:29 Potassium 3.0 mmol/L (3.5-5.1) L 12/09/24 22:29 Chloride 102 mmol/L (98-107) 12/09/24 22:29 Carbon Dioxide 20.0 mmol/L (21.0-32.0) L 12/09/24 22:29 Anion Gap 9 (5-15) 12/09/24 07:05 BUN 12 mg/dL (7-18) 12/09/24 22:29 Creatinine 1.10 mg/dL (0.70-1.30) 12/09/24 22:29 Est GFR (MDRD) Af Amer 84 mL/min (>60) 12/09/24 22:29 Est GFR (MDRD) Non-Af 70 mL/min (>60) 12/09/24 22:29 BUN/Creatinine Ratio 10.9 RATIO (10-20) 12/09/24 22:29 Glucose 146 mg/dL (74-106) H 12/09/24 22:29 Microbiology Microbiology: Microbiology 12/10/24 01:55 Mucosa - Nasopharyngeal SARS-CoV-2, Influenza & RSV (PCR) - Final 12/08/24 14:15 Urine, Clean Catch Urine Culture - Preliminary Presumptive E. coli Dosing Weight Weight used for dosin.7 kg Estimated Creatinine Clearance Estimated Creatinine Clearance: 69.79 Goal Trough Goal Trough: 15-20 mcg/mL Pharmacy Plan for Drug Dosing Pharmacy Plan for Drug Dosing: Pharmacy Service will continue to monitor and adjust dosing as required. 2000MG LOADING DOSE GIVEN 12/10 @ 0354. START 1GM Q12H AND DRAW TROUGH PRIOR TO 4TH DOSE Follow-Up Labs Follow-Up Labs: Trough: Vancomycin Date/Time Labs Ordered Labs to be done on [date and time ordered]: 12/11 @ 8575
[2024-12-10] MEDS: Furosemide 40 MG/4 ML Vial IV (04:41)
--- NOTE | 2024-12-10 05:22 | NURSING ---
dr hartley at bedside talking to pt about possible intubation, pt is lethargic but did respond that he would be ok with it but talk with his first, dr hartley is going to call the again.
[2024-12-10 05:39] LABS: Bedside Glucose 89 mg/dL (74-106)
[2024-12-10] MEDS: HYDROmorphone 0.5 MG/0.5 ML SYRINGE IV (06:00)
[2024-12-10] MEDS: Vasopressin 20 UNITS in 0.9% Normal Saline (50mL Bag) 24 ML 3 UNITS CONT INF (06:55)
--- NOTE | 2024-12-10 08:31 | EX.PCM.CONCC ---
Assessment & Plan Assessment/Plan (1) High grade B-cell lymphoma: PLAN: Plan The patient was transferred to the medical intensive care unit this morning in the setting of fluid refractory hypotension and respiratory failure requiring BiPAP support. He was initially admitted with intractable nausea and vomiting and has evidence of chemotherapy-induced pancytopenia, which has worsened over the course of this hospitalization. His medical history is also significant for high-grade B-cell lymphoma with his last chemotherapy having been administered on December 03. It is certainly plausible that the patient may be experiencing a cytokine release syndrome. Nevertheless, given the patient's acute decompensation and significant comorbidities, the patient's family, who is present at the bedside have all come to an agreement to transition the patient to comfort care measures. Therefore, CODE STATUS has been updated to DNR CC. If the patient does not continue to worsen clinically over the course of the morning, referral to life care hospice will be placed. CODE status: Discussed CODE status at length including difference between FULL code, DNR-CCA and DNR-CC status. Following discussions about the differences in these status, patient's family requested DNR CC CODE STATUS. Advanced Care Planning Face to Face Time: 20 minutes. HPI Consult Data Date of Consult: 12/10/24 HPI Narrative Reason for Consultation: ICU management HPI Narrative: The patient is a 74-year-old male, with a history as outlined below, who presented to the emergency department on December 08 with nausea, vomiting and abdominal pain. The patient has a known history of high-grade B-cell lymphoma on chemotherapy along with a history of prior laryngeal cancer, hypothyroidism, obstructive sleep apnea and chronic anemia/thrombocytopenia. The patient was initially admitted to the hospital with intractable nausea and emesis with concern for possible gastroenteritis with no acute finding noted on CT imaging. It was noted that the patient had recently received chemotherapy on December 03. Supportive care was initiated and supplemental IV fluids were administered. This morning, the patient appeared more fatigued with increasing tachypnea and tachycardia. In addition, the patient became hypotensive with worsening pancytopenia. He was subsequently transferred to the medical intensive care unit, where he was ultimately placed on BiPAP therapy along with Levophed and vasopressin, in an attempt to maintain hemodynamic stability. The patient had also been initiated on antimicrobial therapy. The patient's entire family had presented to the bedside by that time of my evaluation. They expressed to me an understanding of his current clinical state. They also reported that they were interested, after discussing with the patient, to transition him to comfort care measures, with plans to remove the BiPAP and discontinue the vasopressor support. Therefore, CODE STATUS was updated to DNR comfort care. I explained to the patient's family that if he did not acutely decompensate, that a consultation/referral would be placed to life care hospice. 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 Squamous cell carcinoma Deviated nasal septum Vocal cord mass Abnormal electrocardiogram Hoarseness of voice Emphysema of lung Lung nodule Hyperlipidemia Cervical disc disease GERD (gastroesophageal reflux disease) Osteoarthritis Tobacco abuse disorder Home Medications ?Medication ?Instructions ?Recorded ?Last Taken ?Type pantoprazole 40 mg tablet,delayed 40 mg PO DAILY reflux 08/21/20 10/27/24 History release levothyroxine 137 mcg tablet 137 mcg PO DAILY thyroid 08/19/22 10/27/24 History clopidogrel 75 mg tablet 75 mg PO DAILY #90 tabs 08/24/23 10/27/24 Rx spironolactone 25 mg tablet 25 mg PO DAILY #90 tabs 08/24/23 10/27/24 Rx rosuvastatin 40 mg tablet 40 mg PO QHS md ordered 02/21/24 10/27/24 History albuterol sulfate 90 mcg/actuation 2 puff inhalation Q6H PRN 03/21/24 Unknown History aerosol inhaler shortness of breath or wheezing aspirin 81 mg chewable tablet 81 mg PO DAILY md ordered 05/01/24 10/27/24 History isosorbide mononitrate 60 mg 60 mg PO DAILY #90 TABLETS 10/01/24 10/27/24 Rx tablet,extended release 24 hr losartan 25 mg tablet 25 mg PO DAILY #90 TABLETS 10/01/24 10/27/24 Rx acetaminophen 500 mg tablet 1,000 mg PO Q8H PRN pain/ fever 10/28/24 10/27/24 History baclofen 5 mg tablet 5 mg PO Q6H PRN hiccoughs 10/28/24 Unknown History cyclophosphamide IV TUTH chemo 10/28/24 10/22/24 History famotidine 20 mg tablet 20 mg PO BID md ordered 10/28/24 10/27/24 History loratadine 10 mg tablet 10 mg PO DAILY md ordered 10/28/24 10/27/24 History ondansetron HCl 8 mg tablet 8 mg PO Q8H PRN nausea and vomiting 10/28/24 Unknown History prednisone 20 mg tablet See Rx Instructions PO .COMPLEX md 10/28/24 10/20/24 History ordered, chemo prochlorperazine maleate 10 mg 10 mg PO Q6H PRN nausea 10/28/24 Unknown History tablet sulfamethoxazole 800 1 tab PO DAILY md ordered 10/28/24 10/27/24 History mg-trimethoprim 160 mg tablet valacyclovir 500 mg tablet 500 mg PO DAILY md ordered 10/28/24 10/27/24 History sodium di- and 1 tab PO BID #60 tabs 10/29/24 Unknown Rx monophosphate-potassium phos monobasic 250 mg tablet (Phospha Neutral) metoprolol succinate 50 mg 50 mg PO DAILY BP #90 tabs 11/19/24 Unknown Rx tablet,extended release 24 hr Allergy/AdvReac Type Severity Reaction Status Date / Time No Known Allergies Allergy Verified 12/08/24 13:07 Family History Father Stomach cancer Dementia Mother Breast cancer Arthritis Sister Heart disease Surgical History Status post total replacement of right shoulder History of back surgery Cataract (lens) fragments in eye following cataract surgery, bilateral History of coronary artery stent placement (11/26/20) History of left heart catheterization (01/04/22) vocal cord biopsy (08/29/20) History of nasal septoplasty (08/29/20) History of bunionectomy History of tonsillectomy Social History household members: spouse Smoking Status: Former smoker quit date: 01/26/19 pack-years: 45 alcohol intake: current alcohol intake frequency: a few times a month Alcohol type: beer substance use type: does not use ROS Review of Systems ROS Unobtainable: due to mental status Physical Exam Const Constitutional Narrative: Chronically ill-appearing with BiPAP mask in place. Multiple family members present at the bedside. General Appearance: in distress, lethargic and ill appearing HEENT normocephalic and head/scalp atraumatic Eyes EOMs intact bilaterally and conjunctivae normal Neck supple General: trachea midline Chest inspection of chest normal Resp Effort and Inspection: tachypneic Auscultation: diminished lung sounds Cardio S1 normal heart sound and S2 normal heart sound Rate: tachycardic GI soft to palpation and non-tender Extremity no clubbing, cyanosis or edema Skin no rashes or lesions noted Neuro moves all extremities and no focal motor deficits Psych Mood & Affect: flat affect Medical Records Data Medical Nutrition Assessment Dietitian: Malnutrition Criteria Met Start: 12/09/24 12:18 Freq: Status: Active Protocol: Document 12/09/24 13:58 SB (Rec: 12/09/24 14:01 SB [id number]) Nutrition Malnutrition Evidence of Malnutrition Exists Yes Malnutrition (severe): Acute Illness/Injury Evidenced By Suboptimal Energy Intake ( Severe),Weight Loss (Severe) Clinical Problem Acute Disease or Injury Related Malnutrition Etiology severe related to inadequate oral intake, increased energy expenditure, liver cancer, and difficulty swallowing Signs/Symptoms as evidenced by PO meeting <50 % of estimated nutrition needs x 1 week and 14% unintentional weight loss x 2 months. Status Active Problem Recommendation Dietitian Recommendations/Changes Recommend advanced diet as tolerated to liberal regular diet d/t signs and symptoms of malnutrition, per RUBBER GOODS CUTTER FINISHER consistency/texture recommendations. As diet is advanced, order 240ml chocolate carnation instant breakfast BID with breakfast and dinner, chocolate fortified pudding TID with meals, and 1 scoop of beneprotein TID with meals. Will adjust nutrition supplements as needed. Will monitor weight as available. Reviewed and approved by Esthela Fry MS, RDN, LD. Lab / Micro Data 12/09/24 22:29 12/09/24 22:29 Labs: Laboratory Results - last 24 hr 12/09/24 07:05: Hemoglobin A1c 6.4 H 12/09/24 22:29: WBC 0.1 L*, RBC 2.39 L, Hgb 7.5 L, Hct 21.8 L, MCV 91.2, MCH 31.4, MCHC 34.4, RDW Std Deviation 56.4 H, RDW Coeff of Angela 17.1 H, Plt Count 9 L*, Immature Gran % (Auto) 0.000, Neut % (Auto) 33.4 L, Lymph % (Auto) 33.3, Keith % (Auto) 33.3 H, Eos % (Auto) 0.0, Baso % (Auto) 0.0, Absolute Neuts (auto) 0.0 L, Absolute Lymphs (auto) 0.02 L, Nucleated RBC % 0, Differential Comment SCANNED, Diff Path Review March, Sodium 133 L, Potassium 3.0 L, Chloride 102, Carbon Dioxide 20.0 L, BUN 12, Creatinine 1.10, Estim Creat Clear Calc 69.79, Est GFR (MDRD) Af Amer 84, Est GFR (MDRD) Non-Af 70, BUN/Creatinine Ratio 10.9, Glucose 146 H, Calcium 7.9 L, Phosphorus 1.0 L*, Albumin 2.5 L 12/10/24 05:15: Blood Type B POSITIVE 12/10/24 05:18: POC Glucose 89 Micro: Microbiology 12/10/24 01:55 Mucosa - Nasopharyngeal SARS-CoV-2, Influenza & RSV (PCR) - Final 12/08/24 14:15 Urine, Clean Catch Urine Culture - Preliminary Presumptive E. coli ABG Data ABG results: ABG 12/09/24 12/10/24 22:32 00:42 Specimen Type ART ART Sample Site L Brach L Brach pH 7.46 H 7.46 H Bicarbonate Actual 17.7 L 18.7 L Total CO2 18 20 Base Excess -6 L -5 L O2 Saturation 80 L 97 O2 % 4.0 40.0 ABG pCO2 24.7 L 26.2 L ABG pO2 40 L 81 Jimenez Test N/A N/A O2 Delivery Device Cannula Venti Mask Vent Mode Not entered Not entered Imaging Radiology Impression Chest X-Ray 12/09/24 22:47 IMPRESSION: No evidence of acute cardiopulmonary disease. Electronically Signed: Gucci Abdalla DO at 0:11 EST , Charges/Coding Visit Charges Inpatient E&M: 02003 Init Hosp L2 Procedures Hospitalists Procedures: 89876 Advncd Care Plan 30 Min
--- NOTE | 2024-12-10 08:49 | PCM.PN.HOSP ---
Reason for Visit Reason for Visit: Diagnoses Nausea with vomiting, unspecified (12/08/24) Objective Data Objective Data Vital Signs: Vital Signs Temp Pulse Resp BP Pulse Ox O2 Del Method O2 Flow Rate 100.1 F H 123 H 32 H 101/64 97 Bi-pap 60 12/10/24 06:00 12/10/24 08:00 12/10/24 08:00 12/10/24 08:00 12/10/24 08:00 12/10/24 08:00 12/10/24 08:00 FiO2 60 12/10/24 05:56 Oxygen Flow Rate (L/min) 60 Oxygen Delivery Method Bi-pap Weight: 212 lb 8.41 oz Body Mass Index (BMI) 30.4 Intake & Output: Intake and Output for Last 24 Hours 12/08/24 12/09/24 12/10/24 23:59 23:59 23:59 Intake Total 3790.00 / 3790.00 1820 / 1820 4445.1733 / 4445.1733 Output Total 620 / 620 1050 / 1050 Balance 3790.00 / 3790.00 1200 / 1200 3395.1733 / 3395.1733 Medical Nutrition Assessment Dietitian: Malnutrition Criteria Met Start: 12/09/24 12:18 Freq: Status: Active Protocol: Document 12/09/24 13:58 SB (Rec: 12/09/24 14:01 SB [id number]) Nutrition Malnutrition Evidence of Malnutrition Exists Yes Malnutrition (severe): Acute Illness/Injury Evidenced By Suboptimal Energy Intake ( Severe),Weight Loss (Severe) Clinical Problem Acute Disease or Injury Related Malnutrition Etiology severe related to inadequate oral intake, increased energy expenditure, liver cancer, and difficulty swallowing Signs/Symptoms as evidenced by PO meeting <50 % of estimated nutrition needs x 1 week and 14% unintentional weight loss x 2 months. Status Active Problem Recommendation Dietitian Recommendations/Changes Recommend advanced diet as tolerated to liberal regular diet d/t signs and symptoms of malnutrition, per CASE INVESTIGATOR consistency/texture recommendations. As diet is advanced, order 240ml chocolate carnation instant breakfast BID with breakfast and dinner, chocolate fortified pudding TID with meals, and 1 scoop of beneprotein TID with meals. Will adjust nutrition supplements as needed. Will monitor weight as available. Reviewed and approved by Esthela Fry, MS, RDN, LD. Lab / Micro Data 12/09/24 22:29 12/09/24 22:29 Labs: Laboratory Results - last 24 hr 12/09/24 07:05: Hemoglobin A1c 6.4 H 12/09/24 22:29: WBC 0.1 L*, RBC 2.39 L, Hgb 7.5 L, Hct 21.8 L, MCV 91.2, MCH 31.4, MCHC 34.4, RDW Std Deviation 56.4 H, RDW Coeff of Angela 17.1 H, Plt Count 9 L*, Immature Gran % (Auto) 0.000, Neut % (Auto) 33.4 L, Lymph % (Auto) 33.3, [place] % (Auto) 33.3 H, Eos % (Auto) 0.0, Baso % (Auto) 0.0, Absolute Neuts (auto) 0.0 L, Absolute Lymphs (auto) 0.02 L, Nucleated RBC % 0, Differential Comment SCANNED, Diff Path Review March, Sodium 133 L, Potassium 3.0 L, Chloride 102, Carbon Dioxide 20.0 L, BUN 12, Creatinine 1.10, Estim Creat Clear Calc 69.79, Est GFR (MDRD) Af Amer 84, Est GFR (MDRD) Non-Af 70, BUN/Creatinine Ratio 10.9, Glucose 146 H, Calcium 7.9 L, Phosphorus 1.0 L*, Albumin 2.5 L 12/10/24 05:15: Blood Type B POSITIVE 12/10/24 05:18: POC Glucose 89 Micro: Microbiology 12/10/24 01:55 Mucosa - Nasopharyngeal SARS-CoV-2, Influenza & RSV (PCR) - Final 12/08/24 14:15 Urine, Clean Catch Urine Culture - Preliminary Presumptive E. coli ABG Data ABG results: ABG 12/09/24 12/10/24 22:32 00:42 Specimen Type ART ART Sample Site L Brach L Brach pH 7.46 H 7.46 H Bicarbonate Actual 17.7 L 18.7 L Total CO2 18 20 Base Excess -6 L -5 L O2 Saturation 80 L 97 O2 % 4.0 40.0 ABG pCO2 24.7 L 26.2 L ABG pO2 40 L 81 Jimenez Test N/A N/A O2 Delivery Device Cannula Venti Mask Vent Mode Not entered Not entered Radiography Diagnostic Testing: Radiology Impression Chest X-Ray 12/09/24 22:47 IMPRESSION: No evidence of acute cardiopulmonary disease. Electronically Signed: Gucci Abdalla, at 0:11 EST , Physical Exam Narrative Seen and examined. Overnight events noted and discussed with the previous attending and nighttime hospitalist. Patient overnight transferred to ICU with tachycardia, low BP, tachypnea and respiratory failure on BiPAP. Family members including spouse surrounding the patient. Patient evaluated by health and fitness instructor and made DNR CC, appreciated Physical exam: General: Awake, opens eyes, lethargic HEENT: Bilateral pupils small, reaction hard to find Oral: On BiPAP Neck: Supple, no neck rigidity Chest wall/Lungs: Air entry diminished in bilateral lung bases. Tachypnea hypoxia. Cardiovascular: Sinus tachycardia , muffled heart sounds. No M/G/R Abdomen: Soft, Non Tender, mild distention : Urine output 700 mL output. On external urinary primofit. no renal angle tenderness. No suprapubic tenderness. Extremities: Mild swelling edema, Capillary Refill Less than 3 Seconds Skin: No rashes, No breakdown Musculoskeletal: No Tenderness to Palpation of Joints or Extremities. ROM restricted Neurological: DTR 2+/4. Lethargic. So detailed neuroexam could not be done Psych/Mental Status: Flat affact Assessment & Plan Assessment/Plan (1) Intractable nausea and vomiting: PLAN: Plan Patient is a 74-year-old lady currently being treated for high-grade B-cell lymphoma involving the liver with last chemo on 12/03/2024 at the [facility] in [facility] who presented to the emergency department with intractable nausea and vomiting. Patient was also found to have pancytopenia. Admitted to regular nursing floor for further management 1. Acute hypoxic respiratory failure requiring BiPAP support: Patient was transferred to ICU last night with tachypnea and respiratory distress. Nurse Midwife/Clinical Instructor was consulted. After discussion with the family, with high grade B cell lymphoma and severe pancytopenia, family selected DNR CC hospice care. Hospice consult reviewed. Nurse Midwife/Clinical Instructor consult reviewed and appreciated. ABG reviewed. 2. Fluid refractory hypotension requiring Levophed: Probably due to intractable nausea vomiting which was induced by last chemotherapy in immunocompromised host. Possible differential may be cytokine release syndrome. Renal profile showed hypokalemia, bicarb 20, ABG 7.4 05/21/40 on 4 L of oxygen suggestive of hypokalemia, respiratory alkalosis and metabolic acidosis. Severe hypophosphatemia. IV potassium phosphate was ordered. Levophed was started through chemo. ? CT of the abdomen and pelvis unremarkable. Patient admitted to regular nursing floor for symptom management Family elected hospice care. Family members visiting the patient. 2. Chemo induced pancytopenia ? Patient placed on neutropenic precautions with daily CBC with differential ordered. Patient has significant leukopenia subsequently ordered Granix for 80 mcg x 1 3. Anemia Secondary to chemo induced anemia monitoring CBC with plans to transfuse if hemoglobin falls below 7 4. Thrombocytopenia ? Patient has chronic thrombocytopenia secondary to his chemo plan is to transfuse if platelet count falls below 10K 5. Hyponatremia ? Secondary to hypovolemic hyponatremia on IV fluid with subsequent monitoring of electrolyte 6. COPD ? Not in exacerbation bronchodilator treatment as needed 7. Hypertension: Currently hypotension as mentioned above 8. Hypothyroidism ? Patient is on levothyroxine home dose continued 9. Dyslipidemia ?Patient is on statin therapy, continued at home dose 10. Coronary artery disease ? With previous PCI patient is on guideline directed medical therapy 11. Class I obesity with BMI of 33 ? Complicating care weight loss advised 12. GERD ? On PPI 13. DVT prophylaxis ? Chemoprophylaxis contraindicated in view of patient thrombocytopenia Total time of the visit including total time spent in counseling or coordination of care, (more than 50% of the total time, spent in obtaining medical information from nurses and other ancillary care providers ,explaining to the patient about labs, imaging, diagnosis and management of active complex medical conditions), , review of labs and imaging is 35 minutes. Charges/Coding Visit Charges Inpatient E&M: 47841 Subs Hosp L3
[2024-12-10] MEDS: Morphine 2 MG/ML Syringe IV ×2 (09:23→13:53)
[2024-12-10] MEDS: LORazepam 2 MG/ML Syringe IV ×2 (09:23→13:53)
--- NOTE | 2024-12-10 11:07 | CASEMGMT ---
Addendum entered by Lula Strauss 12/10/24 13:56: Raw Hide Trimmer received notice from Nichole at hospice that consult will occur at 13:30 with pt family. RNCM and bedside nurse notified of time. Physician notified of time. SW remains available to follow. DAHIANA Curran Original Note: Social Work- SW received notice from ICU bedside nurse that family wishes to have hospice consult placed. SW securely texted physician for order approval. SW placed referral. SW to follow up with time when hospice has reviewed referral. DAHIANA Curran
[2024-12-10 13:34] LABS: Pathologist Review Reviewed
[2024-12-10 13:35] LABS: Pathologist Review Reviewed
[2024-12-10 13:40] LABS: Pathologist Review Reviewed
--- NOTE | 2024-12-10 14:47 | CHAPLAIN ---
Type of Pastoral Visit _x__ Initial Visit ___ Follow-up Visit ___ On-call Visit ___ General Patient Visit ___ Spiritual Assessment _x__ Family Conference ___ Bereavement ___ Rapid Response ___ Code Blue ___ Other (describe below) Pastoral Care Referral From ___ Patient _x__ Family _x__ Nurse ___ Physician ___ Trademark Attorney ___ Design Architect ___ Other (describe below) Sacrament/Intervention _x__ Active listening ___ Anointing ___ Methodist ___ Bereavement ___ Communion ___ Theodora exploration ___ ___ Life review _x__ Prayer ___ Reconciliation ___ Sacrament of Sick _x__ Supportive presence ___ Wedding ___ Other (describe below) Pastoral Comments RN notified this repairer maintenance building that patient is unresponsive and that family is seeking hospice consult; RN asked family for permission to send in this repairer maintenance building and they were agreeable; found several family members including , son, and sisters in the room; later also gave support and conversation to other family members in the waiting room; patient was raised in the Jewish theodora and has not practiced that christian as an adult and has no current theodora community; family members state that they are unsure what the patient would want at this time but that they would appreciate a prayer being spoken for him; prayer is given; gave time for family members to express how they are coping and how they might be helped in this difficult time as patient is expected to pass away;
--- NOTE | 2024-12-10 16:05 | NURSING ---
Patient at 15:25 family at bedside. Hospice notified at 15:27.
--- NOTE | 2024-12-10 16:13 | CHAPLAIN ---
Type of Pastoral Visit ___ Initial Visit ___ Follow-up Visit ___ On-call Visit ___ General Patient Visit ___ Spiritual Assessment ___ Family Conference ___ Bereavement ___ Rapid Response ___ Code Blue ___ Other (describe below) Pastoral Care Referral From ___ Patient ___ Family ___ Nurse ___ Physician ___ Kiln Cleaner ___ Electrocardiograph Repairer ___ Other (describe below) Sacrament/Intervention ___ Active listening ___ Anointing ___ Taoist _x__ Bereavement ___ Communion ___ Theodora exploration ___ ___ Life review ___ Prayer ___ Reconciliation ___ Sacrament of Sick ___ Supportive presence ___ Wedding ___ Other (describe below) Pastoral Comments patient had passed near end of 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
--- NOTE | 2024-12-10 16:51 | EXP.PCM_ITS ---
Preliminary Cause of Preliminary Cause of Preliminary Cause of : Acute hypoxic respiratory failure requiring BiPAP. [facility] hospice care. Fluid restricting hypotension, shock. Immunocompromised host. [facility] Date of Admission: 12/08/24 Date of : 12/10/24 Principle Diagnosis Problem List: Active and Suspected Problems (Updated 12/08/24 @ 15:[address] Camille Bridges MD) Intractable nausea and vomiting (Acute) Hospital Course Patient is a 74-year-old lady currently being treated for high-grade B-cell lymphoma involving the liver with last chemo on 12/03/2024 at the [facility] in [facility] who presented to the emergency department with intractable nausea and vomiting. Patient was also found to have pancytopenia. Admitted to regular nursing floor for further management 1. Acute hypoxic respiratory failure requiring BiPAP support: Patient was transferred to ICU last night with tachypnea and respiratory distress. Marketing Production Specialist was consulted. After discussion with the family, with high grade B cell lymphoma and severe pancytopenia, family selected [facility] hospice care. Hospice consult reviewed. Marketing Production Specialist consult reviewed and appreciated. ABG reviewed. 12/10: Patient is [facility]. Hospice consult requested. [facility] paperwork signed. Discussed with the family member. Unfortunately he / at 1525 hrs. on 12/10/2024 2. Fluid refractory hypotension, shock requiring Levophed: Probably due to intractable nausea vomiting which was induced by last chemotherapy in immunocompromised host. Possible differential may be cytokine release syndrome. Renal profile showed hypokalemia, bicarb 20, ABG 7.4 05/21/40 on 4 L of oxygen suggestive of hypokalemia, respiratory alkalosis and metabolic acidosis. Severe hypophosphatemia. IV potassium phosphate was ordered. Levophed was started through chemo. ? CT of the abdomen and pelvis unremarkable. Patient admitted to regular nursing floor for symptom management Family elected hospice care. Family members visiting the patient. 12/27: Multiple differential including hypovolemic from nausea and vomiting is immunocompromised host. Patient noted on [facility] hospice care therefore no further workup was pursued. Levophed was discontinued. 2. Chemo induced pancytopenia ? Patient placed on neutropenic precautions with daily CBC with differential ordered. Patient has significant leukopenia subsequently ordered Granix for 80 mcg x 1 3. Anemia Secondary to chemo induced anemia monitoring CBC with plans to transfuse if hemoglobin falls below 7 4. Thrombocytopenia ? Patient has chronic thrombocytopenia secondary to his chemo plan is to transfuse if platelet count falls below 10K 5. Hyponatremia ? Secondary to hypovolemic hyponatremia on IV fluid with subsequent monitoring of electrolyte 6. COPD ? Not in exacerbation bronchodilator treatment as needed 7. Hypertension: Currently hypotension as mentioned above 8. Hypothyroidism ? Patient is on levothyroxine home dose continued 9. Dyslipidemia ?Patient is on statin therapy, continued at home dose 10. Coronary artery disease ? With previous PCI patient is on guideline directed medical therapy 11. Class I obesity with BMI of 33 ? Complicating care weight loss advised 12. GERD ? On PPI 13. DVT prophylaxis ? Chemoprophylaxis contraindicated in view of patient thrombocytopenia Visit Charges Inpatient E&M: 23927 Disch Hosp >30min
== END 2024-12-10 17:00 | DRG 808 ==
LOC: ED 15:46 → MS3 16:31 → ICU 12-10 03:39
PROVIDERS: Hospitalist; Internal Medicine; Admitting Provider Family Medicine; Emergency Provider Emergency Medicine; PCP Family Medicine Geriatric Medicine; Visit Provider Internal Medicine
DX: D61.810 Antineoplastic chemotherapy induced pancytopenia (principal); J96.01 Acute respiratory failure with hypoxia; E43 Unspecified severe protein-calorie malnutrition; C83.79 Burkitt lymphoma, extranodal and solid organ sites; E87.1 Hypo-osmolality and hyponatremia; R57.8 Other shock; D89.839 Cytokine release syndrome, grade unspecified; E83.39 Other disorders of phosphorus metabolism; Z66 Do not resuscitate; K74.60 Unspecified cirrhosis of liver; J44.9 Chronic obstructive pulmonary disease, unspecified; D63.0 Anemia in neoplastic disease; E03.9 Hypothyroidism, unspecified; I12.9 Hypertensive chronic kidney disease with stage 1 through stage 4 chronic kidney disease, or unspecified chronic kidney disease; E66.811 Obesity, class 1; G47.33 Obstructive sleep apnea (adult) (pediatric); I25.10 Atherosclerotic heart disease of native coronary artery without angina pectoris; E78.00 Pure hypercholesterolemia, unspecified; N18.2 Chronic kidney disease, stage 2 (mild); K21.9 Gastro-esophageal reflux disease without esophagitis; E87.6 Hypokalemia; I95.89 Other hypotension; E86.1 Hypovolemia; Z95.5 Presence of coronary angioplasty implant and graft; Z68.33 Body mass index [BMI] 33.0-33.9, adult; Z79.890 Hormone replacement therapy; Z79.899 Other long term (current) drug therapy; Z85.21 Personal history of malignant neoplasm of larynx; Z86.16 Personal history of COVID-19; Z87.891 Personal history of nicotine dependence
CPT/HCPCS: 36415; 36591; 36600; 71045; 74177; 80048; 80053; 80069; 80076; 81001; 82803; 82962; 83036; 83605; 83690; 83735; 84100; 84145; 85025; 85610; 85730; 86900; 86901; 87040; 87086; 87088; 87186; 87631; 92610; 93005; 94002; 94640; 94668; 97802; 99285; Q9967; A4216; J1447; J1940; J2405